=== PATIENT | male | born 1965 ===

== ENCOUNTER 2020-10-16 12:59 | Outpatient (REF) | payer MEDICARE, MEDICAID, SELFPAY ==
[2020-10-16 13:49] LABS: Creatinine Urine 147.22 mg/dL; Microalbum/Creatinine Ratio Ur 3.3 ug/mg cr
== END 2020-10-16 13:00 | disposition home or self-care (01) ==
LOC: HO.LNP 12:59
PROVIDERS: Visit Provider Family Medicine
DX: I10 Essential (primary) hypertension (principal)
CPT/HCPCS: 82043

== ENCOUNTER 2021-01-13 | Outpatient (REF) | payer MEDICARE, MEDICAID, SELFPAY ==
[2021-01-14 11:42] LABS: Creatinine Urine 102.56 mg/dL; Microalbumin Urine < 5.0 mg/L
== END 2021-01-13 00:01 | disposition home or self-care (01) ==
LOC: HO.LNP
PROVIDERS: Visit Provider Family Medicine
DX: I10 Essential (primary) hypertension (principal)
CPT/HCPCS: 82043

== ENCOUNTER 2021-08-21 08:12 | Outpatient (REF) | payer MEDICARE, MEDICAID, SELFPAY ==
[2021-08-21 12:01] LABS: Alanine Aminotransferase 20 U/L (0-40); Albumin Level 4.1 g/dL (3.5-5.0); Alkaline Phosphatase 76 U/L (39-117); Anion Gap 13 (12-20); Aspartate Amino Transferase 18 U/L (5-37); Bilirubin Total 1.2 mg/dL (0.0-1.0); Blood Urea Nitrogen 12 mg/dL (9-16); Calcium 9.2 mg/dL (8.4-10.2); Carbon Dioxide 26 mmol/L (22-29); Chloride 104 mmol/L (96-108); Cholesterol 189 mg/dL; Estimated Glomerular Filt Rate > 60; Glucose Fasting 98 mg/dL (60-99); HDL Cholesterol 41 mg/dL; LDL Cholesterol Calculated 130 mg/dl; Potassium 3.6 mmol/L (3.3-5.1); Sodium 139 mmol/L (135-145); Total Protein 6.6 g/dL (6.5-8.0); Triglycerides 91 mg/dL
[2021-08-21 12:12] LABS: Prostate Specific Antigen Scr 0.25 ng/mL (<0.05-4.0); TSH reflex Free T4 1.64 uIU/mL (0.32-4.0)
== END 2021-08-21 08:13 | disposition home or self-care (01) ==
LOC: HO.WFDLDS 08:12
PROVIDERS: Visit Provider Family Medicine
DX: Z00.00 Encounter for general adult medical examination without abnormal findings (principal); Z12.5 Encounter for screening for malignant neoplasm of prostate
CPT/HCPCS: 36415; 80053; 80061; 84153; 84443

== ENCOUNTER 2021-09-02 16:18 | Outpatient (REF) | payer MEDICARE, MEDICAID, SELFPAY ==
--- NOTE | ~2021-09-02 | US_ITS ---
EXAMINATION: US THYROID CLINICAL INFORMATION: Localized swelling, mass and lump, neck. COMPARISON: None. TECHNIQUE: Linear transducer grayscale and color Doppler examination with attention to the region of the thyroid. FINDINGS: SIZE: Measurements of the thyroid lobes and nodules are given in sagittal, anteroposterior and transverse dimensions respectively. Right Thyroid Lobe: 5.1 x 1.9 x 2.1 cm, volume 10.6 mL. Parenchyma: The gland echotexture is homogeneous. Thyroid vascularity is normal. Left Thyroid Lobe: 4.3 x 1.6 x 1.7 cm, volume 6.1 mL. Parenchyma: The gland echotexture is homogeneous. Thyroid vascularity is normal. Isthmus: 0.8 cm in maximum AP dimension. No focal thyroid nodule is seen. NODES: No lymphadenopathy is seen in the tissue surrounding the thyroid gland. US/US thyroid IMPRESSION: Prominent right lobe and isthmus. No nodule or adenopathy is seen..
== END 2021-09-02 16:19 | disposition home or self-care (01) ==
LOC: HO.US 16:18
PROVIDERS: PCP Family Medicine; Visit Provider Family Medicine
DX: R22.1 Localized swelling, mass and lump, neck (principal)
CPT/HCPCS: 76536

== ENCOUNTER 2021-10-02 13:44 | Outpatient (REF) | payer MEDICARE, MEDICAID, SELFPAY ==
--- NOTE | 2021-10-02 15:21 | MHC.AU.ANR ---
Adult Audiological Evaluation Date of Visit: 10/02/21 Reason for Appointment: Audiological evaluation due to concern for decreased hearing. Mr. King feels his hearing has gradually worsening. He notes that he has been asking for repetition more recently. He feels his right ear is worse than his left. 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, construction, trucks, warehouses Medical History: Medical History: Head Injury, High Blood Pressure, Tobacco Use Medical History (Other): Has had surgeries on his stomach, leg, arms, neck, and back Medication List: Lisinopril -HCTZ 20/25 mg, Gabapentin 300 mg Otoscopy: Right Ear: Partially occluded with cerumen Left Ear: Unremarkable Tympanometry: Tympanometry performed due to: To assess integrity of the middle ear system Right Ear: Reduced Middle Ear Compliance (Type As) Left Ear: Reduced Middle Ear Compliance (Type As) Hearing Evaluation: Transducer(s) Used: Insert Earphones, Bone Conduction Method: Conventional Audiometry Stimuli Used: Pure Tones Right Ear: Description of Hearing: Normal hearing from 250-2000 Hz, sloping to a mild sensorineural hearing loss from 7394-9701 Hz, rising to normal hearing at 6000 Hz, and sloping to a mild hearing loss at 8000 Hz. Left Ear: Description of Hearing: Normal hearing from 250-1500 Hz, sloping to a mild to moderate sensorineural hearing loss from 0920-5757 Hz, and rising to normal hearing at 8000 Hz. Speech Recognition Threshold (SRT): Method Used: Monitored Live Voice Stimuli Used: Spondee Words Right Ear: 15 dBHL Left Ear: 10 dBHL Word Discrimination: Method: Recorded Lists Word Lists Used: NU-6 Right Ear: 92% at 55 dBHL Left Ear: 84% at 55 dBHL Recommendations: Audiological re-evaluation in one year. Patient does not feel they are ready for amplification at this time. Hearing protection should be used when around loud noise. Mr. King is considered a borderline candidate for amplification. Discussed hearing aids briefly, but Mr. King is not interested in pursuing hearing aids at this time. Diagnosis: Primary Diagnosis: H90.3 Bilateral Sensorineural Hearing Loss Services Performed: Services Performed: Comprehensive Audiological Evaluation (CPT 38439) Tympanometry (CPT 29808) Signature: Provider: Diann Weston, CCC-A
== END 2021-10-02 13:45 | disposition home or self-care (01) ==
LOC: HO.SH 13:44
PROVIDERS: Visit Provider Family Medicine
DX: H91.90 Unspecified hearing loss, unspecified ear (principal)
CPT/HCPCS: 92557; 92567

== ENCOUNTER 2021-10-15 11:12 | Outpatient (REF) | payer MEDICARE, MEDICAID, SELFPAY ==
--- NOTE | ~2021-10-15 | US_ITS ---
EXAMINATION: US ABDOMEN LIMITED CLINICAL INFORMATION: Palpated mass. Evaluate for hernia. COMPARISON: None TECHNIQUE: Real-time imaging of the midline abdomen, periumbilical region and right and left lower quadrants in the regions of concern. FINDINGS: No hernia seen by ultrasound. No soft tissue mass or fluid collection is seen. US/US abdomen limited IMPRESSION: No hernia seen by ultrasound.
== END 2021-10-15 11:13 | disposition home or self-care (01) ==
LOC: HO.HMGCX 11:12
PROVIDERS: PCP Family Medicine; Visit Provider Family Medicine
DX: R19.00 Intra-abdominal and pelvic swelling, mass and lump, unspecified site (principal)
CPT/HCPCS: 76705

== ENCOUNTER 2021-12-09 13:14 | Outpatient (REF) | payer MEDICARE, MEDICAID, SELFPAY ==
[2021-12-09 14:29] LABS: Binax Internal Control QC Valid; Binax Now Covid-19 Ag Negative (Negative)
== END 2021-12-09 13:15 | disposition home or self-care (01) ==
LOC: HO.LAB 13:14
PROVIDERS: Visit Provider Internal Medicine
DX: Z20.822 Contact with and (suspected) exposure to COVID-19 (principal)
CPT/HCPCS: C9803

== ENCOUNTER 2022-01-06 15:00 | Outpatient (RCR) | payer MEDICARE, MEDICAID, SELFPAY ==
[2021-12-14 15:10] VITALS: BP 125/85
--- NOTE | 2021-12-14 16:45 | MHC.PT.EP ---
[facility] [place] Office [place] Office [place] Office [address] Peter Bean [address] [phone] F: [phone] F: [phone] F: [phone] F: [phone] Physical Therapy Plan of Care Date of Evaluation: Date of Surgery: Diagnosis: Pain in L foot. Assessment: Frequency and Duration: The patient will be seen 2 x / wk x 4 weeks. Short Term Goals: Improve baseline pain with standing and ambulating from 8/10 to at most 5/10. Initiate HEP. Skilled Nursing Goals: I with HEP. Pt will b able to walk 2 blocks with no difficulty d/t heel pain; initial moderate difficulty. Improve LEFI by at least 9 points. Pt no longer TTP of L heel; initial 3+ (considerable). Treatment Plan: Modalities to reduce pain, spasms and effusion. Manual therapy to restore motion and function. Therapeutic exercise to improve strength and flexibility. Neuromuscular re-education for posture and balance. Therapeutic activities to return to functional activities of daily living. Electronically signed by: Tl House PT. Please sign and return to therapist. Thank you for your referral.
--- NOTE | 2022-02-01 09:55 | MHC.PT.DC ---
[facility] [place] Office [place] Office [place] Office [address] Peter Bean [address] [phone] F: [phone] F: [phone] F: [phone] F: [phone] Physical Therapy Discharge Report Diagnosis: Pain in L foot. Date of Surgery: Date of Evaluation: 12/14/21 Date of Discharge: 02/01/22 Treatments to Date: 7 Cancellations to Date: No Shows to Date: 3 Discharge Status: Recommend MD Follow-up Visit Non-compliance Discharge Summary: Pt attended 7 sessions for L foot pain with good clinic participation and inconsistent home program compliance with minimal improvement in his pain; logged 3 no show appts and is DC'd per attendance policy. Electronically signed by: Tl House PT. Please sign and return to therapist. Thank you for your referral.
== END 2022-02-01 09:55 | disposition home or self-care (01) ==
LOC: HO.PTCHIC 15:00
PROVIDERS: Visit Provider Family Medicine
DX: M79.672 Pain in left foot (principal)
CPT/HCPCS: 97035; 97110; 97112; 97140; 97161; 97530

== ENCOUNTER 2022-01-11 07:08 | Outpatient (REF) | payer MEDICARE, MEDICAID, SELFPAY ==
--- NOTE | ~2022-01-11 | XR_ITS ---
EXAMINATION: XR FOOT, LEFT CLINICAL INFORMATION: Pain in left foot COMPARISON: None TECHNIQUE: AP, lateral, and oblique views of the left foot. FINDINGS: There is a loss of first MTP joint space with minimal periarticular spurring. Rest of the digits are unremarkable. No acute fracture or lytic process. No abnormality seen along the lateral midfoot of the hindfoot area of an arrow has been placed. The ankle mortise and subtalar joints are normal. There is a moderate-sized retrocalcaneal enthesophyte. The soft tissues are normal. XR/XR foot LT 2V IMPRESSION: Moderate size retrocalcaneal enthesophyte. No visible acute fracture or dislocation.
== END 2022-01-11 07:09 | disposition home or self-care (01) ==
LOC: HO.XRAY 07:08
PROVIDERS: PCP Family Medicine; Visit Provider Family Medicine
DX: M79.672 Pain in left foot (principal)
CPT/HCPCS: 73620

== ENCOUNTER 2022-02-22 10:17 | Outpatient (REF) | payer MEDICARE, MEDICAID, SELFPAY ==
[2022-02-22 12:04] LABS: Alanine Aminotransferase 19 U/L (0-40); Albumin Level 4.2 g/dL (3.5-5.0); Alkaline Phosphatase 76 U/L (39-117); Anion Gap 9 (12-20); Aspartate Amino Transferase 15 U/L (5-37); Bilirubin Total 0.7 mg/dL (0.0-1.0); Blood Urea Nitrogen 13 mg/dL (9-16); Calcium 9.7 mg/dL (8.4-10.2); Carbon Dioxide 32 mmol/L (22-29); Chloride 102 mmol/L (96-108); Cholesterol 220 mg/dL; Estimated Glomerular Filt Rate > 60; Glucose Fasting 92 mg/dL (60-99); HDL Cholesterol 37 mg/dL; LDL Cholesterol Calculated 160 mg/dl; Potassium 4.3 mmol/L (3.3-5.1); Sodium 139 mmol/L (135-145); Total Protein 6.8 g/dL (6.5-8.0); Triglycerides 116 mg/dL
[2022-02-22 12:23] LABS: Prostate Specific Antigen Scr 0.13 ng/mL (<0.05-4.0); TSH reflex Free T4 1.26 uIU/mL (0.32-4.0)
[2022-02-22 13:45] LABS: Appearance Urine CLEAR; Color Urine YELLOW; Glucose Urine UA NEG (NEG); Leukocyte Esterase Urine NEG (NEG); Nitrite Urine NEG (NEG); Urine Blood TRACE (NEG); Urine Ketones NEG (NEG); Urine Protein NEG (NEG-TRACE)
[2022-02-22 13:55] LABS: RBC Urine 0-2 /HPF (0); Squamous Epithelial Cell Urine TRACE /LPF
[2022-02-22 14:18] LABS: Creatinine Urine 63.25 mg/dL; Microalbumin Urine < 5.0 mg/L
== END 2022-02-22 10:18 | disposition home or self-care (01) ==
LOC: HO.WFDLDS 10:17
PROVIDERS: Visit Provider Family Medicine
DX: Z00.00 Encounter for general adult medical examination without abnormal findings (principal); Z12.5 Encounter for screening for malignant neoplasm of prostate; I10 Essential (primary) hypertension
CPT/HCPCS: 36415; 80053; 80061; 81001; 82043; 84153; 84443

== ENCOUNTER → 2022-05-19 14:22 | Outpatient (BNVA) | payer MEDICARE, MEDICAID, SELFPAY | PROVIDERS: PCP Family Medicine; Visit Provider Internal Medicine | DX: G47.33 Obstructive sleep apnea (adult) (pediatric) (principal); E66.01 Morbid (severe) obesity due to excess calories; Z99.89 Dependence on other enabling machines and devices; Z68.41 Body mass index [BMI] 40.0-44.9, adult | CPT/HCPCS: 99202 ==

== ENCOUNTER 2022-06-24 12:18 | Outpatient (REF) | payer OTHER, SELFPAY ==
[2022-06-24 13:44] LABS: MANUAL DIFF FLAG NO
[2022-06-24 13:51] LABS: Basophils Percent Auto 0.7 % (0-2); Eosinophils Absolute Auto 0.2 X10*3/uL (0.0-0.4); Eosinophils Percent Auto 3.6 % (0-4); Hematocrit 42.3 % (42.0-52.0); Imm Gran Abs Auto 0.02 X10*3/uL (0.00-0.03); Imm Gran Pct Auto 0.4 % (0.0-0.4); Lymphocytes Absolute Auto 1.9 X10*3/uL (1.2-4.9); Lymphocytes Percent Auto 42.2 % (20-40); Mean Corpuscular HGB Conc 33.1 g/dl (31.0-36.0); Mean Corpuscular Hemoglobin 30.6 pg (27.0-33.0); Mean Corpuscular Volume 92.6 fL (80.0-98.0); Mean Platelet Volume 11.8 fL (9.4-12.4); Monocytes Absolute Auto 0.5 X10*3/uL (0.1-1.2); Monocytes Percent Auto 11.5 % (2-11); Neutrophils Absolute Auto 1.9 x10*3/uL (2.0-8.3); Neutrophils Percent Auto 41.6 % (45-73); Platelet Count 160 X10*3/uL (160-400); Red Blood Count 4.57 X10*6/uL (4.60-5.80); Red Cell Distribution Width 12.5 % (11.0-16.0); White Blood Count 4.5 X10*3/uL (4.8-10.8)
[2022-06-24 14:09] LABS: Alanine Aminotransferase 26 U/L (0-40); Albumin Level 4.1 g/dL (3.5-5.0); Alkaline Phosphatase 76 U/L (39-117); Anion Gap 10 (12-20); Aspartate Amino Transferase 27 U/L (5-37); Bilirubin Total 1.1 mg/dL (0.0-1.0); Blood Urea Nitrogen 19 mg/dL (9-16); Calcium 9.3 mg/dL (8.4-10.2); Carbon Dioxide 30 mmol/L (22-29); Chloride 102 mmol/L (96-108); Estimated Glomerular Filt Rate > 60; Glucose Random 97 mg/dL (60-115); Potassium 3.7 mmol/L (3.3-5.1); Sodium 138 mmol/L (135-145); Total Protein 6.5 g/dL (6.5-8.0)
[2022-06-24 14:41] LABS: Troponin-I High Sensitivity 61.4 ng/L (<3.5-35.0)
== END 2022-06-24 12:19 | disposition home or self-care (01) ==
LOC: HO.WFDLDS 12:18
PROVIDERS: Visit Provider Family Medicine
DX: Z00.00 Encounter for general adult medical examination without abnormal findings (principal); R01.1 Cardiac murmur, unspecified; R07.9 Chest pain, unspecified; R42 Dizziness and giddiness
CPT/HCPCS: 36415; 80053; 84484; 85025

== ENCOUNTER → 2022-07-14 14:50 | Outpatient (BNVA) | payer MEDICARE, MEDICAID, SELFPAY | PROVIDERS: PCP Family Medicine; Visit Provider Internal Medicine | DX: G47.33 Obstructive sleep apnea (adult) (pediatric) (principal); E66.01 Morbid (severe) obesity due to excess calories; Z68.39 Body mass index [BMI] 39.0-39.9, adult; Z99.89 Dependence on other enabling machines and devices | CPT/HCPCS: 99212 ==

== ENCOUNTER → 2022-07-27 09:19 | Outpatient (REF) | payer MEDICARE, MEDICAID, SELFPAY | LOC: HO.SL 09:19 | PROVIDERS: PCP Family Medicine; Visit Provider Internal Medicine | DX: R94.31 Abnormal electrocardiogram [ECG] [EKG] (principal); I10 Essential (primary) hypertension; I35.8 Other nonrheumatic aortic valve disorders | CPT/HCPCS: 99202 ==

== ENCOUNTER → 2022-08-05 14:58 | Outpatient (REF) | payer MEDICARE, MEDICAID, SELFPAY ==
--- NOTE | 2022-08-05 15:01 | CA_ITS ---
Transthoracic Echocardiogram Patient (Last, First, Middle): Javier Sanders O Gender: Male Date of : 1965 Age: 56 Procedure Date: 08/05/2022 Procedure Type: Transthoracic Echocardiogram Location: OP Height: 165.1 cm Weight: 107.05 kg BSA: 2.12 m2 Heart Rate: bpm BP: 110 / 60 mmHg Assistant Director Of Nursing: TO Referring MD: Igor Mejia MD Public Health: Diego Gray MD Symptoms: I35.0 - Nonrheumatic aortic (valve) stenosis Study Quality: Technically Difficult/Contrast ECG Rhythm: Sinus Conclusions: - 1. Normal LV systolic function with mild LVH and impaired relaxation filling pattern 2. Moderately dilated left atrium 3. Mild aortic stenosis 4. Normal RV systolic pressure 5. Mildly dilated ascending aorta at 3.7 cm 6. No pericardial effusion Findings Procedure Information Contrast agent, definity, is being given per protocol without apparent complications. Left Ventricle Normal left ventricular size and systolic function. There is mildly increased left ventricular wall thickness. The visually estimated ejection fraction is between 65-70%. Spectral Doppler is indicative of an impaired relaxation filling pattern. E/E prime ratio is between 8 and 15 consistent with indeterminate filling pressures. Right Ventricle Normal right ventricular cavity size and systolic function. Atria The left atrium is moderately dilated. Interatrial shunt cannot be excluded. The right atrium is normal in size. Aortic Valve The aortic valve was not well visualized. There is mild calcification of the aortic valve. There is mild aortic valve stenosis. The peak aortic gradient is 21 mmHg.The mean gradient is 12 mmHg. There is no aortic valve regurgitation. Mitral Valve There is mild anterior and moderate posterior mitral leaflet thickening. There is severe mitral annular calcification. There is trace mitral valve regurgitation. There is no mitral valve stenosis. Pulmonic Valve The pulmonic valve was not well visualized. Tricuspid Valve Likely normal tricuspid valve structure and function. There is mild tricuspid valve regurgitation. The right ventricular systolic pressure is normal. The right ventricular systolic pressure is 26 mmHg. Normal right atrial pressure. There is no evidence of pulmonary hypertension. Great Vessels The pulmonary artery was not well visualized. There is mild dilatation of the ascending aorta. Moderate plaque is seen in the sino tubular ridge. Venous The inferior vena cava is normal in size and collapses greater than 50% with inspiration. Pericardium/Pleural There is no evidence of pericardial effusion. Prior Study Comparison No prior study available for comparison. Measurements 2D Linear Measurements IVSd: 1.24 0.6-0.9/0.6-1.0 cm LVIDd: 5.22 3.9-5.3/4.2-5.9 cm LVIDd Index: 2.46 2.4-3.2/2.2-3.1 cm/m2 LVIDs: 3.18 2.0-3.6 cm LVPWd: 1.22 0.7-1.1 cm LA Diam: 4.40 2.7-3.8/3.0-4.0 cm LAIDs Index: 2.08 1.5-2.3 cm/m2 LV Mass: 323.18 67-162/88-224 g LV Mass Index: 152.44 43-95/49-115 g/m2 LVOT Diam: 2.20 3.0+(-)1.3 cm 2D Systolic Function EF 4C: 70.60 >55% EF 2C: 60.40 >55% EF BiP: 65.80 >55% Mitral Valve MV VTI: 0.44 MV Pk Braxton: 1.22 MV Mn Braxton: 0.62 MV Pk Grad: 6.00 MV Mn Grad: 2.00 MV Pk E: 0.98 MV PK A: 1.08 MV Decel Time: 328.00 E/A: 0.90 E'Lateral: 4.79 E'Medial: 4.57 E/E' Med: 21.40 E/E' Lat: 20.40 PHT: 96.00 MVA PHT: 2.29 MVA Continuity: 2.12 Decel [place]: 2.98 Aortic Valve AoV Pk Braxton: 2.29 AoV Mn Braxton: 1.57 AoV VTI: 0.42 AoV Pk Grad: 21.00 Aov Mn Grad: 12.00 RUPESH Cont.VTI: 2.22 LVOT LVOT Pk Braxton: 1.33 LVOT Mn Braxton: 0.84 LVOT VTI: 0.24 LVOT Pk Grad: 7.00 LVOT Mn Grad: 3.00 LVOT Diam: 2.20 LVOT Area: 3.80 Diastolic Function MV Pk E: 0.98 MV Pk A: 1.08 E/A: 0.90 E'Medial: 4.57 E/E' Med: 21.40 E' Laterial: 4.79 E/E' Lat: 20.40 Right Ventricle TAPSE (mm): 25.90 TVS' Braxton: 13.20 Tricuspid Valve TR Pk Braxton: 2.40 TR Pk Grad: 23.00 RA Press: 3.00 RVSP: 26.00 Great Vessels Aorta Sinus of Valsalva: 3.47 2.0-3.[address] [place]: 2.39 1.7-3.4 cm Ao Asc: 3.70 2.1-3.4 cm Updated in Other Vendor System with Status of Final Diego Gray MD electronically signed on 08/05/2022 5:54:50 PM with status of Final
== END ==
LOC: HO.CARD 14:58
PROVIDERS: PCP Family Medicine; Visit Provider Internal Medicine
DX: I35.0 Nonrheumatic aortic (valve) stenosis (principal)
CPT/HCPCS: 93306; Q9957

== ENCOUNTER → 2022-09-08 08:09 | Outpatient (BNVA) | payer MEDICARE, MEDICAID, SELFPAY | PROVIDERS: PCP Family Medicine; Referring Provider Family Medicine; Visit Provider Physician Assistant | DX: Z01.818 Encounter for other preprocedural examination (principal); E66.01 Morbid (severe) obesity due to excess calories; Z86.010 Personal history of colon polyps; G47.33 Obstructive sleep apnea (adult) (pediatric); Z99.89 Dependence on other enabling machines and devices | CPT/HCPCS: 99202 ==

== ENCOUNTER → 2022-09-15 13:15 | Outpatient (REF) | payer MEDICARE, MEDICAID, SELFPAY | LOC: HO.SL 13:15 | PROVIDERS: Visit Provider Internal Medicine | DX: G47.33 Obstructive sleep apnea (adult) (pediatric) (principal); R07.9 Chest pain, unspecified; E66.01 Morbid (severe) obesity due to excess calories | CPT/HCPCS: 95806 ==

== ENCOUNTER → 2022-09-16 12:43 | Outpatient (BNVA) | payer MEDICARE, MEDICAID, SELFPAY | PROVIDERS: PCP Family Medicine; Referring Provider Family Medicine; Visit Provider Nurse Practitioner Family | DX: I35.0 Nonrheumatic aortic (valve) stenosis (principal); I51.7 Cardiomegaly; R94.31 Abnormal electrocardiogram [ECG] [EKG]; I10 Essential (primary) hypertension; E78.5 Hyperlipidemia, unspecified; E66.01 Morbid (severe) obesity due to excess calories; G47.33 Obstructive sleep apnea (adult) (pediatric); F17.290 Nicotine dependence, other tobacco product, uncomplicated; Z68.41 Body mass index [BMI] 40.0-44.9, adult; Z99.89 Dependence on other enabling machines and devices; Z98.890 Other specified postprocedural states | CPT/HCPCS: 99212 ==

== ENCOUNTER → 2022-09-27 09:06 | Outpatient (BNVA) | payer MEDICARE, MEDICAID, SELFPAY | PROVIDERS: PCP Family Medicine; Visit Provider Internal Medicine | DX: G47.33 Obstructive sleep apnea (adult) (pediatric) (principal); E66.01 Morbid (severe) obesity due to excess calories; Z68.41 Body mass index [BMI] 40.0-44.9, adult; Z99.89 Dependence on other enabling machines and devices | CPT/HCPCS: 99212 ==

== ENCOUNTER → 2022-11-23 13:33 | Outpatient (BNVA) | payer MEDICARE, MEDICAID, SELFPAY | PROVIDERS: PCP Family Medicine; Visit Provider Internal Medicine | DX: G47.33 Obstructive sleep apnea (adult) (pediatric) (principal); J30.9 Allergic rhinitis, unspecified; E66.9 Obesity, unspecified; Z68.38 Body mass index [BMI] 38.0-38.9, adult; Z99.89 Dependence on other enabling machines and devices | CPT/HCPCS: 99212 ==

== ENCOUNTER 2023-06-27 09:21 | Outpatient (AMB) | payer OTHER, MEDICAID, SELFPAY ==
--- NOTE | 2023-06-27 09:43 | A.OFFPC_ITS ---
Vital Signs 06/27/23 09:45 Height 5 ft 5 in Weight 233 lb BMI 38.8 BP 120/72 Blood Pressure Location Lt brachial Position Sitting Pulse 55 Pulse Source Pulse Oximeter Pulse Oximetry (%) 97 Intake Visit Reasons: f/u CP, HTN, dizziness Intake Note: pt is here for cp, htn, dizziness, also has a positive SARAH/PHQ9 screening Sales Record Clerk Required: No Accompanied by: Self / Same As Patient Allergies onion Allergy (Intermediate, Verified 06/27/23 09:44) sneezing Peanut Butter Allergy (Intermediate, Verified 06/27/23 09:44) Sneezing cats Allergy (Mild, Uncoded 05/20/23 10:48) free text dust Allergy (Mild, Uncoded 05/20/23 10:48) free text Medication List - Last Reconciled 06/27/23 by Sher Guzman MD gabapentin 300 mg PO DAILY lisinopril-hydrochlorothiazide 20-25 mg 1 tab PO DAILY omeprazole 40 mg PO DAILY 30 days Tobacco use date assessed: 02/10/23 Dental Screening Dental Screen Date: 06/27/23 Did you have a dental visit in the last 12 months?: Yes Did you have a dental problem in the last 6 months where you did not have access to dental care?: No Was dental information given to patient?: Patient has dentist HPI f/u CP, HTN, dizziness HPI Details 57 y/o male presents to f/u chest pain, hypertension and dizziness. Had seen Cardiology in April. They had wanted to get an echocardiogram and a stress test. He reports had done these and has an appt. with them in June. Blood pressure today is 120/72. He is on lisinopril-HCTZ 20-25mg daily. Pt reports anxiety/depression. He reports stress from his mother who has Alzheimer's. [facility] Medical History HTN (hypertension) Hyperlipidemia Obesity (BMI 30-39.9) Surgical History History of cardiac catheterization (~2014) History of carpal tunnel syndrome History of knee replacement procedure of right knee History of neck surgery History of spinal surgery History of surgery History of surgery History of tooth extraction Hx of colonoscopy Family History Father No problems noted. Mother Diabetes mellitus Stroke Other Mental health disorder Substance use disorder Social History Housing: Apartment Alcohol intake: never Patient Tobacco Use Status: Current everyday Tobacco user Tobacco use type: Cigar Cigarettes Per Day: 1 e-Cigarette/Vaping Use: Never Used Second Hand Smoke Exposure: Yes service: No Current occupational status: disabled Current occupational exposures/hazards: No Cognitive needs: No (cane) Hearing needs: No Vision needs: Yes (Glasses) Questionnaire PHQ-9 Over the last 2 weeks, how often have you been bothered by any of the following problems? 1. Little interest or pleasure in doing things: nearly every day 2. Feeling down, depressed, or hopeless: nearly every day 3. Trouble falling or staying asleep, or sleeping too much: nearly every day 4. Feeling tired or having little energy: nearly every day 5. Poor appetite or overeating: not at all 6. Feeling bad about yourself - or that you are a failure or have let yourself or your family down: several days 7. Trouble concentrating on things, such as reading the newspaper or watching television: several days 8. Moving or speaking so slowly that other people could have noticed. Or the opposite - being so fidgety or restless that you have been moving around a lot more than usual: several days 9. Thoughts that you would be better off or of hurting yourself in some way: several days Total score: 16 Depression Screening Interpretation: Positive 30248 - PHQ-9 Billing: Yes Source: Developed by Drs. Abdirahman Dallas, Minna Hernandez, Kennedy Phillips and colleagues, with an educational jayy from [employer]. Thrive Questionnaire Date Thrive assessed: 12/11/21 SARAH-7 AMB Questionnaire SARAH-7 Date SARAH - 7 assessed: 06/27/23 Feeling nervous, anxious, or on edge: 3 = Nearly every day Not being able to stop or control worryin = Nearly every day Worrying too much about different things: 3 = Nearly every day Trouble relaxin = More than half the days Being so restless that it is hard to sit still: 3 = Nearly every day Becoming easily annoyed or irritable: 3 = Nearly every day Feeling afraid as if something awful might happen: 0 = Not at all Total SARAH-7 score (0-4 normal; 5-9 mild; 10-14 moderate; 15-21 severe): 17 Source: Developed by Drs. Abdirahman Dallas, Minna Hernandez, Kennedy Phillips and colleagues, with an educational jayy from [employer]. SARAH-7 Assessment Billing SARAH-7 Assessment Tool: SARAH-7 Assessment 52517 Physical exam (Primary Care) Vital Signs: Last Vital Signs Pulse 55 06/27/23 09:45 BP 120/72 06/27/23 09:45 Pulse Ox 97 06/27/23 09:45 BMI result Body Mass Index 38.8 Tobacco/Smoking Status: Tobacco use Status Tobacco use date assessed 02/10/23 06/27/23 09:44 Patient Tobacco Use Status Current everyday Tobacco 06/27/23 09:44 Tobacco use type Cigar 06/27/23 09:44 e-Cigarette/Vaping Use Never Used 06/27/23 09:44 PHQ-9: PHQ-9 Score PHQ-9: Total score 16 06/27/23 10:09 Depression Screening Interpretation: Positive Thrive Assessment: Date of Thrive Assessment Date Thrive assessed 12/11/21 06/27/23 09:44 Assessment and Plan Assessment & Plan (1) Chest discomfort: Code(s): R07.89 - Other chest pain Plan: Patient is followed by cardiology and has an upcoming appointment. Recent echocardiogram stable Follow-up with Cardiology as recommended (2) Essential hypertension: Code(s): I10 - Essential (primary) hypertension Plan: Blood pressure is well controlled. Goal is less than 130/80 Continue current medication regimen (3) Anxiety with depression: Code(s): F41.8 - Other specified anxiety disorders Plan: Significant anxiety and depression. Patient has increased stressors such as a mom with Alzheimer's Has had a therapist but is frustrated with therapists currently Agrees to trial citalopram-we will follow-up in 1 month I asked the nurse navigator to see him today I wait for any other services we can offer Coding Level of Care Code Est Pt Level 4 (39910) Diagnoses Chest discomfort R07.89 Essential hypertension I10 Anxiety with depression F41.8 Additional Codes SARAH-7 Assessment Billing - SARAH-7 Assessment Tool: SARAH-7 Assessment 44536 ([id number])
[2023-06-27 09:45] VITALS: BP 120/72; PULSE 55; O2SAT 97; BMI 38.8
== END 2023-06-27 10:47 | disposition home or self-care (01) ==
PROVIDERS: PCP Family Medicine; Visit Provider Family Medicine
DX: R07.89 Other chest pain (principal); I10 Essential (primary) hypertension; F41.8 Other specified anxiety disorders
CPT/HCPCS: 96127; 99214

== ENCOUNTER 2023-07-14 14:03 | Outpatient (AMB) | payer OTHER, MEDICAID, SELFPAY ==
--- NOTE | 2023-07-14 14:12 | MHC.PC.OV ---
Vital Signs 07/14/23 14:13 Height 5 ft 5 in Weight 232 lb BMI 38.6 BP 122/72 Blood Pressure Location Lt brachial Position Standing Pulse 74 Pulse Source Pulse Oximeter Pulse Oximetry (%) 97 Oxygen Delivery Method Room Air Intake Visit Reasons: Testicular pain Intake Note: Patient is here with testicular pain, and has to go to the bathroom a lot. Allergies onion Allergy (Intermediate, Verified 07/14/23 14:17) sneezing Peanut Butter Allergy (Intermediate, Verified 07/14/23 14:17) Sneezing cats Allergy (Mild, Uncoded 07/14/23 14:17) free text dust Allergy (Mild, Uncoded 07/14/23 14:17) free text Tobacco use date assessed: 07/14/23 Dental Screening Dental Screen Date: 07/14/23 Did you have a dental visit in the last 12 months?: Yes Did you have a dental problem in the last 6 months where you did not have access to dental care?: No Was dental information given to patient?: Patient has dentist HPI Testicular pain HPI Details 57 y/o male presents today with complaints of testicular pain, R worse than L. He reports testicular pain has been ongoing for awhile but has gotten worse. He also reports urinary frequency with normal volumes. He reports clear urine. He denies any dysuria. He denies excessive thirst. Pt reports he is in a monogamous relationship with his . Urine dip today is normal. [facility] Medical History HTN (hypertension) Hyperlipidemia Obesity (BMI 30-39.9) Surgical History History of cardiac catheterization (~2014) History of carpal tunnel syndrome History of knee replacement procedure of right knee History of neck surgery History of spinal surgery History of surgery History of surgery History of tooth extraction Hx of colonoscopy Family History Father No problems noted. Mother Diabetes mellitus Stroke Other Mental health disorder Substance use disorder Social History Housing: Apartment Alcohol intake: never Patient Tobacco Use Status: Current everyday Tobacco user Tobacco use type: Cigar Cigarettes Per Day: 1 e-Cigarette/Vaping Use: Never Used Second Hand Smoke Exposure: Yes service: No Current occupational status: disabled Current occupational exposures/hazards: No Cognitive needs: No (cane) Hearing needs: No Vision needs: Yes (Glasses) Questionnaire Thrive Questionnaire Date Thrive assessed: 12/11/21 SARAH-7 AMB Questionnaire SARAH-7 Date SARAH - 7 assessed: 06/27/23 Source: Developed by Drs. Abdirahman Dallas, Minna Hernandez, Kennedy Phillips and colleagues, with an educational jayy from [employer]. Physical exam (Primary Care) Vital Signs: Last Vital Signs Pulse 74 07/14/23 14:13 BP 122/72 07/14/23 14:13 Pulse Ox 97 07/14/23 14:13 Oxygen Delivery Method Room Air 07/14/23 14:13 BMI result Body Mass Index 38.6 Tobacco/Smoking Status: Tobacco use Status Tobacco use date assessed 07/14/23 07/14/23 14:23 Patient Tobacco Use Status Current everyday Tobacco 07/14/23 14:23 Tobacco use type Cigar 07/14/23 14:23 e-Cigarette/Vaping Use Never Used 07/14/23 14:23 Thrive Assessment: Date of Thrive Assessment Date Thrive assessed 12/11/21 07/14/23 14:23 Assessment and Plan Assessment & Plan (1) Testicular pain: Code(s): N50.819 - Testicular pain, unspecified Plan: Longstanding testicular pain, right worse than left but has been worsening lately. He also notes some increased frequency but normal volumes and no burning He mentions that he has had some changes in sexual behavior with his but believes they are both still monogamous. Testicular exam today is within normal limits without hernias or lumps, bumps or nodules. No penile discharge Will check urine studies and also GC/chlamydia. Will send patient for ultrasound Meantime, recommended patient try to get undergarments which are cooler and still provide good support May need referral to urology (2) Urinary frequency: Code(s): R35.0 - Frequency of micturition Plan: As above Also, patient denies excess thirst and prior fasting blood sugars have been okay with the exception of 1 outlier Orders: Orders Urine Culture Today N50.819 - Testicular pain, unspecified CT NG by PCR Today N50.819 - Testicular pain, unspecified, Z11.3 - Encounter for screening for infections with a predominantly sexual mode of transmission UA and rflx microscopic Today N50.819 - Testicular pain, unspecified, Z00.00 - Encounter for general adult medical examination without abnormal findings US scrotum Today N50.819 - Testicular pain, unspecified Urine Dipstick Today N50.819 - Testicular pain, unspecified Medications: New citalopram 20 mg PO DAILY 30 days 30 tabs 2RF Refilled gabapentin 300 mg PO DAILY 90 caps 3RF 90 days Coding Level of Care Code Est Pt Level 3 (45462) Diagnoses Testicular pain N50.819 Urinary frequency R35.0
[2023-07-14 14:13] VITALS: BP 122/72; PULSE 74; O2SAT 97; BMI 38.6
== END 2023-07-14 14:57 | disposition home or self-care (01) ==
PROVIDERS: PCP Family Medicine; Visit Provider Family Medicine
DX: N50.819 Testicular pain, unspecified (principal); R35.0 Frequency of micturition
CPT/HCPCS: 99213

== ENCOUNTER 2023-07-14 14:33 | Outpatient (REF) | payer OTHER, MEDICAID, SELFPAY ==
[2023-07-15 11:19] LABS: Appearance Urine Clear; Color Urine Yellow; Glucose Urine UA Negative (Negative); Leukocyte Esterase Urine Negative (Negative); Nitrite Urine Negative (Negative); Specific Gravity - Urine 1.025 (1.005-1.025); Urine Blood Negative (Negative); Urine Ketones Trace mg/dL (Negative); Urine Protein Negative (Neg-Trace)
[2023-07-15 15:18] LABS: CT PCR NOT DETECTED (Not Detect.); NG PCR NOT DETECTED (Not Detect.)
== END 2023-07-14 14:34 | disposition home or self-care (01) ==
LOC: HO.LAB 14:33
PROVIDERS: Visit Provider Family Medicine
DX: Z00.00 Encounter for general adult medical examination without abnormal findings (principal); N50.819 Testicular pain, unspecified; Z20.2 Contact with and (suspected) exposure to infections with a predominantly sexual mode of transmission
CPT/HCPCS: 0353U; 81003; 87086

== ENCOUNTER 2023-07-25 12:42 | Outpatient (REF) | payer OTHER, MEDICAID, SELFPAY ==
--- NOTE | ~2023-07-25 | US_ITS ---
EXAMINATION: US SCROTUM CLINICAL INFORMATION: Testicular pain, unspecified. COMPARISON: None available. TECHNIQUE: A sonogram of the scrotum was performed assessing card-scale appearance and color Doppler flow. Spectral Doppler analysis of the arterial and venous flow were performed in the testes bilaterally. FINDINGS: RIGHT: Right testicle measures 4.4 x 2.1 x 3.3 cm, volume 16.0 mL. No focal testicular parenchymal lesions are visualized. Spectral Doppler analysis of the arterial and venous flow is normal in the right testis. An appendix testis is noted measuring 0.3 cm. Right epididymal head is normal in size. No right hydrocele or varicocele is seen. Right epididymal Doppler flow is normal. LEFT: Left testicle measures 4.3 x 2.0 x 3.0 cm, volume 13.8 mL. No focal testicular parenchymal lesions are visualized. Spectral Doppler analysis of the arterial and venous flow is normal in the left testis. Left epididymal head is normal in size. No left hydrocele or varicocele is seen. Left epididymal Doppler flow is normal. Nonspecific 1 to 2 mm calcification noted in the epididymal body. There is a 0.3 x 0.3 x 0.2 cm extratesticular hyperechoic observation with posterior shadowing, favoring to represent a macrocalcification/scrotolith. US/US scrotum IMPRESSION: Nonspecific microcalcifications in the left epididymal body, could be sequela of trauma or an infectious/inflammatory process. A 0.3 cm extratesticular hyperechoic focus in the left scrotal sac could represent a scrotal karlee. Out of precaution, a follow-up ultrasound in 6 months is recommended to ensure stability.
== END 2023-07-25 12:43 | disposition home or self-care (01) ==
LOC: HO.US 12:42
PROVIDERS: PCP Family Medicine; Visit Provider Family Medicine
DX: N50.819 Testicular pain, unspecified (principal)
CPT/HCPCS: 76870

== ENCOUNTER 2023-08-05 13:48 | Outpatient (AMB) | payer OTHER, MEDICAID, SELFPAY ==
[2023-08-05 13:54] VITALS: BP 110/68; PULSE 65; RESP 12; TEMP 36.6; O2SAT 99; BMI 38.4
--- NOTE | 2023-08-05 13:54 | A.OFFPC_ITS ---
Vital Signs 08/05/23 13:54 Height 5 ft 5 in Weight 230 lb 8 oz BMI 38.4 BP 110/68 Blood Pressure Location Rt brachial Position Sitting Respiration 12 Pulse 65 Pulse Source Pulse Oximeter Temp 98 F Temp Source Temporal Artery Scan Pulse Oximetry (%) 99 Oxygen Delivery Method Room Air Intake Visit Reasons: f/u testicular pain, Urine Labs & U/S Intake Note: Patient does not have any concerns at this time. 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 Accompanied by: Spouse Allergies onion Allergy (Intermediate, Verified 08/05/23 13:59) sneezing Peanut Butter Allergy (Intermediate, Verified 08/05/23 13:59) Sneezing cats Allergy (Mild, Uncoded 07/14/23 14:17) free text dust Allergy (Mild, Uncoded 07/14/23 14:17) free text Tobacco use date assessed: 07/14/23 Dental Screening Dental Screen Date: 08/05/23 Did you have a dental visit in the last 12 months?: Yes Did you have a dental problem in the last 6 months where you did not have access to dental care?: No Was dental information given to patient?: Patient has dentist HPI f/u testicular pain, Urine Labs & U/S HPI Details 57 y/o male presents to f/u testicular p ain. Ultrasound did show some swelling/inflammation, unclear cause. Also showed some extratesticular lump. Radiology recommended repeat ultrasound in 6 months. Urine labs were fine. He notes citalopram 20mg has been working well for his mood. [facility] Medical History Obesity (BMI 30-39.9) Hyperlipidemia HTN (hypertension) Surgical History Hx of colonoscopy History of cardiac catheterization (~2014) History of tooth extraction History of surgery History of spinal surgery History of surgery History of carpal tunnel syndrome History of neck surgery History of knee replacement procedure of right knee Family History (Updated 08/05/23 @ 14:02 by Carli Brandon MA) Father No problems noted. Mother Diabetes mellitus Stroke Sister Hemorrhage Multi-organ failure with heart failure Other Mental health disorder Substance use disorder Social History Housing: Apartment Alcohol intake: never Patient Tobacco Use Status: Current everyday Tobacco user Tobacco use type: Cigar Cigarettes Per Day: 1 e-Cigarette/Vaping Use: Never Used Second Hand Smoke Exposure: Yes service: No Current occupational status: disabled Current occupational exposures/hazards: No Cognitive needs: No (cane) Hearing needs: No Vision needs: Yes (Glasses) Questionnaire Thrive Questionnaire Date Thrive assessed: 12/11/21 SARAH-7 AMB Questionnaire SARAH-7 Date SARAH - 7 assessed: 06/27/23 Source: Developed by Drs. Abdirahman Dallas, Minna Hernandez, Kennedy Phillips and colleagues, with an educational jayy from [employer]. Review of Systems Const Denies chills, Denies fatigue, Denies fever(s), Denies headache(s) and Denies weakness ENT Denies dizziness and Denies headache(s) Card Denies chest pain, Denies lightheadedness, Denies dyspnea and Denies other (Palpitations) Resp Denies cough, Denies dyspnea, Denies wheezing and Denies other ( shortness of breath) Musc Denies numbness and Denies tingling Neuro Denies dizziness, Denies headache(s), Denies numbness, Denies tingling, Denies paresthesias and Denies weakness Psych Denies anxiety and Denies depression Endo Denies fatigue Aller/Immun Denies wheezing Physical exam (Primary Care) Vital Signs: Last Vital Signs Temp 98 F 08/05/23 13:54 Pulse 65 08/05/23 13:54 Resp 12 08/05/23 13:54 BP 110/68 08/05/23 13:54 Pulse Ox 99 08/05/23 13:54 Oxygen Delivery Method Room Air 08/05/23 13:54 BMI result Body Mass Index 38.4 Tobacco/Smoking Status: Tobacco use Status Tobacco use date assessed 07/14/23 08/05/23 14:02 Patient Tobacco Use Status Current everyday Tobacco 08/05/23 14:02 Tobacco use type Cigar 08/05/23 14:02 e-Cigarette/Vaping Use Never Used 08/05/23 14:02 Thrive Assessment: Date of Thrive Assessment Date Thrive assessed 12/11/21 08/05/23 14:02 Const General: no acute distress and well developed Nutritional Appearance: well nourished Orientation/consciousness: patient oriented x3 HENMT Head: Yes normocephalic and Yes atraumatic Eyes General: appearance normal, both eyes and all related structures Pupils: Equal, round and reactive pupils present EOM: EOMs intact bilaterally Resp Effort & Inspection: normal respiratory effort Auscultation: clear to auscultation bilaterally Cardio Rate: regular rate Rhythm: regular rhythm Heart sounds: S1 normal heart sound present, S2 normal heart sound present, no gallops, no murmurs and no rubs Neuro General: patient oriented x3 and gait normal Cranial nerves: Yes Equal, round and reactive pupils present Psych Affect: normal affect Assessment and Plan Assessment & Plan (1) Scrotal mass: Code(s): N50.89 - Other specified disorders of the male genital organs Plan: Small extra testicular mass and some epididymal inflammation. Chlamydia and gonorrhea were negative Still has ongoing discomfort. Patient is referred to Urology (2) Testicular pain: Code(s): N50.819 - Testicular pain, unspecified Plan: As above (3) Anxiety with depression: Code(s): F41.8 - Other specified anxiety disorders Plan: Improved with citalopram 20 mg daily. Continue current medication (4) Essential hypertension: Code(s): I10 - Essential (primary) hypertension Plan: Blood pressure is controlled. Goal is less than 140/90 Continue current medication regimen Orders: Referrals Urology Referral N50.819 - Testicular pain, unspecified, N50.89 - Other specified disorders of the male genital organs Coding Level of Care Code Est Pt Level 4 (31614) Diagnoses Scrotal mass N50.89 Testicular pain N50.819 Anxiety with depression F41.8 Essential hypertension I10
== END 2023-08-05 14:19 | disposition home or self-care (01) ==
PROVIDERS: PCP Family Medicine; Visit Provider Family Medicine
DX: N50.89 Other specified disorders of the male genital organs (principal); N50.819 Testicular pain, unspecified; F41.8 Other specified anxiety disorders; I10 Essential (primary) hypertension
CPT/HCPCS: 99214

== ENCOUNTER 2023-09-16 12:36 | Outpatient (AMB) | payer MEDICARE, MEDICAID, SELFPAY ==
--- NOTE | 2023-09-16 12:57 | A.OFFVIS_ITS ---
Intake Intake Visit Reasons: Testicular Pain Intake Note: New Patient presents for initial visit for testicular pain Urology Medications: none Blood Thinner: none Rn Embedded Required: No Accompanied by: Unknown Allergies onion Allergy (Intermediate, Verified 09/16/23 13:23) sneezing Peanut Butter Allergy (Intermediate, Verified 09/16/23 13:23) Sneezing cats Allergy (Mild, Uncoded 09/16/23 13:23) free text dust Allergy (Mild, Uncoded 09/16/23 13:23) free text Medication List - Last Reconciled 09/18/23 by NANDA Oliva- citalopram 20 mg PO DAILY 30 days doxycycline hyclate 100 mg PO BID 14 days gabapentin 300 mg PO DAILY 90 days lisinopril-hydrochlorothiazide 20-25 mg 1 tab PO DAILY omeprazole 40 mg PO DAILY tadalafil (Cialis) 5 mg PO DAILY 90 days HPI HPI Comments History of Present Illness Details Javier is a very pleasant 58-year-old male patient of Dr. Guzman. He has a past medical history of obesity, hyperlipidemia, and hypertension. He presents to the office today as a new patient for ongoing scrotal/bilateral testicular pain and erectile dysfunction. In discussion with the patient today he reports noting over the last few years 3-5 years he had been experiencing intermittent episodes of scrotal discomfort. He reports noting scrotal/testicular comfort increased in frequency to 1-2 times per month and now feels pain is almost daily. He denies any previous trauma to his penis/scrotum/testicles. He denies any aggravating or alleviating factors. He denies having tried any OTC medications like Tylenol and or Motrin for pain relief or applying he or ice. It appears scrotal ultrasound was ordered and performed by PCP. These results were reviewed with the patient today. Nonspecific microcalcifications in the left epididymal body, could be sequela of trauma or an infectious/inflammatory process. A 0.3 cm extratesticular hyperechoic focus in the left scrotal sac could represent a scrotal karlee. Out of precaution, a follow-up ultrasound in 6 months is recommended to ensure stability per radiology report. In assessment of the patient today bilateral epididymal head tenderness noted on exam right side greater than left. Otherwise no drainage, lesions, and or masses palpated. Patient also discusses noting issues with maintaining erections during sexual activity. He reports this to have been present for approximately 8 months. He does report sexual desire and is able to obtain an erection however feels maintaining erections to be difficult. He otherwise denies any bothersome urinary issues. He denies urinary urgency, urinary frequency, incontinence, nocturia, hematuria, dysuria, foul smelling urine, changes to urinary stream, flank pain, fever, and or chills. He is happy with her current voiding parameters. In office urinalysis results reviewed with the patient today. [facility] Medical History Obesity (BMI 30-39.9) Hyperlipidemia HTN (hypertension) Surgical History Hx of colonoscopy History of cardiac catheterization (~2014) History of tooth extraction History of surgery History of spinal surgery History of surgery History of carpal tunnel syndrome History of neck surgery History of knee replacement procedure of right knee Family History Father No problems noted. Mother Diabetes mellitus Stroke Sister Hemorrhage Multi-organ failure with heart failure Other Mental health disorder Substance use disorder Social History Housing: Apartment Alcohol intake: never Patient Tobacco Use Status: Current everyday Tobacco user Tobacco use type: Cigar Cigarettes Per Day: 1 e-Cigarette/Vaping Use: Never Used Second Hand Smoke Exposure: Yes service: No Current occupational status: disabled Current occupational exposures/hazards: No Cognitive needs: No (cane) Hearing needs: No Vision needs: Yes (Glasses) Review of Systems Const Reports as per HPI Eyes Reports no additional complaints ENT Reports no additional complaints Card Reports as per HPI Resp Reports no additional complaints GI Reports no additional complaints Reports as per HPI Musc Reports no additional complaints Neuro Reports no additional complaints Psych Reports no additional complaints Endo Reports no additional complaints Yon/Lymph Reports no additional complaints Aller/Immun Reports no additional complaints Physical Exam Const General: cooperative, healthy appearing, comfortable, no acute distress, well developed, alert and awake Orientation/consciousness: patient oriented x3 Limitations: no limitations HEENT Head: Yes normal to inspection, Yes normocephalic and Yes atraumatic Ears: hearing grossly normal bilaterally Eyes General: appearance normal, both eyes and all related structures Neck Neck: Yes normal visual inspection and Yes trachea midline Chest Chest palpation & inspection: normal inspection of the chest Resp Effort & Inspection: normal respiratory effort and able to speak in complete sentences Cardio Rate: regular rate GI Inspection: Yes normal to inspection General: Yes no CVA tenderness Penis: normal penis Meatus: meatus normal Scrotum: scrotum normal Testes: epididymal tenderness (right side greater than left) bilateral Back/Spine/Pelvis Back: no CVA tenderness Skin General skin exam: no rashes or lesions noted Neuro General: patient oriented x3 Extrem General: Yes normal to inspection Psych Appearance: grossly normal and well kempt Mental Status: mental status grossly normal Speech and movement: Normal speech and movement present and Clear speech present Affect: normal affect Attitude: cooperative Thought process: Normal thought process present Thought content: Normal thought content present Insight: Fair insight present (Psych) Judgement: Fair judgement present (Psych) Results AMB Urinalysis, Automated UA Leukoctes 0 Belen/uL Last Edit by [employer] on 09/16/23 13:20 UA Nitrite Last Edit by [employer] on 09/16/23 13:20 UA Urobilinogen 0.2 mg/dL Last Edit by [employer] on 09/16/23 13:20 UA Protein 0 mg/dL Last Edit by [employer] on 09/16/23 13:20 UA pH 6.0 Last Edit by [employer] on 09/16/23 13:20 UA Blood 0 Antonio/uL Last Edit by [employer] on 09/16/23 13:20 UA Specific [place] 1.025 Last Edit by [employer] on 09/16/23 13:20 UA Ketone Last Edit by [employer] on 09/16/23 13:20 UA Bilirubin 0 mg/dL Last Edit by [employer] on 09/16/23 13:20 UA Glucose 0 mg/dL Last Edit by [employer] on 09/16/23 13:20 Results Reviewed Results Reviewed: Laboratory Last Values Urine pH (Auto) 6.0 09/16/23 12:59 Specific [place] (Auto) 1.025 09/16/23 12:59 Urine Protein (Auto) 0 mg/dL 09/16/23 12:59 Glucose (UA)(Auto) 0 mg/dL 09/16/23 12:59 Urine Blood (Auto) 0 Antonio/uL 09/16/23 12:59 Urine Bilirubin (Auto) 0 mg/dL 09/16/23 12:59 Urine Urobilinogen (Auto) 0.2 mg/dL 09/16/23 12:59 Leukocyte Esterase (Auto) 0 Belen/uL 09/16/23 12:59 Date of Service: 07/25/23 EXAMINATION: US SCROTUM FINDINGS: RIGHT: Right testicle measures 4.4 x 2.1 x 3.3 cm, volume 16.0 mL. No focal testicular parenchymal lesions are visualized. Spectral Doppler analysis of the arterial and venous flow is normal in the right testis. An appendix testis is noted measuring 0.3 cm. Right epididymal head is normal in size. No right hydrocele or varicocele is seen. Right epididymal Doppler flow is normal. LEFT: Left testicle measures 4.3 x 2.0 x 3.0 cm, volume 13.8 mL. No focal testicular parenchymal lesions are visualized. Spectral Doppler analysis of the arterial and venous flow is normal in the left testis. Left epididymal head is normal in size. No left hydrocele or varicocele is seen. Left epididymal Doppler flow is normal. Nonspecific 1 to 2 mm calcification noted in the epididymal body. There is a 0.3 x 0.3 x 0.2 cm extratesticular hyperechoic observation with posterior shadowing, favoring to represent a macrocalcification/scrotolith. IMPRESSION: Nonspecific microcalcifications in the left epididymal body, could be sequela of trauma or an infectious/inflammatory process. A 0.3 cm extratesticular hyperechoic focus in the left scrotal sac could represent a scrotal karlee. Out of precaution, a follow-up ultrasound in 6 months is recommended to ensure stability. Assessment & Plan Assessment & Plan (1) Erectile dysfunction: Code(s): N52.9 - Male erectile dysfunction, unspecified (2) Epididymitis: Code(s): N45.1 - Epididymitis (3) Testicular pain: Code(s): N50.819 - Testicular pain, unspecified Plan Well in office urinalysis results reviewed with the patient today; as noted above. Recent scrotal ultrasound results reviewed with the patient today; as noted above. Reassurance provided. Start doxycycline as discussed and prescribed. Patient with bilateral epididymal head tenderness right side greater than left. Start 5 mg Cialis daily as discussed and prescribed. Discussed at length lifestyle modifications to assist with erectile dysfunction Patient denies any bothersome urinary issues. Patient reports be happy with current voiding parameters. Follow-up in 1 month; or sooner with any issues, concerns, and or questions. Orders: Orders AMB Urinalysis Automated 09/16/23 Z13.9 - Encounter for screening, unspecified Medications: New doxycycline hyclate 100 mg PO BID 28 tabs 0RF 14 days N39.0 - Urinary tract infection, site not specified, N45.1 - Epididymitis tadalafil (Cialis) BIN [id number] [facility] Group DR33 5 mg PO DAILY 90 tabs 0RF 90 days Patient Instructions: The patient had an opportunity to ask questions regarding the treatment plan. All questions were answered. Physical exam, labs, and imaging were discussed and reviewed in detail. As well as risks, benefits, and discussion of treatment choices. No major barriers to understanding were identified. The patient expressed understanding and agreement with the above treatment plan. The patient was made aware they should contact our office by phone for worsening of their current condition, the appearance of new symptoms, or with any questions or concerns. Compliance is encouraged with any medications and follow up testing that is ordered. It is a privilege to be allowed the opportunity to participate in? your urological care.? Again, if you have any questions or concerns If you have any questions or concerns please do not hesitate to contact me. The office is [phone]. This note is constructed using voice recognition software. While every effort has been made to ensure accuracy residential treatment staff errors may have been included. Yours sincerely, JEMIMA Oliva Coding Level of Care Code New Pt Level 4 (13729) Diagnoses Erectile dysfunction N52.9 Epididymitis N45.1 Testicular pain N50.819
== END 2023-09-16 13:46 | disposition home or self-care (01) ==
PROVIDERS: PCP Family Medicine; Visit Provider Nurse Practitioner Family
DX: N52.9 Male erectile dysfunction, unspecified (principal); N45.1 Epididymitis; N50.819 Testicular pain, unspecified
CPT/HCPCS: 99204

== ENCOUNTER → 2023-09-16 12:36 | Outpatient (BNVA) | payer MEDICARE, MEDICAID, SELFPAY | PROVIDERS: PCP Family Medicine; Visit Provider Nurse Practitioner Family | DX: N50.811 Right testicular pain (principal); N50.812 Left testicular pain; N52.9 Male erectile dysfunction, unspecified; N45.1 Epididymitis | CPT/HCPCS: 81003 ==

== ENCOUNTER 2023-10-04 13:26 | Outpatient (AMB) | payer MEDICARE, MEDICAID, SELFPAY ==
[2023-10-04 13:28] VITALS: BP 120/72; PULSE 73; BMI 37.9
--- NOTE | 2023-10-04 13:28 | A.OFFVIS_ITS ---
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 He has a medical history of obesity, hypertension, hyperlipidemia, and SLY. He reports that he is doing well since we have last seen him. He denies SOB,. chest discomfort, or swelling. [facility] Medical History Obesity (BMI 30-39.9) Hyperlipidemia HTN (hypertension) Surgical History Hx of colonoscopy History of cardiac catheterization (~2014) History of tooth extraction History of surgery History of spinal surgery History of surgery History of carpal tunnel syndrome History of neck surgery History of knee replacement procedure of right knee Family History Father No problems noted. Mother Diabetes mellitus Stroke Sister Hemorrhage Multi-organ failure with heart failure Other Mental health disorder Substance use disorder Social History Housing: Apartment Alcohol intake: never Patient Tobacco Use Status: Current everyday Tobacco user Tobacco use type: Cigar Cigarettes Per Day: 1 e-Cigarette/Vaping Use: Never Used Second Hand Smoke Exposure: Yes service: No Current occupational status: disabled Current occupational exposures/hazards: No Cognitive needs: No (cane) Hearing needs: No Vision needs: Yes (Glasses) Review of Systems Card Denies chest pain, Denies chest pain at rest, Denies chest pain with activity, Denies rapid heart rate, Denies pedal edema, Denies edema, Denies leg edema, Denies lightheadedness, Denies palpitations, Denies dyspnea, Denies dyspnea on exertion and Denies orthopnea Resp Denies cough, Denies dyspnea and Denies dyspnea on exertion GI Denies hematochezia and Denies change in stool character Musc Denies abnormal gait, Reports limited range of motion, Reports muscle cramps, Denies muscle weakness, Denies numbness, Denies radiating pain into limb, Denies stiffness and Denies tingling Neuro Denies abnormal gait, Denies numbness and Denies tingling Endo Denies palpitations Physical Exam Vital Signs: BMI result Body Mass Index 37.9 Const General: healthy appearing and no acute distress Orientation/consciousness: patient oriented x3 HEENT Head: Yes normal to inspection Eyes General: appearance normal, both eyes and all related structures Neck Neck: Yes normal visual inspection Chest Chest palpation & inspection: normal inspection of the chest Resp Effort & Inspection: normal respiratory effort Auscultation: clear to auscultation bilaterally Cardio Jugular venous distension: no JVD Palpation: normal PMI Rate: regular rate Rhythm: regular rhythm Heart sounds: S1 normal heart sound present, S2 normal heart sound present, no click, no gallops, Murmur heart sound present (Aortic Stenosis) and no rubs GI Inspection: Yes normal to inspection Palpation (GI): Soft to palpation Skin General skin exam: no rashes or lesions noted Neuro General: patient oriented x3 Extrem General: Yes normal to inspection Psych Appearance: grossly normal Office Procedures EKG Details: EKG today. Normal Sinus Rhythm. LVH. Rate 73 bpm. QTc 469ms. [id number], Complete Assessment & Plan Assessment & Plan (1) Aortic stenosis: Code(s): I35.0 - Nonrheumatic aortic (valve) stenosis (2) SLY on CPAP: Comment: Known history of obstructive sleep apnea since many years ago, Essential for him to use CPAP at night. At present CPAP machine is quite old does not have compliance monitoring capability, and his is device stops working at night. He needs a new CPAP device, for which the orders have been issued . he is still waiting to get his new device . in the meantime order is sent for new supplies for his old CPAP machine. Code(s): G47.33 - Obstructive sleep apnea (adult) (pediatric); Z99.89 - Dependence on other enabling machines and devices (3) Morbid obesity: Comment: This gentleman is morbidly obese, BMI is 40.6 He is not able to exercise because of his generalized arthritis. He has not apt to join any weight management program. I discussed with him about cutting down the portions, Consider seeing a dietitian. Try to do exercises as much as possible. Code(s): E66.01 - Morbid (severe) obesity due to excess calories (4) Essential hypertension: Code(s): I10 - Essential (primary) hypertension Plan Blood pressure within goal today. He has continued to lose weight and is feeling well. Conitnue CPAP use. Will repear echo before next appt to assess aortic stenosis. Continue lisinopril-hctz 20-25mg QD. Will return in one year to see Dr. Mejia or sooner if needed. Orders: Orders CA echo transthoracic complete Today I35.0 - Nonrheumatic aortic (valve) stenosis Coding Level of Care Code Est Pt Level 3 (84162) Diagnoses Aortic stenosis I35.0 SLY on CPAP G47.33; Z99.89 Morbid obesity E66.01 Essential hypertension I10 CPT Codes EKG - CPT: 22651-[id number], Complete ([id number])
== END 2023-10-04 13:57 | disposition home or self-care (01) ==
PROVIDERS: PCP Family Medicine; Visit Provider Nurse Practitioner
DX: I35.0 Nonrheumatic aortic (valve) stenosis (principal); G47.33 Obstructive sleep apnea (adult) (pediatric); Z99.89 Dependence on other enabling machines and devices; E66.01 Morbid (severe) obesity due to excess calories; I10 Essential (primary) hypertension
CPT/HCPCS: 93010; 99213

== ENCOUNTER → 2023-10-04 13:26 | Outpatient (BNVA) | payer MEDICARE, MEDICAID, SELFPAY | PROVIDERS: PCP Family Medicine; Visit Provider Nurse Practitioner | DX: I51.7 Cardiomegaly (principal); I35.0 Nonrheumatic aortic (valve) stenosis; E78.5 Hyperlipidemia, unspecified; E66.01 Morbid (severe) obesity due to excess calories; G47.33 Obstructive sleep apnea (adult) (pediatric); F17.210 Nicotine dependence, cigarettes, uncomplicated; Z68.37 Body mass index [BMI] 37.0-37.9, adult; Z98.890 Other specified postprocedural states | CPT/HCPCS: 93005; 99212 ==

== ENCOUNTER → 2023-11-02 12:45 | Outpatient (REF) | payer MEDICARE, MEDICAID, SELFPAY ==
--- NOTE | 2023-11-02 12:47 | CA_ITS ---
Transthoracic Echocardiogram Patient (Last, First, Middle): Javier Sanders O Gender: Male Date of : 1965 Age: 58 Procedure Date: 11/02/2023 Procedure Type: Transthoracic Echocardiogram Location: OP Height: 165.1 cm Weight: 110.22 kg BSA: 2.15 m2 Heart Rate: bpm BP: 130 / 88 mmHg Radio Broadcaster: TO Referring MD: Nereida Ontiveros NP Symptoms: I35.0 - Nonrheumatic aortic (valve) stenosis Study Quality: Fair/Contrast ECG Rhythm: Sinus Conclusions: - The left ventricular systolic function is normal. The calculated ejection fraction is 66% by biplane method. - There is moderate posterior mitral annular calcification. - Aortic valve sclerosis but no significant stenosis. Findings Procedure Information Contrast agent, definity, is being given per protocol without apparent complications. Left Ventricle Normal left ventricular cavity size. There is mildly increased left ventricular wall thickness. The left ventricular systolic function is normal. The calculated ejection fraction is 66% by biplane method. There is no evidence of regional wall motion abnormalities. Evidence suggests grade I (mild) diastolic dysfunction. There is moderate septal asymmetric hypertrophy. Right Ventricle Mildly increased right ventricular cavity size. There is normal right ventricular systolic function. Atria The left atrium is moderately dilated. The right atrium is normal in size. Aortic Valve There is a normal trileaflet aortic valve. There is mild calcification of the aortic valve. There is trace (trivial) aortic valve regurgitation. No significant aortic stenosis. Gradients across aortic valve could also be from high stroke volume. Mitral Valve There is moderate posterior mitral annular calcification. There is no mitral valve regurgitation. There is no mitral valve stenosis. Pulmonic Valve There is mild pulmonic valve regurgitation. Tricuspid Valve There is mild tricuspid valve regurgitation. There is no evidence of pulmonary hypertension. Great Vessels The asc aorta is normal in size. Small plaque is seen in the sino tubular ridge. Venous The inferior vena cava is normal in size and collapses greater than 50% with inspiration. Pericardium/Pleural There is no evidence of pericardial effusion. Prior Study Comparison No significant change compared to prior study dated: 08/05/2022. Measurements 2D Linear Measurements IVSd: 1.29 0.6-0.9/0.6-1.0 cm LVIDd: 5.61 3.9-5.3/4.2-5.9 cm LVIDd Index: 2.61 2.4-3.2/2.2-3.1 cm/m2 LVIDs: 3.54 2.0-3.6 cm LVPWd: 1.11 0.7-1.1 cm LA Diam: 4.70 2.7-3.8/3.0-4.0 cm LAIDs Index: 2.19 1.5-2.3 cm/m2 LV Mass: 350.86 67-162/88-224 g LV Mass Index: 163.19 43-95/49-115 g/m2 LVOT Diam: 2.20 3.0+(-)1.3 cm 2D Systolic Function EF 4C: 68.60 >55% EF 2C: 64.10 >55% EF BiP: 66.30 >55% Mitral Valve MV VTI: 0.48 MV Pk Braxton: 1.33 MV Mn Braxton: 0.68 MV Pk Grad: 7.00 MV Mn Grad: 2.00 MV Pk E: 1.06 MV PK A: 1.17 MV Decel Time: 404.00 E/A: 0.90 E'Lateral: 4.35 E'Medial: 3.26 E/E' Med: 32.50 E/E' Lat: 24.40 PHT: 118.00 MVA PHT: 1.86 MVA Continuity: 2.33 Decel Radford: 2.62 Aortic Valve AoV Pk Braxton: 2.24 AoV Mn Braxton: 1.44 AoV VTI: 0.47 AoV Pk Grad: 20.00 Aov Mn Grad: 10.00 RUPESH Cont.VTI: 2.37 LVOT LVOT Pk Braxton: 1.33 LVOT Mn Braxton: 0.89 LVOT VTI: 0.29 LVOT Pk Grad: 7.00 LVOT Mn Grad: 4.00 LVOT Diam: 2.20 LVOT Area: 3.80 Diastolic Function MV Pk E: 1.06 MV Pk A: 1.17 E/A: 0.90 E'Medial: 3.26 E/E' Med: 32.50 E' Laterial: 4.35 E/E' Lat: 24.40 Right Ventricle TAPSE (mm): 24.90 TVS' Braxton: 11.40 Tricuspid Valve TR Pk Braxton: 2.36 TR Pk Grad: 22.00 RA Press: 8.00 RVSP: 30.00 Great Vessels Aorta Sinus of Valsalva: 3.70 2.0-3.[address] [place]: 2.50 1.7-3.4 cm Ao Asc: 3.80 2.1-3.4 cm Updated in Other Vendor System with Status of Final Igor Mejia MD electronically signed on 11/04/2023 1:53:44 PM with status of Final
== END ==
LOC: HO.CARD 12:45
PROVIDERS: PCP Family Medicine; Visit Provider Nurse Practitioner Family
DX: I35.0 Nonrheumatic aortic (valve) stenosis (principal)
CPT/HCPCS: 93306; Q9957

== ENCOUNTER → 2023-11-02 12:47 | Outpatient (BNV) | payer MEDICARE, MEDICAID, SELFPAY | PROVIDERS: PCP Family Medicine; Visit Provider Internal Medicine | DX: I34.81 Nonrheumatic mitral (valve) annulus calcification (principal) | CPT/HCPCS: 93306 ==

== ENCOUNTER 2023-11-10 08:49 | Outpatient (AMB) | payer MEDICARE, MEDICAID, SELFPAY ==
--- NOTE | 2023-11-10 08:56 | MHC.PC.OV ---
Vital Signs 11/10/23 08:57 11/10/23 09:02 Height 5 ft 5 in 5 ft 5 in Weight 233 lb 6 oz BMI 38.8 BP 136/80 Blood Pressure Location Rt brachial Position Sitting Respiration 13 Pulse 86 Pulse Source Pulse Oximeter Temp 97.7 F Temp Source Temporal Artery Scan Pulse Oximetry (%) 98 Oxygen Delivery Method Room Air Intake Visit Reasons: CPE Intake Note: Patient had a recent ED visit at [facility] yesterday for his back. Patient would like a script for the lidocaine patches sent over. Drive In Theater Attendant Required: No Accompanied by: Self / Same As Patient Allergies onion Allergy (Intermediate, Verified 11/10/23 09:02) sneezing Peanut Butter Allergy (Intermediate, Verified 11/10/23 09:02) Sneezing cats Allergy (Mild, Uncoded 10/04/23 13:34) free text dust Allergy (Mild, Uncoded 10/04/23 13:34) free text Tobacco use date assessed: 07/14/23 Dental Screening Dental Screen Date: 11/10/23 Did you have a dental visit in the last 12 months?: Yes Did you have a dental problem in the last 6 months where you did not have access to dental care?: No Was dental information given to patient?: Patient has dentist HPI CPE HPI Details 58 y/o male presents for an extended exam with f/u labs and health maintenance. No recent labs to review. Recent ED visit for back pain. Pt has been walking for exercise. [facility] Medical History Obesity (BMI 30-39.9) Hyperlipidemia HTN (hypertension) Surgical History Hx of colonoscopy History of cardiac catheterization (~2014) History of tooth extraction History of surgery History of spinal surgery History of surgery History of carpal tunnel syndrome History of neck surgery History of knee replacement procedure of right knee Family History Father No problems noted. Mother Diabetes mellitus Stroke Sister Hemorrhage Multi-organ failure with heart failure Other Mental health disorder Substance use disorder Social History Housing: Apartment Alcohol intake: never Patient Tobacco Use Status: Current everyday Tobacco user Tobacco use type: Cigar Cigarettes Per Day: 1 Years Smoked: 20 e-Cigarette/Vaping Use: Never Used Second Hand Smoke Exposure: Yes service: No Current occupational status: disabled Current occupational exposures/hazards: No Cognitive needs: No (cane) Hearing needs: No Vision needs: Yes (Glasses) Questionnaire PHQ-9 Over the last 2 weeks, how often have you been bothered by any of the following problems? 1. Little interest or pleasure in doing things: more than half the days 2. Feeling down, depressed, or hopeless: more than half the days 3. Trouble falling or staying asleep, or sleeping too much: more than half the days 4. Feeling tired or having little energy: nearly every day 5. Poor appetite or overeating: more than half the days 6. Feeling bad about yourself - or that you are a failure or have let yourself or your family down: more than half the days 7. Trouble concentrating on things, such as reading the newspaper or watching television: not at all 8. Moving or speaking so slowly that other people could have noticed. Or the opposite - being so fidgety or restless that you have been moving around a lot more than usual: more than half the days 9. Thoughts that you would be better off or of hurting yourself in some way: more than half the days Total score: 17 Depression Screening Interpretation: Positive Depression Screening Done: Yes 53329 - PHQ-9 Billing: Yes Source: Developed by Drs. Abdirahman Dallas, Minna Hernandez, Kennedy Phillips and colleagues, with an educational jayy from [employer]. Thrive Questionnaire Date Thrive assessed: 11/10/23 I am a: Patient What is your living situation today?: I have a steady place to live Within the past 12 months, did the food you bought not last and you didn't have the money to get more?: Never true Within the past 12 months, did you worry whether your food would run out before you got money to buy more?: Never true Do you have trouble paying for medicines?: No Do you have trouble getting transportation to medical appointments?: No Do you have trouble paying your heating and electricity bill?: Yes Do you have trouble taking care of your child, family member or friend?: No Do you have trouble with day-to-day activities such as bathing, preparing meals, shopping, managing finances, etc.?: No Are you currently unemployed and looking for a job?: No Are you interested in more education?: No Please select the resources that you would like help with: None Currently or been in a relationship where the following occur: no concerns reported AUDIT C Alcohol Use Questionnaire (AUDIT-C) 1. How often do you have a drink containing alcohol?: Never 3. How often do you have six or more drinks on one occasion?: Never Total Score: 0 SARAH-7 AMB Questionnaire SARAH-7 Date SARAH - 7 assessed: 11/10/23 Feeling nervous, anxious, or on edge: 2 = More than half the days Not being able to stop or control worryin = More than half the days Worrying too much about different things: 3 = Nearly every day Trouble relaxin = More than half the days Being so restless that it is hard to sit still: 2 = More than half the days Becoming easily annoyed or irritable: 2 = More than half the days Feeling afraid as if something awful might happen: 2 = More than half the days Total SARAH-7 score (0-4 normal; 5-9 mild; 10-14 moderate; 15-21 severe): 15 Source: Developed by Drs. Abdirahman Dallas, Minna Hernandez, Kennedy Phillips and colleagues, with an educational jayy from [employer]. SARAH-7 Assessment Billing SARAH-7 Assessment Tool: SARAH-7 Assessment 05214 Review of Systems Const Denies chills, Denies fatigue, Denies fever(s), Denies headache(s) and Denies weakness Eyes Denies change in vision ENT Denies dizziness, Denies headache(s), Denies hearing loss, Denies nasal congestion, Denies sinus pain, Denies sinus pressure and Denies sore throat Card Denies chest pain, Denies lightheadedness, Denies dyspnea and Denies other (palpitations) Resp Denies cough, Denies dyspnea and Denies wheezing GI Denies abdominal pain, Denies melena, Denies hematochezia, Denies change in bowel habits, Denies dyspepsia and Denies nausea Denies hematuria and Denies dysuria Musc Denies abnormal gait, Denies myalgias, Denies arthralgias, Denies numbness and Denies tingling Skin/Breast Denies rash, Denies unusual bruising and Denies wounds Neuro Denies abnormal gait, Denies dizziness, Denies headache(s), Denies memory loss, Denies numbness, Denies Sensory deficit (Neuro), Denies tingling and Denies weakness Psych Reports anxiety, Reports depression and Denies memory loss Endo Denies cold intolerance, Denies fatigue, Denies heat intolerance, Denies polydipsia and Denies polyuria Yon/Lymph Denies easy bleeding and Denies easy bruising Aller/Immun Denies wheezing Physical exam (Primary Care) Vital Signs: Last Vital Signs Temp 97.7 F 11/10/23 08:57 Pulse 86 11/10/23 08:57 Resp 13 11/10/23 08:57 BP 136/80 11/10/23 08:57 Pulse Ox 98 11/10/23 08:57 Oxygen Delivery Method Room Air 11/10/23 08:57 BMI result Body Mass Index 38.8 Tobacco/Smoking Status: Tobacco use Status Tobacco use date assessed 07/14/23 11/10/23 09:02 Patient Tobacco Use Status Current everyday Tobacco 11/10/23 09:02 Tobacco use type Cigar 11/10/23 09:02 e-Cigarette/Vaping Use Never Used 11/10/23 09:02 PHQ-9: PHQ-9 Score PHQ-9: Total score 17 11/10/23 09:46 Depression Screening Interpretation: Positive Thrive Assessment: Date of Thrive Assessment Date Thrive assessed 11/10/23 11/10/23 09:10 Currently or been in a relationship where the following occur: no concerns reported Const General: no acute distress, well developed, alert and awake Nutritional Appearance: well nourished Orientation/consciousness: patient oriented x3 HENMT Head: Yes normocephalic and Yes atraumatic Ears: hearing grossly normal bilaterally and TM's normal bilaterally General nose exam: Normal external nose present and Normal nares present Mouth: Normal oral and palatal mucosa present and moist mucous membranes Teeth and gingiva: dentition normal Throat: Yes posterior oropharynx normal Eyes General: appearance normal, both eyes and all related structures Pupils: Equal, round and reactive pupils present and Pupil accommodation reflex normal EOM: EOMs intact bilaterally Neck Neck: Yes normal visual inspection, Yes no lymphadenopathy and Yes trachea midline Thyroid: Thyroid normal Carotids: no bruits Lymphatic: no lymphadenopathy noted Chest Chest palpation & inspection: normal inspection of the chest Resp Effort & Inspection: normal respiratory effort Auscultation: clear to auscultation bilaterally Cardio Rate: regular rate Rhythm: regular rhythm Heart sounds: S1 normal heart sound present, S2 normal heart sound present, no gallops, Murmur heart sound present and no rubs Bruits: no abdominal aortic bruits and no carotid bruits GI Palpation (GI): No Abdominal aortic bruit present, Soft to palpation, nontender, No hepatosplenomegaly present and No Rebound tenderness present Auscultation: normal bowel sounds General: Yes no CVA tenderness Back/Spine/Pelvis Back: no CVA tenderness Cervical Spine: cervical ROM normal and No Cervical spine tenderness Thoracic/Lumbar Spine: thoraco-lumbar ROM normal, No pain with thoraco-lumbar ROM, No thoracic spinal tenderness and No lumbar spinal tenderness Skin Lesions: no lesions Rashes: no rashes Trauma: no lacerations or abrasions Wounds: no wounds Nails: normal Neuro General: patient oriented x3 Cranial nerves: Yes Equal, round and reactive pupils present Cognition (Neuro): normal cognition Gait exam (Neuro): Normal gait present Motor exam (neuro): 5/5 motor strength present throughout Sensory Exam: No Sensory deficit (Neuro) Deep tendon reflexes (DTR's): Right patellar reflex intensity grade: 2+ and Left patellar reflex intensity grade: 2+ Extrem General: Yes normal to inspection and No edema Psych Appearance: grossly normal Affect: normal affect Attitude: cooperative Thought process: Normal thought process present Assessment and Plan Assessment & Plan (1) Back pain: Code(s): M54.9 - Dorsalgia, unspecified Plan: Worsened?from?flare-up?of?low?back?pain He?was?given?Decadron?and?muscle?relaxants?in?the?emergency?department He?can?use?these?as?well?as?lidocaine?patches,?ice/heat?and?NSAIDs Will?refer?him?to?physical?therapy?and?back?to?[facility] (2) Epididymitis: Code(s): N45.1 - Epididymitis Plan: He?is?on?doxycycline Follow-up?with?urology?as?recommended (3) Essential hypertension: Code(s): I10 - Essential (primary) hypertension Plan: Blood?pressure?is?controlled Continue?current?medication?regimen (4) Screening for colon cancer: Code(s): Z12.11 - Encounter for screening for malignant neoplasm of colon Plan: Patient?says?he?had?a?colonoscopy?last?month?and?was?told?to?follow-up?in?3?year Up-to-date Will?request?colonoscopy?report (5) Heart murmur: Code(s): R01.1 - Cardiac murmur, unspecified Plan: Echocardiogram?shows?some?aortic?sclerosis?but?minimal?or?no?stenosis. Follow-up?with?Cardiology?as?recommended (6) Screening for prostate cancer: Code(s): Z12.5 - Encounter for screening for malignant neoplasm of prostate Plan: Check?PSA (7) Low back pain: Code(s): M54.50 - Low back pain, unspecified Plan: As?above (8) Encounter for general adult medical examination without abnormal findings: Code(s): Z00.00 - Encounter for general adult medical examination without abnormal findings Plan: Check?labs Orders: Orders Comprehensive [place]. Panel Fast Today Z00.00 - Encounter for general adult medical examination without abnormal findings Lipid Panel Today Z00.00 - Encounter for general adult medical examination without abnormal findings TSH reflex Free T4 Today Z00.00 - Encounter for general adult medical examination without abnormal findings Microalbumin, Random (w Creat) Today I10 - Essential (primary) hypertension UA and rflx microscopic Today Z00.00 - Encounter for general adult medical examination without abnormal findings Prostate Specific Antigen Scr Today Z12.5 - Encounter for screening for malignant neoplasm of prostate PT Evaluation and Treatment Today M54.50 - Low back pain, unspecified Medications: New lidocaine 5% leave on most painful area for up to 12 hrs 1 patch topical DAILY 30 days 30 ea 2RF M54.16 - Radiculopathy, lumbar region, M79.2 - Neuralgia and neuritis, unspecified Coding Level of Care Code Est Pt Level 4 (16763) Diagnoses Back pain M54.9 Epididymitis N45.1 Essential hypertension I10 Screening for colon cancer Z12.11 Heart murmur R01.1 Screening for prostate cancer Z12.5 Low back pain M54.50 Encounter for general adult medical examination without abnormal findings Z00.00 Additional Codes SARAH-7 Assessment Billing - SARAH-7 Assessment Tool: SARAH-7 Assessment 57107 ([id number])
[2023-11-10 08:57] VITALS: BP 136/80; PULSE 86; RESP 13; TEMP 36.5; O2SAT 98; BMI 38.8
== END 2023-11-10 10:07 | disposition home or self-care (01) ==
PROVIDERS: PCP Family Medicine; Visit Provider Family Medicine
DX: M54.9 Dorsalgia, unspecified (principal); N45.1 Epididymitis; I10 Essential (primary) hypertension; Z12.11 Encounter for screening for malignant neoplasm of colon; R01.1 Cardiac murmur, unspecified; Z12.5 Encounter for screening for malignant neoplasm of prostate; M54.50 Low back pain, unspecified; Z00.00 Encounter for general adult medical examination without abnormal findings
CPT/HCPCS: 99214

== ENCOUNTER 2024-03-28 09:51 | Outpatient (AMB) | payer MEDICARE, MEDICAID, SELFPAY ==
[2024-03-28 10:12] VITALS: BP 126/78; PULSE 55; O2SAT 96; BMI 37.3
--- NOTE | 2024-03-28 10:12 | A.OFFPC_ITS ---
Vital Signs 03/28/24 10:12 Height 5 ft 5 in Weight 224 lb BMI 37.3 BP 126/78 Blood Pressure Location Rt brachial Pulse 55 Pulse Source Pulse Oximeter Pulse Oximetry (%) 96 Oxygen Delivery Method Room Air Intake Visit Reasons: f/u CPE labs Intake Note: Patient would like to be tested for diabetes today, he states he goes to the bathroom a lot. Allergies onion Allergy (Intermediate, Verified 03/28/24 10:14) sneezing Peanut Butter Allergy (Intermediate, Verified 03/28/24 10:14) Sneezing cats Allergy (Mild, Uncoded 03/28/24 10:14) free text dust Allergy (Mild, Uncoded 03/28/24 10:14) free text Tobacco use date assessed: 03/28/24 Dental Screening Dental Screen Date: 03/28/24 Did you have a dental visit in the last 12 months?: Yes Did you have a dental problem in the last 6 months where you did not have access to dental care?: No Was dental information given to patient?: Patient has dentist HPI f/u CPE labs HPI Details Pt presents today for an acute visit - he has complaints of urinary frequency. He notes he does have a FHx of diabetes and is concerned about his blood sugars. A1c today 03/28/24 is 5.5%. No recent labs to review. Pt reports urinary frequency with large volumes. He denies any dysuria. [facility] Medical History Obesity (BMI 30-39.9) Hyperlipidemia HTN (hypertension) Surgical History Hx of colonoscopy History of cardiac catheterization (~2014) History of tooth extraction History of surgery History of spinal surgery History of surgery History of carpal tunnel syndrome History of neck surgery History of knee replacement procedure of right knee Family History Father No problems noted. Mother Diabetes mellitus Stroke Sister Hemorrhage Multi-organ failure with heart failure Other Mental health disorder Substance use disorder Social History Housing: Apartment Alcohol intake: never Patient Tobacco Use Status: Current everyday Tobacco user Tobacco use type: Cigar Cigarettes Per Day: 1 Years Smoked: 20 e-Cigarette/Vaping Use: Never Used Second Hand Smoke Exposure: Yes service: No Current occupational status: disabled Current occupational exposures/hazards: No Cognitive needs: No (cane) Hearing needs: No Vision needs: Yes (Glasses) Questionnaire PHQ-9 Over the last 2 weeks, how often have you been bothered by any of the following problems? 1. Little interest or pleasure in doing things: nearly every day 2. Feeling down, depressed, or hopeless: nearly every day 3. Trouble falling or staying asleep, or sleeping too much: nearly every day 4. Feeling tired or having little energy: nearly every day 5. Poor appetite or overeating: not at all 6. Feeling bad about yourself - or that you are a failure or have let yourself or your family down: not at all 7. Trouble concentrating on things, such as reading the newspaper or watching television: several days 8. Moving or speaking so slowly that other people could have noticed. Or the opposite - being so fidgety or restless that you have been moving around a lot more than usual: several days 9. Thoughts that you would be better off or of hurting yourself in some way: several days Total score: 15 Depression Screening Interpretation: Positive Depression Screening Done: Yes Source: Developed by Drs. Abdirahman Dallas, Minna Hernandez, Kennedy Phillips and colleagues, with an educational jayy from [employer]. Thrive Questionnaire Date Thrive assessed: 03/28/24 I am a: Patient What is your living situation today?: I have a steady place to live Within the past 12 months, did the food you bought not last and you didn't have the money to get more?: Never true Within the past 12 months, did you worry whether your food would run out before you got money to buy more?: Never true Do you have trouble paying for medicines?: No Do you have trouble getting transportation to medical appointments?: No Do you have trouble paying your heating and electricity bill?: Yes Do you have trouble taking care of your child, family member or friend?: No Do you have trouble with day-to-day activities such as bathing, preparing meals, shopping, managing finances, etc.?: No Are you currently unemployed and looking for a job?: No Are you interested in more education?: No THRIVE Score: 1 AUDIT C Alcohol Use Questionnaire (AUDIT-C) 1. How often do you have a drink containing alcohol?: Never 3. How often do you have six or more drinks on one occasion?: Never Total Score: 0 SARAH-7 AMB Questionnaire SARAH-7 Date SARAH - 7 assessed: 03/28/24 Feeling nervous, anxious, or on edge: 1 = Several days Not being able to stop or control worryin = Nearly every day Worrying too much about different things: 1 = Several days Trouble relaxin = Nearly every day Being so restless that it is hard to sit still: 1 = Several days Becoming easily annoyed or irritable: 3 = Nearly every day Feeling afraid as if something awful might happen: 0 = Not at all Total SARAH-7 score (0-4 normal; 5-9 mild; 10-14 moderate; 15-21 severe): 12 Source: Developed by Drs. Abdirahman Dallas, Minna Hernandez, Kennedy Phillips and colleagues, with an educational jayy from [employer]. Review of Systems Const Denies chills, Denies fatigue, Denies fever(s), Denies headache(s) and Denies weakness ENT Denies dizziness and Denies headache(s) Card Denies chest pain, Denies lightheadedness, Denies dyspnea and Denies other (Palpitations) Resp Denies cough, Denies dyspnea, Denies wheezing and Denies other ( shortness of breath) Musc Denies numbness and Denies tingling Neuro Denies dizziness, Denies headache(s), Denies numbness, Denies tingling, Denies paresthesias and Denies weakness Psych Denies anxiety and Denies depression Endo Details: Urinary frequency Denies fatigue Aller/Immun Denies wheezing Physical exam (Primary Care) Vital Signs: Last Vital Signs Pulse 55 03/28/24 10:12 BP 126/78 03/28/24 10:12 Pulse Ox 96 03/28/24 10:12 Oxygen Delivery Method Room Air 03/28/24 10:12 BMI result Body Mass Index 37.3 Tobacco/Smoking Status: Tobacco use Status Tobacco use date assessed 03/28/24 03/28/24 10:16 Patient Tobacco Use Status Current everyday Tobacco 03/28/24 10:13 Tobacco use type Cigar 03/28/24 10:13 e-Cigarette/Vaping Use Never Used 03/28/24 10:13 PHQ-9: PHQ-9 Score PHQ-9: Total score 15 03/28/24 10:29 Depression Screening Interpretation: Positive Thrive Assessment: Date of Thrive Assessment Date Thrive assessed 03/28/24 03/28/24 10:23 Const General: no acute distress and well developed Nutritional Appearance: well nourished Orientation/consciousness: patient oriented x3 HENMT Head: Yes normocephalic and Yes atraumatic Eyes General: appearance normal, both eyes and all related structures Pupils: Equal, round and reactive pupils present EOM: EOMs intact bilaterally Resp Effort & Inspection: normal respiratory effort Auscultation: clear to auscultation bilaterally Cardio Rate: regular rate Rhythm: regular rhythm Heart sounds: S1 normal heart sound present, S2 normal heart sound present, no gallops, no murmurs and no rubs Neuro General: patient oriented x3 and gait normal Cranial nerves: Yes Equal, round and reactive pupils present Psych Affect: normal affect Results AMB Urinalysis, Automated UA Leukoctes 0 Belen/uL Last Edit by Tamy Ricks CMA on 03/28/24 10:41 UA Nitrite Negative Last Edit by Tamy Ricks CMA on 03/28/24 10:41 UA Urobilinogen 3.5 mg/dL Last Edit by Tamy Ricks CMA on 03/28/24 10:41 UA Protein 0 mg/dL Last Edit by Tamy Ricks CMA on 03/28/24 10:41 UA pH 8.0 Last Edit by Tamy Ricks CMA on 03/28/24 10:41 UA Blood 0 Antonio/uL Last Edit by Tamy Ricks CMA on 03/28/24 10:41 UA Specific [place] 1.020 Last Edit by Tamy Ricks CMA on 03/28/24 10:4 1 UA Ketone Negative Last Edit by Tamy Ricks CMA on 03/28/24 10:41 UA Bilirubin 0 mg/dL Last Edit by Tamy Ricks CMA on 03/28/24 10:41 UA Glucose 0 mg/dL Last Edit by Tamy Ricks CMA on 03/28/24 10:41 Assessment and Plan Assessment & Plan (1) Urinary frequency: Code(s): R35.0 - Frequency of micturition Plan: No?dysuria, no?hesitancy.??Normal?stream. A1c?is?5.5%?which?is?within?normal?range?though?at?top?normal?range. He?does?have?a?strong?family?history?of?diabetes. Encouraged?him?to?work?on?a?diet?low?in?sugars?and?starches Urine?dip?is?negative?for?any?evidence?of?infection. He?has?not?gotten?his?labs?drawn?yet?from?his?physical?which?include?a?urinalysi s?with?reflex?to ?micro?so?we?will?send?his?urine?off?for?further?testing?though?I?suspect?no?sig nificant?problems. Encouraged?good?hydration Coding Level of Care Code Est Pt Level 3 (36512) Diagnoses Urinary frequency R35.0
== END 2024-03-28 10:51 | disposition home or self-care (01) ==
PROVIDERS: PCP Family Medicine; Visit Provider Family Medicine
DX: R35.0 Frequency of micturition (principal)
CPT/HCPCS: 81003; 83036; 99213

== ENCOUNTER 2024-03-28 11:17 | Outpatient (REF) | payer MEDICARE, MEDICAID, SELFPAY ==
[2024-03-28 14:41] LABS: Appearance Urine Clear; Color Urine Yellow; Glucose Urine UA Negative (Negative); Leukocyte Esterase Urine Trace (Negative); Nitrite Urine Negative (Negative); PH 8.5 (5.0-9.0); UMIC TRIGGER UA YES; Urine Blood Negative (Negative); Urine Ketones Negative (Negative); Urine Protein Negative (Neg-Trace)
[2024-03-28 14:47] LABS: Creatinine Urine 115.46 mg/dL
[2024-03-28 15:03] LABS: Bacteria Urine None Seen (None Seen); Hyaline Casts Urine 0-2 /LPF (0-2); RBC Urine 0-2 /HPF (0-2); Squamous Epithelial Cell Urine 0-2 /HPF (0-2); WBC Urine 0-5 /HPF (0-5)
[2024-03-28 15:35] LABS: Alanine Aminotransferase 15 U/L (0-40); Albumin Level 4.1 g/dL (3.5-5.0); Alkaline Phosphatase 72 U/L (39-117); Anion Gap 12 (12-20); Aspartate Amino Transferase 19 U/L (5-37); Bilirubin Total 1.1 mg/dL (0.0-1.0); Blood Urea Nitrogen 13 mg/dL (9-16); Calcium 9.4 mg/dL (8.4-10.2); Carbon Dioxide 29 mmol/L (22-29); Chloride 102 mmol/L (96-108); Cholesterol 202 mg/dL (<200); Estimated Glomerular Filt Rate > 60; Glucose Fasting 92 mg/dL (60-99); HDL Cholesterol 41 mg/dL (>40); LDL Cholesterol Calculated 143 mg/dL (<100); Potassium 3.8 mmol/L (3.3-5.1); Sodium 139 mmol/L (135-145); Total Protein 6.9 g/dL (6.5-8.0); Triglycerides 93 mg/dL (<150)
[2024-03-28 15:42] LABS: TSH reflex Free T4 0.83 uIU/mL (0.32-4.0)
[2024-03-28 15:49] LABS: Prostate Specific Antigen Scr < 0.10 ng/mL (<0.05-4.0)
== END 2024-03-28 11:18 | disposition home or self-care (01) ==
LOC: HO.WFDLDS 11:17
PROVIDERS: Visit Provider Family Medicine
DX: Z00.00 Encounter for general adult medical examination without abnormal findings (principal); I10 Essential (primary) hypertension; Z12.5 Encounter for screening for malignant neoplasm of prostate
CPT/HCPCS: 36415; 80053; 80061; 81001; 82043; 82570; 84153; 84443

== ENCOUNTER 2024-04-13 13:28 | Outpatient (AMB) | payer MEDICARE, MEDICAID, SELFPAY ==
[2024-04-13 13:40] VITALS: BP 113/60; PULSE 70; RESP 14; TEMP 36.6; O2SAT 98; BMI 38.4
--- NOTE | 2024-04-13 13:40 | MHC.PC.OV ---
Vital Signs 04/13/24 13:40 Height 5 ft 5 in Weight 231 lb BMI 38.4 BP 113/60 Blood Pressure Location Rt brachial Position Sitting Respiration 14 Pulse 70 Pulse Source Pulse Oximeter Temp 97.9 F Temp Source Temporal Artery Scan Pulse Oximetry (%) 98 Oxygen Delivery Method Room Air Intake Visit Reasons: Was seen at [facility] for back pain Allergies onion Allergy (Intermediate, Verified 04/13/24 13:58) sneezing Peanut Butter Allergy (Intermediate, Verified 04/13/24 13:58) Sneezing cats Allergy (Mild, Uncoded 03/28/24 10:14) free text dust Allergy (Mild, Uncoded 03/28/24 10:14) free text Medication List - Last Reconciled 04/13/24 by Sher Guzman MD citalopram 20 mg PO DAILY 30 days gabapentin 300 mg PO DAILY 90 days lisinopril-hydrochlorothiazide 20-25 mg 1 tab PO DAILY Tobacco use date assessed: 03/28/24 Dental Screening Dental Screen Date: 03/28/24 HPI Was seen at [facility] for back pain HPI Details 58 y/o male presents today to f/u ED visit 04/05/24 for back pain. Had been doing some yard work the day before and had described a sharp pain mostly on the L side, shooting down his leg the next morning. He described pain as a 10. He notes pain improved to a 1. He states he is still getting some shooting pain. Labs were drawn 03/28/24. Reviewed labs with pt. A1c 5.5%. Triglycerides 93. TC 202. LDL 143. HDL 41. HPI Comments History of Present Illness Details Documentation assistance for Sher Guzman MD, was provided by Tremaine Hilario,? Research Compliance Specialist on 04/13/2024 2:37 PM FABIOLA. I, Dr. Guzman, have read, observed, and verified documentation. [facility] Medical History Obesity (BMI 30-39.9) Hyperlipidemia HTN (hypertension) Surgical History Hx of colonoscopy History of cardiac catheterization (~2014) History of tooth extraction History of surgery History of spinal surgery History of surgery History of carpal tunnel syndrome History of neck surgery History of knee replacement procedure of right knee Family History (Updated 04/13/24 @ 14:03 by MAUDE Landin) Father No problems noted. Mother Diabetes mellitus Stroke Sister Hemorrhage Multi-organ failure with heart failure Daughter Diabetes mellitus Other Mental health disorder Substance use disorder Social History Housing: Apartment Alcohol intake: never Patient Tobacco Use Status: Current someday Tobacco user Tobacco use type: Cigar Cigarettes Per Day: 1 Years Smoked: 20 e-Cigarette/Vaping Use: Never Used Second Hand Smoke Exposure: Yes service: No Current occupational status: disabled Current occupational exposures/hazards: No Cognitive needs: No (cane) Hearing needs: No Vision needs: Yes (Glasses) Questionnaire Thrive Questionnaire Date Thrive assessed: 03/28/24 SARAH-7 AMB Questionnaire SARAH-7 Date SARAH - 7 assessed: 03/28/24 Source: Developed by Drs. Abdirahman Dallas, Minna Hernandez, Kennedy Phillips and colleagues, with an educational jayy from [employer]. Review of Systems Const Denies chills, Denies fatigue, Denies fever(s), Denies headache(s) and Denies weakness ENT Denies dizziness and Denies headache(s) Card Denies dyspnea Resp Denies cough, Denies dyspnea, Denies wheezing and Denies other (shortness of breath) Musc Reports back pain, Denies numbness and Denies tingling Neuro Denies dizziness, Denies headache(s), Denies numbness, Denies tingling and Denies weakness Psych Denies anxiety and Denies depression Endo Denies fatigue Aller/Immun Denies wheezing Physical exam (Primary Care) Vital Signs: Last Vital Signs Temp 97.9 F 04/13/24 13:40 Pulse 70 04/13/24 13:40 Resp 14 04/13/24 13:40 BP 113/60 04/13/24 13:40 Pulse Ox 98 04/13/24 13:40 Oxygen Delivery Method Room Air 04/13/24 13:40 BMI result Body Mass Index 38.4 Tobacco/Smoking Status: Tobacco use Status Tobacco use date assessed 03/28/24 04/13/24 13:43 Patient Tobacco Use Status Current someday Tobacco 04/13/24 14:03 Tobacco use type Cigar 04/13/24 13:43 e-Cigarette/Vaping Use Never Used 04/13/24 13:43 Thrive Assessment: Date of Thrive Assessment Date Thrive assessed 03/28/24 04/13/24 13:43 Const General: well developed; No acute distress Nutritional Appearance: well nourished Orientation/consciousness: patient oriented x3 HENMT Head: Yes normocephalic and Yes atraumatic Eyes General: appearance normal, both eyes and all related structures Pupils: Equal, round and reactive pupils present EOM: EOMs intact bilaterally Resp Effort & Inspection: normal respiratory effort Neuro General: patient oriented x3 and gait normal Cranial nerves: Yes Equal, round and reactive pupils present Psych Affect: normal affect Assessment and Plan Assessment & Plan (1) Back pain: Code(s): M54.9 - Dorsalgia, unspecified Plan: Acutely?worsened?back?pain?though?this?is?improving. Still?getting?some?shooting?pains?with?movement Will?give?him?additional?cyclobenzaprine?and?will?give?him?meloxicam. Ice/heat Walking?is?okay?but?no?bending?or?lifting Has?an?appointment?with??[facility]?in?April (2) Elevated fasting blood sugar: Code(s): R73.01 - Impaired fasting glucose Plan: Has?had?some?elevated?fasting?blood?sugars?but?most?recent?fasting?blood?sugar?was?within?normal?range. However?A1c?is?at?5.5%;?top?normal?range Encouraged?weight?loss?and?diet?lower?in?sugars?and?starches (3) Hyperlipidemia: Code(s): E78.5 - Hyperlipidemia, unspecified Plan: LDL?cholesterol?143?is?too?high. Encouraged?a?diet?lower?in?saturated?fats?and?cholesterol.??Encouraged?weight?loss?and?walking?for?exercise Will?recheck?in?about?3?months.??If?cholesterol?levels?are?still?too?high,?will?discuss?statin?medication.??Patient?says?he?had?been?on?a?statin?in?the?past?and?is?uncertain?why?he?is?not?any?longer. Orders: Orders Comprehensive [place]. Panel Fast Today E78.5 - Hyperlipidemia, unspecified, Z00.00 - Encounter for general adult medical examination without abnormal findings Lipid Panel Today E78.5 - Hyperlipidemia, unspecified, Z00.00 - Encounter for general adult medical examination without abnormal findings Medications: New meloxicam 15 mg PO DAILY 30 days 30 tabs 2RF cyclobenzaprine 10 mg PO BID 10 days PRN 20 tabs 0RF muscle spasm Coding Level of Care Code Est Pt Level 4 (00736) Diagnoses Back pain M54.9 Elevated fasting blood sugar R73.01 Hyperlipidemia E78.5
== END 2024-04-13 14:42 | disposition home or self-care (01) ==
PROVIDERS: PCP Family Medicine; Visit Provider Family Medicine
DX: M54.9 Dorsalgia, unspecified (principal); R73.01 Impaired fasting glucose; E78.5 Hyperlipidemia, unspecified
CPT/HCPCS: 99214

== ENCOUNTER 2024-07-09 08:21 | Outpatient (AMB) | payer MEDICARE, MEDICAID, SELFPAY ==
--- NOTE | 2024-07-09 08:37 | A.OFFPC_ITS ---
Vital Signs 07/09/24 08:40 Height 5 ft 5 in Weight 239 lb 8 oz BMI 39.9 BP 126/76 Blood Pressure Location Lt brachial Position Sitting Respiration 16 Pulse 60 Pulse Source Pulse Oximeter Temp 98 F Temp Source Tympanic Pulse Oximetry (%) 97 Oxygen Delivery Method Room Air Intake Visit Reasons: f/u hyperlipidemia Intake Note: follow up for hyperlipidemia Allergies onion Allergy (Intermediate, Verified 07/09/24 08:39) sneezing Peanut Butter Allergy (Intermediate, Verified 07/09/24 08:39) Sneezing cats Allergy (Mild, Uncoded 03/28/24 10:14) free text dust Allergy (Mild, Uncoded 03/28/24 10:14) free text Tobacco use date assessed: 03/28/24 Dental Screening Dental Screen Date: 03/28/24 HPI f/u hyperlipidemia HPI Details 58 y/o male presents to f/u hyperlipidem ia. No recent labs to review. [facility] Medical History Obesity (BMI 30-39.9) Hyperlipidemia HTN (hypertension) Surgical History Hx of colonoscopy History of cardiac catheterization (~2014) History of tooth extraction History of surgery History of spinal surgery History of surgery History of carpal tunnel syndrome History of neck surgery History of knee replacement procedure of right knee Family History (Updated 04/13/24 @ 14:03 by MAUDE Landin) Father No problems noted. Mother Diabetes mellitus Stroke Sister Hemorrhage Multi-organ failure with heart failure Daughter Diabetes mellitus Other Mental health disorder Substance use disorder Social History Housing: Apartment Alcohol intake: never Patient Tobacco Use Status: Current someday Tobacco user Tobacco use type: Cigar Cigarettes Per Day: 1 Years Smoked: 20 e-Cigarette/Vaping Use: Never Used Second Hand Smoke Exposure: Yes service: No Current occupational status: disabled Current occupational exposures/hazards: No Cognitive needs: No (cane) Hearing needs: No Vision needs: Yes (Glasses) Questionnaire Thrive Questionnaire Date Thrive assessed: 03/28/24 SARAH-7 AMB Questionnaire SARAH-7 Date SARAH - 7 assessed: 03/28/24 Source: Developed by Drs. Abdirahman Dallas, Minna Hernandez, Kennedy Phillips and colleagues, with an educational jayy from [employer]. Review of Systems Const Denies chills, Denies fatigue, Denies fever(s), Denies headache(s) and Denies weakness ENT Denies dizziness and Denies headache(s) Card Denies dyspnea Resp Denies cough, Denies dyspnea, Denies wheezing and Denies other (shortness of breath) Musc Denies numbness and Denies tingling Neuro Denies dizziness, Denies headache(s), Denies numbness, Denies tingling and Denies weakness Psych Denies anxiety and Denies depression Endo Denies fatigue Aller/Immun Denies wheezing Physical exam (Primary Care) Vital Signs: Last Vital Signs Temp 98 F 07/09/24 08:40 Pulse 60 07/09/24 08:40 Resp 16 07/09/24 08:40 BP 126/76 07/09/24 08:40 Pulse Ox 97 07/09/24 08:40 Oxygen Delivery Method Room Air 07/09/24 08:40 BMI result Body Mass Index 39.9 Tobacco/Smoking Status: Tobacco use Status Tobacco use date assessed 03/28/24 07/09/24 08:42 Patient Tobacco Use Status Current someday Tobacco 07/09/24 08:42 Tobacco use type Cigar 07/09/24 08:42 e-Cigarette/Vaping Use Never Used 07/09/24 08:42 Thrive Assessment: Date of Thrive Assessment Date Thrive assessed 03/28/24 07/09/24 08:42 Const General: well developed; No acute distress Nutritional Appearance: well nourished Orientation/consciousness: patient oriented x3 [facility] Head: Yes normocephalic and Yes atraumatic Eyes General: appearance normal, both eyes and all related structures Pupils: Equal, round and reactive pupils present EOM: EOMs intact bilaterally Resp Effort & Inspection: normal respiratory effort Neuro General: patient oriented x3 and gait normal Cranial nerves: Yes Equal, round and reactive pupils present Psych Affect: normal affect Assessment and Plan Assessment & Plan (1) Hyperlipidemia: Code(s): E78.5 - Hyperlipidemia, unspecified Plan: Gotten?his?labs?drawn?since?prior?to?last?visit. LDL?cholesterol?was?143. He?has?decided?that?he?would?like?to?start?a?medication?however. Start?atorvastatin?20?mg?daily Reminded?him?to?get?h is?labs?drawn?a?few?days?prior?to?next?visit?and?we?will?review?lipids?at?that?t negro. Orders: Orders Lipid Panel Today E78.5 - Hyperlipidemia, unspecified, Z00.00 - Encounter for general adult medical examination without abnormal findings Comprehensive [place]. Panel Fast Today E78.5 - Hyperlipidemia, unspecified, Z00.00 - Encounter for general adult medical examination without abnormal findings Medications: New atorvastatin 20 mg PO BEDTIME 90 days 90 tabs 2RF Refilled citalopram 20 mg PO DAILY 30 days 30 tabs 2RF lisinopril-hydrochlorothiazide 20-25 mg 1 tab PO DAILY 90 tabs 1RF Coding Level of Care Code Est Pt Level 3 (64456) Diagnoses Hyperlipidemia E78.5
[2024-07-09 08:40] VITALS: BP 126/76; PULSE 60; RESP 16; TEMP 36.6; O2SAT 97; BMI 39.9
== END 2024-07-09 09:00 | disposition home or self-care (01) ==
PROVIDERS: PCP Family Medicine; Visit Provider Family Medicine
DX: E78.5 Hyperlipidemia, unspecified (principal)
CPT/HCPCS: 99213

== ENCOUNTER 2024-08-07 13:34 | Outpatient (AMB) | payer MEDICARE, MEDICAID, SELFPAY ==
[2024-08-07 13:41] VITALS: BP 112/78; PULSE 56; O2SAT 97; BMI 40.9
--- NOTE | 2024-08-07 13:41 | A.OFFVIS_ITS ---
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 Allergies onion Allergy (Intermediate, Verified 08/07/24 14:07) sneezing Peanut Butter Allergy (Intermediate, Verified 08/07/24 14:07) Sneezing cats Allergy (Mild, Uncoded 08/07/24 14:07) free text dust Allergy (Mild, Uncoded 08/07/24 14:07) free text Medication List - Last Reconciled 08/07/24 by Jaun Swenson MD atorvastatin 20 mg PO BEDTIME 90 days citalopram 20 mg PO DAILY 30 days cyclobenzaprine 10 mg PO BID PRN 10 days gabapentin 300 mg PO DAILY 90 days lisinopril-hydrochlorothiazide 20-25 mg 1 tab PO DAILY meloxicam 15 mg PO DAILY 30 days Do you need a note to return to daycare/school/sports/work: No HPI HPI Obstructive sleep apnea: Details: THIS 58 YEARS OLD GENTLEMAN WITH MORBID OBESITY, AND DIAGNOSIS OF OBSTRUCTIVE SLEEP APNEA SINCE MANY MANY YEARS AGO. COMES FOR FOLLOW-UP AFTER MORE THAN A YEAR. AFTER HIS LAST VISIT HERE IN 2021 HE RECEIVED THE NEW CPAP MACHINE AND HAS BEEN VERY HAPPY WITH THIS NEW DEVICE. HE IS USING CPAP WITH NASAL MASK AND FEELS COMFORTABLE. HE HAS NOT GOTTEN THE SUPPLIES FOR A WHILE AND THAT IS WHY HE SHOWED UP HERE TODAY. HE HAS NOT BEEN ABLE TO LOSE ANY WEIGHT, HE SAY IS HE CAN NOT DO EXERCISE OR WALK AROUND BECAUSE OF HIS CHRONIC BACK PAIN. HE TRIES TO CONTROL HIS DIET BUT NOT EFFECTIVELY. RECENTLY HAS ACTUALLY GAINED SOME WEIGHT. ON LICENSE OF [facility] Medical History Obesity (BMI 30-39.9) Hyperlipidemia HTN (hypertension) Surgical History Hx of colonoscopy History of cardiac catheterization (~2014) History of tooth extraction History of surgery History of spinal surgery History of surgery History of carpal tunnel syndrome History of neck surgery History of knee replacement procedure of right knee Family History Father No problems noted. Mother Diabetes mellitus Stroke Sister Hemorrhage Multi-organ failure with heart failure Daughter Diabetes mellitus Other Mental health disorder Substance use disorder Social History Housing: Apartment Alcohol intake: never Patient Tobacco Use Status: Former Tobacco user Tobacco use type: Cigar Cigarettes Per Day: 1 Years Smoked: 20 Non Cigarette Tobacco use Quit date or years: 04/2024 e-Cigarette/Vaping Use: Never Used Second Hand Smoke Exposure: Yes service: No Current occupational status: disabled Current occupational exposures/hazards: No Cognitive needs: No (cane) Hearing needs: No Vision needs: Yes (Glasses) Review of Systems Const All systems reviewed & are unremarkable except as noted in HPI and below Denies chills, Denies fatigue, Denies fever(s), Denies headache(s) and Denies weakness Eyes Reports no additional complaints ENT Denies dizziness, Denies headache(s) and Reports nasal congestion ( mild to mod erate nasal congestion especially at night.) Card Denies chest pain, Denies irregular heart rhythm and Reports dyspnea on exertion ( mild on walking up hill) Resp Denies cough, Reports dyspnea on exertion ( mild on walking up hill) and Denies wheezing GI Reports no additional complaints Reports no additional complaints Musc Reports back pain, Denies numbness and Denies tingling Skin/Breast Reports system reviewed and no additional complaints, except as documented Neuro Denies dizziness, Denies headache(s), Denies numbness, Denies tingling and Denies weakness Psych Denies anxiety and Denies depression Endo Denies fatigue Aller/Immun Denies wheezing Physical Exam Vital Signs: Last Vital Signs Pulse 56 08/07/24 13:41 BP 112/78 08/07/24 13:41 Pulse Ox 97 08/07/24 13:41 Oxygen Delivery Method Room Air 08/07/24 13:41 BMI result Body Mass Index 40.9 Results Reviewed Results Reviewed: COMPLIANCE REPORT IS REVIEWED AND HE HAS USED CPAP 30/30 NIGHTS, 100% AVERAGE USE PER NIGHT 7 HOURS 44 MINUTES. PRESSURE USED MOSTLY 12-13 CM. NO SIGNIFICANT AIR LEAK. RESIDUAL AHI 0.5 Assessment & Plan Assessment & Plan (1) Morbid obesity: Comment: This gentleman is morbidly obese, BMI is 40.9 He is not able to exercise because of his generalized arthritis, especially chronic back pain . He is not apt to join any weight management program. Code(s): E66.01 - Morbid (severe) obesity due to excess calories Category: Medical Plan: I discussed with him about cutting down the portions, Consider seeing a dietitian. Try to do exercises as much as possible. Diet explained to him and he needs to reduce intake of carbohydrates and increase intake of salads and veggies. (2) SLY on CPAP: Comment: Known history of obstructive sleep apnea since many years ago, Essential for him to use CPAP at night. He has had new CPAP device since his last visit and is very happy with that. USING CPAP WITH NASAL MASK, AUTO PAP MODE PRESSURE SETTING 6-20 CM. Code(s): G47.33 - Obstructive sleep apnea (adult) (pediatric); Z99.89 - Dependence on other enabling machines and devices Category: Medical Plan: ADVISED TO CONTINUE USING THE CPAP REGULARLY. ADVISED TO GET SUPPLIES ON TIME . (3) Allergic rhinitis: Comment: HAS CHRONIC ALLERGIC RHINITIS, HIS NOSE GETS CONGESTED WITH THE USE OF CPAP. Code(s): J30.9 - Allergic rhinitis, unspecified Category: Medical Plan: CONTINUE USING FLONASE 2 SPRAY IN EACH NOSTRIL DAILY, CLARITIN OR CETIRIZINE 10 MG ONCE A DAY P.R.N.. MAY ALSO USE ATROVENT NASAL SPRAY BEFORE PUTTING ON THE CPAP MASK. Coding Level of Care Code Est Pt Level 3 (20813) Diagnoses Morbid obesity E66.01 SLY on CPAP G47.33; Z99.89 Allergic rhinitis J30.9
== END 2024-08-07 15:15 | disposition home or self-care (01) ==
PROVIDERS: PCP Family Medicine; Visit Provider Internal Medicine
DX: E66.01 Morbid (severe) obesity due to excess calories (principal); G47.33 Obstructive sleep apnea (adult) (pediatric); Z99.89 Dependence on other enabling machines and devices; J30.9 Allergic rhinitis, unspecified
CPT/HCPCS: 99213

== ENCOUNTER → 2024-08-07 13:34 | Outpatient (BNVA) | payer MEDICARE, MEDICAID, SELFPAY | PROVIDERS: PCP Family Medicine; Visit Provider Internal Medicine | DX: G47.33 Obstructive sleep apnea (adult) (pediatric) (principal); J30.9 Allergic rhinitis, unspecified; E66.01 Morbid (severe) obesity due to excess calories; Z99.89 Dependence on other enabling machines and devices | CPT/HCPCS: 99212 ==

== ENCOUNTER 2024-08-28 08:47 | Outpatient (REF) | payer MEDICARE, MEDICAID, SELFPAY ==
[2024-08-28 11:11] LABS: Appearance Urine Clear; Color Urine Yellow; Glucose Urine UA Negative (Negative); Leukocyte Esterase Urine Negative (Negative); Nitrite Urine Negative (Negative); PH 5.5 (5.0-9.0); UMIC TRIGGER UA YES; Urine Blood Trace (Negative); Urine Ketones Negative (Negative); Urine Protein Negative (Neg-Trace)
[2024-08-28 11:42] LABS: Bacteria Urine None Seen (None Seen); Hyaline Casts Urine 0-2 /LPF (0-2); Squamous Epithelial Cell Urine 0-2 /HPF (0-2); WBC Urine 0-5 /HPF (0-5)
[2024-08-28 11:50] LABS: Creatinine Urine 89.75 mg/dL; Microalbumin Urine < 5.0 mg/L
[2024-08-31 04:43] LABS: TS Negative Control Passed; TS Panel A 2; TS Panel B 3; TS Positive Control Passed; TSpotTB Negative (Negative)
== END 2024-08-28 08:48 | disposition home or self-care (01) ==
LOC: HO.WFDLDS 08:47
PROVIDERS: Visit Provider Family Medicine
DX: I10 Essential (primary) hypertension (principal); Z11.1 Encounter for screening for respiratory tuberculosis
CPT/HCPCS: 36415; 81001; 82570; 86481

== ENCOUNTER 2024-08-29 08:43 | Outpatient (REF) | payer MEDICARE, MEDICAID, SELFPAY ==
[2024-08-29 11:34] LABS: Alanine Aminotransferase 22 U/L (0-40); Albumin Level 4.1 g/dL (3.5-5.0); Alkaline Phosphatase 82 U/L (39-117); Anion Gap 13 (12-20); Aspartate Amino Transferase 18 U/L (5-37); Bilirubin Total 1.2 mg/dL (0.0-1.0); Blood Urea Nitrogen 10 mg/dL (9-16); Calcium 9.5 mg/dL (8.4-10.2); Carbon Dioxide 29 mmol/L (22-29); Chloride 101 mmol/L (96-108); Cholesterol 124 mg/dL (<200); Estimated Glomerular Filt Rate > 60; Glucose Fasting 104 mg/dL (60-99); HDL Cholesterol 46 mg/dL (>40); LDL Cholesterol Calculated 58 mg/dL (<100); Potassium 3.9 mmol/L (3.3-5.1); Sodium 139 mmol/L (135-145); Total Protein 6.9 g/dL (6.5-8.0); Triglycerides 100 mg/dL (<150)
[2024-08-29 11:39] LABS: Prostate Specific Antigen Scr < 0.10 ng/mL (<0.05-4.0)
[2024-08-29 11:44] LABS: TSH reflex Free T4 0.95 uIU/mL (0.32-4.0)
== END 2024-08-29 08:44 | disposition home or self-care (01) ==
LOC: HO.WFDLDS 08:43
PROVIDERS: Visit Provider Family Medicine
DX: Z00.00 Encounter for general adult medical examination without abnormal findings (principal); Z12.5 Encounter for screening for malignant neoplasm of prostate
CPT/HCPCS: 36415; 80053; 80061; 84153; 84443

== ENCOUNTER 2024-10-15 08:17 | Outpatient (AMB) | payer MEDICARE, MEDICAID, SELFPAY ==
--- NOTE | 2024-10-15 08:35 | MHC.PC.OV ---
Vital Signs 10/15/24 08:36 Height 5 ft 5 in Weight 246 lb 8 oz BMI 41.0 BP 126/70 Blood Pressure Location Rt brachial Position Sitting Respiration 16 Pulse 54 Pulse Source Pulse Oximeter Temp 97.8 F Temp Source Oral Pulse Oximetry (%) 96 Oxygen Delivery Method Room Air Intake Visit Reasons: f/u HLD Intake Note: lab review Allergies onion Allergy (Intermediate, Verified 10/15/24 08:35) sneezing Peanut Butter Allergy (Intermediate, Verified 10/15/24 08:35) Sneezing cats Allergy (Mild, Uncoded 08/07/24 14:07) free text dust Allergy (Mild, Uncoded 08/07/24 14:07) free text Medication List - Last Reconciled 10/15/24 by Sher Guzman MD atorvastatin 20 mg PO BEDTIME 90 days citalopram 20 mg PO DAILY 30 days cyclobenzaprine 10 mg PO BID PRN 10 days gabapentin 300 mg PO DAILY 90 days lisinopril-hydrochlorothiazide 20-25 mg 1 tab PO DAILY meloxicam 15 mg PO DAILY 30 days Tobacco use date assessed: 03/28/24 Dental Screening Dental Screen Date: 03/28/24 HPI f/u HLD HPI Details 59 y/o male presents to f/u HLD. Labs drawn 08/29/24. Reviewed labs with pt. Elevated fasting glucose of 104. Triglycerides 100. TC 124. LDL improved from 143 to 58. HDL 46. Blood pressure today 126/70, 54p. He is on lisinopril-HCTZ 20-25mg daily. HPI Comments History of Present Illness Details Documentation assistance for Sher Guzman MD, was provided by Tremaine Hilario, Learning Support Services Director on 10/15/2024 at 9:18 AM FABIOLA. I, Dr. Guzman, have read, observed, and verified documentation. [facility] Medical History Obesity (BMI 30-39.9) Hyperlipidemia HTN (hypertension) Surgical History Hx of colonoscopy History of cardiac catheterization (~2014) History of tooth extraction History of surgery History of spinal surgery History of surgery History of carpal tunnel syndrome History of neck surgery History of knee replacement procedure of right knee Family History Father No problems noted. Mother Diabetes mellitus Stroke Sister Hemorrhage Multi-organ failure with heart failure Daughter Diabetes mellitus Other Mental health disorder Substance use disorder Social History Housing: Apartment Alcohol intake: never Patient Tobacco Use Status: Former Tobacco user Tobacco use type: Cigar Cigarettes Per Day: 1 Years Smoked: 20 e-Cigarette/Vaping Use: Never Used Second Hand Smoke Exposure: Yes service: No Current occupational status: disabled Current occupational exposures/hazards: No Cognitive needs: No (cane) Hearing needs: No Vision needs: Yes (Glasses) Questionnaire PHQ-9 Over the last 2 weeks, how often have you been bothered by any of the following problems? 1. Little interest or pleasure in doing things: several days 2. Feeling down, depressed, or hopeless: more than half the days 3. Trouble falling or staying asleep, or sleeping too much: several days 4. Feeling tired or having little energy: more than half the days 5. Poor appetite or overeating: more than half the days 6. Feeling bad about yourself - or that you are a failure or have let yourself or your family down: several days 7. Trouble concentrating on things, such as reading the newspaper or watching television: several days 8. Moving or speaking so slowly that other people could have noticed. Or the opposite - being so fidgety or restless that you have been moving around a lot more than usual: several days 9. Thoughts that you would be better off or of hurting yourself in some way: more than half the days Total score: 13 Source: Developed by Drs. Abdirahman Dallas, Minna Hernandez, Kennedy Phillips and colleagues, with an educational jayy from [employer]. Thrive Questionnaire Date Thrive assessed: 03/28/24 I am a: Patient What is your living situation today?: I have a steady place to live Within the past 12 months, did the food you bought not last and you didn't have the money to get more?: Sometimes True Within the past 12 months, did you worry whether your food would run out before you got money to buy more?: Sometimes True Do you have trouble paying for medicines?: No Do you have trouble getting transportation to medical appointments?: No Do you have trouble paying your heating and electricity bill?: No Do you have trouble taking care of your child, family member or friend?: No Do you have trouble with day-to-day activities such as bathing, preparing meals, shopping, managing finances, etc.?: Yes Are you currently unemployed and looking for a job?: I choose not to answer this question Are you interested in more education?: No Please select the resources that you would like help with: Housing/Fdc Currently or been in a relationship where the following occur: I choose not to answer THRIVE Score: 2 AUDIT C Alcohol Use Questionnaire (AUDIT-C) 1. How often do you have a drink containing alcohol?: Never Total Score: 0 SARAH-7 AMB Questionnaire SARAH-7 Date SARAH - 7 assessed: 03/28/24 Feeling nervous, anxious, or on edge: 2 = More than half the days Not being able to stop or control worryin = More than half the days Worrying too much about different things: 2 = More than half the days Trouble relaxin = More than half the days Being so restless that it is hard to sit still: 1 = Several days Becoming easily annoyed or irritable: 1 = Several days Feeling afraid as if something awful might happen: 2 = More than half the days Total SARAH-7 score (0-4 normal; 5-9 mild; 10-14 moderate; 15-21 severe): 12 Source: Developed by Drs. Abdirahman Dallas, Minna Hernandez, Kennedy Phillips and colleagues, with an educational jayy from [employer]. Review of Systems Const Denies chills, Denies fatigue, Denies fever(s), Denies headache(s) and Denies weakness ENT Denies dizziness and Denies headache(s) Card Denies dyspnea Resp Denies cough, Denies dyspnea, Denies wheezing and Denies other (shortness of breath) Musc Denies numbness and Denies tingling Neuro Denies dizziness, Denies headache(s), Denies numbness, Denies tingling and Denies weakness Psych Denies anxiety and Denies depression Endo Denies fatigue Aller/Immun Denies wheezing Physical exam (Primary Care) Vital Signs: Last Vital Signs Temp 97.8 F 10/15/24 08:36 Pulse 54 10/15/24 08:36 Resp 16 10/15/24 08:36 BP 126/70 10/15/24 08:36 Pulse Ox 96 10/15/24 08:36 Oxygen Delivery Method Room Air 10/15/24 08:36 BMI result Body Mass Index 41.0 Tobacco/Smoking Status: Tobacco use Status Tobacco use date assessed 03/28/24 10/15/24 08:40 Patient Tobacco Use Status Former Tobacco user 10/15/24 08:40 Tobacco use type Cigar 10/15/24 08:40 e-Cigarette/Vaping Use Never Used 10/15/24 08:40 PHQ-9: PHQ-9 Score PHQ-9: Total score 13 10/15/24 09:13 Thrive Assessment: Date of Thrive Assessment Date Thrive assessed 03/28/24 10/15/24 08:40 Currently or been in a relationship where the following occur: I choose not to answer Const General: well developed; No acute distress Nutritional Appearance: well nourished Orientation/consciousness: patient oriented x3 [facility] Head: Yes normocephalic and Yes atraumatic Eyes General: appearance normal, both eyes and all related structures Pupils: Equal, round and reactive pupils present EOM: EOMs intact bilaterally Resp Effort & Inspection: normal respiratory effort Neuro General: patient oriented x3 and gait normal Cranial nerves: Yes Equal, round and reactive pupils present Psych Affect: normal affect Coding Level of Care Code Est Pt Level 4 (97808) Diagnoses Essential hypertension I10 Hyperlipidemia E78.5 Elevated fasting blood sugar R73.01 Screening for prostate cancer Z12.5 Assessment & Plan Assessment & Plan (1) Essential hypertension: Code(s): I10 - Essential (primary) hypertension Category: Medical Plan: Blood?pressure?is?controlled.??Goal?is?less?than?140/90 Continue?current?medication (2) Hyperlipidemia: Code(s): E78.5 - Hyperlipidemia, unspecified Category: Medical Plan: Much?improved?on?atorvastatin?20?mg?daily.??LDL?goal?is?less?than?100 Will?decrease?atorvastatin?20?mg?daily?to?atorvastatin?10?mg?daily Will?recheck?lipids?prior?to?next?visit (3) Elevated fasting blood sugar: Code(s): R73.01 - Impaired fasting glucose Category: Medical Plan: Mildly?elevated?fasting?blood?sugar Encouraged?diet?low?in?sugars?and?starches Will?recheck?fasting?blood?sugar?and?A1c?with?next?blood?draw (4) Screening for prostate cancer: Code(s): Z12.5 - Encounter for screening for malignant neoplasm of prostate Category: Medical Plan: PSA?is?within?normal?limits Will?continue?annual?screening Orders: Orders Hemoglobin A1c Today R73.01 - Impaired fasting glucose Lipid Panel Today E78.5 - Hyperlipidemia, unspecified, Z00.00 - Encounter for general adult medical examination without abnormal findings Comprehensive [place]. Panel Fast Today R73.01 - Impaired fasting glucose, Z00.00 - Encounter for general adult medical examination without abnormal findings Medications: Changed From atorvastatin 20 mg PO BEDTIME 90 days 90 tabs 2RF To atorvastatin 10 mg PO BEDTIME 90 days 90 tabs 2RF
[2024-10-15 08:36] VITALS: BP 126/70; PULSE 54; RESP 16; TEMP 36.6; O2SAT 96; BMI 41.0
== END 2024-10-15 09:19 | disposition home or self-care (01) ==
PROVIDERS: PCP Family Medicine; Visit Provider Family Medicine
DX: I10 Essential (primary) hypertension (principal); E78.5 Hyperlipidemia, unspecified; R73.01 Impaired fasting glucose; Z12.5 Encounter for screening for malignant neoplasm of prostate

== ENCOUNTER → 2024-10-15 08:17 | Outpatient (BNVA) | payer MEDICARE, MEDICAID, SELFPAY | PROVIDERS: PCP Family Medicine; Visit Provider Family Medicine | DX: I10 Essential (primary) hypertension (principal); E78.5 Hyperlipidemia, unspecified; R73.01 Impaired fasting glucose | CPT/HCPCS: 99212 ==

== ENCOUNTER 2024-12-19 10:24 | Outpatient (AMB) | payer MEDICARE, MEDICAID, SELFPAY ==
--- NOTE | 2024-12-19 10:28 | A.OFFVIS_ITS ---
Vital Signs 12/19/24 10:29 Height 5 ft 5 in Weight 244 lb 11.41 oz BMI 40.7 BP 120/64 Blood Pressure Location Rt brachial Position Sitting Pulse 63 Intake Visit Reasons: 1 yr f/up Director Telemetry Required: No Accompanied by: Self / Same As Patient Allergies onion Allergy (Intermediate, Verified 10/15/24 08:35) sneezing Peanut Butter Allergy (Intermediate, Verified 10/15/24 08:35) Sneezing cats Allergy (Mild, Uncoded 08/07/24 14:07) free text dust Allergy (Mild, Uncoded 08/07/24 14:07) free text Medication List - Last Reconciled 12/19/24 by Igor Mejia MD acetaminophen (Tylenol Extra Strength) 1,000 mg PO Q6H PRN atorvastatin 10 mg PO BEDTIME 90 days citalopram 20 mg PO DAILY 30 days cyclobenzaprine 10 mg PO BID PRN 10 days gabapentin 300 mg PO DAILY 90 days ibuprofen 800 mg PO Q6H lisinopril-hydrochlorothiazide 20-25 mg 1 tab PO DAILY meloxicam 15 mg PO DAILY 30 days HPI Comments Details: Javier returns for follow-up. Last seen by me in 2021. Then it seems he has seen our nurse practitioners. Essentially, he has a chronically abnormal looking EKG thought to be from left ventricular hypertrophy. However, he also complains of chest pains at different times. This is not a new issue but going on for quite some time. This can happen with rest, exertion and essentially any time. He also gets short of breath with activity. He has undergone stress testing in the past which was unremarkable. In 2014, he underwent cardiac catheterization but no significant findings. On meds for hypertension. He continues to complain of chest pain. Otherwise, planning for back surgery in January of this year. [facility] Medical History (Updated 12/19/24 @ 11:56 by Igor Mejia MD) Obesity (BMI 30-39.9) Hyperlipidemia HTN (hypertension) Surgical History (Updated 12/19/24 @ 10:39 by Alicia Hoffman CMA) Failed spinal cord stimulator Hx of colonoscopy History of cardiac catheterization (~2014) History of tooth extraction History of surgery History of spinal surgery History of surgery History of carpal tunnel syndrome History of neck surgery History of knee replacement procedure of right knee Family History Father No problems noted. Mother Diabetes mellitus Stroke Sister Hemorrhage Multi-organ failure with heart failure Daughter Diabetes mellitus Other Mental health disorder Substance use disorder Social History Housing: Apartment Alcohol intake: never Patient Tobacco Use Status: Former Tobacco user Tobacco use type: Cigar Cigarettes Per Day: 1 Years Smoked: 20 e-Cigarette/Vaping Use: Never Used Second Hand Smoke Exposure: Yes service: No Current occupational status: disabled Current occupational exposures/hazards: No Cognitive needs: No (cane) Hearing needs: No Vision needs: Yes (Glasses) Review of Systems Const Denies chills, Denies fatigue, Denies fever(s), Denies weight gain and Denies weight loss ENT Denies dizziness Card Denies chest pain, Denies leg edema, Denies lightheadedness, Denies palpitations, Denies dyspnea on exertion, Denies orthopnea and Denies other Resp Denies cough and Denies dyspnea on exertion GI Denies hematochezia and Denies change in stool character Musc Denies abnormal gait, Denies muscle weakness, Denies numbness, Denies radiating pain into limb and Denies tingling Neuro Denies Abnormal speech present, Denies abnormal gait, Denies dizziness, Denies numbness and Denies tingling Endo Denies fatigue and Denies palpitations Physical Exam Vital Signs: Last Vital Signs Pulse 63 12/19/24 10:29 BP 120/64 12/19/24 10:29 BMI result Body Mass Index 40.7 Const General: comfortable and no acute distress Orientation/consciousness: patient oriented x3 HEENT Other: Unremarkable Head: Yes normal to inspection Neck Neck: Yes normal visual inspection Chest Chest palpation & inspection: normal inspection of the chest Resp Auscultation: clear to auscultation bilaterally Cardio Palpation: normal PMI Heart sounds: S1 normal heart sound present, S2 normal heart sound present, no gallops, Murmur heart sound present systolic II/ and at the right sternal border and no rubs GI Palpation (GI): Soft to palpation Back/Spine/Pelvis Other: unremarkable Skin General skin exam: no rashes or lesions noted Neuro General: patient oriented x3 Speech: No Abnormal speech present Extrem General: Yes normal to inspection Psych Mental Status: mental status grossly normal Office Procedures EKG Details: EKG with underlying sinus rhythm at 63/Min; supraventricular ectopy; left ventricular hypertrophy with repolarization changes. Less likely [place] [id number], Complete Assessment & Plan Assessment & Plan (1) Chest pain: Code(s): R07.9 - Chest pain, unspecified Category: Medical (2) Abnormal EKG: Code(s): R94.31 - Abnormal electrocardiogram [ECG] [EKG] Category: Medical (3) Essential hypertension: Code(s): I10 - Essential (primary) hypertension Category: Medical (4) Aortic valve sclerosis: Code(s): I35.8 - Other nonrheumatic aortic valve disorders Category: Medical (5) Preoperative cardiovascular examination: Code(s): Z01.810 - Encounter for preprocedural cardiovascular examination Category: Medical Plan Cardiac studies reviewed. Abnormal EKG, thought to be from rather left ventricular hypertrophy and less likely from ischemia. Pharmacological stress test from June 20[facility]normal perfusion. Seems he has had another at [facility] which was also unremarkable. Cardiac catheterization from 2014-near normal coronary arteries with only minimal disease in the LAD. Uncertain etiology for his continued chest pain/shortness of breath. We discussed about another diagnostic catheterization as it has been almost 10 years since last study. He is willing. Can schedule this in the near future especially as there is also back surgery coming up in January of this year. With regard to the aortic sclerosis history, we can repeat an echocardiogram to look for any progressive aortic stenosis. Follow-up after the above. Orders: Orders CA echo transthoracic complete Today I35.0 - Nonrheumatic aortic (valve) stenosis Basic Metabolic Panel Today R07.89 - Other chest pain Prothrombin Time INR Today I25.10 - Atherosclerotic heart disease of [place] coronary artery without angina pectoris, R07.89 - Other chest pain Complete Blood Count no Diff Today R07.89 - Other chest pain Cardiac Cath LT Diagnostic Today I25.10 - Atherosclerotic heart disease of [place] coronary artery without angina pectoris, R07.89 - Other chest pain Coding Level of Care Code Est Pt Level 4 (97055) Diagnoses Chest pain R07.9 Abnormal EKG R94.31 Essential hypertension I10 Aortic valve sclerosis I35.8 Preoperative cardiovascular examination Z01.810 CPT Codes EKG - CPT: [id number], Complete ([id number])
[2024-12-19 10:29] VITALS: BP 120/64; PULSE 63; BMI 40.7
== END 2024-12-19 11:08 | disposition home or self-care (01) ==
PROVIDERS: PCP Family Medicine; Visit Provider Internal Medicine
DX: R07.9 Chest pain, unspecified (principal); R94.31 Abnormal electrocardiogram [ECG] [EKG]; I10 Essential (primary) hypertension; I35.8 Other nonrheumatic aortic valve disorders; Z01.810 Encounter for preprocedural cardiovascular examination
CPT/HCPCS: 93010; 99214

== ENCOUNTER → 2024-12-19 10:24 | Outpatient (BNVA) | payer MEDICARE, MEDICAID, SELFPAY | PROVIDERS: PCP Family Medicine; Visit Provider Internal Medicine | DX: Z01.810 Encounter for preprocedural cardiovascular examination (principal); R07.9 Chest pain, unspecified; R94.31 Abnormal electrocardiogram [ECG] [EKG]; I10 Essential (primary) hypertension; I35.8 Other nonrheumatic aortic valve disorders; I35.0 Nonrheumatic aortic (valve) stenosis; I25.10 Atherosclerotic heart disease of native coronary artery without angina pectoris | CPT/HCPCS: 93005; 99212 ==

== ENCOUNTER → 2024-12-25 23:59 | Outpatient (BNV) | payer MEDICARE, SELFPAY | PROVIDERS: PCP Family Medicine; Visit Provider Internal Medicine Cardiovascular Disease | DX: I20.89 Other forms of angina pectoris (principal) | CPT/HCPCS: 93458; 99152 ==

== ENCOUNTER → 2025-01-03 12:45 | Outpatient (BNV) | payer MEDICARE, SELFPAY | PROVIDERS: PCP Family Medicine; Visit Provider Internal Medicine Cardiovascular Disease | DX: I35.2 Nonrheumatic aortic (valve) stenosis with insufficiency (principal); I35.8 Other nonrheumatic aortic valve disorders; I34.81 Nonrheumatic mitral (valve) annulus calcification | CPT/HCPCS: 93306 ==

== ENCOUNTER 2025-01-23 13:55 | Outpatient (AMB) | payer MEDICARE, MEDICAID, SELFPAY ==
[2025-01-23 14:09] VITALS: BP 118/52; PULSE 71; BMI 41.7
--- NOTE | 2025-01-23 14:09 | A.OFFVIS_ITS ---
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 He has a history of hypertension, hyperlipidemia, and obesity and was recently seen in the office for complaints of chest pain and shortness of breath. Patient underwent echocardiogram and cardiac catheterization for further evaluation. Today, the patient reports ongoing intermittent mid chest pain that occurs both at rest and with exertion. He notes the pain does not worsen with exertion and remains relatively short-lived. The patient denies any associated symptoms, including shortness of breath,palpitations, dizziness, fatigue, orthopnea, PND, leg edema, presyncope, or syncope. patient mentions that he has been having significant back issues in his scheduled for procedure next week to address it. He confirms being compliant with his medications. [facility] Medical History Obesity (BMI 30-39.9) Hyperlipidemia HTN (hypertension) Surgical History Failed spinal cord stimulator Hx of colonoscopy History of cardiac catheterization (~2014) History of tooth extraction History of surgery History of spinal surgery History of surgery History of carpal tunnel syndrome History of neck surgery History of knee replacement procedure of right knee Family History Father No problems noted. Mother Diabetes mellitus Stroke Sister Hemorrhage Multi-organ failure with heart failure Daughter Diabetes mellitus Other Mental health disorder Substance use disorder Social History Housing: Apartment Alcohol intake: never Patient Tobacco Use Status: Former Tobacco user Tobacco use type: Cigar Cigarettes Per Day: 1 Years Smoked: 20 e-Cigarette/Vaping Use: Never Used Second Hand Smoke Exposure: Yes service: No Current occupational status: disabled Current occupational exposures/hazards: No Cognitive needs: No (cane) Hearing needs: No Vision needs: Yes (Glasses) Review of Systems Const Denies chills, Denies fatigue, Denies fever(s), Denies weight gain and Denies weight loss ENT Denies dizziness Card Reports chest pain, Denies leg edema, Denies lightheadedness, Denies palpitations, Denies dyspnea on exertion, Denies orthopnea and Denies other Resp Denies cough and Denies dyspnea on exertion GI Denies hematochezia and Denies change in stool character Musc Denies abnormal gait, Denies muscle weakness, Denies numbness, Denies radiating pain into limb and Denies tingling Neuro Denies abnormal gait, Denies dizziness, Denies numbness and Denies tingling Endo Denies fatigue and Denies palpitations Physical Exam Vital Signs: Last Vital Signs Pulse 71 01/23/25 14:09 BP 118/52 L 01/23/25 14:09 BMI result Body Mass Index 41.7 Const General: cooperative, healthy appearing, comfortable and no acute distress Orientation/consciousness: patient oriented x3 HEENT Head: Yes normal to inspection Neck Neck: Yes normal visual inspection, Yes trachea midline and Yes supple Chest Chest palpation & inspection: normal inspection of the chest Resp Effort & Inspection: normal respiratory effort Auscultation: clear to auscultation bilaterally, no crackles, no rales, no rhonchi and no wheezes Cardio Jugular venous distension: no JVD Palpation: normal PMI Rate: regular rate Rhythm: regular rhythm Heart sounds: S1 normal heart sound present, S2 normal heart sound present, no click, no gallops, no murmurs and no rubs Peripheral pulses: Peripheral pulses 2+ throughout GI Inspection: Yes normal to inspection Palpation (GI): Soft to palpation Auscultation: normal bowel sounds Skin General skin exam: no rashes or lesions noted Neuro General: patient oriented x3 Extrem General: Yes normal to inspection, No no pedal edema and No calf tenderness Psych Appearance: grossly normal Mental Status: mental status grossly normal Speech and movement: Normal speech and movement present Assessment & Plan Assessment & Plan (1) Preoperative cardiovascular examination: Code(s): Z01.810 - Encounter for preprocedural cardiovascular examination Category: Medical Plan: Patient has an upcoming spinal surgery for which he is cleared from cardiac perspective with the consideration that he is at low to intermediate risk. (2) Chest pain: Code(s): R07.9 - Chest pain, unspecified Category: Medical Plan: 12/25/2024- patient underwent cardiac catheterization showing no significant coronary artery disease. Right wrist catheterization site is well healed. 01/03/2025- echo study showed normal LVEF 65-70% with moderate LVH with pseudo normal filling pattern, moderately dilated left atrium, mild aortic stenosis, severe mitral annular calcification, upper limits of normal ascending aortic size. Patient's report of ongoing symptoms of chest pain atypical in nature less likely cardiac. Advised heart healthy diet, regular exercise, losing weight, and medication compliance. (3) Essential hypertension: Code(s): I10 - Essential (primary) hypertension Category: Medical Plan: Blood pressure today is well-controlled. continue current medication. Ideally, blood pressure goal of less than 130/80. (4) Hyperlipidemia: Code(s): E78.5 - Hyperlipidemia, unspecified Category: Medical Plan: Most recent LDL is 58, at goal. Continue statin therapy. Ideally goal of LDL less than 70. Patient will follow-up in the office on a yearly basis , sooner if needed. In the interim, patient will call us with any questions or change in symptoms. Advised patient to seek ER care in case of exertional chest pain not resolved with rest. This note was generated using voice recognition software. While every effort has been made to ensure accuracy and proper equalizing saw operator, there may be occasional errors that could affect the content or meaning of the described symptoms. Coding Level of Care Code Est Pt Level 4 (71829) Diagnoses Preoperative cardiovascular examination Z01.810 Chest pain R07.9 Essential hypertension I10 Hyperlipidemia E78.5 Time Spent (min) 30 Comment Time spent in reviewing the chart, test results, assessment, counseling and documentation.
--- OUTSIDE RECORDS SUMMARY | 2025-01-23 17:09 | XMS_ITS | Patient Health Record ---
Author Organization [facility] Address [address] [place] [address] Care Team Providers Care Commercial Diver Name Role Phone Megan TATE, Sher Primary Care Provider Frank Carballo Unavailable [phone] Allergies No Known Allergies Reason For Referral No Information Medications Medication SIG (Take, Route, Frequency, Duration) Notes Start Date End Date Status Lisinopril 20 MG 1 tablet Orally Once a day for 30 day(s) Active Gabapentin 300 MG 1 capsule Orally Onc e a day for 30 day(s) Active amLODIPine Besylate 5 MG 1 tablet Orally Once a day for 30 day(s) Active Gabapentin Not-Takin g Night Splint AFO - L1930 as directed Active Lisinopril Not-Takin g Social History Tobacco Use: Social History Observation Description Date Details (start date - stop date) Never Smoker NA - NA Tobacco Use/Smoking Question Answer Notes Are you a: nonsmoker Additional Findings: Tobacco Non-User Current no n-smoker Alcohol Screen Question Answer Notes Did you have a drink containing alcohol in the p ast year? No Points 0 Interpretation Negative Tobacco use other than smoking: Question Answer Notes Are you an other tobacco user? Yes C igar Plan Of Treatment Pending Test Test Name Order Date X ray : Foot, left 3V 04/06/2022 [id number] TENDON SHEATH/LIGAMENT 0 05/04/2022 Insurance Providers Payer Name Payer Address Payer Phone Subscriber Number Group Number Insured Name Patient Relationship to Insured Coverage Start Date Coverage End Date Medicare National Govt Sv[employer] [address] [place] [address] [id number] Javier King Self - patient is the insured AARP Medicare Complete [address] [address] [place], [place] [id number] [phone] [id number] Javier King Self - patient is the insured Medical (General) History Medical History History ICD Code Hypertension Hyperlipidemia Anxiety Arthritis Back,Hip,and Knee pain Broken bones Depression Surgical History Surgery Date(Month/Year) carpal tunnel release right knee replacement neck surgery spine surgery Tooth extraction
== END 2025-01-23 14:24 | disposition home or self-care (01) ==
PROVIDERS: PCP Family Medicine
DX: Z01.810 Encounter for preprocedural cardiovascular examination (principal); R07.9 Chest pain, unspecified; I10 Essential (primary) hypertension; E78.5 Hyperlipidemia, unspecified
CPT/HCPCS: 99214

== ENCOUNTER → 2025-01-23 13:55 | Outpatient (BNVA) | payer MEDICARE, MEDICAID, SELFPAY | PROVIDERS: PCP Family Medicine | DX: Z01.810 Encounter for preprocedural cardiovascular examination (principal); R07.9 Chest pain, unspecified; I10 Essential (primary) hypertension; E78.5 Hyperlipidemia, unspecified | CPT/HCPCS: 99212 ==

== ENCOUNTER 2025-02-07 08:46 | Outpatient (REF) | payer MEDICARE, MEDICAID, SELFPAY ==
--- OUTSIDE RECORDS SUMMARY | 2025-02-07 09:30 | XMS_ITS | Patient Health Record ---
Author Organization [facility] Address [address] [place] [address] Care Team Providers Care Men'S Swim Coach Name Role Phone Megan TATE, Sher Primary Care Provider Frank Carballo Unavailable [phone] Allergies No Known Allergies Reason For Referral [...] X ray : Foot, left 3V 04/06/2022 [id number] TENDON SHEATH/LIGAMENT 0 05/04/2022 Insurance Providers Payer Name Payer Address Payer Phone Subscriber Number Group Number Insured Name Patient Relationship to Insured Coverage Start Date Coverage End Date Medicare National Govt Svcs Inc [address] [facility] [place] [address] [id number] Javier King Self - patient is the insured AARP Medicare Complete [address] [address] [place], [place] [id number] Javier King Self - patient is the insured Medical (General) History Medical History History ICD Code Hypertension Hyperlipidemia Anxiety Arthritis Back,Hip,and Knee pain Broken bones Depression Surgical History Surgery Date(Month/Year) carpal tunnel release right knee replacement neck surgery spine surgery Tooth extraction
[2025-02-07 11:20] LABS: Appearance Urine Clear; Color Urine Yellow; Glucose Urine UA Negative (Negative); Leukocyte Esterase Urine Trace (Negative); Nitrite Urine Negative (Negative); Specific Gravity - Urine 1.025 (1.005-1.025); UMIC TRIGGER UA YES; Urine Blood Trace (Negative); Urine Ketones Negative (Negative); Urine Protein Negative (Neg-Trace)
[2025-02-07 11:27] LABS: Bacteria Urine None Seen (None Seen); Hyaline Casts Urine 0-2 /LPF (0-2); Squamous Epithelial Cell Urine 0-2 /HPF (0-2); WBC Urine 0-5 /HPF (0-5)
[2025-02-07 11:48] LABS: Estimated Average Glucose 126 mg/dL
[2025-02-07 12:11] LABS: Alanine Aminotransferase 91 U/L (0-40); Albumin Level 3.9 g/dL (3.5-5.0); Alkaline Phosphatase 91 U/L (39-117); Anion Gap 11 (12-20); Aspartate Amino Transferase 43 U/L (5-37); Bilirubin Total 0.6 mg/dL (0.0-1.0); Blood Urea Nitrogen 19 mg/dL (9-16); Calcium 9.3 mg/dL (8.4-10.2); Carbon Dioxide 30 mmol/L (22-29); Chloride 104 mmol/L (96-108); Cholesterol 173 mg/dL (<200); Estimated Glomerular Filt Rate > 60; Glucose Fasting 113 mg/dL (60-99); HDL Cholesterol 37 mg/dL (>40); LDL Cholesterol Calculated 118 mg/dL (<100); Potassium 3.8 mmol/L (3.3-5.1); Sodium 141 mmol/L (135-145); Total Protein 7.2 g/dL (6.5-8.0); Triglycerides 94 mg/dL (<150)
== END 2025-02-07 08:47 | disposition home or self-care (01) ==
LOC: HO.WFDLDS 08:46
PROVIDERS: Visit Provider Family Medicine
DX: Z00.00 Encounter for general adult medical examination without abnormal findings (principal); E78.5 Hyperlipidemia, unspecified; R73.01 Impaired fasting glucose
CPT/HCPCS: 36415; 80053; 80061; 81001; 83036

== ENCOUNTER 2025-02-11 08:02 | Outpatient (AMB) | payer MEDICARE, SELFPAY ==
--- OUTSIDE RECORDS SUMMARY | 2025-02-11 08:05 | XMS_ITS | Patient Health Record ---
Author Organization [facility] Address [address] [place] [address] Care Team Providers Care Hunter Guide Name Role Phone Megan TATE, Sher Primary Care Provider Frank Carballo Unavailable [phone] Allergies No Known Allergies Reason For Referral [...] X ray : Foot, left 3V 04/06/2022 [id number] TENDON SHEATH/LIGAMENT 0 05/04/2022 Insurance Providers Payer Name Payer Address Payer Phone Subscriber Number Group Number Insured Name Patient Relationship to Insured Coverage Start Date Coverage End Date Medicare National Govt Svcs Inc [address] [place] [address] [phone] [id number] Javier King Self - patient is the insured AARP Medicare Complete [address] [address] [place], [place] [id number] Javier King Self - patient is the insured Medical (General) History Medical History History ICD Code Hypertension Hyperlipidemia Anxiety Arthritis Back,Hip,and Knee pain Broken bones Depression Surgical History Surgery Date(Month/Year) carpal tunnel release right knee replacement neck surgery spine surgery Tooth extraction
--- NOTE | 2025-02-11 08:31 | MHC.PC.OV ---
Vital Signs 02/11/25 08:39 Height 5 ft 5 in Weight 246 lb BMI 40.9 BP 110/70 Blood Pressure Location Lt brachial Position Sitting Respiration 14 Pulse 65 Pulse Source Pulse Oximeter Temp 98.0 F Temp Source Oral Pulse Oximetry (%) 96 Oxygen Delivery Method Room Air Intake Visit Reasons: f/u HLD Intake Note: patient is scheduled for lab review and would also like a script for a walker Terry Cloth Cutter Hand Required: No Allergies onion Allergy (Intermediate, Verified 02/11/25 08:38) sneezing Peanut Butter Allergy (Intermediate, Verified 02/11/25 08:38) Sneezing cats Allergy (Mild, Uncoded 08/07/24 14:07) free text dust Allergy (Mild, Uncoded 08/07/24 14:07) free text Medication List - Last Reconciled 02/11/25 by Sher Guzman MD acetaminophen (Tylenol Extra Strength) 1,000 mg PO Q6H PRN atorvastatin 10 mg PO BEDTIME 90 days citalopram 20 mg PO DAILY 30 days cyclobenzaprine 10 mg PO BID PRN 10 days gabapentin 300 mg PO DAILY 90 days ibuprofen 800 mg PO Q6H lisinopril-hydrochlorothiazide 20-25 mg 1 tab PO DAILY meloxicam 15 mg PO DAILY 30 days Tobacco use date assessed: 03/28/24 Dental Screening Dental Screen Date: 03/28/24 HPI f/u HLD HPI Details Patient?presents?to?follow-up hyperlipidemia?and?elevated?fasting?blood?sugars. Patient?has?gained?about?10-15?lb?since?last?year. LDL?cholesterol?has?risen?since?easing?up?on?his?atorvastatin. A1c?has?climbed?to?6.0%. Also,?patient?has?liver?enzymes?are?mildly?elevated. Patient?has?been?seen?by?Cardiology?and?is?found?have?aortic?calcification?and?mild?aortic?stenosis.??Also?mild?atrial?enlargement. He?will?be?followed?by Cardiology?annually Blood?pressure?is?well?controlled?110/70 He?is?on?citalopram?and?is?followed?by?therapy?at?[facility] PHQ-9?is?on?today. [facility] Medical History Obesity (BMI 30-39.9) Hyperlipidemia HTN (hypertension) Surgical History Failed spinal cord stimulator Hx of colonoscopy History of cardiac catheterization (~2014) History of tooth extraction History of surgery History of spinal surgery History of surgery History of carpal tunnel syndrome History of neck surgery History of knee replacement procedure of right knee Family History Father No problems noted. Mother Diabetes mellitus Stroke Sister Hemorrhage Multi-organ failure with heart failure Daughter Diabetes mellitus Other Mental health disorder Substance use disorder Social History Housing: Apartment Alcohol intake: never Patient Tobacco Use Status: Former Tobacco user Tobacco use type: Cigar Cigarettes Per Day: 1 Years Smoked: 20 e-Cigarette/Vaping Use: Never Used Second Hand Smoke Exposure: Yes service: No Current occupational status: disabled Current occupational exposures/hazards: No Cognitive needs: No (cane) Hearing needs: No Vision needs: Yes (Glasses) Questionnaire PHQ-9 Over the last 2 weeks, how often have you been bothered by any of the following problems? 1. Little interest or pleasure in doing things: several days 2. Feeling down, depressed, or hopeless: several days 3. Trouble falling or staying asleep, or sleeping too much: several days 4. Feeling tired or having little energy: more than half the days 5. Poor appetite or overeating: several days 6. Feeling bad about yourself - or that you are a failure or have let yourself or your family down: several days 7. Trouble concentrating on things, such as reading the newspaper or watching television: several days 8. Moving or speaking so slowly that other people could have noticed. Or the opposite - being so fidgety or restless that you have been moving around a lot more than usual: more than half the days 9. Thoughts that you would be better off or of hurting yourself in some way: more than half the days Total score: 12 Depression Screening Interpretation: Positive Depression Screening Follow-up: Change in Medication (Increased citalopram?from?20?mg?to?40?mg?daily) Depression Screening Done: Yes 66911 - PHQ-9 Billing: Yes Source: Developed by Drs. Abdirahman Dallas, Kennedy Fowler and colleagues, with an educational jayy from [employer]. Thrive Questionnaire Date Thrive assessed: 10/15/24 I am a: Patient What is your living situation today?: I have a steady place to live Within the past 12 months, did the food you bought not last and you didn't have the money to get more?: Sometimes True Within the past 12 months, did you worry whether your food would run out before you got money to buy more?: Never true Do you have trouble paying for medicines?: No Do you have trouble getting transportation to medical appointments?: Yes Do you have trouble paying your heating and electricity bill?: Yes Do you have trouble taking care of your child, family member or friend?: Yes Do you have trouble with day-to-day activities such as bathing, preparing meals, shopping, managing finances, etc.?: Yes Are you currently unemployed and looking for a job?: No Are you interested in more education?: No Please select the resources that you would like help with: Care for elder or disabled and Daily support Currently or been in a relationship where the following occur: I choose not to answer THRIVE Score: 3 AUDIT C Alcohol Use Questionnaire (AUDIT-C) 1. How often do you have a drink containing alcohol?: Never Total Score: 0 SARAH-7 AMB Questionnaire SARAH-7 Date SARAH - 7 assessed: 03/28/24 Feeling nervous, anxious, or on edge: 1 = Several days Not being able to stop or control worryin = Several days Worrying too much about different things: 1 = Several days Trouble relaxin = Several days Being so restless that it is hard to sit still: 1 = Several days Becoming easily annoyed or irritable: 1 = Several days Feeling afraid as if something awful might happen: 0 = Not at all Total SARAH-7 score (0-4 normal; 5-9 mild; 10-14 moderate; 15-21 severe): 6 Source: Developed by Drs. Abdirahman Dallas, Kennedy Fowler and colleagues, with an educational jayy from [employer]. Review of Systems Const Denies chills, Denies fatigue, Denies fever(s), Denies headache(s) and Denies weakness ENT Denies dizziness and Denies headache(s) Card Denies chest pain, Denies lightheadedness, Denies dyspnea and Denies other (Palpitations) Resp Denies cough, Denies dyspnea, Denies wheezing and Denies other ( shortness of breath) Musc Denies numbness and Denies tingling Neuro Denies dizziness, Denies headache(s), Denies numbness, Denies tingling, Denies paresthesias and Denies weakness Psych Denies anxiety and Denies depression Endo Denies fatigue Aller/Immun Denies wheezing Physical exam (Primary Care) Vital Signs: Last Vital Signs Temp 98.0 F 02/11/25 08:39 Pulse 65 02/11/25 08:39 Resp 14 02/11/25 08:39 BP 110/70 02/11/25 08:39 Pulse Ox 96 02/11/25 08:39 Oxygen Delivery Method Room Air 02/11/25 08:39 BMI result Body Mass Index 40.9 Tobacco/Smoking Status: Tobacco use Status Tobacco use date assessed 03/28/24 02/11/25 08:32 Patient Tobacco Use Status Former Tobacco user 02/11/25 08:32 Tobacco use type Cigar 02/11/25 08:32 e-Cigarette/Vaping Use Never Used 02/11/25 08:32 PHQ-9: PHQ-9 Score PHQ-9: Total score 12 02/11/25 08:32 Depression Screening Interpretation: Positive Depression Screening Follow-up: Change in Medication (Increased citalopram?from?20?mg?to?40?mg?daily) Thrive Assessment: Date of Thrive Assessment Date Thrive assessed 10/15/24 02/11/25 08:32 Currently or been in a relationship where the following occur: I choose not to answer Const General: no acute distress and well developed Nutritional Appearance: well nourished Orientation/consciousness: patient oriented x3 HENMT Head: Yes normocephalic and Yes atraumatic Eyes General: appearance normal, both eyes and all related structures Pupils: Equal, round and reactive pupils present EOM: EOMs intact bilaterally Resp Effort & Inspection: normal respiratory effort Auscultation: clear to auscultation bilaterally Cardio Rate: regular rate Rhythm: regular rhythm Heart sounds: S1 normal heart sound present, S2 normal heart sound present, no gallops, no murmurs and no rubs Neuro General: patient oriented x3 and gait normal Cranial nerves: Yes Equal, round and reactive pupils present Psych Affect: normal affect Coding Level of Care Code Est Pt Level 4 (47224) Diagnoses Aortic stenosis I35.0 Essential hypertension I10 Hyperlipidemia E78.5 Pre-diabetes R73.03 Elevated liver enzymes R74.8 Anxiety with depression F41.8 Screening for colon cancer Z12.11 Additional Codes PHQ-9 - 30141 - PHQ-9 Billing: Yes ([id number]) Assessment & Plan Assessment & Plan (1) Aortic stenosis: Code(s): I35.0 - Nonrheumatic aortic (valve) stenosis Category: Medical Plan: Recent?echocardiogram?shows?aortic?calcifications?and?aortic?stenosis,?mild Also?has?mild?atrial?enlargement?and?LVH. Blood?pressure?is?at?goal?less?than?130/80 Follow-up?with?Cardiology?as?recommended (2) Essential hypertension: Code(s): I10 - Essential (primary) hypertension Category: Medical Plan: Tolerating?blood?pressure?medications?as?prescribed.??Would?pressure?is?less?than?130/80. Continue?current?medication (3) Hyperlipidemia: Code(s): E78.5 - Hyperlipidemia, unspecified Category: Medical Plan: LDL?has?risen?and?patient?has?gained?weight?over?the?past?year?as?well?we?had?decreased?atorvastatin Will?increase?atorvastatin?back?to?20?mg?daily (4) Pre-diabetes: Code(s): R73.03 - Prediabetes Category: Medical Plan: A1c?now?and?pre?diabetes?range Encouraged?a?diet?low?in?sugars?and?starches Encouraged?weight?loss (5) Elevated liver enzymes: Code(s): R74.8 - Abnormal levels of other serum enzymes Category: Medical Plan: As?above,?patient?gained?weight?over?the?last?year Encouraged?weight?loss Will?recheck?prior?to?next?visit (6) Anxiety with depression: Code(s): F41.8 - Other specified anxiety disorders Category: Medical Plan: Mildly?worsening?anxiety?depression Increased?citalopram from?20?mg?to?40?mg. We?will?discuss?bring?this?back?to?20?mg?daily?at?his?next?visit. Follow-up?with?therapist?as?recommended (7) Screening for colon cancer: Code(s): Z12.11 - Encounter for screening for malignant neoplasm of colon Category: Medical Plan: History?of?colon?polyps. Referred?to?Gastroenterology Orders: Orders Comprehensive Greig. Panel Fast Today E78.5 - Hyperlipidemia, unspecified, Z00.00 - Encounter for general adult medical examination without abnormal findings Lipid Panel Today E78.5 - Hyperlipidemia, unspecified, Z00.00 - Encounter for general adult medical examination without abnormal findings Referrals Gastroenterology Referral Z12.11 - Encounter for screening for malignant neoplasm of colon, Z86.010 - Personal history of colon polyps Medications: Changed From citalopram 20 mg PO DAILY 30 days 30 tabs 2RF To citalopram 40 mg (2 x 20 mg) PO DAILY 30 days 60 tabs 2RF From atorvastatin 10 mg PO BEDTIME 90 days 90 tabs 2RF To atorvastatin 20 mg PO BEDTIME 90 days 90 tabs 2RF
[2025-02-11 08:39] VITALS: BP 110/70; PULSE 65; RESP 14; TEMP 36.7; O2SAT 96; BMI 40.9
== END 2025-02-11 09:04 | disposition home or self-care (01) ==
LOC: HO.HMCFM 08:03
PROVIDERS: PCP Family Medicine; Visit Provider Family Medicine
DX: I35.0 Nonrheumatic aortic (valve) stenosis (principal); I10 Essential (primary) hypertension; E78.5 Hyperlipidemia, unspecified; R73.03 Prediabetes; R74.8 Abnormal levels of other serum enzymes; F41.8 Other specified anxiety disorders; Z12.11 Encounter for screening for malignant neoplasm of colon

== ENCOUNTER → 2025-02-11 08:02 | Outpatient (BNVA) | payer MEDICARE, SELFPAY | PROVIDERS: PCP Family Medicine; Visit Provider Family Medicine | DX: I35.0 Nonrheumatic aortic (valve) stenosis (principal); I10 Essential (primary) hypertension; E78.5 Hyperlipidemia, unspecified; R73.03 Prediabetes; R74.8 Abnormal levels of other serum enzymes; F41.8 Other specified anxiety disorders | CPT/HCPCS: 96127; 99212 ==

== ENCOUNTER 2025-04-05 08:12 | Outpatient (REF) | payer MEDICARE, SELFPAY ==
--- OUTSIDE RECORDS SUMMARY | 2025-04-05 08:17 | XMS_ITS | Patient Health Record ---
Author Organization [facility] Address [address] [place] [address] Care Team Providers Care Tuft Machine Operator Name Role Phone Megan TATE, Sher Primary Care Provider Frank Carballo Unavailable [phone] Allergies No Known Allergies Reason For Referral [...] X ray : Foot, left 3V 04/06/2022 [id number] TENDON SHEATH/LIGAMENT 0 05/04/2022 Insurance Providers Payer Name Payer Address Payer Phone Subscriber Number Group Number Insured Name Patient Relationship to Insured Coverage Start Date Coverage End Date Medicare National Govt Sv[employer] Inc [address] [place] [address] [id number] Javier King Self - patient is the insured AARP Medicare Complete [address] [address] [place], [place] [id number] [phone] [id number] Javier King Self - patient is the insured Medical (General) History Medical History History ICD Code Hypertension Hyperlipidemia Anxiety Arthritis Back,Hip,and Knee pain Broken bones Depression Surgical History Surgery Date(Month/Year) carpal tunnel release right knee replacement neck surgery spine surgery Tooth extraction
[2025-04-05 11:11] LABS: Appearance Urine Clear; Color Urine Yellow; Glucose Urine UA Negative (Negative); Leukocyte Esterase Urine Moderate (2+) (Negative); Nitrite Urine Negative (Negative); UMIC TRIGGER UA YES; Urine Blood Negative (Negative); Urine Ketones Negative (Negative); Urine Protein Trace mg/dL (Neg-Trace)
[2025-04-05 11:16] LABS: Hemoglobin 14.8 g/dl (14.0-18.0); Mean Corpuscular HGB Conc 32.9 g/dl (31.0-36.0); Mean Corpuscular Volume 94.1 fL (80.0-98.0); Mean Platelet Volume 12.6 fL (9.4-12.4); Platelet Count 138 X10*3/uL (160-400); Red Blood Count 4.78 X10*6/uL (4.60-5.80); Red Cell Distribution Width 12.7 % (11.0-16.0); White Blood Count 4.8 X10*3/uL (4.8-10.8)
[2025-04-05 11:25] LABS: INTERNATIONAL NORM RATIO 0.9 (0.9-1.1); Prothrombin Time 10.9 SEC (10.9-12.4)
[2025-04-05 11:26] LABS: Alanine Aminotransferase 60 U/L (0-40); Albumin Level 3.9 g/dL (3.5-5.0); Alkaline Phosphatase 82 U/L (39-117); Anion Gap 7 (12-20); Aspartate Amino Transferase 36 U/L (5-37); Bilirubin Total 1.1 mg/dL (0.0-1.0); Blood Urea Nitrogen 15 mg/dL (9-16); Carbon Dioxide 32 mmol/L (22-29); Chloride 101 mmol/L (96-108); Cholesterol 129 mg/dL (<200); Estimated Glomerular Filt Rate > 60; Glucose Fasting 97 mg/dL (60-99); Glucose Random 97 mg/dL (60-115); HDL Cholesterol 39 mg/dL (>40); LDL Cholesterol Calculated 77 mg/dL (<100); Potassium 3.8 mmol/L (3.3-5.1); Sodium 136 mmol/L (135-145); Total Protein 6.3 g/dL (6.5-8.0); Triglycerides 66 mg/dL (<150)
[2025-04-05 11:34] LABS: Bacteria Urine None Seen (None Seen); Hyaline Casts Urine 0-2 /LPF (0-2); RBC Urine 0-2 /HPF (0-2); Squamous Epithelial Cell Urine 0-2 /HPF (0-2); WBC Urine 0-5 /HPF (0-5)
== END 2025-04-05 08:13 | disposition home or self-care (01) ==
LOC: HO.WFDLDS 08:12
PROVIDERS: Referring Provider Internal Medicine; Visit Provider Family Medicine
DX: Z00.00 Encounter for general adult medical examination without abnormal findings (principal); R07.89 Other chest pain; I25.10 Atherosclerotic heart disease of native coronary artery without angina pectoris; E78.5 Hyperlipidemia, unspecified
CPT/HCPCS: 36415; 80048; 80053; 80061; 81001; 85027; 85610

== ENCOUNTER 2025-04-09 15:23 | Outpatient (AMB) | payer MEDICARE, SELFPAY ==
--- NOTE | 2025-04-09 15:39 | A.OFFPC_ITS ---
Vital Signs 04/09/25 15:50 Height 5 ft 5 in Weight 241 lb BMI 40.1 BP 124/78 Blood Pressure Location Lt brachial Position Sitting Respiration 14 Pulse 81 Pulse Source Pulse Oximeter Temp 98.6 F Temp Source Temporal Artery Scan Pulse Oximetry (%) 95 Oxygen Delivery Method Room Air Intake Visit Reasons: CPE with f/u labs and health maint. Intake Note: Javier presents in the office today for his annual physical and lab results. Allergies onion Allergy (Intermediate, Verified 02/11/25 08:38) sneezing Peanut Butter Allergy (Intermediate, Verified 02/11/25 08:38) Sneezing cats Allergy (Mild, Uncoded 08/07/24 14:07) free text dust Allergy (Mild, Uncoded 08/07/24 14:07) free text Tobacco use date assessed: 04/09/25 Dental Screening Dental Screen Date: 04/09/25 Did you have a dental visit in the last 12 months?: Yes Did you have a dental problem in the last 6 months where you did not have access to dental care?: No Was dental information given to patient?: Patient has dentist HPI CPE with f/u labs and health maint. HPI Details 59 y/o male presents for a CPE with f/u labs and health maintenance. Labs drawn 04/05/25. Reviewed labs with pt. Liver enzymes improving. AST 36. ALT improved from 91 to 60. Triglycerides 66. TC 129. LDL 77. HDL low at 39. He is on artovastatin 20mg. HPI Comments History of Present Illness Details Documentation assistance for Sher Guzman MD, was provided by Tremaine Hilario, Hardware Press Operator on 04/09/2025 at 4:41 PM EST. I, Dr. Guzman, have read, observed, and verified documentation. [facility] Medical History Obesity (BMI 30-39.9) Hyperlipidemia HTN (hypertension) Surgical History Failed spinal cord stimulator Hx of colonoscopy History of cardiac catheterization (~2014) History of tooth extraction History of surgery History of spinal surgery History of surgery History of carpal tunnel syndrome History of neck surgery History of knee replacement procedure of right knee Family History Father No problems noted. Mother Diabetes mellitus Stroke Sister Hemorrhage Multi-organ failure with heart failure Daughter Diabetes mellitus Other Mental health disorder Substance use disorder Social History (Updated 04/09/25 @ 15:40 by Devi Zaman MA) Housing: Apartment Alcohol intake: never Patient Tobacco Use Status: Former Tobacco user Tobacco use type: Cigar Cigarettes Per Day: 1 Years Smoked: 20 e-Cigarette/Vaping Use: Never Used Second Hand Smoke Exposure: Yes service: No Current occupational status: disabled Current occupational exposures/hazards: No Cognitive needs: No (cane) Hearing needs: No Vision needs: Yes (Glasses) Questionnaire Thrive Questionnaire Date Thrive assessed: 02/04/25 I am a: Patient What is your living situation today?: I have a steady place to live Within the past 12 months, did the food you bought not last and you didn't have the money to get more?: Sometimes True Within the past 12 months, did you worry whether your food would run out before you got money to buy more?: Never true Do you have trouble paying for medicines?: No Do you have trouble getting transportation to medical appointments?: Yes Do you have trouble paying your heating and electricity bill?: Yes Do you have trouble taking care of your child, family member or friend?: Yes Do you have trouble with day-to-day activities such as bathing, preparing meals, shopping, managing finances, etc.?: Yes Are you currently unemployed and looking for a job?: No Are you interested in more education?: No Currently or been in a relationship where the following occur: I choose not to answer THRIVE Score: 3 SARAH-7 AMB Questionnaire SARAH-7 Date SARAH - 7 assessed: 04/09/25 Source: Developed by Drs. Abdirahman Dallas, Minna Hernandez, Kennedy Phillips and colleagues, with an educational jayy from [employer]. Review of Systems Const Denies chills, Denies fatigue, Denies fever(s), Denies headache(s) and Denies weakness Eyes Denies change in vision ENT Denies dizziness, Denies headache(s), Denies hearing loss, Denies nasal congestion, Denies sinus pain, Denies sinus pressure and Denies sore throat Card Denies chest pain, Denies lightheadedness, Denies dyspnea and Denies other (palpitations) Resp Denies cough, Denies dyspnea and Denies wheezing GI Denies abdominal pain, Denies melena, Denies hematochezia, Denies change in bowel habits, Denies dyspepsia and Denies nausea Denies hematuria and Denies dysuria Musc Denies abnormal gait, Denies myalgias, Denies arthralgias, Denies numbness and Denies tingling Skin/Breast Denies rash, Denies unusual bruising and Denies wounds Neuro Denies abnormal gait, Denies dizziness, Denies headache(s), Denies memory loss, Denies numbness, Denies Sensory deficit (Neuro), Denies tingling and Denies weakness Psych Denies anxiety, Denies depression and Denies memory loss Endo Denies cold intolerance, Denies fatigue, Denies heat intolerance, Denies polydipsia and Denies polyuria Yon/Lymph Denies easy bleeding and Denies easy bruising Aller/Immun Denies wheezing Physical exam (Primary Care) Vital Signs: Last Vital Signs Temp 98.6 F 04/09/25 15:50 Pulse 81 04/09/25 15:50 Resp 14 04/09/25 15:50 BP 124/78 04/09/25 15:50 Pulse Ox 95 04/09/25 15:50 Oxygen Delivery Method Room Air 04/09/25 15:50 BMI result Body Mass Index 40.1 Tobacco/Smoking Status: Tobacco use Status Tobacco use date assessed 04/09/25 04/09/25 15:40 Patient Tobacco Use Status Former Tobacco user 04/09/25 15:40 Tobacco use type Cigar 04/09/25 15:40 e-Cigarette/Vaping Use Never Used 04/09/25 15:40 Thrive Assessment: Date of Thrive Assessment Date Thrive assessed 02/04/25 04/09/25 15:40 Currently or been in a relationship where the following occur: I choose not to answer Const General: no acute distress, well developed, alert and awake Nutritional Appearance: well nourished Orientation/consciousness: patient oriented x3 HENMT Head: Yes normocephalic and Yes atraumatic Ears: hearing grossly normal bilaterally and TM's normal bilaterally General nose exam: Normal external nose present and Normal nares present Mouth: Normal oral and palatal mucosa present and moist mucous membranes Teeth and gingiva: dentition normal Throat: Yes posterior oropharynx normal Eyes General: appearance normal, both eyes and all related structures Pupils: Equal, round and reactive pupils present and Pupil accommodation reflex normal EOM: EOMs intact bilaterally Neck Neck: Yes normal visual inspection, Yes no lymphadenopathy and Yes trachea midline Thyroid: Thyroid normal Carotids: no bruits Lymphatic: no lymphadenopathy noted Chest Chest palpation & inspection: normal inspection of the chest Resp Effort & Inspection: normal respiratory effort Auscultation: clear to auscultation bilaterally Cardio Rate: regular rate Rhythm: regular rhythm Heart sounds: S1 normal heart sound present, S2 normal heart sound present, no gallops, no murmurs and no rubs Bruits: no abdominal aortic bruits and no carotid bruits GI Palpation (GI): No Abdominal aortic bruit present, Soft to palpation, nontender, No hepatosplenomegaly present and No Rebound tenderness present Auscultation: normal bowel sounds General: Yes no CVA tenderness Back/Spine/Pelvis Back: no CVA tenderness Cervical Spine: cervical ROM normal and No Cervical spine tenderness Thoracic/Lumbar Spine: thoraco-lumbar ROM normal, No pain with thoraco-lumbar ROM, No thoracic spinal tenderness and No lumbar spinal tenderness Skin Lesions: no lesions Rashes: no rashes Trauma: no lacerations or abrasions Wounds: no wounds Nails: normal Neuro General: patient oriented x3 Cranial nerves: Yes Equal, round and reactive pupils present Cognition (Neuro): normal cognition Gait exam (Neuro): Normal gait present Motor exam (neuro): 5/5 motor strength present throughout Sensory Exam: No Sensory deficit (Neuro) Deep tendon reflexes (DTR's): Right patellar reflex intensity grade: 2+ and Left patellar reflex intensity grade: 2+ Extrem General: Yes normal to inspection and No edema Psych Appearance: grossly normal Affect: normal affect Attitude: cooperative Thought process: Normal thought process present Coding Level of Care Code Est Pt Level 3 (89682) Est Pt Prev Care 40-64y(17259) Diagnoses Adult general medical exam Z00.00 Elevated liver enzymes R74.8 Essential hypertension I10 Back pain M54.9 Hyperlipidemia E78.5 Screening for prostate cancer Z12.5 Screening for colon cancer Z12.11 Assessment & Plan Assessment & Plan (1) Adult general medical exam: Code(s): Z00.00 - Encounter for general adult medical examination without abnormal findings Category: Medical Plan: 59-year-old?male?presents?for?complete?physical?exam Encouraged?healthy?diet?with?active?lifestyle?and?plenty?of?exercise (2) Elevated liver enzymes: Code(s): R74.8 - Abnormal levels of other serum enzymes Category: Medical Plan: Improving Continue?weight?loss?in?good?hydration Will?continue?to?follow (3) Essential hypertension: Code(s): I10 - Essential (primary) hypertension Category: Medical Plan: Blood?pressure?is?well?controlled.??Goal?is?less?than?140/90 Continue?current?medication (4) Back pain: Code(s): M54.9 - Dorsalgia, unspecified Category: Medical Plan: S/p?surgery?with?Dr. Ga Continue?physical?therapy Follow-up?with?your?specialist?as?recommended (5) Hyperlipidemia: Code(s): E78.5 - Hyperlipidemia, unspecified Category: Medical Plan: Lipids?improved?after?increasing?atorvastatin Continue?current?medication (6) Screening for prostate cancer: Code(s): Z12.5 - Encounter for screening for malignant neoplasm of prostate Category: Medical Plan: Due?to?follow-up?on?PSA?level?in?August?order?PSA (7) Screening for colon cancer: Code(s): Z12.11 - Encounter for screening for malignant neoplasm of colon Category: Medical Plan: Patient?says?he?had?been?getting?colonoscop ies?at?[facility]?and?was?supposed?to?follow-up?a?few?years?ago. He?would?like?a?referral?to?[facility] Referred Orders: Orders Comprehensive [place]. Panel Fast Today R74.8 - Abnormal levels of other serum enzymes, Z00.00 - Encounter for general adult medical examination without abnormal findings Prostate Specific Antigen Scr Today Z12.5 - Encounter for screening for malignant neoplasm of prostate Referrals Gastroenterology Referral Z12.11 - Encounter for screening for malignant neoplasm of colon Medications: New calcium polycarbophil (FiberCon) 625 mg PO DAILY 30 days 30 tabs 2RF
[2025-04-09 15:50] VITALS: BP 124/78; PULSE 81; RESP 14; TEMP 37; O2SAT 95; BMI 40.1
--- OUTSIDE RECORDS SUMMARY | 2025-04-09 16:15 | XMS_ITS | Patient Health Record ---
Author Organization [facility] Address [address] [place] [address] Care Team Providers Care Commercial Insulator Name Role Phone Megan TATE, Sher Primary Care Provider Frank Carballo Unavailable [phone] Allergies No Known Allergies Reason For Referral [...] X ray : Foot, left 3V 04/06/2022 [id number] TENDON SHEATH/LIGAMENT 0 05/04/2022 Insurance Providers Payer Name Payer Address Payer Phone Subscriber Number Group Number Insured Name Patient Relationship to Insured Coverage Start Date Coverage End Date Medicare National [employer] [address] [place] [address] [phone] [id number] Javier King Self - patient is the insured AARP Medicare Complete [address] [address] [place], [place] [id number] [phone] [id number] Javier King Self - patient is the insured Medical (General) History Medical History History ICD Code Hypertension Hyperlipidemia Anxiety Arthritis Back,Hip,and Knee pain Broken bones Depression Surgical History Surgery Date(Month/Year) carpal tunnel release right knee replacement neck surgery spine surgery Tooth extraction
== END 2025-04-09 16:51 | disposition home or self-care (01) ==
LOC: HO.HMCFM 15:24
PROVIDERS: PCP Family Medicine; Visit Provider Family Medicine
DX: Z00.00 Encounter for general adult medical examination without abnormal findings (principal); R74.8 Abnormal levels of other serum enzymes; I10 Essential (primary) hypertension; M54.9 Dorsalgia, unspecified; E78.5 Hyperlipidemia, unspecified; Z12.5 Encounter for screening for malignant neoplasm of prostate; Z12.11 Encounter for screening for malignant neoplasm of colon

== ENCOUNTER → 2025-04-09 15:23 | Outpatient (BNVA) | payer MEDICARE, SELFPAY | PROVIDERS: PCP Family Medicine; Visit Provider Family Medicine | DX: Z00.00 Encounter for general adult medical examination without abnormal findings (principal); R74.8 Abnormal levels of other serum enzymes; I10 Essential (primary) hypertension; M54.9 Dorsalgia, unspecified; E78.5 Hyperlipidemia, unspecified | CPT/HCPCS: 99212; 99396 ==

== ENCOUNTER → 2025-04-16 08:07 | Outpatient (RCR) | payer MEDICARE, MEDICAID, SELFPAY | END | disposition home or self-care (01) | LOC: HO.PTCHIC 08-29 13:58 | PROVIDERS: PCP Family Medicine; Visit Provider Family Medicine | DX: M54.5 Low back pain (principal) | CPT/HCPCS: 97110 ==

== ENCOUNTER 2025-04-17 14:48 | Outpatient (AMB) | payer MEDICARE, SELFPAY ==
--- OUTSIDE RECORDS SUMMARY | 2025-04-17 14:58 | XMS_ITS | Patient Health Record ---
Author Organization [facility] Address [address] [place] [address] Care Team Providers Care Clinical Sciences Professor Name Role Phone Megan TATE, Sher Primary Care Provider Frank Carballo Unavailable [phone] Allergies No Known Allergies Reason For Referral [...] X ray : Foot, left 3V 04/06/2022 [id number] TENDON SHEATH/LIGAMENT 0 05/04/2022 Insurance Providers Payer Name Payer Address Payer Phone Subscriber Number Group Number Insured Name Patient Relationship to Insured Coverage Start Date Coverage End Date Medicare National [employer] [address] [place] [address] [id number] Javier King Self - patient is the insured AARP Medicare Complete [address] [address] [place], [place] [id number] [phone] [id number] Javier King Self - patient is the insured Medical (General) History Medical History History ICD Code Hypertension Hyperlipidemia Anxiety Arthritis Back,Hip,and Knee pain Broken bones Depression Surgical History Surgery Date(Month/Year) carpal tunnel release right knee replacement neck surgery spine surgery Tooth extraction
--- OUTSIDE RECORDS SUMMARY | 2025-04-17 14:58 | XMS_ITS | Encounter Summary ---
Author Organization [employer] Address [address] [place] [address] Care Team Providers Care Rand Butting Machine Operator Name Role Phone Sher Guzman MD Primary Care Provider Reason for Visit * Reason Comments Back Pain Lower back pain x1 d ay, hx back surgery Encounter Details Date Type Department Care Team (Late st Contact Info) Description 04/14/2025 4:41 PM EDT - 04/14/2025 7:[address] [facility] [address] [place] [address] Acute right-sided low back pain with right-sided sciatica (Primary Dx) Discharge Disposition: Home or Self Care Social History Tobacco Use Types Packs/Day Years Used Date Smoking Tobacco: Former Smokeless Tobacco: Never Alcohol Use Standard Drinks/Week Comments No 0 (1 standard drink = 0.6 oz pur e alcohol) Sex and Gender Information Value Date Recorded Sex Assigned at Male 11/26/2024 10:55 AM EST Legal Sex Male 3:33 PM EST Gender Identity Male 11/26/2024 10:55 AM EST Sexual Orientation Straight 11/26/2024 10 :55 AM EST documented as of this encounter Last Filed Vital Signs Vital Sign Reading Time Taken Comments Blood Pressure 122/71 04/14/2025 3:58 PM EDT Pulse 54 04/14/2025 3:58 PM EDT Temperature 37 ??C (98.6 ??F) 04/14/2025 3:58 PM EDT Respiratory Rate 18 04/14/2025 3:58 PM EDT Oxygen Saturation 96% 04/14/2025 3:58 PM EDT Inhaled Oxygen Concentration - - Weight 109 kg (240 lb) 04/14/2025 3:58 PM EDT Height 160 cm (5' 3 ) 04/14/2025 3:58 PM EDT Body Mass Index 42.51 04/14/2025 3:58 PM EDT documented in this encounter Discharge Instructions * Discharge Instructions* DINA Espinal - 04/14/2025 7:07 PM EDT You were seen in the ER today for low back pain over the last 3 weeks. Based on your physical exam and your symptoms, I believe this is likely related to the muscles and potentially the nerves in your low back. You may start your steroid course tomorrow morning. Please be aware this can elevate your blood sugar. Please follow the packaging as the dosage may change each day.] [I will also send a muscle relaxer to your pharmacy. Please be aware this can make you very drowsy. Please do not take before you have to operate heavy machinery, going to work, please do not take with other relaxing/sedative medications or with alcohol. You may take tylenol for your pain, 1000mg every 8 hours. Please return to the ER immediately if you experience loss of bowel or bladder function, numbness or tingling of your lower extremities, or weakness in your lower extremities. I recommend drinking plenty of water to stay hydrated. You may also try gentle stretches, massage therapy, ice or heat. Please follow-up with your PCP regarding this issue as it may require physical therapy. documented in this encounter Medications at Time of Discharge lidocaine 4 % patch Apply 1 patch topically 1 (one) time each day. 30 each 04/14/2025 5 methocarbamoL (ROBAXIN) 750 mg tablet Take 1 tablet (750 mg total) by mouth 4 (four) times a day for 10 days. 20 each 04/14/2025 5 methylPREDNISolo ne (MEDROL DOSPAK) 4 mg tablet Take 1 tablet by mouth as directed on the package. 21 tablet 04/14/2025 5 oxyCODONE (ROXICODONE) 5 mg immediate release tabletIndication s:Chronic right-sided low back pain without sciatica Take 2 tablets (10 mg total) by mouth every 6 (six) hours if needed for severe pain for up to 20 doses. Max Daily Amount: 40 mg 15 tablet 11/26/2024 documented as of this encounter Ordered Prescriptions Prescription Sig Dispense Quantity Refills Last Filled Start Date End Date methocarbamoL (ROBAXIN) 750 mg tablet Take 1 tablet (750 mg total) by mouth 4 (four) times a day for 10 days. 20 each 04/14/2025 5 lidocaine 4 % patch Apply 1 patch topically 1 (one) time each day. 30 each 04/14/2025 5 methylPREDNISolone (MEDROL DOSPAK) 4 mg tablet Take 1 tablet by mouth as directed on the package. 21 tablet 04/14/2025 5 documented in this encounter Discharge Disposition Disposition Code Departure Means Destination Comment s Home or Self Care documented in this encounter Progress Notes * Debbie Romero RN - 04/14/2025 3:50 PM EDT Patient reports lower mid back pain that started this morning. Has had back surgeries in the past. Fell on mothers day but didn't have any pain after. OTC not working for pain. Ambulating in ED with steady gait independently. documented in this encounter Plan of Treatment Not on file documented as of this encounter Procedures Procedure Name Priority Date/Time Associated Diagnosis Comments XR LUMBAR SPINE 2-3 VIEWS STAT 04/14/2025 7:25 PM EDT documented in this encounter Results * XR Lumbar Spine 2-3 Views (04/14/2025 7:25 PM EDT) Anatomical Region Laterality Modality Spine, L-spine Radiographic Minerva ging 04/15/2025 8:57 AM EDT Impressions 04/15/2025 9:05 AM EDT Degenerative changes without fracture or subluxation. -------- FINAL REPORT -------- Dictated By: Tim Harden Dictated Date: 04/15/2025 08:57 ET Assigned Physician: Tim Harden Reviewed and Electronically Signed By: Tim Harden Signed Date: 04/15/2025 09:05 ET Workstation ID: [id number] Transcribed By: Self Edit Transcribed Date: 04/15/2025 09:02 ET Narrative 04/15/2025 9:05 AM EDT INDICATION: Lower back pain after recent fall FINDINGS: 3 views of the lumbar spine were obtained. No prior studies available for comparison. Vertebral bodies: No compression fracture. No lytic or sclerotic lesions. Endplate osteophytosis. Disc spaces: Disc spaces are well-maintained. Alignment: Normal Postoperative changes in the right upper quadrant with anastomotic sutures as well as surgical clips. Short segment of small caliber tubing noted within the midline of the lower back soft tissues. Procedure Note Tim Harden MD - 04/15/2025 INDICATION: Lower back pain after recent fall FINDINGS: 3 views of the lumbar spine were obtained. No prior studiesavailable for comparison. Vertebral bodies: No compression fracture. No lytic or sclerotic lesions.Endplate osteophytosis. Disc spaces: Disc spaces are well-maintained. Alignment: Normal Postoperative changes in the right upper quadrant with anastomotic suturesas well as surgical clips. Short segment of small caliber tubing noted within the midline of thelower back soft tissues. IMPRESSION: Degenerative changes without fracture or subluxation. -------- FINAL REPORT -------- Dictated By: Tim Harden Dictated Date: 04/15/2025 08:57 ET Assigned Physician: Tim Harden Reviewed and Electronically Signed By: Tim Harden Signed Date: 04/15/2025 09:05 ET Workstation ID: [id number] Transcribed By: Self Edit Transcribed Date: 04/15/2025 09:02 ET Anju ARROYO IMG XR PROCEDURES Final Re sult documented in this encounter Visit Diagnoses Diagnosis Acute right-sided low back pain with right-sided sciatica- Primary documented in this encounter Administered Medications Inactive Administered Medications - up to 3 most recent administrations Medication Order MAR Action Action Date Dose Rate Site oxyCODONE (ROXICODONE) immediate release tablet 5 mg 5 mg, oral, Once, On 04/14/25 at 1909, For 1 dose Given 04/14/2025 7:12 PM EDT 5 mg documented in this encounter Active and Recently Administered Medications Times are shown in EDT. Scheduled Medication Order 04/12/2025 04/13/2025 04/14/2025 oxyCODONE (ROXICODONE) immediate release tablet 5 mg (COMPLETED) 5 mg, oral, Once, On 04/14/25 at 1909, For 1 dose 1911 (Given - Provid er: Glory Kim RN) documented in this encounter Orders Medications Ordered That Trace ht Not Have Been Administered Count Last Ordered Date First Ordered Date oxyCODONE (ROXICODONE) immed iate release tablet 5 mg 1 04/14/2025 documented in this encounter Care Teams Rand Butting Machine Operator Relationship Specialty Start Date End Date Sher Guzman MD [address] [place] [address] Dr Fantasma [place] PCP - General 03/03/20 documented as of this encounter
--- OUTSIDE RECORDS SUMMARY | 2025-04-17 14:58 | XMS_ITS | Clinical Summary ---
Author Organization [facility] Address [address] [place] [address] Phone Care Team Providers Care Level Vial Inside Grinder Name Role Phone Sher Guzman MD Primary Care Provider Allergies No known active allergies Medications oxyCODONE (ROXICODONE) 5 mg immediate release tabletIndicatio ns:Chronic right-sided low back pain without sciatica Take 2 tablets (10 mg total) by mouth every 6 (six) hours if needed for severe pain for up to 20 doses. Max Daily Amount: 40 mg 15 tablet 4 Active methylPREDNISol one (MEDROL DOSPAK) 4 mg tablet Take 1 tablet by mouth as directed on the package. 21 tablet 5 04/20/20 25 Active lidocaine 4 % patch Apply 1 patch topically 1 (one) time each day. 30 each 5 05/14/20 25 Active methocarbamoL (ROBAXIN) 750 mg tablet Take 1 tablet (750 mg total) by mouth 4 (four) times a day for 10 days. 20 each 5 04/24/20 25 Active Active Problems No known active problems Encounters Date Type Department Care Team Description 04/14/2025 4:41 PM EDT - 04/14/2025 7:40 PM EDT Emergency [facility] Emergency [address] [place] [address] Acute right-sided low back pain with right-sided sciatica (Primary Dx) Discharge Disposition: Home or Self Care from Last 3 Months Surgical History Surgery Date Site/Laterality Comments APPENDECTOMY PROCEDURE: [place] APPENDECTOMY CARPAL TUNNEL RELEASE PROCEDURE: HISTORICAL CARPAL TUNNEL REL CERVICAL LAMINECTOMY PROCEDURE: HISTORICAL CERV LAMINECTOMY Medical History Medical History Date Comments SLY (obstructive sleep apnea) 10/29/2017 DX :SLY (obstructive sleep apnea) Hypertension 10/29/2017 DX:Hypertension Depression 10/29/2017 DX:Depression Hyperlipidemia 10/29/2017 DX:Hyperlipidemi a CAD (coronary artery disease) 10/29/2017 DX :CAD (coronary artery disease); COMMENT: [place] 2001 Social History Tobacco Use Types Packs/Day Years [...] Orientation Straight 11/26/2024 10 :55 AM EST Obstetrics History Last Filed Vital Signs Vital Sign Reading [...] Mass Index 42.51 04/14/2025 3:58 PM EDT Plan of Treatment Health Maintenance Due Date Last Done Comments DTaP,Tdap,and Td Vaccines (1 - Tdap) 1985 Hepatitis B Vaccines (1 of 3 - 19+ 3-dose series) 1985 Pneumococcal Vaccine: 50+ Ye ars (1 of 1 - PCV) 2016 Zoster Vaccines (1 of 2) 2016 Cholesterol Screening (Lipid Panel) 11/06/2022 Colorectal Cancer Screening: Colonoscopy 11/06/2022 Depression Screening 11/06/2022 HIV Screening 11/06/2022 Hepatitis C Screening 11/06/2022 Medicare Annual Wellness Visit 11/06/2022 Social Influencers of Health Screening 11/06/2022 Hypertension/CHF/CAD Annual BMP Blood Test 11/11/2022 COVID-19 Vaccine (2023-2 5 season) 2024 Influenza Vaccine (Season Ended) 2025 HIB Vaccines Aged Out No longer eligi ble based on patient's age to complete this topic HPV Vaccines Aged Out No longer eligi ble based on patient's age to complete this topic Hepatitis A Vaccines Aged Out No long er eligible based on patient's age to complete this topic IPV Vaccines Aged Out No longer eligi ble based on patient's age to complete this topic MMR Vaccines Aged Out No longer eligi ble based on patient's age to complete this topic Meningococcal ACWY Vaccine Aged Out N o longer eligible based on patient's age to complete this topic Meningococcal B Vaccine Aged Out No l onger eligible based on patient's age to complete this topic Pneumococcal Vaccine: Pediat rics (0 to 5 Years) and At-Risk Patients (6 to 64 Years) Aged Out No longer eligible b ased on patient's age to complete this topic RSV Immunization Patients Un javier 20 months Aged Out No longer eligible b ased on patient's age to complete this topic Varicella Vaccines Aged Out No longer eligible based on patient's age to complete this topic Procedures Procedure Name Priority Date/Time Associated Diagnosis Comments XR LUMBAR SPINE 2-3 VIEWS STAT 04/14/2025 7:25 PM EDT from Last 3 Months Results * XR Lumbar Spine 2-3 Views [...] Signed Date: 04/15/2025 09:05 ET Workstation ID: [id number] Transcribed By: Self Edit Transcribed Date: 04/15/2025 [...] Signed Date: 04/15/2025 09:05 ET Workstation ID: [id number] Transcribed By: Self Edit Transcribed Date: 04/15/2025 09:02 ET us Anju ARROYO IMG XR PROCEDURES Final Re sult from Last 3 Months Insurance [place] - [place] [employer] MEDICARE Care Teams Level Vial Inside Grinder Relationship Specialty Start Date End Date Sher Guzman MD [address] [place] [address] Dr Fantasma [place] PCP - General 03/03/20
--- NOTE | 2025-04-17 14:59 | A.OFFVIS_ITS ---
Vital Signs 04/17/25 15:06 Height 5 ft 5 in Weight 241 lb BMI 40.1 BP 119/63 Blood Pressure Location Lt brachial Position Sitting Pulse 52 Pulse Oximetry (%) 96 Oxygen Delivery Method Room Air Intake Visit Reasons: pre colonoscopy/Ni roberts 09/08/2022 Intake Note: Patient complex follow up for pre colonoscopy screening/Ni roberts 09/08/2022. Patient cc: abdominal pain with bloating on and off, burning sensation in his chest, diarrhea come and go. Placement Coordinator Required: No Accompanied by: Self / Same As Patient Allergies onion Allergy (Intermediate, Verified 04/17/25 14:57) sneezing Peanut Butter Allergy (Intermediate, Verified 04/17/25 14:57) Sneezing cats Allergy (Mild, Uncoded 08/07/24 14:07) free text dust Allergy (Mild, Uncoded 08/07/24 14:07) free text Medication List - Last Reconciled 04/17/25 by Margaret Malone CNP atorvastatin 20 mg PO BEDTIME 90 days bisacodyl 5 mg PO ONCE 1 day calcium polycarbophil (FiberCon) 625 mg PO DAILY 30 days citalopram 40 mg (2 x 20 mg) PO DAILY 30 days cyclobenzaprine 10 mg PO BID PRN 10 days gabapentin 300 mg PO DAILY 90 days lisinopril-hydrochlorothiazide 20-25 mg 1 tab PO DAILY meloxicam 15 mg PO DAILY 30 days polyethylene glycol 3350 (Miralax) 238 grams PO ONCE walker (Ultra-Light Rollator misc) Daily, As directed. 999 days HPI HPI pre colonoscopy/Ni roberts 09/08/2022: Details: Patient is a 59-year-old male with PMH of anxiety with depression, hyperlipidemia, hypertension, obesity and SLY. Last visit with DINA Joaquin 09/08/2022 for pre colonoscopy screening, procedure not complete. Javier has a history of colonoscopies, with the first one performed approximately 10 years ago due to diarrhea and abdominal pain, during which a polyp was found and removed. A follow-up colonoscopy two years later showed no abnormalities. A planned colonoscopy in August 2022 was not complete due to scheduling issues. He reports ongoing abdominal pain and diarrhea for several months. He reports his stool consistency varies from solid to loose. Symptoms include urgency to find a bathroom immediately when pain strikes, previously resulting in one accident a year and a half ago. He experiences discomfort primarily in the mid abdominal region, which has been ongoing for years, and has lost weight from 264 to 241 lbs over the past year without intentional changes in diet or activity. Occasional nausea noted, especially after consuming boiled chicken or pretzels. Reduced portion sizes noted but no loss of appetite. He experienced one episode of heartburn and regurgitation recently, which was atypical for him. Patient denies: fever/chills, n/v, appetite changes, dysphasia or melena/hematochezia. Social History: - Alcohol/Tobacco/Drug Use: Quit smoking a year ago, occasional past use. -tolerated anesthesia in the past without difficulty. [facility] Medical History (Updated 04/18/25 @ 09:45 by Margaret Malone CNP) Weight loss Transaminitis Abdominal pain Obesity (BMI 30-39.9) Hyperlipidemia HTN (hypertension) Surgical History (Updated 04/17/25 @ 15:03 by Mary Vega) Back pain with history of spinal surgery Failed spinal cord stimulator Hx of colonoscopy History of cardiac catheterization (~2014) History of tooth extraction History of surgery History of spinal surgery History of surgery History of carpal tunnel syndrome History of neck surgery History of knee replacement procedure of right knee Family History Father No problems noted. Mother Diabetes mellitus Stroke Sister Hemorrhage Multi-organ failure with heart failure Daughter Diabetes mellitus Other Mental health disorder Substance use disorder Social History Housing: Apartment Alcohol intake: never Patient Tobacco Use Status: Former Tobacco user Tobacco use type: Cigar Cigarettes Per Day: 1 Years Smoked: 20 e-Cigarette/Vaping Use: Never Used Second Hand Smoke Exposure: Yes service: No Current occupational status: disabled Current occupational exposures/hazards: No Cognitive needs: No (cane) Hearing needs: No Vision needs: Yes (Glasses) Review of Systems Const Reports as per HPI ENT Reports as per HPI Card Reports as per HPI Resp Reports as per HPI GI Reports as per HPI Reports as per HPI Physical Exam Vital Signs: Last Vital Signs Pulse 52 04/17/25 15:06 BP 119/63 04/17/25 15:06 Pulse Ox 96 04/17/25 15:06 Oxygen Delivery Method Room Air 04/17/25 15:06 BMI result Body Mass Index 40.1 Const General: healthy appearing, no acute distress and well developed Nutritional Appearance: obese Orientation/consciousness: patient oriented x3 HEENT Head: Yes normal to inspection, Yes normocephalic and Yes atraumatic Face and sinus: Yes normal facial exam Eyes General: appearance normal, both eyes and all related structures Neck Neck: Yes normal visual inspection Resp Effort & Inspection: normal respiratory effort, able to speak in complete sentences, no tracheal deviation and symmetric chest movement Auscultation: clear to auscultation bilaterally Cardio Jugular venous distension: no JVD Rate: regular rate Rhythm: regular rhythm Heart sounds: S1 normal heart sound present, S2 normal heart sound present, no gallops and no murmurs GI Inspection: Yes normal to inspection, No distended, Yes obesity and Yes scar (midline scar ) Palpation (GI): Soft to palpation, not firm, Tenderness to palpation present (GI) (Pain reproducible over old midline appendectomy scar) and No hepatosplenomegaly present Auscultation: Hypoactive bowel sounds present Neuro General: patient oriented x3 Gait exam (Neuro): Normal gait present Psych Appearance: grossly normal Mental Status: mental status grossly normal Speech and movement: Normal speech and movement present Affect: normal affect Attitude: cooperative Thought process: Normal thought process present Thought content: Normal thought content present Insight: Good insight present (Psych) Judgement: Good judgement present (Psych) Results Reviewed Results Reviewed: Laboratory Tests 02/07/25 04/05/25 08:47 08:14 PT 10.9 INR 0.9 Sodium 136 Potassium 3.8 Chloride 101 Carbon Dioxide 32 H Anion Gap 7 L BUN 15 Creatinine 0.84 Estimated GFR > 60 Random Glucose 97 Fasting Glucose 97 Hemoglobin A1c % 6.0 Calcium 9.0 Total Bilirubin 1.1 H AST 36 ALT 60 H Alkaline Phosphatase 82 Total Protein 6.3 L Albumin 3.9 Triglycerides 66 Cholesterol 129 LDL Cholesterol, Calc 77 HDL Cholesterol 39 L Assessment & Plan Assessment & Plan (1) Abdominal pain: Code(s): R10.9 - Unspecified abdominal pain Category: Medical Qualifiers: Abdominal location: periumbilical Qualified Code(s): R10.33 - Periumbilical pain Plan: ? scar tissue pain given exam findings. Further evaluation for gastrointestional causes will include consideration of: -H. pylori -inflammatory process Advised against ibuprofen or other NSAIDs use given daily meloxicam. (2) Transaminitis: Code(s): R74.01 - Elevation of levels of liver transaminase levels Category: Medical Plan: ALT elevated on last collection but improved from January 2025 collection. We will repeat fasting with additional screening labs. May need to consider imaging if elevation remains. (3) Change in stool: Code(s): R19.5 - Other fecal abnormalities Plan: We were able to obtain colonoscopy report from 12/21/2022 completed at [facility] with recommendation for repeat in five years after normal finding + no specimen collection. We will proceed with colonoscopy as discussed given stool changes and subjective reports of unintentional weight loss. Diagnostic Tests: Prescriptions for laxative tablets and Miralax sent to pharmacy; instructions for Gatorade purchase and clear liquid diet given. Medications: - understands to hold meloxicam 7 days prior to procedure. - Use Tylenol if needed for pain. Patient educated on procedure preparation, including avoiding certain foods and ensuring clear liquid intake. Advised on necessity for ride post-procedure due to sedation. (4) Weight loss: Code(s): R63.4 - Abnormal weight loss Category: Medical Plan: Reported as unintentional. We do note a approx 3.6% loss since December 2024. Will add CXR to current workup given patient's concern and former nicotine dependence. A1C also added given pre-diabetes findings on last collection. Plan Follow up in 4 weeks or sooner as needed. Time: I spent a total of 60 minutes on the date of encounter which includes: Preparing to see the patient (reviewed previous documentation, test results and medical history) Performing a medically appropriate exam and/or evaluation Ordering medications, tests, and procedures Documenting clinical information in the health record Orders: Orders HIV Ab/Ag Today R74.01 - Elevation of levels of liver transaminase levels H Pylori Breath Test Today Calprotectin, Fecal Today R19.5 - Other fecal abnormalities C Reactive Protein Today R19.5 - Other fecal abnormalities Transglutaminase IgA Today R19.5 - Other fecal abnormalities Lipase Today R74.01 - Elevation of levels of liver transaminase levels XR chest 2V Today Z87.891 - Personal history of nicotine dependence Fecal Fat Qualitative Today R19.5 - Other fecal abnormalities Ova and Parasite Today R19.5 - Other fecal abnormalities CDiff Gene PCR Today R19.5 - Other fecal abnormalities IRON PROFILE Today R74.01 - Elevation of levels of liver transaminase levels Ferritin Today R74.01 - Elevation of levels of liver transaminase levels Hepatitis A,B,C Profile Today R74.01 - Elevation of levels of liver transaminase levels Prothrombin Time INR Today R74.01 - Elevation of levels of liver transaminase levels TSH reflex Free T4 Today R19.5 - Other fecal abnormalities Hemoglobin A1c Today R73.09 - Other abnormal glucose Medications: New polyethylene glycol 3350 (Miralax) per colonoscopy prep instructions 238 grams PO ONCE 238 grams 0RF bisacodyl Take four tablets once for 1 day per colonoscopy instructions 5 mg PO ONCE 1 day 4 tabs 0RF Coding Level of Care Code New Pt New Pt Level 5 (87946) Patient Type New Diagnoses Periumbilical abdominal pain R10.33 Abdominal location: periumbilical Transaminitis R74.01 Change in stool R19.5 Weight loss R63.4
[2025-04-17 15:06] VITALS: BP 119/63; PULSE 52; O2SAT 96; BMI 40.1
== END 2025-04-17 15:40 | disposition home or self-care (01) ==
LOC: HO.HGI 14:49
PROVIDERS: PCP Family Medicine; Visit Provider Nurse Practitioner Family
DX: R10.33 Periumbilical pain (principal); R74.01 Elevation of levels of liver transaminase levels; R19.5 Other fecal abnormalities; R63.4 Abnormal weight loss
CPT/HCPCS: 99205

== ENCOUNTER → 2025-04-17 14:48 | Outpatient (BNVA) | payer MEDICARE, SELFPAY | PROVIDERS: PCP Family Medicine; Visit Provider Nurse Practitioner Family | DX: R10.33 Periumbilical pain (principal); R74.01 Elevation of levels of liver transaminase levels; R19.5 Other fecal abnormalities; R63.4 Abnormal weight loss | CPT/HCPCS: 99202 ==

== ENCOUNTER 2025-04-18 07:59 | Outpatient (REF) | payer MEDICARE, SELFPAY ==
--- NOTE | ~2025-04-18 | XR_ITS ---
EXAMINATION: XR CHEST CLINICAL INFORMATION: Z87.891 - Personal history of nicotine dependence COMPARISON: None available. TECHNIQUE: 2 views of the chest were obtained. FINDINGS: No consolidation, pleural effusion or pneumothorax. No hyperinflation. Cardiomediastinal silhouette size is large. Multilevel thoracic and upper lumbar spondylosis. Metallic plate in the lower cervical spine no fully included in the [id number]. Patient's large body habitus. XR/XR chest 2V IMPRESSION: No acute airspace disease. Cardiomegaly. Electronically signed by: Celso Davis MD 04/18/2025 08:38 AM EDT
--- OUTSIDE RECORDS SUMMARY | 2025-04-18 08:01 | XMS_ITS | Encounter Summary ---
Author Organization [facility] Address [address] [place] [address] Care Team Providers Care Mud Grinder Name Role Phone Sher Guzman MD Primary Care Provider [phone] Reason for Visit * Reason Comments Back Pain Lower back pain x1 d ay, hx back surgery Encounter Details Date Type Department Care Team (Late st Contact Info) Description 04/14/2025 4:41 PM EDT - 04/14/2025 7:40 PM EDT Emergency [facility] Emergency [address] [place] [address] Acute right-sided low back pain [...] Signed Date: 04/15/2025 09:05 ET Workstation ID: [id number] Transcribed By: Self Edit Transcribed Date: 04/15/2025 [...] Signed Date: 04/15/2025 09:05 ET Workstation ID: [id number] Transcribed By: Self Edit Transcribed Date: 04/15/2025 [...] 04/14/2025 documented in this encounter Care Teams Mud Grinder Relationship Specialty Start Date End Date Sher Guzman MD [address] [place] [address] Dr Fantasma [place] PCP - General 03/03/20 documented as of this encounter
--- OUTSIDE RECORDS SUMMARY | 2025-04-18 08:01 | XMS_ITS | Patient Health Record ---
Author Organization [facility] Address [address] [place] [address] Care Team Providers Care Oracle Database Administrator Name Role Phone Megan TATE, Sher Primary Care Provider Frank Carballo Unavailable [phone] Allergies No Known Allergies Reason For Referral [...] X ray : Foot, left 3V 04/06/2022 [id number] TENDON SHEATH/LIGAMENT 0 05/04/2022 Insurance Providers Payer Name Payer Address Payer Phone Subscriber Number Group Number Insured Name Patient Relationship to Insured Coverage Start Date Coverage End Date Medicare National [employer] [address] [place] [address] [phone] [id number] Javier King Self - patient is the insured AARP Medicare Complete [address] [address] [place], [place] [id number] [phone] [id number] Javier King Self - patient is the insured Medical (General) History Medical History History ICD Code Hypertension Hyperlipidemia Anxiety Arthritis Back,Hip,and Knee pain Broken bones Depression Surgical History Surgery Date(Month/Year) carpal tunnel release right knee replacement neck surgery spine surgery Tooth extraction
--- OUTSIDE RECORDS SUMMARY | 2025-04-18 08:01 | XMS_ITS | Clinical Summary ---
Author Organization [facility] Address [address] [place] [address] Phone Care Team Providers Care Sales Operations Analyst Name Role Phone Sher Guzman MD Primary Care Provider [phone] Allergies No known active allergies Medications oxyCODONE [...] EDT - 04/14/2025 7:40 PM EDT Emergency [facility] Emergency [address] [place] [address] Acute right-sided low back pain with right-sided sciatica (Primary Dx) Discharge Disposition: Home or Self Care from Last 3 Months Surgical History Surgery Date Site/Laterality Comments APPENDECTOMY PROCEDURE: [place] APPENDECTOMY CARPAL TUNNEL RELEASE PROCEDURE: HISTORICAL CARPAL TUNNEL REL CERVICAL LAMINECTOMY PROCEDURE: HISTORICAL CERV LAMINECTOMY Medical History Medical History Date Comments SLY (obstructive sleep apnea) 10/29/2017 DX :SLY (obstructive sleep apnea) Hypertension 10/29/2017 DX:Hypertension Depression 10/29/2017 DX:Depression Hyperlipidemia 10/29/2017 DX:Hyperlipidemi a CAD (coronary artery disease) 10/29/2017 DX :CAD (coronary artery disease); COMMENT: [place] 2001 Social History Tobacco Use Types Packs/Day [...] Signed Date: 04/15/2025 09:05 ET Workstation ID: [id number] Transcribed By: Self Edit Transcribed Date: 04/15/2025 [...] Signed Date: 04/15/2025 09:05 ET Workstation ID: [id number] Transcribed By: Self Edit Transcribed Date: 04/15/2025 09:02 ET us Anju ARROYO IMG XR PROCEDURES Final Re sult from Last 3 Months Insurance [place] - [place] [employer] MEDICARE Care Teams Sales Operations Analyst Relationship Specialty Start Date End Date Sher Guzman MD [address] [place] [address] Dr Fantasma [place] PCP - General 03/03/20
[2025-04-18 09:19] LABS: Appearance Urine Clear; Color Urine Yellow; Glucose Urine UA Negative (Negative); Leukocyte Esterase Urine Small (1+) (Negative); Nitrite Urine Negative (Negative); PH 6.5 (5.0-9.0); Specific Gravity - Urine 1.025 (1.005-1.025); UMIC TRIGGER UA YES; Urine Blood Negative (Negative); Urine Ketones Negative (Negative); Urine Protein Negative (Neg-Trace)
[2025-04-18 09:25] LABS: Bacteria Urine None Seen (None Seen); Hyaline Casts Urine 0-2 /LPF (0-2); RBC Urine 0-2 /HPF (0-2); Squamous Epithelial Cell Urine 0-2 /HPF (0-2)
[2025-04-18 09:30] LABS: Prothrombin Time 11.1 SEC (10.9-12.4)
[2025-04-18 11:37] LABS: Ferritin 61 ng/mL (20-250)
[2025-04-18 11:53] LABS: Alanine Aminotransferase 42 U/L (0-40); Albumin Level 4.2 g/dL (3.5-5.0); Alkaline Phosphatase 74 U/L (39-117); Anion Gap 13 (12-20); Aspartate Amino Transferase 27 U/L (5-37); Blood Urea Nitrogen 22 mg/dL (9-16); C Reactive Protein < 0.04 mg/dL (< or = 0.50); Calcium 9.4 mg/dL (8.4-10.2); Carbon Dioxide 33 mmol/L (22-29); Chloride 104 mmol/L (96-108); Cholesterol 132 mg/dL (<200); Estimated Glomerular Filt Rate > 60; Glucose Fasting 95 mg/dL (60-99); HDL Cholesterol 43 mg/dL (>40); Iron 115 mcg/dL (45-160); LDL Cholesterol Calculated 74 mg/dL (<100); Lipase 14 U/L (8-78); Percent Iron Saturation 41 % (15-50); Potassium 4.5 mmol/L (3.3-5.1); Sodium 145 mmol/L (135-145); TSH reflex Free T4 1.32 uIU/mL (0.32-4.0); Total Iron Binding Capacity 278 mcg/dL (228-428); Total Protein 6.4 g/dL (6.5-8.0); Triglycerides 76 mg/dL (<150); Unsaturated Iron Binding 163 ug/dL
[2025-04-18 12:05] LABS: HBS Num1 0.69 mIU/mL (0-7.99); HBc Num1 0.05 S/CO (0.00-0.79); HBsAGNum1 0.39 S/CO (0.00-0.99); HIV AB/AG Nonreactive (Nonreactive); HIV Num 1 0.06 S/CO (0.00-0.99); Hepatitis A Antibody IgM 0.23 Index (0-0.79); Hepatitis B Core Antibody Nonreactive (Nonreactive); Hepatitis B Surface Antigen Negative (Negative); ~HepC Num1 0.08 S/CO (0.00-0.79); ~Hepatitis A Antibody IgM Nonreactive (Nonreactive); ~Hepatitis B Surface Antibody NONREACTIVE (Nonreactive); ~Hepatitis C Antibody Nonreactive (Nonreactive)
[2025-04-19 21:19] LABS: Transglutaminase IgA <1.0 U/mL
== END 2025-04-18 08:00 | disposition home or self-care (01) ==
LOC: HO.XRAY 07:59
PROVIDERS: PCP Family Medicine; Visit Provider Nurse Practitioner Family
DX: Z00.00 Encounter for general adult medical examination without abnormal findings (principal); R74.8 Abnormal levels of other serum enzymes; E78.5 Hyperlipidemia, unspecified; R19.5 Other fecal abnormalities; R74.01 Elevation of levels of liver transaminase levels; R73.01 Impaired fasting glucose; Z12.5 Encounter for screening for malignant neoplasm of prostate; Z87.891 Personal history of nicotine dependence
CPT/HCPCS: 36415; 71046; 80053; 80061; 81001; 82728; 83540; 83690; 84153; 84443; 85610; 86140; 86364; 86704; 86706; 86709; 86803; 87340; 87389

== ENCOUNTER → 2025-04-18 08:03 | Outpatient (BNV) | payer MEDICARE, SELFPAY | PROVIDERS: PCP Family Medicine; Visit Provider Radiology Diagnostic Radiology | DX: I51.7 Cardiomegaly (principal) | CPT/HCPCS: 71046 ==

== ENCOUNTER 2025-04-24 09:43 | Outpatient (REF) | payer MEDICARE, SELFPAY ==
--- OUTSIDE RECORDS SUMMARY | 2025-04-24 10:25 | XMS_ITS | Clinical Summary ---
Author Organization [facility] Address [address] [place] [address] Phone Care Team Providers Care Wired Music Operator Name Role Phone Sher Guzman MD Primary Care Provider [phone] Allergies No known active allergies Medications oxyCODONE (ROXICODONE) 5 mg immediate release tabletIndicatio ns:Chronic right-sided low back pain without sciatica Take 2 tablets (10 mg total) by mouth every 6 (six) hours if needed for severe pain for up to 20 doses. Max Daily Amount: 40 mg 15 tablet 4 Active lidocaine 4 % patch Apply 1 patch topically 1 (one) time each day. 30 each 5 05/14/20 25 Active methocarbamoL (ROBAXIN) 750 mg tablet Take 1 tablet (750 mg total) by mouth 4 (four) times a day for 10 days. 20 each 5 Active methylPREDNISol one (MEDROL DOSPAK) 4 mg tablet Take 1 tablet by mouth as directed on the package. 21 tablet 5 04/20/20 25 Active Problems No known active problems Encounters Date Type Department Care Team Description 04/14/2025 4:41 PM EDT - 04/14/2025 7:40 PM EDT Emergency [facility] Emergency [address] [place] [address] Acute right-sided low back pain with right-sided sciatica (Primary Dx) Discharge Disposition: Home or Self Care from Last 3 Months Surgical History Surgery Date Site/Laterality Comments APPENDECTOMY PROCEDURE: [place] APPENDECTOMY CARPAL TUNNEL RELEASE PROCEDURE: HISTORICAL CARPAL TUNNEL REL CERVICAL LAMINECTOMY PROCEDURE: HISTORICAL CERV LAMINECTOMY Medical History Medical History Date Comments SLY (obstructive sleep apnea) 10/29/2017 DX :SLY (obstructive sleep apnea) Hypertension 10/29/2017 DX:Hypertension Depression 10/29/2017 DX:Depression Hyperlipidemia 10/29/2017 DX:Hyperlipidemi a CAD (coronary artery disease) 10/29/2017 DX :CAD (coronary artery disease); COMMENT: [place] 2001 Social History Tobacco Use Types Packs/Day [...] Signed Date: 04/15/2025 09:05 ET Workstation ID: [id number] Transcribed By: Self Edit Transcribed Date: 04/15/2025 [...] Signed Date: 04/15/2025 09:05 ET Workstation ID: [id number] Transcribed By: Self Edit Transcribed Date: 04/15/2025 09:02 ET Anju ARROYO IMG XR PROCEDURES Final Re sult from Last 3 Months Insurance [place] - [place] [employer] MEDICARE Care Teams Wired Music Operator Relationship Specialty Start Date End Date Sher Guzman MD [address] [place] [address] Dr Fantasma [place] PCP - General 03/03/20
[2025-04-24 11:32] LABS: CDiff Gene PCR NEGATIVE (Negative)
[2025-04-29 01:54] LABS: Fecal Fat Qualitative Normal (Normal)
[2025-04-30 19:38] LABS: Calprotectin, Fecal 20 mcg/g
== END 2025-04-24 09:44 | disposition home or self-care (01) ==
LOC: HO.LNP 09:43
PROVIDERS: Visit Provider Nurse Practitioner Family
DX: R19.5 Other fecal abnormalities (principal)
CPT/HCPCS: 82705; 83993; 87177; 87493

== ENCOUNTER 2025-04-25 08:39 | Outpatient (REF) | payer MEDICARE, SELFPAY ==
--- OUTSIDE RECORDS SUMMARY | 2025-04-25 08:54 | XMS_ITS | Clinical Summary ---
Author Organization [facility] Address [address] [place] [address] Phone Care Team Providers Care Sustainability Director Name Role Phone Sher Guzman MD Primary [...] EDT - 04/14/2025 7:40 PM EDT Emergency [facility] Emergency [address] [place] [address] Acute right-sided low back pain with right-sided sciatica (Primary Dx) Discharge Disposition: Home or Self Care from Last 3 Months Surgical History Surgery Date Site/Laterality Comments APPENDECTOMY PROCEDURE: [place] APPENDECTOMY CARPAL TUNNEL RELEASE PROCEDURE: HISTORICAL CARPAL TUNNEL REL CERVICAL LAMINECTOMY PROCEDURE: HISTORICAL CERV LAMINECTOMY Medical History Medical History Date Comments SLY (obstructive sleep apnea) 10/29/2017 DX :SLY (obstructive sleep apnea) Hypertension 10/29/2017 DX:Hypertension Depression 10/29/2017 DX:Depression Hyperlipidemia 10/29/2017 DX:Hyperlipidemi a CAD (coronary artery disease) 10/29/2017 DX :CAD (coronary artery disease); COMMENT: [place] 2001 Social History Tobacco Use Types Packs/Day [...] Signed Date: 04/15/2025 09:05 ET Workstation ID: [id number] Transcribed By: Self Edit Transcribed Date: 04/15/2025 [...] Signed Date: 04/15/2025 09:05 ET Workstation ID: [id number] Transcribed By: Self Edit Transcribed Date: 04/15/2025 09:02 ET Anju ARROYO IMG XR PROCEDURES Final Re sult from Last 3 Months Insurance [place] - [place] [employer] MEDICARE Care Teams Sustainability Director Relationship Specialty Start Date End Date Sher Guzman MD [address] [place] [address] Dr Fantasma [place] PCP - General 03/03/20
== END 2025-04-25 08:40 | disposition home or self-care (01) ==
LOC: HO.LNP 08:39
PROVIDERS: Visit Provider Nurse Practitioner Family
DX: R19.5 Other fecal abnormalities (principal); R07.89 Other chest pain
CPT/HCPCS: 87177; 87209

== ENCOUNTER 2025-04-26 14:13 | Outpatient (AMB) | payer MEDICARE, SELFPAY ==
--- NOTE | 2025-04-26 14:24 | A.OFFVIS_ITS ---
Vital Signs 04/26/25 14:28 Height 5 ft 5 in Weight 241 lb BMI 40.1 BP 106/44 L Blood Pressure Location Lt brachial Position Sitting Pulse 70 Pulse Oximetry (%) 95 Oxygen Delivery Method Room Air Intake Visit Reasons: pre colonoscopy Intake Note: Patient follow up for abdominal pain and lab results. Patient cc: abdominal discomfort and loose stool. Denies any other GI issues for today visit. Patient Safety Sitter Required: No Accompanied by: Self / Same As Patient Allergies onion Allergy (Intermediate, Verified 04/26/25 14:23) sneezing Peanut Butter Allergy (Intermediate, Verified 04/26/25 14:23) Sneezing cats Allergy (Mild, Uncoded 08/07/24 14:07) free text dust Allergy (Mild, Uncoded 08/07/24 14:07) free text HPI HPI pre colonoscopy: Details: Patient is a 59-year-old male with PMH of anxiety with depression, hyperlipid emia, hypertension, obesity and SLY. He is here for follow up. No new GI symptoms since last visit. He is taking daily fiber tablets and reports some improvement in stool consistency. States his stools were more formed today. Labs and chest X-ray were primarily reassuring, though an enlarged heart and LFTs remain mildly elevated but trending down. No blood in stool. [facility] Medical History (Updated 04/26/25 @ 17:13 by Margaret Malone CNP) Encounter for immunization Weight loss Transaminitis Abdominal pain Obesity (BMI 30-39.9) Hyperlipidemia HTN (hypertension) Surgical History Back pain with history of spinal surgery Failed spinal cord stimulator Hx of colonoscopy History of cardiac catheterization (~2014) History of tooth extraction History of surgery History of spinal surgery History of surgery History of carpal tunnel syndrome History of neck surgery History of knee replacement procedure of right knee Family History Father No problems noted. Mother Diabetes mellitus Stroke Sister Hemorrhage Multi-organ failure with heart failure Daughter Diabetes mellitus Other Mental health disorder Substance use disorder Social History Housing: Apartment Alcohol intake: never Patient Tobacco Use Status: Former Tobacco user Tobacco use type: Cigar Cigarettes Per Day: 1 Years Smoked: 20 e-Cigarette/Vaping Use: Never Used Second Hand Smoke Exposure: Yes service: No Current occupational status: disabled Current occupational exposures/hazards: No Cognitive needs: No (cane) Hearing needs: No Vision needs: Yes (Glasses) Review of Systems Const Reports as per HPI ENT Reports as per HPI Card Reports as per HPI Resp Reports as per HPI GI Reports as per HPI Reports as per HPI Physical Exam Vital Signs: Last Vital Signs Pulse 70 04/26/25 14:28 BP 106/44 L 04/26/25 14:28 Pulse Ox 95 04/26/25 14:28 Oxygen Delivery Method Room Air 04/26/25 14:28 BMI result Body Mass Index 40.1 Const General: healthy appearing, no acute distress and well developed Nutritional Appearance: obese Orientation/consciousness: patient oriented x3 HEENT Head: Yes normal to inspection, Yes normocephalic and Yes atraumatic Face and sinus: Yes normal facial exam Eyes General: appearance normal, both eyes and all related structures Neck Neck: Yes normal visual inspection Resp Effort & Inspection: normal respiratory effort, able to speak in complete sentences, no tracheal deviation and symmetric chest movement Auscultation: clear to auscultation bilaterally Cardio Jugular venous distension: no JVD Rate: regular rate Rhythm: regular rhythm Heart sounds: Murmur heart sound present GI Inspection: Yes normal to inspection, No distended and Yes obesity Palpation (GI): Soft to palpation, not firm, nontender and No hepatosplenomegaly present Auscultation: normal bowel sounds Neuro General: patient oriented x3 Gait exam (Neuro): Normal gait present Psych Appearance: grossly normal Mental Status: mental status grossly normal Speech and movement: Normal speech and movement present Affect: normal affect Attitude: cooperative Thought process: Normal thought process present Thought content: Normal thought content present Insight: Good insight present (Psych) Judgement: Good judgement present (Psych) Immunizations Engerix-B (PF) 20 mcg/mL intramuscular suspension Performing Provider: Margaret Malone CNP [place] [facility] [place] [facility] Administered by: Jacqueline España RN on 04/26/25 15:17 Dose Route Admin Location Dispensed Lot Number Expiration Date [facility] Plate [employer] 1 mL IM Left Deltoid 1 mL [id number] 06/25/27 03933-610-67 [employer] VIS Given Date VIS Provided VIS Publication Date 04/26/25 Single Vaccine 23 Eligibility Eligibility Date Funding Source [place] [facility] [place]25 Private Assessment & Plan Assessment & Plan (1) Abdominal pain: Code(s): R10.9 - Unspecified abdominal pain Category: Medical Qualifiers: Abdominal location: periumbilical Qualified Code(s): R10.33 - Periumbilical pain Plan: failed to obatin H. pylori testing today. Team to reach out for scheduling Will also obtain U/S as below colonoscopy pending as discussed during last visit. Medications: - Continue daily fiber tabs Reinforced lifestyle modifications to promote stool bulking: -higher fiber diet, examples provided -adequate hydration with water -150 minutes of moderate intensity exercise per week (2) Transaminitis: Code(s): R74.01 - Elevation of levels of liver transaminase levels Category: Medical Plan: ALT remains slighltly elevated but trending down. AST normal range. Additional Tests: - Abdominal US to assess for fatty liver. -agreeable to A1C today since unable to add on at last collection - Repeat LFTs as indicated. (3) Encounter for immunization: Code(s): Z23 - Encounter for immunization Category: Medical Plan: Need Hep B immunity, agreeable to vaccine today. Plan H. plyori testing with nursing. Follow up with provider after colonoscopy Time: I spent a total of 20 minutes on the date of encounter which includes: Preparing to see the patient (reviewed previous documentation, test results and medical history) Performing a medically appropriate exam and/or evaluation Ordering medications, tests, and procedures Documenting clinical information in the health record Orders: Orders Hepatitis B Adult Immunization Today Z23 - Encounter for immunization Coding Level of Care Code Established Pt Est Pt Level 3 (91537) Patient Type Established Diagnoses Periumbilical abdominal pain R10.33 Abdominal location: periumbilical Transaminitis R74.01 Encounter for immunization Z23
[2025-04-26 14:28] VITALS: BP 106/44; PULSE 70; O2SAT 95; BMI 40.1
== END 2025-04-26 15:41 | disposition home or self-care (01) ==
LOC: HO.HGI 14:14
PROVIDERS: PCP Family Medicine; Visit Provider Nurse Practitioner Family
DX: R10.33 Periumbilical pain (principal); R74.01 Elevation of levels of liver transaminase levels; Z23 Encounter for immunization
CPT/HCPCS: 99213

== ENCOUNTER 2025-04-26 14:13 | Outpatient (REF) | payer MEDICARE, SELFPAY ==
[2025-04-26 15:51] LABS: Appearance Urine Clear; Color Urine Yellow; Glucose Urine UA 100 mg/dL (Negative); Leukocyte Esterase Urine Negative (Negative); Nitrite Urine Negative (Negative); Urine Blood Negative (Negative); Urine Ketones Trace mg/dL (Negative); Urine Protein Negative (Neg-Trace)
[2025-04-26 15:58] LABS: Estimated Average Glucose 117 mg/dL; Hemoglobin A1C 150.0053 umol/L; Hemoglobin A1c % 5.7 % (<6.0)
[2025-04-26 16:34] LABS: TSH reflex Free T4 0.82 uIU/mL (0.32-4.0)
[2025-04-26 17:05] LABS: Alanine Aminotransferase 35 U/L (0-40); Albumin Level 4.1 g/dL (3.5-5.0); Alkaline Phosphatase 75 U/L (39-117); Anion Gap 12 (12-20); Aspartate Amino Transferase 30 U/L (5-37); Blood Urea Nitrogen 14 mg/dL (9-16); Calcium 9.5 mg/dL (8.4-10.2); Carbon Dioxide 29 mmol/L (22-29); Chloride 107 mmol/L (96-108); Cholesterol 133 mg/dL (<200); Estimated Glomerular Filt Rate > 60; Glucose Fasting 110 mg/dL (60-99); HDL Cholesterol 37 mg/dL (>40); LDL Cholesterol Calculated 63 mg/dL (<100); Potassium 3.7 mmol/L (3.3-5.1); Sodium 144 mmol/L (135-145); Total Protein 6.6 g/dL (6.5-8.0); Triglycerides 165 mg/dL (<150)
[2025-04-26 17:15] LABS: Alanine Aminotransferase 33 U/L (0-40); Albumin Level 4.2 g/dL (3.5-5.0); Alkaline Phosphatase 75 U/L (39-117); Anion Gap 13 (12-20); Aspartate Amino Transferase 29 U/L (5-37); Blood Urea Nitrogen 14 mg/dL (9-16); Calcium 9.4 mg/dL (8.4-10.2); Carbon Dioxide 29 mmol/L (22-29); Chloride 106 mmol/L (96-108); Estimated Glomerular Filt Rate > 60; Glucose Fasting 101 mg/dL (60-99); Potassium 3.8 mmol/L (3.3-5.1); Sodium 144 mmol/L (135-145); Total Protein 6.5 g/dL (6.5-8.0)
== END 2025-04-26 14:14 | disposition home or self-care (01) ==
LOC: HO.LAB 14:13
PROVIDERS: PCP Family Medicine; Visit Provider Nurse Practitioner Family
DX: Z00.00 Encounter for general adult medical examination without abnormal findings (principal); E78.5 Hyperlipidemia, unspecified; R73.01 Impaired fasting glucose; R19.5 Other fecal abnormalities; R10.33 Periumbilical pain; R74.01 Elevation of levels of liver transaminase levels; Z23 Encounter for immunization; Z12.11 Encounter for screening for malignant neoplasm of colon
CPT/HCPCS: 36415; 80053; 80061; 81003; 83036; 84443; 90471; 90746; 99212

== ENCOUNTER 2025-05-27 12:53 | Outpatient (AMB) | payer MEDICARE, SELFPAY ==
--- NOTE | 2025-05-27 13:08 | AM.OFFVISNUR ---
Intake Visit Reasons: Hep B #2 Allergies onion Allergy (Intermediate, Verified 04/26/25 14:23) sneezing Peanut Butter Allergy (Intermediate, Verified 04/26/25 14:23) Sneezing cats Allergy (Mild, Uncoded 08/07/24 14:07) free text dust Allergy (Mild, Uncoded 08/07/24 14:07) free text Immunizations Engerix-B (PF) 20 mcg/mL intramuscular suspension Performing Provider: Margaret Malone CNP Performing Location: [facility] [place] [facility] Administered by: Jacqueline España RN on 05/27/25 13:08 Dose Route Admin Location Dispensed Lot Number Expiration Date [facility] Photographer Model 1 mL IM Left Deltoid 1 mL [id number] 06/25/27 71430-932-64 [employer] Total Dispensed Waste 1 mL 0 % VIS Given Date VIS Provided VIS Publication Date 05/27/25 Single Vaccine 23 Eligibility Eligibility Date Funding Source Not [facility] Eligible 05/27/25 Private Assessment & Plan Assessment & Plan Orders: Orders Hepatitis B Adult Immunization Today Z23 - Encounter for immunization Coding Level of Care Code Established Pt Est Pt Level 1 (36965) Patient Type Established Medical Decision Making Straight Forward
--- OUTSIDE RECORDS SUMMARY | 2025-05-27 13:15 | XMS_ITS | Clinical Summary ---
Author Organization [facility] Address [address] [place] [address] Phone Care Team Providers Care Exhibit Specialist Name Role Phone Sher Guzman MD Primary Care Provider Allergies No known active allergies Medications oxyCODONE (ROXICODONE) 5 mg immediate release tabletIndicatio ns:Chronic right-sided low back pain without sciatica Take 2 tablets (10 mg total) by mouth every 6 (six) hours if needed for severe pain for up to 20 doses. Max Daily Amount: 40 mg 15 tablet 4 Active methocarbamoL (ROBAXIN) 750 mg tablet Take 1 tablet (750 mg total) by mouth 4 (four) times a day for 10 days. 20 each 5 Active lidocaine 4 % patch Apply 1 patch topically 1 (one) time each day. 30 each 5 05/14/20 25 Active Problems No known active problems Encounters Date Type Department Care Team Description 04/14/2025 4:41 PM EDT - 04/14/2025 7:40 PM EDT Emergency [facility] Emergency [address] [place] [address] Acute right-sided low back pain with right-sided sciatica (Primary Dx) Discharge Disposition: Home or Self Care from Last 3 Months Surgical History Surgery Date Site/Laterality Comments APPENDECTOMY PROCEDURE: NM APPENDECTOMY CARPAL TUNNEL RELEASE PROCEDURE: HISTORICAL CARPAL TUNNEL REL CERVICAL LAMINECTOMY PROCEDURE: HISTORICAL CERV LAMINECTOMY Medical History Medical History Date Comments SLY (obstructive sleep apnea) 10/29/2017 DX :SLY (obstructive sleep apnea) Hypertension 10/29/2017 DX:Hypertension Depression 10/29/2017 DX:Depression Hyperlipidemia 10/29/2017 DX:Hyperlipidemi a CAD (coronary artery disease) 10/29/2017 DX :CAD (coronary artery disease); COMMENT: [place] 2001 Social History Tobacco Use Types Packs/Day [...] 54 04/14/2025 3:58 PM EDT Temperature 37 C (98.6 F) 04/14/2025 3:58 PM EDT Respiratory Rate 18 [...] Signed Date: 04/15/2025 09:05 ET Workstation ID: [id number] Transcribed By: Self Edit Transcribed Date: 04/15/2025 [...] Signed Date: 04/15/2025 09:05 ET Workstation ID: [id number] Transcribed By: Self Edit Transcribed Date: 04/15/2025 09:02 ET Anju ARROYO IMG XR PROCEDURES Final Re sult from Last 3 Months Insurance MEDICAID - [place] [employer] MEDICARE Care Teams Exhibit Specialist Relationship Specialty Start Date End Date Sher Guzman MD [address] [place] [address] Dr Fantasma [place] PCP - General 03/03/20
--- OUTSIDE RECORDS SUMMARY | 2025-05-27 13:15 | XMS_ITS | Patient Health Record ---
Author Organization [facility] Address [address] [facility] [place] [address] Care Team Providers Care Yard Operator Name Role Phone Megan TATE, Sher Primary Care Provider Frank Carballo Unavailable [phone] Allergies No Known Allergies Reason For Referral No Information Medications Medication SIG (Take, Route, Frequency, Duration) Notes Start Date End Date Status Lisinopril 20 MG 1 tablet Orally Once a day; Duration: 30 day(s) Active Gabapentin 300 MG 1 capsule Orally Onc e a day; Duration: 30 day(s) Active amLODIPine Besylate 5 MG 1 tablet Orally Once a day; Duration: 30 day(s) Active Gabapentin Not-Takin g Night [...] X ray : Foot, left 3V 04/06/2022 [id number] TENDON SHEATH/LIGAMENT 0 05/04/2022 Insurance Providers Payer Name Payer Address Payer Phone Subscriber Number Group Number Insured Name Patient Relationship to Insured Coverage Start Date Coverage End Date Medicare National [employer] [address] [place] [address] [id number] Javier King Self - patient is the insured AARP Medicare Complete [address] [address] [place] [address] [id number] Javier King Self - patient is the insured Medical (General) History Medical History History ICD Code Hypertension Hyperlipidemia Anxiety Arthritis Back,Hip,and Knee pain Broken bones Depression Surgical History Surgery Date(Month/Year) carpal tunnel release right knee replacement neck surgery spine surgery Tooth extraction
== END 2025-05-27 13:09 | disposition home or self-care (01) ==
PROVIDERS: PCP Family Medicine; Visit Provider Nurse Practitioner Family
DX: Z23 Encounter for immunization (principal)

== ENCOUNTER → 2025-05-27 12:53 | Outpatient (BNVA) | payer MEDICARE, SELFPAY | PROVIDERS: PCP Family Medicine; Visit Provider Nurse Practitioner Family | DX: Z23 Encounter for immunization (principal) | CPT/HCPCS: 90471; 90746; 99211 ==

== ENCOUNTER 2025-06-18 09:15 | Outpatient (REF) | payer MEDICARE, SELFPAY ==
--- NOTE | ~2025-06-18 | US_ITS ---
CLINICAL HISTORY: R74.01 - Elevation of levels of liver transaminase levels US abdomen limited Comparison: None provided Findings: Pancreas is predominantly obscured due to overlying bowel gas. The aorta and inferior vena cava are normal caliber. Liver is 16.4 cm in length. Evaluation is limited due to overlying bowel gas. Particularly, the pancreas and Left hepatic lobe are obscured due to overlying bowel gas. Repeat exam or CT could be obtained for further evaluation given patient's reported elevated liver enzymes. Visualized aspects of the right hepatic lobe are unremarkable. There is no intrahepatic bile duct dilatation. Common bile duct is 0.5 cm in diameter. Sonographic Ricardo's sign is negative. Gallbladder wall thickness is normal measuring 0.2 cm. The main portal vein is antegrade. Right kidney is 10.4 cm in length. No ascites. IMPRESSION: 1. Evaluation is limited due to overlying bowel gas. Particularly, the pancreas and Left hepatic lobe are obscured due to overlying bowel gas. Repeat exam or CT could be obtained for further evaluation given patient's reported elevated liver enzymes. 2. Visualized aspects of the right hepatic lobe are unremarkable. This document has been electronically signed by: Inocencio Bryan DO on 06/19/2025 10:00:07
--- OUTSIDE RECORDS SUMMARY | 2025-06-18 09:49 | XMS_ITS | Patient Health Record ---
Author Organization [facility] Address [address] [place] [address] Care Team Providers Care Union Steward Name Role Phone Megan TATE, Sher Primary Care Provider Farnk Carballo Unavailable [phone] Allergies No Known Allergies Reason For Referral [...] X ray : Foot, left 3V 04/06/2022 [id number] TENDON SHEATH/LIGAMENT 0 05/04/2022 Insurance Providers Payer Name Payer Address Payer Phone Subscriber Number Group Number Insured Name Patient Relationship to Insured Coverage Start Date Coverage End Date Medicare National [employer] [address] [facility] [address] [id number] Javier King Self - patient is the insured AARP Medicare Complete [address] [address] [place] [address] [id number] Javier King Self - patient is the insured Medical (General) History Medical History History ICD Code Hypertension Hyperlipidemia Anxiety Arthritis Back,Hip,and Knee pain Broken bones Depression Surgical History Surgery Date(Month/Year) carpal tunnel release right knee replacement neck surgery spine surgery Tooth extraction
--- OUTSIDE RECORDS SUMMARY | 2025-06-18 09:49 | XMS_ITS | Clinical Summary ---
Author Organization [facility] Address [address] [place] [address] Phone Care Team Providers Care Marine Driller Name Role Phone Sher Guzman MD Primary Care Provider Allergies No known active allergies Medications oxyCODONE (ROXICODONE) 5 mg immediate release tabletIndicatio ns:Chronic right-sided low back pain without sciatica Take 2 tablets (10 mg total) by mouth every 6 (six) hours if needed for severe pain for up to 20 doses. Max Daily Amount: 40 mg 15 tablet 11/26/2024 Active methocarbamoL (ROBAXIN) 750 mg tablet Take 1 tablet (750 mg total) by mouth 4 (four) times a day for 10 days. 20 each 04/14/2025 Active Active Problems No known active problems Encounters Date Type Department Care Team Description 04/14/2025 4:41 PM EDT - 04/14/2025 7:40 PM EDT Emergency [facility] Emergency [address] [place] [address] Acute right-sided low back pain with right-sided sciatica (Primary Dx) Discharge Disposition: Home or Self Care from Last 3 Months Surgical History Surgery Date Site/Laterality Comments APPENDECTOMY PROCEDURE: [place] APPENDECTOMY CARPAL TUNNEL RELEASE PROCEDURE: HISTORICAL CARPAL TUNNEL REL CERVICAL LAMINECTOMY PROCEDURE: HISTORICAL CERV LAMINECTOMY Medical History Medical History Date Comments SLY (obstructive sleep apnea) 10/29/2017 DX :SLY (obstructive sleep apnea) Hypertension 10/29/2017 DX:Hypertension Depression 10/29/2017 DX:Depression Hyperlipidemia 10/29/2017 DX:Hyperlipidemi a CAD (coronary artery disease) 10/29/2017 DX :CAD (coronary artery disease); COMMENT: [place] 2001 Social History Tobacco Use Types Packs/Day [...] Panel) 11/06/2022 Colorectal Cancer Screening: Colonoscopy 11/06/2022 HIV Screening 11/06/2022 Hepatitis C Screening 11/06/2022 Medicare Annual Wellness Visit 11/06/2022 Social Influencers of Health Screening 11/06/2022 Hypertension/CHF/CAD Annual BMP Blood Test 11/11/2022 COVID-19 Vaccine ( - 2023-2 5 season) 2024 Depression Screening 11/28/2024 Influenza Vaccine (#1) 2025 HIB Vaccines Aged Out No longer [...] Signed Date: 04/15/2025 09:05 ET Workstation ID: [id number] Transcribed By: Self Edit Transcribed Date: 04/15/2025 [...] Signed Date: 04/15/2025 09:05 ET Workstation ID: [id number] Transcribed By: Self Edit Transcribed Date: 04/15/2025 09:02 ET Anju ARROYO IMG XR PROCEDURES Final Re sult from Last 3 Months Insurance [place] - [place] [employer] MEDICARE Care Teams Marine Driller Relationship Specialty Start Date End Date Sher Guzman MD [address] [place] [address] Dr Fantasma [place] PCP - General 03/03/20
--- OUTSIDE RECORDS SUMMARY | 2025-06-18 09:49 | XMS_ITS | Data Portability ---
Author Organization [place] [facility], Allergy Address [address] [place] [id number] Assessment Encounter Date Assessment Date Assessment LastModified by Organization Details LastModified Time 06/17/2025 06/17/2025 F/U appt with Ortez 07/04 [email or web address] Not available 06/17/2025 09:20:14 Plan of Treatment Reminders Order Date Submit Date Provider Last Modified By Organization Details Last Modified Time Details Appointments Establish ed 30 2024 09:00A M BING FERGUSON MD Not available Not available Not available Lab None recorded. Referral None recorded. Procedures None recorded. Surgeries None recorded. Imaging None recorded. Medication Orders None recorded. Patient TargetsNo targets recorded. Patient InstructionsNo instructions recorded. Reason for Referral None Reported. Results Created Date Observation Date Name Description Value Unit Range Abnormal Flag Note LastModifiedBy Organization Detail LastModifiedTime 06/17/20 25 audio gram No observ ation record ed. BARCODE Not Available 2024 11:12:16 Result Notes None recorded. Problems Name Problem SNOMED Code Status Onset Date Resolution Date Notes Provider Name and Address Organization Details Recorded Time Allergic rhinitis 20119529 Active 2022 Other allergic rhinitis; Note: Date Diagnosed : 12/06/2022 2:55 PM (J30.89) Not Available [facility] 4 03:04:24 Chronic rhinitis 36725302 Active 2022 Chronic rhinitis; Note: Date Diagnosed : 12/06/2022 2:55 PM (J31.0) Not Available [facility] 4 03:04:24 Nasal congestio n 20514286 Active 2022 Nasal congestio n; Note: Date Diagnosed : 12/06/2022 2:55 PM (R09.81) Not Available [facility] 4 03:04:23 Impacted cerumen of bilateral ears [id number] 79461 Active 2022 Impacted cerumen, bilateral ; Note: Date Diagnosed : 12/10/2022 9:17 AM (H61.23) Not Available [facility] 4 03:04:24 Sensorine ural hearing loss of bilateral ears 029931079 Active 2022 Sensorine ural hearing loss, bilateral ; Note: Date Diagnosed : 02/16/2023 4:34 PM (H90.3) Not Available [facility] 4 03:04:24 Hypertrop hy of nasal turbinate s 21316481 Active 2022 Hypertrop hy of nasal turbinate s; Note: Date Diagnosed : 04/20/2023 12:30 PM (J34.3) Not Available [facility] 4 03:04:23 Chest pain 57862492 Active 2022 Other chest pain; Note: Date Diagnosed : 05/17/2023 11:09 AM (R07.89) Not Available [facility] 4 03:04:23 Deviated nasal septum 073766588 Active 2022 Deviated nasal septum; Note: Date Diagnosed : 05/20/2023 3:38 PM (J34.2) Not Available [facility] 4 03:04:24 Follow-up visit Active 2022 Medical surveilla nce following completed treatment ; Note: Date Diagnosed : 08/12/2023 10:02 AM (Z09) Not Available [facility] 4 03:04:25 Obstructi ve sleep apnea syndrome 51719471 Active 2022 Obstructi ve sleep apnea (adult) (pediatri c); Note: Date Diagnosed : 3 1:54 PM (G47.33) Not Available [facility] 4 03:04:25 Sensorine ural hearing loss of bilateral ears 515400781 Active 2024 MARY CHO, AUD [address] [facility] [address], [place], [address] , [facility] - [facility] 5 09:18:58 Problem Notes None recorded. Medical Equipment None Reported. Medications Name Sig Start Date Stop Date Status Note LastModified by Organization Details LastModified Time cyclobenz aprine 10 mg tablet TAKE ONE TABLET (10 MG) BY MOUTH TWICE DAILY NEEDED FOR MUSCLE SPASM FOR 10 DAYS active Not Available Not Available No t Available atorvasta tin 20 mg tablet TAKE ONE TABLET BY MOUTH DAILY AT 9PM AT BEDTIME active Not Available Not Available No t Available ibuprofen 800 mg tablet TAKE 1 TABLET BY MOUTH EVERY 8 HOURS FOR PAIN active Not Available Not Available No t Available meloxicam 15 mg tablet TAKE ONE TABLET BY MOUTH DAILY AT 9AM active Not Available Not Available No t Available omeprazol e 40 mg capsule,d elayed release 02/02 completed Medicati on ID: [id number] B rand Name: omeprajuanito queen Send Method: E-Prescr ibed Sub s Allowed: subs OK Speci al Instruct ion: TAKE 1 CAPSULE BY MOUTH DAILY Me dication GenericN alberto: omeprazo le Not Available Not Available Not Available amoxicill in 500 mg tablet TAKE 1 TABLET BY MOUTH EVERY 8 HOURS 06/17 completed Not Available Not Available Not Available citalopra m 20 mg tablet TAKE TWO TABLETS (40 MG (2X20MG) BY MOUTH DAILY AT 9AM FOR 30 DAYS active Not Available Not Available No t Available methocarb january 750 mg tablet TAKE 1 TABLET BY MOUTH 4 TIMES A DAY FOR 10 DAYS. active Not Available Not Available No t Available neomycin- polymyxin -dexameth 3.5 mg/mL-10, 000 unit/mL-0 .1% eye drops INSTILL 1 DROP INTO EACH EYE 4 TIMES DAILY FOR 14 DAYS AND THEN STOP 06/17 completed Not Available Not Available Not Available gabapenti n 300 mg capsule TAKE ONE CAPSULE (300 MG) BY MOUTH DAILY AT 9AM FOR 90 DAYS active Not Available Not Available No t Available lisinopri l 20 mg-hydroc hlorothia zide 25 mg tablet TAKE 1 TABLET BY MOUTH ONCE DAILY active Not Available Not Available No t Available azelastin e 137 mcg (0.1 %) nasal spray [place] 2 spray twice a day 2022 active Medicati on ID: [id number] D uration Value: 30 Brand Name: armon ne Send Method: E-Prescr ibed Sub s Allowed: subs OK Medic ationGen ericName : ramon ne Not Available Not Available Not Available polyethyl fiordaliza glycol 3350 17 gram/dose oral powder 02/02 completed Medicati on ID: [id number] B rand Name: polyethy nanette glycol 3350 Sen d Method: E-Prescr ibed Sub s Allowed: subs OK Speci al Instruct ion: DISSOLVE 238 GRAMS INTO LIQUID AND DRINK BY MOUTH ONCE THE DAY BEFORE PROCEDUR E Medica tionGene ricName: polyethy nanette glycol 3350 Not Available Not Available Not Available methylpre dnisolone 4 mg tablets in a dose pack TAKE 6 TABLETS ON DAY 1 DIRECTED ON PACKAGE AND DECREASE BY 1 TAB EACH DAY FOR A TOTAL OF 6 DAYS active Not Available Not Available No t Available ipratropi um bromide 42 mcg (0.06 %) nasal spray 02/02 completed Medicati on ID: [id number] B rand Name: ipratrop ium bromide Send Method: E-Prescr ibed Sub s Allowed: subs OK Speci al Instruct ion: USE 2 SPRAYS IN EACH NOSTRIL 3 TO 4 TIMES A DAY NEEDED FOR ALLERGY SYMPTOMS Medicat ionGener icName: ipratrop ium bromide Not Available Not Available Not Available fluticaso ne propionat e 50 mcg/actua tion nasal spray,lilia pension USE 2 SPRAYS IN EACH NOSTRIL ONCE DAILY active Not Available Not Available No t Available oxycodone 5 mg tablet TAKE 1 TABLET BY MOUTH EVERY 4 TO 6 HOURS NEEDED FOR SEVERE PAIN active Not Available Not Available No t Available Fiber-Lax 625 mg tablet TAKE ONE TABLET BY MOUTH DAILY AT 9AM active Not Available Not Available No t Available sodium fluoride 1.1 %-potassi um nitrate 5 % dental paste USE TO BRUSH TEETH DIRECTED active Not Available Not Available No t Available Allergy Relief (cetirizi ne) 10 mg tablet TAKE 1 TABLET BY MOUTH ONCE DAILY FOR 90 DAYS active Not Available Not Available No t Available Vitals None Recorded Social History None recorded. Functional Status None recorded. Mental Status None recorded. Family History Nothing Reported. Medical History No medical history recorded. Past Encounters Encounter ID Performer Location Encounter Start Date Encounter Closed Date Diagnosis/Indication Diagnosis SNOMED-CT Code Diagnosis ICD10 Code Diagnosis Note [id number] MARGARET DANIELSON [facility] [address] [place] [address] 06/17/2025 09:18:36 06/17/2025 09:21:16 Sensorineural hearing loss of bilateral ears [id number] H90.3 Audiologic al evaluation results: 06/17/2025 Right ear: Normal through 2 kHz sloping to a moderate sensorineu ral hearing loss with excellent word recognitio n. Left ear: Normal through 2 kHz sloping to a moderate sensorineu ral hearing loss with excellent word recognitio n. Tympanomet ry: Right Ear:Type A Left Ear:Type As Health Concerns Section Related Observation LastModified by Organization Detai ls LastModified Time None Recorded Concern Status LastModified by Organization Details LastModified Time None Recorded Advance Directives Directive None Recorded Payers Insurance Date Sequence Insurance Name Policy Number Policy Mckinley Covered Member ID Mckinley Member ID Guarantor Name 06/17/2025 2 [place] [facility] Javier Carranza [id number] Javier Carranza Sr 06/17/[address] [facility] (MEDICARE REPLACEMENT/ ADVANTAGE - PPO) [id number] Javier Carranza Sr [id number] Javeir Carranza Sr Notes Date Note Type Note Provider Name and Address Organization Details Recorded Time 06/17/2025 text/html Patient complains about plugged feeling MARGARET QUIÑONES [address] [address], [place], [address], [place] [facility] 06/17/2025 09:21:15
== END 2025-06-18 09:16 | disposition home or self-care (01) ==
LOC: HO.US 09:15
PROVIDERS: PCP Family Medicine; Visit Provider Nurse Practitioner Family
DX: R10.33 Periumbilical pain (principal); R74.01 Elevation of levels of liver transaminase levels
CPT/HCPCS: 76705

== ENCOUNTER → 2025-06-18 09:20 | Outpatient (BNV) | payer MEDICARE, SELFPAY | PROVIDERS: PCP Family Medicine; Visit Provider Family Medicine | DX: R74.01 Elevation of levels of liver transaminase levels (principal) | CPT/HCPCS: 76705 ==

== ENCOUNTER 2025-07-03 13:01 | Outpatient (AMB) | payer MEDICARE, MEDICAID, SELFPAY ==
--- NOTE | 2025-07-03 13:05 | A.OFFVIS_ITS ---
Vital Signs 07/03/25 13:06 Height 5 ft 5 in Weight 233 lb 11.04 oz BMI 38.9 BP 110/70 Blood Pressure Location Lt brachial Position Sitting Pulse 67 Pulse Source Monitor Intake Visit Reasons: [facility] d/c chest pain Allergies onion Allergy (Intermediate, Verified 04/26/25 14:23) sneezing Peanut Butter Allergy (Intermediate, Verified 04/26/25 14:23) Sneezing cats Allergy (Mild, Uncoded 08/07/24 14:07) free text dust Allergy (Mild, Uncoded 08/07/24 14:07) free text Medication List - Last Reconciled 07/03/25 by Igor Mejia MD aspirin (Adult Aspirin Regimen) 81 mg PO DAILY atorvastatin 20 mg PO BEDTIME 90 days calcium polycarbophil (FiberCon) 625 mg PO DAILY 30 days citalopram 20 mg PO DAILY gabapentin 300 mg PO DAILY 90 days lisinopril-hydrochlorothiazide 20-25 mg 1 tab PO DAILY meloxicam 15 mg PO DAILY 30 days walker (Ultra-Light Rollator misc) Daily, As directed. 999 days HPI Comments Details: Javier returns for follow-up. Essentially, he has a chronically abnormal looking EKG thought to be from left ventricular hypertrophy. He has undergone previous stress test as well as cardiac catheterization. In 2014, he underwent cardiac catheterization that showed no significant findings. This was repeated in November 2024 that was also unremarkable. However, he had yet another hospitalization to [facility] for chest pains. At that time, it seems that he was thought to have a mitral valve issue which led to a transesophageal echocardiogram. Diagnosed was eventually chordal calcification but I am not clear if that explains his chest pains anywhere. He did have slight troponin leak. Then he was eventually discharged home. Otherwise, he has essentially feeling at baseline. Still gets some random chest pains but no specific patterns. Nothing exertional. On meds for hypertension. PENDING SALE TO [facility] Medical History (Updated 07/03/25 @ 13:41 by Igor Mejia MD) Encounter for immunization Weight loss Transaminitis Abdominal pain Obesity (BMI 30-39.9) Hyperlipidemia HTN (hypertension) Surgical History Back pain with history of spinal surgery Failed spinal cord stimulator Hx of colonoscopy History of cardiac catheterization (~2014) History of tooth extraction History of surgery History of spinal surgery History of surgery History of carpal tunnel syndrome History of neck surgery History of knee replacement procedure of right knee Family History Father No problems noted. Mother Diabetes mellitus Stroke Sister Hemorrhage Multi-organ failure with heart failure Daughter Diabetes mellitus Other Mental health disorder Substance use disorder Social History Housing: Apartment Alcohol intake: never Patient Tobacco Use Status: Former Tobacco user Tobacco use type: Cigar Cigarettes Per Day: 1 Years Smoked: 20 e-Cigarette/Vaping Use: Never Used Second Hand Smoke Exposure: Yes service: No Current occupational status: disabled Current occupational exposures/hazards: No Cognitive needs: No (cane) Hearing needs: No Vision needs: Yes (Glasses) Review of Systems Const Denies weakness ENT Denies dizziness Card Reports chest pain, Reports chest pain at rest, Denies chest pain with activity, Denies syncope, Denies rapid heart rate, Denies pedal edema, Denies edema, Denies leg edema, Denies lightheadedness, Denies palpitations, Denies dyspnea, Denies dyspnea on exertion and Denies orthopnea Resp Denies cough, Denies dyspnea and Denies dyspnea on exertion GI Denies hematochezia and Denies change in stool character Musc Denies abnormal gait, Denies muscle cramps, Denies muscle weakness, Denies numbness, Denies radiating pain into limb and Denies tingling Neuro Denies abnormal gait, Denies dizziness, Denies syncope, Denies numbness, Denies tingling and Denies weakness Endo Denies palpitations Physical Exam Vital Signs: Last Vital Signs Pulse 67 07/03/25 13:06 BP 110/70 07/03/25 13:06 BMI result Body Mass Index 38.9 Const General: comfortable and no acute distress Orientation/consciousness: patient oriented x3 HEENT Other: Unremarkable Head: Yes normal to inspection Neck Neck: Yes normal visual inspection Chest Chest palpation & inspection: normal inspection of the chest Resp Auscultation: clear to auscultation bilaterally Cardio Palpation: normal PMI Heart sounds: S1 normal heart sound present, S2 normal heart sound present, no gallops, no murmurs and no rubs GI Palpation (GI): Soft to palpation Back/Spine/Pelvis Other: unremarkable Skin General skin exam: no rashes or lesions noted Neuro General: patient oriented x3 Extrem General: Yes normal to inspection Psych Mental Status: mental status grossly normal Office Procedures EKG Details: EKG with underlying sinus rhythm at 67/Min; supraventricular ectopy; leftward axis; incomplete right bundle-branch block; left ventricular hypertrophy with repolarization changes; [place] [id number], Complete Assessment & Plan Assessment & Plan (1) Chest pain: Code(s): R07.9 - Chest pain, unspecified Category: Medical (2) Abnormal EKG: Code(s): R94.31 - Abnormal electrocardiogram [ECG] [EKG] Category: Medical (3) Essential hypertension: Code(s): I10 - Essential (primary) hypertension Category: Medical (4) Aortic valve sclerosis: Code(s): I35.8 - Other nonrheumatic aortic valve disorders Category: Medical (5) Mitral annular calcification: Code(s): I34.81 - Nonrheumatic mitral (valve) annulus calcification Category: Medical Plan Cardiac studies reviewed. Abnormal EKG, thought to be from rather left ventricular hypertrophy and less likely from ischemia. Pharmacological stress test from June 2022 in [facility]-normal perfusion. Seems he has had another at [facility] which was also unremarkable. Cardiac catheterization from 2014-near normal coronary arteries with only minimal disease in the LAD. Repeat cardiac catheterization from November 2024-normal coronaries. Transthoracic wwzviyfqkgrjnu-Vxwik-Gbvt 2025-LVEF 55-60%. Left ventricular hypertrophy with moderate diastolic dysfunction. Mild aortic stenosis. Possible mitral valve vegetation. KLJ-Laxky-Uvit 2025-thickened and calcified mitral leaflets with chordal calcification. Highly mobile calcified linear structure, 1.1 cm in length attached to anterior leaflet representing cord than vegetation. Moderate annular calcification. Trace regurgitation. Overall, uncertain etiology for his chest pains. Not clear if he has any microvascular disease as he did have some troponin leak during the recent [facility] hospitalization. He is on low-dose aspirin and that can be continued. Blood pressure is stable on the current regimen including lisinopril/HCTZ. Continue statins. Could potentially consider empiric nitrates if he has other etiologies like vasospasm, microvascular disease extra. Also consider cardiac MRI in the future, to look for other etiologies for left ventricular hypertrophy like hypertrophic cardiomyopathy. We will follow-up later this year with another echocardiogram. Orders: Orders CA echo transthoracic complete 10/28/25 I34.81 - Nonrheumatic mitral (valve) annulus calcification Coding Level of Care Code Est Pt Level 4 (58776) Complex EM visit Add On G2211 Diagnoses Chest pain R07.9 Abnormal EKG R94.31 Essential hypertension I10 Aortic valve sclerosis I35.8 Mitral annular calcification I34.81 CPT Codes EKG - CPT: 87146-Wqrjfwfvsirljzlds, Complete ([id number])
[2025-07-03 13:06] VITALS: BP 110/70; PULSE 67; BMI 38.9
--- OUTSIDE RECORDS SUMMARY | 2025-07-03 13:36 | XMS_ITS | Patient Health Record ---
Author Organization [facility] Address [address] [place] [address] Care Team Providers Care Tool Grinder Operator External Name Role Phone Megan TATE, Sher Primary Care Provider Frank Carballo Unavailable [phone] Allergies No Known Allergies Reason For Referral [...] X ray : Foot, left 3V 04/06/2022 [id number] TENDON SHEATH/LIGAMENT 0 05/04/2022 Insurance Providers Payer Name Payer Address Payer Phone Subscriber Number Group Number Insured Name Patient Relationship to Insured Coverage Start Date Coverage End Date Medicare National [employer] [address] [place] [address] [id number] Javier King Self - patient is the insured AARP Medicare Complete [address] [address] [place] [address] [phone] [id number] Javier King Self - patient is the insured Medical (General) History Medical History History ICD Code Hypertension Hyperlipidemia Anxiety Arthritis Back,Hip,and Knee pain Broken bones Depression Surgical History Surgery Date(Month/Year) carpal tunnel release right knee replacement neck surgery spine surgery Tooth extraction
--- OUTSIDE RECORDS SUMMARY | 2025-07-03 13:36 | XMS_ITS | Clinical Summary ---
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 06/23/2025 8:13 PM EDT 06/23/2025 8:37 PM EDT Ivan Ward MD LAB BLOOD ORDERABLES Erica l Result Performing Organization Address [facility]/ZIP Co de Phone Number [facility] [address] [place] [address], [place] [phone] * (ABNORMAL) Comprehensive metabolic panel (06/23/2025 8:13 PM EDT) Sodium 139 133 - 145 mmol/L LAB CHEMISTRY METHOD 06/23/2025 9:11 PM EDT [facility] Potassium 3.8 3.5 - 5.5 mmol/L LAB CHEMISTRY METHOD 06/23/2025 9:11 PM EDT [facility] Chloride 104 96 - 110 mmol/L LAB CHEMISTRY METHOD 06/23/2025 9:11 PM EDT [facility] CO2 29 21 - 32 mmol/L LAB CHEMISTRY METHOD 06/23/2025 9:11 PM [facility] Anion Gap 6 3 - 11 LAB CHEMISTRY METHOD 06/23/2025 9:11 PM [facility] Glucose 109(H) 70 - 100 mg/dL LAB CHEMISTRY METHOD 06/23/2025 9:11 PM [facility] BUN 16 5 - 25 mg/dL LAB CHEMISTRY METHOD 06/23/2025 9:11 PM [facility] Creatinine 1.29 0.70 - 1.30 mg/dL LAB CHEMISTRY METHOD 06/23/2025 9:11 PM [facility] eGFR 64 >=60 mL/min/1. 73m2 LAB CHEMISTRY METHOD 06/23/2025 9:11 PM [facility] Comment:Calculation based on the Chronic Kidney Disease Epidemiology Collaboration (CKD-EPI) equation refit without adjustment for race. BUN/Creatinine Ratio 12.4 LAB CHEMISTRY METHOD 06/23/2025 9:11 PM [facility] Calcium 9.4 8.5 - 10.5 mg/dL LAB CHEMISTRY METHOD 06/23/2025 9:11 PM [facility] AST (SGOT) 21 10 - 42 unit/L LAB CHEMISTRY METHOD 06/23/2025 9:11 PM [facility] ALT (SGPT) 37 10 - 60 unit/L LAB CHEMISTRY METHOD 06/23/2025 9:11 PM [facility] Alkaline Phosphatase 87 42 - 121 unit/L LAB CHEMISTRY METHOD 06/23/2025 9:11 PM [facility] Total Protein 6.5 6.0 - 8.0 g/dL LAB CHEMISTRY METHOD 06/23/2025 9:11 PM [facility] Albumin 3.7 3.2 - 5.0 g/dL LAB CHEMISTRY METHOD 06/23/2025 9:11 PM EDT [facility] Total Bilirubin 0.5 0.0 - 1.4 mg/dL LAB CHEMISTRY METHOD 06/23/2025 9:11 PM EDT [facility] Blood Venous blood specimen / Unknown Venipuncture / Unknown 06/23/2025 8:13 PM EDT 06/23/2025 8:37 PM EDT us Ivan Ward MD LAB BLOOD ORDERABLES Erica l Result [facility] [address] [place] [address], [place] [phone] * [place] CRITICAL CARE 30-74 MINUTES (06/23/2025 7:45 PM EDT) Narrative Ivan Ward MD - 06/23/2025 7:45 PM EDT Ivan Ward MD 06/24/2025 1:29 AM Critical Care Performed by: Ivan Ward MD Authorized by: Ivan Ward MD Critical care provider statement: Critical care time (minutes): 60 Total face to face critical care time (minutes): 60 Critical care time was exclusive of: Separately billable procedures and treating other patients Critical care was necessary to treat or prevent imminent or life-threatening deterioration of the following conditions: Acute mi Critical care was time spent personally by me on the following activities: Re-evaluation of patient's condition, review of old charts, examination of patient, evaluation of patient's response to treatment, interpretation of cardiac output measurements, obtaining history from patient or surrogate, ordering and review of laboratory studies, ordering and review of radiographic studies, pulse oximetry and ordering and performing treatments and interventions Face to face critical care was time spent personally by me on the following activities: Examination of patient, discussions with consultants, evaluation of patient's response to treatment, obtaining history from patient or surrogate, interpretation of cardiac output measurements, ordering and performing treatments and interventions, ordering and review of laboratory studies, ordering and review of radiographic studies, pulse oximetry, re-evaluation of patient's condition and review of old charts us Ivan Ward MD IN CLINIC/BEDSIDE ORDERAB LES Final Result * XR Lumbar Spine 2-3 Views (04/14/2025 [...] Signed Date: 04/15/2025 09:05 ET Workstation ID: [id number] Transcribed By: Self Edit Transcribed Date: 04/15/2025 [...] Signed Date: 04/15/2025 09:05 ET Workstation ID: [id number] Transcribed By: Self Edit Transcribed Date: 04/15/2025 09:02 ET us Anju ARROYO IMG XR PROCEDURES Final Re sult from Last 3 Months Insurance MEDICAID - [place] Member Subscriber Plan / Payer (Ef fective 2024-Present) Name:JAVIER CUELLO Relation to Subscriber:Self Name:Javier Cuello Payer ID:[id number] Group ID:Not on file Type:Not on file Address: [facility] [employer] [place] ATTN:CLAIMS [address] [place] [address] [employer] MEDICARE Advance Directives Documents on File Type Date Recorded Patient Disposal Operator Expl anation Advance Directives and Living Will 06/24/2025 4:09 PM Karen King PROXY * Full Code - Default (Latest Code Status on File) Date Activated Date Inactivated Comments 06/24/2025 12:10 AM 06/26/2025 5:07 PM This is ord er is used when code status has not been discussed with the patient, or code status is otherwise unknown/unconfirmed To update the patient's code status, place a code status order. Do not modify or discontinue any currently active code status orders. Healthcare Agents on File Name Relationship Healthcare Agent Relationshi p Communication Karen King Daughter Health Care Agent Nuvia King Daughter First Alternate Health Car e Agent Care Teams Gerentological Physiotherapist Relationship Specialty Start Date End Date Sher Guzman MD [address] [place] [address] Dr Fantasma [place] PCP - General 03/03/20
== END 2025-07-03 13:36 | disposition home or self-care (01) ==
PROVIDERS: PCP Family Medicine; Visit Provider Internal Medicine
DX: R07.9 Chest pain, unspecified (principal); R94.31 Abnormal electrocardiogram [ECG] [EKG]; I10 Essential (primary) hypertension; I35.8 Other nonrheumatic aortic valve disorders; I34.81 Nonrheumatic mitral (valve) annulus calcification
CPT/HCPCS: 93010; 99214; G2211

== ENCOUNTER → 2025-07-03 13:01 | Outpatient (BNVA) | payer MEDICARE, SELFPAY | PROVIDERS: PCP Family Medicine; Visit Provider Internal Medicine | DX: I10 Essential (primary) hypertension (principal); I35.8 Other nonrheumatic aortic valve disorders; I34.81 Nonrheumatic mitral (valve) annulus calcification; R07.9 Chest pain, unspecified; R94.31 Abnormal electrocardiogram [ECG] [EKG]; I49.1 Atrial premature depolarization; I45.19 Other right bundle-branch block; I51.7 Cardiomegaly | CPT/HCPCS: 93005; 99212 ==

== ENCOUNTER 2025-07-04 13:55 | Outpatient (AMB) | payer MEDICARE, MEDICAID, SELFPAY ==
--- OUTSIDE RECORDS SUMMARY | 2025-07-04 14:05 | XMS_ITS | Clinical Summary ---
Author Organization [facility] Address [address] [place] [address] Phone Care Team Providers Care Photogeologist Name Role Phone Sher Guzman MD Primary Care Provider +- [phone] Allergies No known active allergies Medications atorvastatin [...] (non-ST elevated myoc ardial infarction) (CMS/HCC V24, CMS/[facility] V28) 06/24/2025 Encounters Date Type Department Care Team Description 06/26/2025 10:06 AM EDT Anesthesia Event [facility] [address] [place] [address] Nilesh Anguiano DO 06/26/2025 9:37 AM EDT - 06/26/2025 11:59 PM EDT Hospital Encounter [facility] [address] [place] [address] Chucho Montague MD Discharge Disposition: Home or Self Care 06/23/2025 7:57 PM EDT - 06/26/2025 3:01 PM EDT Hospital Encounter [facility] Intermediate Care Unit [address] [place] [address] Ivan Ward MD Sondhi, Vikram, MD Surendran, Anupama, MD NSTEMI (non-ST elevated myocardial infarction) (CMS/HCC V24, CMS/HCC V28) (Primary Dx); Chest pain, unspecified type; Vegetation of heart valve; Endocarditis Discharge Disposition: Home or Self Care 04/14/2025 4:41 PM EDT - 04/14/2025 7:[address] [facility] Emergency [address] [place] [address] Acute right-sided low back pain with right-sided sciatica (Primary Dx) Discharge Disposition: Home or Self Care from Last 3 Months Surgical History Surgery Date Site/Laterality Comments APPENDECTOMY PROCEDURE: TX APPENDECTOMY CARPAL TUNNEL RELEASE PROCEDURE: HISTORICAL CARPAL TUNNEL REL CERVICAL LAMINECTOMY PROCEDURE: HISTORICAL CERV LAMINECTOMY Medical History Medical History Date Comments SLY (obstructive sleep apnea) 10/29/2017 DX :SLY (obstructive sleep apnea) Hypertension 10/29/2017 DX:Hypertension Depression 10/29/2017 DX:Depression Hyperlipidemia 10/29/2017 DX:Hyperlipidemi a CAD (coronary artery disease) 10/29/2017 DX :CAD (coronary artery disease); COMMENT: OK 2001 Social History Tobacco Use Types Packs/Day [...] ECG 12-LEAD STAT 06/23/2025 7:50 PM EDT [place] CRITICAL CARE 30-74 MINUTES Routine 06/23/2025 7:45 [...] rhythm. The probe was inserted by the sales account director. There was no probe insertion difficulty. by anesthesia. The patient had no complications. Estimated blood loss: no blood loss. No specimens were collected. Chucho Montague MD CV ECHO PROCEDURES Final Result * Blood Culture, Peripheral Draw #1 (06/24/2025 3:35 PM EDT) Only the most recent of2 resultswithin the time period is included. [facility] Culture, Blood No growth at 5 days LAB MICROBIOLOGY METHOD 06/29/2025 4:01 PM EDT [facility] Blood Venous blood specimen / Unknown Venipuncture / Unknown 06/24/2025 3:35 PM EDT 06/24/2025 3:47 PM EDT Shavon Forde MD LAB MICROBIOLOGY - GENERAL ORDERABLES Final Result [facility] [address] [place] [address], [place] [phone] * (ABNORMAL) TRANSTHORACIC ECHOCARDIOGRAM (TTE) COMPLETE W/ CONTRAST (06/24/2025 2:23 PM EDT) Pathologist [facility] Left Atrium Minor Buchanan 6.8 cm CV PACS Left Atrium Major Buchanan 6.6 cm CV PACS LA Area Sys [...] Volume 107 mL CV PACS MV Deceleration Story 2.7 m/s2 CV PACS E Wave Deceleration [...] LAB COAGULATION METHOD 06/24/2025 10:09 AM EDT [facility] Blood Venous blood specimen / Unknown Venipuncture / Unknown 06/24/2025 9:56 AM EDT 06/24/2025 9:57 AM EDT Narrative [facility] - 06/24/2025 10:09 AM EDT Therapeutic range listed is for Unfractionated Heparin. LMW Heparin therapeutic range: 0.50-1.20 IU/mL Ivan Ward MD LAB BLOOD ORDERABLES Erica l Result [facility] [address] [place] [address], * ECG 12 lead - Routine (06/24/2025 7:33 AM EDT) Only the most recent of3 resultswithin the time period is included. Ventricular Rate ECG 52 BPM GEMUSE Atrial Rate 52 BPM GEMUSE P-R Interval 156 ms GEMUSE QRS Duration 100 ms GEMUSE Q-T Interval 506 ms GEMUSE QTc 470 ms GEMUSE P Wave Buchanan 69 degrees GEMUSE R Buchanan -34 degrees GEMUSE T Buchanan 137 degrees GEMUSE ECG Interpretation Sinus bradycardia Left axis deviation Pulmonary disease pattern Left ventricular hypertrophy with repolarization abnormality Abnormal ECG When compared with ECG of 23-JUN-2025 22:45, (unconfirmed) No significant change was found Confirmed by TSERING DUENAS ([id number]) on 06/24/2025 9:12:41 PM GEMUSE 06/24/2025 7:33 AM EDT 06/24/2025 9:12 PM EDT us Claude Spann MD ECG ORDERABLES Final Result Performing Organization Address [facility] Co de Phone Number GEMUSE * (ABNORMAL) Troponin I high sensitivity (3 hours after initial draw) (06/24/2025 4:00 AM EDT) Only the most recent of3 resultswithin the time period is included. Pathologist [facility] High Sensitivity Troponin I 112(H) <=79 ng/L LAB CHEMISTRY METHOD 06/24/2025 5:01 AM EDT [facility] Blood Venous blood specimen / Unknown Venipuncture / Unknown 06/24/2025 4:00 AM EDT 06/24/2025 4:30 AM EDT Narrative [facility] - 06/24/2025 5:01 AM EDT High levels of biotin in samples may falsely decrease hsTroponin values. Use caution when interpreting hsTroponin results in patients taking biotin who exhibit renal impairment (eGFR <60) or in patients taking more than 20 mg/day of biotin. us Claude Spann MD LAB BLOOD ORDERABLES Final Resu lt Performing Organization Address [facility]/ZIP Co de Phone Number [facility] [address] [place] [address], [place] [phone] * (ABNORMAL) Lipid panel with reflex to direct LDL (06/24/2025 4:00 AM EDT) Pathologist [facility] Cholesterol 187 0 - 200 mg/dL LAB CHEMISTRY METHOD 06/24/2025 5:00 AM EDT [facility] Triglycerides 90 0 - 150 mg/dL LAB CHEMISTRY METHOD 06/24/2025 5:00 AM EDT [facility] HDL 45 >=40 mg/dL LAB CHEMISTRY METHOD 06/24/2025 5:00 AM EDT [facility] LDL Calculated 124(H) 0 - 100 mg/dL LAB CHEMISTRY METHOD 06/24/2025 5:00 AM EDT [facility] VLDL Cholesterol Keven 18 mg/dL LAB CHEMISTRY METHOD 06/24/2025 5:00 AM EDT [facility] Non HDL Chol. (LDL+VLDL) 142 <145 mg/dL LAB CHEMISTRY METHOD 06/24/2025 5:00 AM EDT [facility] Chol/HDL Ratio 4.2 0.0 - 4.4 LAB CHEMISTRY METHOD 06/24/2025 5:00 AM EDT [facility] Blood Venous blood specimen / Unknown Venipuncture / Unknown 06/24/2025 4:00 AM EDT 06/24/2025 4:30 AM EDT us Claude Spann MD LAB BLOOD ORDERABLES Final Resu lt [facility] [address] [place] [address], * (ABNORMAL) B-type natriuretic peptide (06/24/2025 3:59 AM EDT) BNP 177(H) <=100 pcg/mL LAB CHEMISTRY METHOD 06/24/2025 5:08 AM EDT [facility] Blood Venous blood specimen / Unknown Venipuncture / Unknown 06/24/2025 3:59 AM EDT 06/24/2025 4:30 AM EDT us Claude Spann MD LAB BLOOD ORDERABLES Final Resu lt Performing Organization Address City/[facility]/ZIP Co de Phone Number [facility] [address] [place] [address], [place] [phone] * APTT (06/23/2025 10:36 PM EDT) aPTT 29.9 24.1 - 39.3 sec LAB COAGULATION METHOD 06/23/2025 11:01 PM EDT [facility] Blood Venous blood specimen / Unknown Venipuncture / Unknown 06/23/2025 10:36 PM EDT 06/23/2025 10:42 PM EDT Ivan Ward MD LAB BLOOD ORDERABLES Erica l Result Performing Organization Address [facility]/ZIP Co de Phone Number [facility] [address] [place] [address], [place] [phone] * Protime-INR (06/23/2025 10:36 PM EDT) Protime 10.8 10.6 - 13.9 sec LAB COAGULATION METHOD 06/23/2025 11:01 PM EDT [facility] INR 0.9 LAB COAGULATION METHOD 06/23/2025 11:01 PM EDT [facility] Blood Venous blood specimen / Unknown Venipuncture / Unknown 06/23/2025 10:36 PM EDT 06/23/2025 10:42 PM EDT Ivan Ward MD LAB BLOOD ORDERABLES Erica l Result Performing Organization Address City/[facility]/ZIP Co de Phone Number [facility] [address] [place] [address], [place] [phone] * XR Chest 2 Views (06/23/2025 9:24 PM EDT) Anatomical Region Laterality Modality Body Radiographic Minerva ging 06/24/2025 8:16 AM EDT Impressions 06/24/2025 8:18 AM EDT No acute pulmonary disease. Cardiomegaly, as also also demonstrated on 04/25/2015. Code 26665 -------- FINAL REPORT -------- Dictated By: Paulino Helms Dictated Date: 06/24/2025 08:16 ET Assigned Physician: Paulino Helms Reviewed and Electronically Signed By: Paulino Helms Signed Date: 06/24/2025 08:18 ET Workstation ID: [id number] Transcribed By: Self Edit Transcribed Date: 06/24/2025 [...] Cardiomegaly, as also also demonstrated on04/25/2015. Code 86159 -------- FINAL REPORT -------- Dictated By: Paulino Helms Dictated Date: 06/24/2025 08:16 ET Assigned Physician: Paulino Helms Reviewed and Electronically Signed By: Paulino Helms Signed Date: 06/24/2025 08:18 ET Workstation ID: [id number] Transcribed By: Self Edit Transcribed Date: 06/24/2025 08:16 ET us Ivan Ward MD IMG XR PROCEDURES Final R esult * (ABNORMAL) CBC auto differential (06/23/2025 8:13 PM EDT) WBC 5.3 4.8 - 10.8 K/mcL LAB HEMETOLOGY METHOD 06/23/2025 8:46 PM EDT [facility] RBC 4.80 4.50 - 5.50 M/mcL LAB HEMETOLOGY METHOD 06/23/2025 8:46 PM EDT [facility] Hemoglobin 14.6 13.5 - 17.5 g/dL LAB HEMETOLOGY METHOD 06/23/2025 8:46 PM EDT [facility] Hematocrit 45.1 42.0 - 54.0 % LAB HEMETOLOGY METHOD 06/23/2025 8:46 PM EDT [facility] MCV 93.8 79.0 - 98.0 FL LAB HEMETOLOGY METHOD 06/23/2025 8:46 PM EDT [facility] MCH 30.4 27.0 - 32.0 pcg LAB HEMETOLOGY METHOD 06/23/2025 8:46 PM EDT [facility] MCHC 32.4 32.0 - 37.0 g/dL LAB HEMETOLOGY METHOD 06/23/2025 8:46 PM EDT [facility] RDW 12.5 11.0 - 15.0 % LAB HEMETOLOGY METHOD 06/23/2025 8:46 PM EDT [facility] Platelets 176 130 - 400 K/mcL LAB HEMETOLOGY METHOD 06/23/2025 8:46 PM EDT [facility] MPV 12.1(H) 7.0 - 11.0 FL LAB HEMETOLOGY METHOD 06/23/2025 8:46 PM EDT [facility] NRBC 0.0 <1.0 % LAB HEMETOLOGY METHOD 06/23/2025 8:46 PM EDT [facility] NRBC Absolute 0.00 <0.10 K/mcL LAB HEMETOLOGY METHOD 06/23/2025 8:46 PM EDT [facility] Neutrophils Relative 52.7 % LAB HEMETOLOGY METHOD 06/23/2025 8:46 PM EDT [facility] Lymphocytes Relative 29.5 % LAB HEMETOLOGY METHOD 06/23/2025 8:46 PM EDT [facility] Monocytes Relative 13.2 % LAB HEMETOLOGY METHOD 06/23/2025 8:46 PM EDT [facility] Eosinophils Relative 3.6 % LAB HEMETOLOGY METHOD 06/23/2025 8:46 PM EDT [facility] Basophils Relative 0.8 % LAB HEMETOLOGY METHOD 06/23/2025 8:46 PM EDT [facility] Immature Granulocytes Relative 0.2 % LAB HEMETOLOGY METHOD 06/23/2025 8:46 PM EDT [facility] Neutrophils Absolute 2.81 1.50 - 7.00 K/mcL LAB HEMETOLOGY METHOD 06/23/2025 8:46 PM EDT [facility] Lymphocytes Absolute 1.57 1.00 - 5.00 K/mcL LAB HEMETOLOGY METHOD 06/23/2025 8:46 PM EDT [facility] Monocytes Absolute 0.70 0.20 - 1.00 K/mcL LAB HEMETOLOGY METHOD 06/23/2025 8:46 PM EDT [facility] Eosinophils Absolute 0.19 0.00 - 0.50 K/mcL LAB HEMETOLOGY METHOD 06/23/2025 8:46 PM EDT [facility] Basophils Absolute 0.04 0.00 - 0.20 K/mcL LAB HEMETOLOGY METHOD 06/23/2025 8:46 PM EDT [facility] Immature Granulocytes Absolute 0.01 0.00 - 0.03 K/mcL LAB HEMETOLOGY METHOD 06/23/2025 8:46 PM EDT [facility] Blood Venous blood specimen / Unknown Venipuncture / Unknown 06/23/2025 8:13 PM EDT 06/23/2025 8:37 PM EDT Ivan Ward MD LAB BLOOD ORDERABLES Erica l Result Performing Organization Address City/[facility]/ZIP Co de Phone Number [facility] [address] [place] [address], [place] [phone] * Magnesium (06/23/2025 8:13 PM EDT) Magnesium 2.1 1.9 - 2.6 mg/dL LAB CHEMISTRY METHOD 06/23/2025 9:09 PM EDT [facility] Blood Venous blood specimen / Unknown Venipuncture / Unknown 06/23/2025 8:13 PM EDT 06/23/2025 8:37 PM EDT Ivan Ward MD LAB BLOOD ORDERABLES Erica l Result Performing Organization Address [facility]/ZIP Co de Phone Number [facility] [address] [place] [address], [place] [phone] * (ABNORMAL) Comprehensive metabolic panel (06/23/2025 8:13 PM EDT) Sodium 139 133 - 145 mmol/L LAB CHEMISTRY METHOD 06/23/2025 9:11 PM EDT [facility] Potassium 3.8 3.5 - 5.5 mmol/L LAB CHEMISTRY METHOD 06/23/2025 9:11 PM EDT [facility] Chloride 104 96 - 110 mmol/L LAB CHEMISTRY METHOD 06/23/2025 9:11 PM EDT [facility] CO2 29 21 - 32 mmol/L LAB CHEMISTRY METHOD 06/23/2025 9:11 PM [facility] Anion Gap 6 3 - 11 LAB CHEMISTRY METHOD 06/23/2025 9:11 PM [facility] Glucose 109(H) 70 - 100 mg/dL LAB CHEMISTRY METHOD 06/23/2025 9:11 PM [facility] BUN 16 5 - 25 mg/dL LAB CHEMISTRY METHOD 06/23/2025 9:11 PM [facility] Creatinine 1.29 0.70 - 1.30 mg/dL LAB CHEMISTRY METHOD 06/23/2025 9:11 PM [facility] eGFR 64 >=60 mL/min/1. 73m2 LAB CHEMISTRY METHOD 06/23/2025 9:11 PM [facility] Comment:Calculation based on the Chronic Kidney Disease Epidemiology Collaboration (CKD-EPI) equation refit without adjustment for race. BUN/Creatinine Ratio 12.4 LAB CHEMISTRY METHOD 06/23/2025 9:11 PM [facility] Calcium 9.4 8.5 - 10.5 mg/dL LAB CHEMISTRY METHOD 06/23/2025 9:11 PM [facility] AST (SGOT) 21 10 - 42 unit/L LAB CHEMISTRY METHOD 06/23/2025 9:11 PM [facility] ALT (SGPT) 37 10 - 60 unit/L LAB CHEMISTRY METHOD 06/23/2025 9:11 PM [facility] Alkaline Phosphatase 87 42 - 121 unit/L LAB CHEMISTRY METHOD 06/23/2025 9:11 PM [facility] Total Protein 6.5 6.0 - 8.0 g/dL LAB CHEMISTRY METHOD 06/23/2025 9:11 PM [facility] Albumin 3.7 3.2 - 5.0 g/dL LAB CHEMISTRY METHOD 06/23/2025 9:11 PM EDT [facility] Total Bilirubin 0.5 0.0 - 1.4 mg/dL LAB CHEMISTRY METHOD 06/23/2025 9:11 PM EDT [facility] Blood Venous blood specimen / Unknown Venipuncture / Unknown 06/23/2025 8:13 PM EDT 06/23/2025 8:37 PM EDT us Ivan Ward MD LAB BLOOD ORDERABLES Erica l Result [facility] [address] [place] [address], [place] [phone] * [place] CRITICAL CARE 30-74 MINUTES (06/23/2025 7:45 PM [...] Signed Date: 04/15/2025 09:05 ET Workstation ID: [id number] Transcribed By: Self Edit Transcribed Date: 04/15/2025 [...] Signed Date: 04/15/2025 09:05 ET Workstation ID: [id number] Transcribed By: Self Edit Transcribed Date: 04/15/2025 09:02 ET us Anju ARROYO IMG XR PROCEDURES Final Re sult from Last 3 Months Insurance MEDICAID - [place] Member Subscriber Plan / Payer (Ef fective 2024-Present) Name:JAVIER CUELLO Relation to Subscriber:Self Name:Javier Cuello Payer ID:[id number] Group ID:Not on file Type:Not on file Address: [facility] [employer] ATTN:CLAIMS [address] [place] [address] [employer] MEDICARE Advance Directives Documents on File Type Date Recorded Patient Senior Rd Engineer Expl anation Advance Directives and Living Will [...] Alternate Health Car e Agent Care Teams Photogeologist Relationship Specialty Start Date End Date Sher Guzman MD [address] [place] [address] Dr Fantasma [place] PCP - General 03/03/20
--- NOTE | 2025-07-04 14:10 | MHC.PC.OV ---
Vital Signs 07/04/25 14:15 Height 5 ft 5 in Weight 238 lb 6 oz BMI 39.7 BP 116/62 Blood Pressure Location Lt brachial Position Sitting Pulse 64 Pulse Source Pulse Oximeter Temp 98.4 F Temp Source Temporal Artery Scan Pulse Oximetry (%) 95 Oxygen Delivery Method Room Air Intake Visit Reasons: TCM Intake Note: Patient presents in the office today for a TCM. Allergies onion Allergy (Intermediate, Verified 07/04/25 14:13) sneezing Peanut Butter Allergy (Intermediate, Verified 07/04/25 14:13) Sneezing cats Allergy (Mild, Uncoded 07/04/25 14:13) free text dust Allergy (Mild, Uncoded 07/04/25 14:13) free text Tobacco use date assessed: 07/04/25 Dental Screening Dental Screen Date: 07/04/25 Did you have a dental visit in the last 12 months?: Yes Did you have a dental problem in the last 6 months where you did not have access to dental care?: No Was dental information given to patient?: Patient has dentist HPI TCM HPI Details 59 y/o male presents to f/u hospital discharge visit. TCM for Admission 06/23/25 to 06/26/25. Pt with h/o atypical chest pain and negative cardiac catheterization in November of this year went to ED with complaints consistent with atypical Chest pain. Mild troponin elevation and Cardiology was consulted but did not feel this was ACS. JORGE Showed LVH & Ruptured Cord, initially thought to be a vegetation but blood cultures negative and no evidence of infection. Ruptured cord appears to be a new finding. Patient was hemodynamically stable and chest pain had resolved. Recommended to follow-up with Cardiology and primary care. He remains on lisinopril-hydrochlorothiazide. Blood pressure is well controlled; 116/62 HPI Comments History of Present Illness Details Documentation assistance for Sher Guzman MD, was provided by Tremaine Hilario, Bank Manager on 07/04/2025 at 3:02 PM EST. I, Dr. Guzman, have read, observed, and verified documentation. [facility] Medical History (Updated 07/04/25 @ 15:13 by Sher Guzamn MD) Encounter for immunization Weight loss Transaminitis Abdominal pain Obesity (BMI 30-39.9) Hyperlipidemia HTN (hypertension) Surgical History Back pain with history of spinal surgery Failed spinal cord stimulator Hx of colonoscopy History of cardiac catheterization (~2014) History of tooth extraction History of surgery History of spinal surgery History of surgery History of carpal tunnel syndrome History of neck surgery History of knee replacement procedure of right knee Family History Father No problems noted. Mother Diabetes mellitus Stroke Sister Hemorrhage Multi-organ failure with heart failure Daughter Diabetes mellitus Other Mental health disorder Substance use disorder Social History (Updated 07/04/25 @ 14:15 by Devi Zaman MA) Housing: Apartment Alcohol intake: never Patient Tobacco Use Status: Former Tobacco user Tobacco use type: Cigar Cigarettes Per Day: 1 Years Smoked: 20 e-Cigarette/Vaping Use: Never Used Second Hand Smoke Exposure: Yes service: No Current occupational status: disabled Current occupational exposures/hazards: No Cognitive needs: No (cane) Hearing needs: No Vision needs: Yes (Glasses) Questionnaire Thrive Questionnaire Date Thrive assessed: 02/04/25 I am a: Patient What is your living situation today?: I have a steady place to live Within the past 12 months, did the food you bought not last and you didn't have the money to get more?: Sometimes True Within the past 12 months, did you worry whether your food would run out before you got money to buy more?: Never true Do you have trouble paying for medicines?: No Do you have trouble getting transportation to medical appointments?: Yes Do you have trouble paying your heating and electricity bill?: Yes Do you have trouble taking care of your child, family member or friend?: Yes Do you have trouble with day-to-day activities such as bathing, preparing meals, shopping, managing finances, etc.?: Yes Are you currently unemployed and looking for a job?: No Are you interested in more education?: No Currently or been in a relationship where the following occur: I choose not to answer THRIVE Score: 3 SARAH-7 AMB Questionnaire SARAH-7 Date SARAH - 7 assessed: 04/09/25 Source: Developed by Drs. Abdirahman Dallas, Minna Hernandez, Kennedy Phillips and colleagues, with an educational jayy from [employer]. Review of Systems Const Denies chills, Denies fatigue, Denies fever(s), Denies headache(s) and Denies weakness ENT Denies dizziness and Denies headache(s) Card Denies dyspnea Resp Denies cough, Denies dyspnea, Denies wheezing and Denies other (shortness of breath) Musc Denies numbness and Denies tingling Neuro Denies dizziness, Denies headache(s), Denies numbness, Denies tingling and Denies weakness Psych Denies anxiety and Denies depression Endo Denies fatigue Aller/Immun Denies wheezing Physical exam (Primary Care) Vital Signs: Last Vital Signs Temp 98.4 F 07/04/25 14:15 Pulse 64 07/04/25 14:15 BP 116/62 07/04/25 14:15 Pulse Ox 95 07/04/25 14:15 Oxygen Delivery Method Room Air 07/04/25 14:15 BMI result Body Mass Index 39.7 Tobacco/Smoking Status: Tobacco use Status Tobacco use date assessed 07/04/25 07/04/25 14:19 Patient Tobacco Use Status Former Tobacco user 07/04/25 14:15 Tobacco use type Cigar 07/04/25 14:15 e-Cigarette/Vaping Use Never Used 07/04/25 14:15 Thrive Assessment: Date of Thrive Assessment Date Thrive assessed 02/04/25 07/04/25 14:12 Currently or been in a relationship where the following occur: I choose not to answer Const General: well developed; No acute distress Nutritional Appearance: well nourished Orientation/consciousness: patient oriented x3 HENMT Head: Yes normocephalic and Yes atraumatic Eyes General: appearance normal, both eyes and all related structures Pupils: Equal, round and reactive pupils present EOM: EOMs intact bilaterally Resp Effort & Inspection: normal respiratory effort Auscultation: clear to auscultation bilaterally Cardio Rate: regular rate Rhythm: regular rhythm Heart sounds: S1 normal heart sound present, S2 normal heart sound present, no gallops, no murmurs and no rubs Neuro General: patient oriented x3 and gait normal Cranial nerves: Yes Equal, round and reactive pupils present Psych Affect: normal affect Results AMB Hemoglobin A1c AMB Hemoglobin A1c 5.4 % Last Edit by Devi Zaman MA on 07/04/25 14:27 Results Reviewed Results Reviewed: Laboratory Last Values Hgb A1c (Clinic) 5.4 % (4.0-6.0) 07/04/25 14:21 Coding Level of Care Code Est Pt Level 5 (89993) Diagnoses Pre-diabetes R73.03 Chest pain R07.9 Essential hypertension I10 LVH (left ventricular hypertrophy) I51.7 Elevated liver enzymes R74.8 Screening for prostate cancer Z12.5 Sleep apnea G47.30 Difficulty sleeping G47.9 Assessment & Plan Assessment & Plan (1) Pre-diabetes: Code(s): R73.03 - Prediabetes Category: Medical (2) Chest pain: Code(s): R07.9 - Chest pain, unspecified Category: Medical (3) Essential hypertension: Code(s): I10 - Essential (primary) hypertension Category: Medical (4) LVH (left ventricular hypertrophy): Code(s): I51.7 - Cardiomegaly Category: Medical (5) Elevated liver enzymes: Code(s): R74.8 - Abnormal levels of other serum enzymes Category: Medical Plan: Liver enzymes back in normal range with most recent lab work Continue good hydration and weight loss (6) Screening for prostate cancer: Code(s): Z12.5 - Encounter for screening for malignant neoplasm of prostate Category: Medical Plan: PSA in March was within normal limits Will continue annual screening (7) Sleep apnea: Code(s): G47.30 - Sleep apnea, unspecified Category: Medical Plan: Patient has had difficulty staying asleep lately Advised him to contact his sleep medicine provider His CPAP may need calibration (8) Screening for prostate cancer: Code(s): Z12.5 - Encounter for screening for malignant neoplasm of prostate Category: Medical (9) Difficulty sleeping: Code(s): G47.9 - Sleep disorder, unspecified Category: Medical Plan TCM for Admission 06/23/25 to 06/26/25. Pt with h/o atypical chest pain and negative cardiac catheterization in November of this year went to ED with complaints consistent with atypical Chest pain. Mild troponin elevation and Cardiology was consulted but did not feel this was ACS. JORGE Showed LVH & Ruptured Cord, initially thought to be a vegetation but blood cultures negative and no evidence of infection. Ruptured cord appears to be a new finding. Patient was hemodynamically stable and chest pain had resolved. Recommended to follow-up with Cardiology and primary care. Blood pressure appears well controlled today. He appears stable. Patient was seen by Cardiology yesterday. Per Cardiology note: Highly mobile calcified linear structure, 1.1 cm in length attached to anterior leaflet [likely] representing cord [rather] than vegetation. *Brackets, mine TJCarrie* His next follow-up with Cardiology is october. He remains on lisinopril-hydrochlorothiazide. Blood pressure is well controlled; 116/62 A1c 5.4% today. Continue working on diet low in sugars and starches Patient has had difficulty sleeping. As above advised that he follow-up with sleep medicine Will try some trazodone Orders: Orders AMB Hemoglobin A1c Today R73.03 - Prediabetes
[2025-07-04 14:15] VITALS: BP 116/62; PULSE 64; TEMP 36.9; O2SAT 95; BMI 39.7
== END 2025-07-04 15:07 | disposition home or self-care (01) ==
LOC: HO.HMCFM 13:56
PROVIDERS: PCP Family Medicine; Visit Provider Family Medicine
DX: R73.03 Prediabetes (principal); R07.9 Chest pain, unspecified; I10 Essential (primary) hypertension; I51.7 Cardiomegaly; R74.8 Abnormal levels of other serum enzymes; Z12.5 Encounter for screening for malignant neoplasm of prostate; G47.30 Sleep apnea, unspecified; G47.9 Sleep disorder, unspecified

== ENCOUNTER → 2025-07-04 13:55 | Outpatient (BNVA) | payer MEDICARE, MEDICAID, SELFPAY | PROVIDERS: PCP Family Medicine; Visit Provider Family Medicine | DX: R73.03 Prediabetes (principal); R07.9 Chest pain, unspecified; I10 Essential (primary) hypertension; R74.8 Abnormal levels of other serum enzymes; G47.30 Sleep apnea, unspecified; G47.9 Sleep disorder, unspecified; Z87.891 Personal history of nicotine dependence | CPT/HCPCS: 83036; 99212 ==

== ENCOUNTER 2025-08-12 11:30 | Outpatient (AMB) | payer MEDICARE, MEDICAID, SELFPAY ==
--- NOTE | 2025-08-12 11:38 | A.OFFVIS_ITS ---
Vital Signs 08/12/25 11:41 Height 5 ft 5 in Weight 240 lb 4.862 oz BMI 40.0 BP 120/70 Blood Pressure Location Lt brachial Position Sitting Pulse 64 Pulse Source Pulse Oximeter Pulse Oximetry (%) 96 Oxygen Delivery Method Room Air Intake Visit Reasons: Obstructive sleep apnea Intake Note: pt is here for follow up and states he is doing well, needs new supplies and he will make appt to have machine checked by [employer] for possible air leak with water chamber. Allergies onion Allergy (Intermediate, Verified 08/12/25 12:00) sneezing Peanut Butter Allergy (Intermediate, Verified 08/12/25 12:00) Sneezing cats Allergy (Mild, Uncoded 08/12/25 12:00) free text dust Allergy (Mild, Uncoded 08/12/25 12:00) free text Medication List - Last Reconciled 08/12/25 by Jaun Swenson MD aspirin (Adult Aspirin Regimen) 81 mg PO DAILY atorvastatin 20 mg PO BEDTIME 90 days calcium polycarbophil (FiberCon) 625 mg PO DAILY 30 days citalopram 20 mg PO DAILY fluticasone propionate 50 mcg/actuation 2 sprays intranasal DAILY gabapentin 300 mg PO DAILY 90 days lisinopril-hydrochlorothiazide 20-25 mg 1 tab PO DAILY meloxicam 15 mg PO DAILY 30 days walker (Ultra-Light Rollator misc) Daily, As directed. 999 days Do you need a note to return to daycare/school/sports/work: No HPI HPI Obstructive sleep apnea: Details: 59 years old gentleman grossly obese with history of sleep apnea comes after 6 months for follow-up. He has been using the CPAP regularly but during the past month he was having some issue with the CPAP device. He say is that there was some leak issue from the water chamber area. So he missed using it for. 10 days out of the whole month. Now he has to push the gym water chamber really good and has started using the machine every night. His sleep is not very solid and does mainly because of back pain. He is not able. To lose weight [facility] Medical History Encounter for immunization Weight loss Transaminitis Abdominal pain Obesity (BMI 30-39.9) Hyperlipidemia HTN (hypertension) Surgical History Back pain with history of spinal surgery Failed spinal cord stimulator Hx of colonoscopy History of cardiac catheterization (~2014) History of tooth extraction History of surgery History of spinal surgery History of surgery History of carpal tunnel syndrome History of neck surgery History of knee replacement procedure of right knee Family History Father No problems noted. Mother Diabetes mellitus Stroke Sister Hemorrhage Multi-organ failure with heart failure Daughter Diabetes mellitus Other Mental health disorder Substance use disorder Social History Housing: Apartment Alcohol intake: never Patient Tobacco Use Status: Former Tobacco user Tobacco use type: Cigar Cigarettes Per Day: 1 Years Smoked: 20 e-Cigarette/Vaping Use: Never Used Second Hand Smoke Exposure: Yes service: No Current occupational status: disabled Current occupational exposures/hazards: No Cognitive needs: No (cane) Hearing needs: No Vision needs: Yes (Glasses) Review of Systems Const All systems reviewed & are unremarkable except as noted in HPI and below Denies chills, Denies fatigue, Denies fever(s), Denies headache(s) and Denies weakness Eyes Reports no additional complaints ENT Denies dizziness, Denies headache(s) and Reports nasal congestion ( mild to moderate nasal congestion especially at night.) Card Denies chest pain, Denies irregular heart rhythm and Reports dyspnea on exertion ( mild on walking up hill) Resp Denies cough, Reports dyspnea on exertion ( mild on walking up hill) and Denies wheezing GI Reports no additional complaints Reports no additional complaints Musc Reports back pain, Denies numbness and Denies tingling Skin/Breast Reports system reviewed and no additional complaints, except as documented Neuro Denies dizziness, Denies headache(s), Denies numbness, Denies tingling and Denies weakness Psych Denies anxiety and Denies depression Endo Denies fatigue Aller/Immun Denies wheezing Physical Exam Vital Signs: Last Vital Signs Pulse 64 08/12/25 11:41 BP 120/70 08/12/25 11:41 Pulse Ox 96 08/12/25 11:41 Oxygen Delivery Method Room Air 08/12/25 11:41 BMI result Body Mass Index 40.0 still grossly obese but weight is down by 12 lb. Const Other: He is grossly obese, with a round face. General: comfortable, no acute distress, alert and awake Orientation/consciousness: patient oriented x3 HEENT Head: Yes normal to inspection General nose exam: No nasal polyps present and No nasal discharge present Face and sinus: Yes sinuses nontender Mouth: oropharynx normal Throat: No posterior oropharynx normal (Oropharynx is crowded, Mallampati class 3) Eyes General: appearance normal, both eyes and all related structures Neck Neck: Yes normal visual inspection, Yes no lymphadenopathy, Yes trachea midline and Yes no JVD Thyroid: Thyroid normal Chest Chest palpation & inspection: normal inspection of the chest, normal palpation of entire chest wall and no tenderness Resp Effort & Inspection: normal respiratory effort Auscultation: clear to auscultation bilaterally, no crackles and no wheezes Cardio Palpation: normal PMI Rate: regular rate Rhythm: regular rhythm Heart sounds: no gallops and no murmurs GI Palpation (GI): Soft to palpation, nontender, No hepatosplenomegaly present and no masses Auscultation: normal bowel sounds Back/Spine/Pelvis Thoracic/Lumbar Spine: thoracic and lumbar spine normal to inspection, Thoracic/lumbar spine scar(s) (From previous surgery) and thoraco-lumbar ROM limited Skin General skin exam: no rashes or lesions noted Neuro General: patient oriented x3 and no focal motor deficits Cranial nerves: Yes CN's II-XII intact bilaterally Extrem General: Yes normal to inspection, Yes no clubbing, cyanosis or edema and Yes no calf tenderness Psych Appearance: grossly normal and well kempt Speech and movement: Normal speech and movement present Results Reviewed Results Reviewed: Compliance report shows that he has been using every night but missed using for 10 nights from July 23 to July. This was due to problem with the CPAP device. When he uses the CPAP the average use it per night is 6 hours 16 minutes, It isn't show much air leak. And residual AHI is 0.6 Assessment & Plan Assessment & Plan (1) Morbid obesity: Comment: This gentleman is morbidly obese, BMI is 40.0 He is not able to exercise because of his generalized arthritis, especially chronic back pain . He is not apt to join any weight management program. Code(s): E66.01 - Morbid (severe) obesity due to excess calories Category: Medical Plan: Instructed to try to lose weight by cutting down the calories intake, he say is it is difficult. (2) SLY on CPAP: Comment: Known history of obstructive sleep apnea since many years ago, Essential for him to use CPAP at night. He has had new CPAP device since most of the times he is quite compliant. Currently missed using for 10 nights due to some air leak issue. Code(s): G47.33 - Obstructive sleep apnea (adult) (pediatric); Z99.89 - Dependence on other enabling machines and devices Category: Medical Plan: Advised to make appointment with DME technical service, and get the CPAP device checked Encouraged to use it every night. Coding Level of Care Code Est Pt Level 3 (74007) Diagnoses Morbid obesity E66.01 SLY on CPAP G47.33; Z99.89
[2025-08-12 11:41] VITALS: BP 120/70; PULSE 64; O2SAT 96; BMI 40.0
--- OUTSIDE RECORDS SUMMARY | 2025-08-12 15:47 | XMS_ITS | Clinical Summary ---
Author Organization [facility] Address [address] [place] [address] Phone Care Team Providers Care Corn Miller Name Role Phone Sher Guzman MD Primary Care Provider [phone]- [phone] Allergies No known active allergies Medications atorvastatin (LIPITOR) 20 mg tabletIndications:pr evention of cerebrovascular accident Take 1 tablet (20 mg total) by mouth at bedtime. Active citalopram (CeleXA) 20 mg tabletIndications:ma neal depressive disorder Take 1 tablet (20 mg total) by mouth 1 (one) time each day. Active polycarbophil (FIBERCON) 625 mg tabletIndications:co nstipation Take 1 tablet (625 mg total) by mouth 1 (one) time each day. Active gabapentin (NEURONTIN) 300 mg capsuleIndications:n europathic pain Take 1 capsule (300 mg total) by mouth at bedtime. Active meloxicam (MOBIC) 15 mg tabletIndications:os teoarthritis Take 1 tablet (15 mg total) by mouth 1 (one) time each day. Active lisinopril-hydroCHLO ROthiazide (PRINZIDE,ZESTORETIC ) 20-25 mg per tablet Take 1 tablet by mouth 1 (one) time each day. Active Active Problems Problem Noted Date Diagnosed Date Other chest pain 06/26/2025 NSTEMI (non-ST elevated myoc ardial infarction) ([facility] V24, [facility] V28) 06/24/2025 Encounters Date Type Department Care Team Description 06/26/2025 10:06 AM EDT Anesthesia Event [facility] Publications Inspector [address] [place] [address] Silvio NileshDO 06/26/2025 9:37 AM EDT - 06/26/2025 11:59 PM EDT Hospital Encounter [facility] [address] [place] [id number] Chucho Montague MD Discharge Disposition: Home or Self Care 06/23/2025 7:57 PM EDT - 06/26/2025 3:01 PM EDT Hospital Encounter [facility]mediate Care Unit [address] [place] [id number] Ivan Ward MD Sondhi, Vikram, MD Surendran, Anupama, MD NSTEMI (non-ST elevated myocardial infarction) ([facility] V24, [facility] V28) (Primary Dx); Chest pain, unspecified type; Vegetation of heart valve; Endocarditis Discharge Disposition: Home or Self Care from Last 3 Months Surgical History Surgery Date Site/Laterality Comments APPENDECTOMY PROCEDURE: [place] APPENDECTOMY CARPAL TUNNEL RELEASE PROCEDURE: HISTORICAL CARPAL [...] 11/06/2022 Social Influencers of Health Screening 11/06/2022 Depression Screening 11/28/2024 COVID-19 Vaccine (1 - 2023-2 5 season) 2025 Influenza Vaccine (#1) 2025 Hepatitis B Vaccines [...] ECG 12-LEAD STAT 06/23/2025 7:50 PM EDT [facility] 30-74 MINUTES Routine 06/23/2025 7:45 PM EDT from Last 3 Months Results [...] rhythm. The probe was inserted by the ware cleaner. There was no probe insertion difficulty. by anesthesia. The patient had no complications. Estimated blood loss: no blood loss. No specimens were collected. Chucho Montague MD CV ECHO PROCEDURES Final Result * Blood Culture, Peripheral Draw #1 (06/24/2025 3:35 PM EDT) Only the most recent of2 resultswithin the time period is included. Culture, Blood No growth at 5 days LAB MICROBIOLOGY METHOD 06/29/2025 4:01 PM EDT [facility] Blood Venous blood specimen / Unknown Venipuncture / Unknown 06/24/2025 3:35 PM EDT 06/24/2025 3:47 PM EDT us Shavon Forde MD LAB MICROBIOLOGY - GENERAL ORDERABLES Final Result [facility] ([facility] [address] [place] [address], [place] [phone] * (ABNORMAL) TRANSTHORACIC ECHOCARDIOGRAM (TTE) COMPLETE W/ CONTRAST (06/24/2025 2:23 PM EDT) Left Atrium Minor Crozet 6.8 cm CV PACS Left Atrium Major Crozet 6.6 cm CV PACS LA Area Sys [...] Volume 107 mL CV PACS MV Deceleration Hamlin 2.7 m/s2 CV PACS E Wave Deceleration [...] poor endocardial visualization and patient body habitus. us Shavon Forde MD CV ECHO PROCEDURES Final Re sult * Anti-Xa - Every 6 Hours (06/24/2025 9:56 AM EDT) Only the most recent of3 resultswithin the time period is included. Heparin Anti-Xa 0.36 0.30 - 0.70 I Unit/mL LAB COAGULATION METHOD 06/24/2025 10:09 AM EDT [facility] ([facility]) [facility] Blood Venous blood specimen / Unknown Venipuncture / Unknown 06/24/2025 9:56 AM EDT 06/24/2025 9:57 AM EDT Narrative [facility] - 06/24/2025 10:09 AM EDT Therapeutic range listed is for Unfractionated Heparin. LMW Heparin therapeutic range: 0.50-1.20 IU/mL Ivan Ward MD LAB BLOOD ORDERABLES Erica l Result [facility] [address] [place] [address], [place] [phone] * ECG 12 lead - Routine (06/24/2025 7:33 AM EDT) Only the most recent of3 resultswithin the time period is included. Ventricular Rate ECG 52 BPM GEMUSE Atrial Rate 52 BPM GEMUSE P-R Interval 156 ms GEMUSE QRS Duration 100 ms GEMUSE Q-T Interval 506 ms GEMUSE QTc 470 ms GEMUSE P Wave Crozet 69 degrees GEMUSE R Crozet -34 degrees GEMUSE T Crozet 137 degrees GEMUSE ECG Interpretation Sinus bradycardia Left axis deviation Pulmonary disease pattern Left ventricular hypertrophy with repolarization abnormality Abnormal ECG When compared with ECG of 23-JUN-2025 22:45, (unconfirmed) No significant change was found Confirmed by TSERING DUENAS ([id number]) on 06/24/2025 9:12:41 PM GEMUSE 06/24/2025 7:33 AM EDT 06/24/2025 9:12 PM EDT us Claude Spann MD ECG ORDERABLES Final Result Performing Organization Address City/[facility]/ZIP Co de Phone Number GEMUSE * (ABNORMAL) Troponin I high sensitivity (3 hours after initial draw) (06/24/2025 4:00 AM EDT) Only the most recent of3 resultswithin the time period is included. High Sensitivity Troponin I 112(H) <=79 ng/L LAB CHEMISTRY METHOD 06/24/2025 5:01 AM EDT [facility] Blood Venous blood specimen / Unknown Venipuncture / Unknown 06/24/2025 4:00 AM EDT 06/24/2025 4:30 AM EDT Narrative [facility] - 06/24/2025 5:01 AM EDT High levels of biotin in samples may falsely decrease hsTroponin values. Use caution when interpreting hsTroponin results in patients taking biotin who exhibit renal impairment (eGFR <60) or in patients taking more than 20 mg/day of biotin. us Claude Spann MD LAB BLOOD ORDERABLES Final Resu lt [facility] [address] [place] [address], [place] [phone] * (ABNORMAL) Lipid panel with reflex to direct LDL (06/24/2025 4:00 AM EDT) Cholesterol 187 0 - 200 mg/dL LAB CHEMISTRY METHOD 06/24/2025 5:00 AM [facility] Triglycerides 90 0 - 150 mg/dL LAB CHEMISTRY METHOD 06/24/2025 5:00 AM [facility] HDL 45 >=40 mg/dL LAB CHEMISTRY METHOD 06/24/2025 5:00 AM [facility] LDL Calculated 124(H) 0 - 100 mg/dL LAB CHEMISTRY METHOD 06/24/2025 5:00 AM [facility] VLDL Cholesterol Keven 18 mg/dL LAB CHEMISTRY METHOD 06/24/2025 5:00 AM [facility] Non HDL Chol. (LDL+VLDL) 142 <145 mg/dL LAB CHEMISTRY METHOD 06/24/2025 5:00 AM [facility] Chol/HDL Ratio 4.2 0.0 - 4.4 LAB CHEMISTRY METHOD 06/24/2025 5:00 AM [facility] Blood Venous blood specimen / Unknown Venipuncture / Unknown 06/24/2025 4:00 AM EDT 06/24/2025 4:30 AM EDT us Claude Spann MD LAB BLOOD ORDERABLES Final Resu lt Performing Organization Address [facility]/ZIP Co de Phone Number [facility] [address] [place] [address], [place] [phone] * (ABNORMAL) B-type natriuretic peptide (06/24/2025 3:59 AM EDT) BNP 177(H) <=100 pcg/mL LAB CHEMISTRY METHOD 06/24/2025 5:08 AM EDT [facility] Blood Venous blood specimen / Unknown Venipuncture / Unknown 06/24/2025 3:59 AM EDT 06/24/2025 4:30 AM EDT Claude Spann MD LAB BLOOD ORDERABLES Final Resu lt Performing Organization Address [facility] Co de Phone Number [facility] [address] [place] [address], * APTT (06/23/2025 10:36 PM EDT) Pathologist [facility] aPTT 29.9 24.1 - 39.3 sec LAB COAGULATION METHOD 06/23/2025 11:01 PM EDT [facility] Blood Venous blood specimen / Unknown Venipuncture / Unknown 06/23/2025 10:36 PM EDT 06/23/2025 10:42 PM EDT us Ivan Ward MD LAB BLOOD ORDERABLES Erica l Result Performing Organization Address [facility]/ZIP Co de Phone Number [facility] [address] [place] [address], [place] [phone] * Protime-INR (06/23/2025 10:36 PM EDT) Protime 10.8 10.6 - 13.9 sec LAB COAGULATION METHOD 06/23/2025 11:01 PM EDT [facility] INR 0.9 LAB COAGULATION METHOD 06/23/2025 11:01 PM EDT [facility] Blood Venous blood specimen / Unknown Venipuncture / Unknown 06/23/2025 10:36 PM EDT 06/23/2025 10:42 PM EDT us Ivan Ward MD LAB BLOOD ORDERABLES Erica l Result [facility] [address] [place] [address], [place] [phone] * XR Chest 2 Views (06/23/2025 9:24 PM EDT) Anatomical Region Laterality Modality Body Radiographic Minerva ging 06/24/2025 8:16 AM EDT Impressions 06/24/2025 8:18 AM EDT No acute pulmonary disease. Cardiomegaly, as also also demonstrated on 04/25/2015. Code 90516 -------- FINAL REPORT -------- Dictated By: Paulino Helms Dictated Date: 06/24/2025 08:16 ET Assigned Physician: Paulino Helms Reviewed and Electronically Signed By: Paulino Helms Signed Date: 06/24/2025 08:18 ET Workstation ID: [id number] Transcribed By: Self Edit Transcribed Date: 06/24/2025 [...] Cardiomegaly, as also also demonstrated on04/25/2015. Code 97211 -------- FINAL REPORT -------- Dictated By: Paulino Helms Dictated Date: 06/24/2025 08:16 ET Assigned Physician: Paulino Helms Reviewed and Electronically Signed By: Paulino Helms Signed Date: 06/24/2025 08:18 ET Workstation ID: [id number] Transcribed By: Self Edit Transcribed Date: 06/24/2025 08:16 ET us Ivan Ward MD IMG XR PROCEDURES Final R esult * (ABNORMAL) CBC auto differential (06/23/2025 8:13 PM EDT) WBC 5.3 4.8 - 10.8 K/mcL LAB HEMETOLOGY METHOD 06/23/2025 8:46 PM EDT [facility] RBC 4.80 4.50 - 5.50 M/mcL LAB HEMETOLOGY METHOD 06/23/2025 8:46 PM EDT [facility] Hemoglobin 14.6 13.5 - 17.5 g/dL LAB HEMETOLOGY METHOD 06/23/2025 8:46 PM EDT [facility] Hematocrit 45.1 42.0 - 54.0 % LAB HEMETOLOGY METHOD 06/23/2025 8:46 PM EDT [facility] MCV 93.8 79.0 - 98.0 FL LAB HEMETOLOGY METHOD 06/23/2025 8:46 PM EDT [facility] MCH 30.4 27.0 - 32.0 pcg LAB [facility]EMETOLOGY [facility] MCHC 32.4 32.0 - 37.0 g/dL LAB HEMETOLOGY METHOD 06/23/2025 8:46 PM EDT [facility] RDW 12.5 11.0 - 15.0 % LAB HEMETOLOGY [facility]23[facility] Platelets 176 130 - 400 K/mcL LAB HEMETOLOGY METHOD 06/23/2025 8:46 PM [facility] MPV 12.1(H) 7.0 - 11.0 FL LAB HEMETOLOGY METHOD 06/23/2025 8:46 PM EDT [facility] NRBC 0.0 <1.0 % LAB HEMETOLOGY METHOD [facility]23[facility]2025 [facility] NRBC Absolute 0.00 <0.10 K/mcL LAB HEMETOLOGY METHOD 06/23/2025 8:46 PM [facility] Neutrophils Relative 52.7 % LAB HEMETOLOGY METHOD [facility]/23[facility]2025 [facility] Lymphocytes Relative 29.5 % LAB HEMETOLOGY METHOD [facility]/23[facility]25 [facility] Monocytes Relative 13.2 % LAB HEMETOLOGY METHOD [facility]/23[facility]25 [facility] Eosinophils Relative 3.6 % LAB HEMETOLOGY METHOD 06/23/2025 8:46 PM [facility] Basophils Relative 0.8 % LAB HEMETOLOGY METHOD 06/23/2025 8:46 PM EDT [facility] Immature Granulocytes Relative 0.2 % LAB HEMETOLOGY METHOD 06/23/2025 8:46 PM EDT [facility] Neutrophils Absolute 2.81 1.50 - 7.00 K/[facility] LAB HEMETOLOGY METHOD 06/23/2025 8:46 PM EDT [facility] Lymphocytes Absolute 1.57 1.00 - 5.00 K/mcL LAB HEMETOLOGY METHOD 06/23/2025 8:46 PM EDT [facility] Monocytes Absolute 0.70 0.20 - 1.00 K/[facility] LAB HEMETOLOGY METHOD 06/23/2025 8:46 PM EDT [facility] Eosinophils Absolute 0.19 0.00 - 0.50 K/[facility] HEMETOLOGY METHOD 06/23/2025 8:46 PM EDT [facility] Basophils Absolute 0.04 0.00 - 0.20 K/mcL LAB HEMETOLOGY METHOD 06/23/2025 8:46 PM EDT [facility] Immature Granulocytes Absolute 0.01 0.00 - 0.03 K/mcL LAB HEMETOLOGY METHOD 06/23/2025 8:46 PM EDT [facility] Blood Venous blood specimen / Unknown Venipuncture / Unknown 06/23/2025 8:13 PM EDT 06/23/2025 8:37 PM EDT us Ivan Ward MD LAB BLOOD ORDERABLES Erica l Result [facility] [address] [place] [address], * Magnesium (06/23/2025 8:13 PM EDT) Magnesium 2.1 1.9 - 2.6 mg/dL LAB CHEMISTRY METHOD 06/23/2025 9:09 PM EDT [facility] Blood Venous blood specimen / Unknown Venipuncture / Unknown 06/23/2025 8:13 PM EDT 06/23/2025 8:37 PM EDT Ivan Ward MD LAB BLOOD ORDERABLES Erica helms Result [facility] [address] [place] [address], * (ABNORMAL) Comprehensive metabolic panel (06/23/2025 8:13 PM EDT) Sodium 139 133 - 145 mmol/L LAB CHEMISTRY METHOD 06/23/2025 9:11 PM [facility] Potassium 3.8 3.5 - 5.5 mmol/L LAB CHEMISTRY METHOD 06/23/2025 9:11 PM [facility] Chloride 104 96 - 110 mmol/L LAB CHEMISTRY METHOD 06/23/2025 9:11 PM [facility] CO2 29 21 - 32 mmol/L LAB CHEMISTRY METHOD 06/23/2025 9:11 PM [facility] Anion Gap 6 3 - 11 LAB CHEMISTRY METHOD 06/23/2025 9:11 PM [facility] Glucose 109(H) 70 - 100 mg/dL LAB CHEMISTRY METHOD 06/23/2025 9:11 PM [facility] BUN 16 5 - 25 mg/dL LAB CHEMISTRY METHOD 06/23/2025 9:11 PM [facility] Creatinine 1.29 0.70 - 1.30 mg/dL LAB CHEMISTRY METHOD 06/23/2025 9:11 PM [facility] eGFR 64 >=60 mL/min/1. 73m2 LAB CHEMISTRY METHOD 06/23/2025 9:11 PM [facility] Comment:Calculation based on the Chronic Kidney Disease Epidemiology Collaboration (CKD-EPI) equation refit without adjustment for race. BUN/Creatinine Ratio 12.4 LAB CHEMISTRY METHOD 06/23/2025 9:11 PM EDT [facility] Calcium 9.4 8.5 - 10.5 mg/dL LAB CHEMISTRY METHOD 06/23/2025 9:11 PM EDT [facility] AST (SGOT) 21 10 - 42 unit/L LAB CHEMISTRY METHOD 06/23/2025 9:11 PM [facility] ALT (SGPT) 37 10 - 60 unit/L LAB CHEMISTRY METHOD 06/23/2025 9:11 PM EDT [facility] Alkaline Phosphatase 87 42 - 121 unit/L LAB CHEMISTRY METHOD 06/23/2025 9:11 PM EDT [facility] Total Protein 6.5 6.0 - 8.0 g/dL LAB CHEMISTRY METHOD 06/23/2025 9:11 PM [facility] Albumin 3.7 3.2 - 5.0 g/dL LAB CHEMISTRY METHOD 06/23/2025 9:11 PM EDT [facility] Total Bilirubin 0.5 0.0 - 1.4 mg/dL LAB CHEMISTRY METHOD 06/23/2025 9:11 PM [facility] Blood Venous blood specimen / Unknown Venipuncture / Unknown 06/23/2025 8:13 PM EDT 06/23/2025 8:37 PM EDT us Ivan Ward MD LAB BLOOD ORDERABLES Erica l Result [facility] [address] [place] [address], * [facility] 30-74 MINUTES (06/23/2025 7:45 PM [...] MD IN CLINIC/BEDSIDE ORDERAB LES Final Result from Last 3 Months Insurance MEDICAID - [place] [employer] MEDICARE Advance Directives Documents on File Type Date Recorded Patient Drill Press Set Up Operator Radial Expl anation Advance Directives and Living Will 06/24/2025 4:09 PM Karen KingCassseb King PROXY * Full Code - Default [...] Alternate Health Car e Agent Care Teams Corn Miller Relationship Specialty Start Date End Date Sher Guzman MD [address] [place] [address] Dr Fantasma [place] PCP - General 03/03/20
--- OUTSIDE RECORDS SUMMARY | 2025-08-12 15:47 | XMS_ITS | Patient Health Record ---
Author Organization [facility] Address [address] [place] [address] Care Team Providers Care Track Mechanic Name Role Phone Megan TATE, Sher Primary Care Provider Frank Carballo Unavailable [phone] Allergies No Known Allergies Reason For Referral [...] X ray : Foot, left 3V 04/06/2022 [id number] TENDON SHEATH/LIGAMENT 0 05/04/2022 Insurance Providers Payer Name Payer Address Payer Phone Subscriber Number Group Number Insured Name Patient Relationship to Insured Coverage Start Date Coverage End Date Medicare National [employer]t [employer] [address] [facility] [address] [phone] [id number] Javier King Self - patient is the insured AARP Medicare Complete [address] [address] [place] [address] [id number] Javier Knig Self - patient is the insured Medical (General) History Medical History History ICD Code Hypertension Hyperlipidemia Anxiety Arthritis Back,Hip,and Knee pain Broken bones Depression Surgical History Surgery Date(Month/Year) carpal tunnel release right knee replacement neck surgery spine surgery Tooth extraction
== END 2025-08-12 12:00 | disposition home or self-care (01) ==
LOC: HO.HPS 11:30
PROVIDERS: PCP Family Medicine; Visit Provider Internal Medicine
DX: E66.01 Morbid (severe) obesity due to excess calories (principal); G47.33 Obstructive sleep apnea (adult) (pediatric); Z99.89 Dependence on other enabling machines and devices
CPT/HCPCS: 99213

== ENCOUNTER → 2025-08-12 11:30 | Outpatient (BNVA) | payer MEDICARE, MEDICAID, SELFPAY | PROVIDERS: PCP Family Medicine; Visit Provider Internal Medicine | DX: E66.01 Morbid (severe) obesity due to excess calories (principal); G47.33 Obstructive sleep apnea (adult) (pediatric); Z99.89 Dependence on other enabling machines and devices | CPT/HCPCS: 99212 ==

== ENCOUNTER 2025-08-29 13:12 | Outpatient (AMB) | payer MEDICARE, MEDICAID, SELFPAY ==
--- NOTE | 2025-08-29 13:17 | A.OFFVIS_ITS ---
Vital Signs 08/29/25 13:20 Height 5 ft 5 in Weight 233 lb 11.04 oz BMI 38.9 BP 133/66 Blood Pressure Location Lt brachial Position Sitting Pulse 50 Intake Visit Reasons: US results f/u Intake Note: Javier presents in the office as a follow up for his test rsults. CC: States that he was supposed to be scheduled colo and here for results to all his lab and ultraosund results. Retail Supervisor Required: No Allergies onion Allergy (Intermediate, Verified 08/29/25 13:21) sneezing Peanut Butter Allergy (Intermediate, Verified 08/29/25 13:21) Sneezing cats Allergy (Mild, Uncoded 08/29/25 13:21) free text dust Allergy (Mild, Uncoded 08/29/25 13:21) free text HPI HPI US results f/u: Details: Patient is a 59-year-old male with PMH of anxiety with depression, hyperlipidemia, hypertension, obesity and SLY. F/u on previous elevated LFTs hx, review of recent abd US, assess for ongoing hepatic/GI sx, and updates regarding colonoscopy scheduling. Since last visit, pt denies abd pain, N/V, GI bleeding, or new GI sx. Fatigue persists but no associated GI complaints. No hospitalizations, urgent care visits, or reported sx flare. Labs normalized compared to prior elevated LFTs. Wt stable in 230s?240s range (down from previous 260), but unclear if decrease is due to true loss vs scale variability; pt not monitoring at home and reports no intentional lifestyle changes. No issues with prior recs; pt compliant with f/u and tx plan. [facility] Medical History (Updated 08/29/25 @ 13:57 by Margaret Malone CNP) Fatigue Encounter for immunization Weight loss Transaminitis Abdominal pain Obesity (BMI 30-39.9) Hyperlipidemia HTN (hypertension) Surgical History Back pain with history of spinal surgery Failed spinal cord stimulator Hx of colonoscopy History of cardiac catheterization (~2014) History of tooth extraction History of surgery History of spinal surgery History of surgery History of carpal tunnel syndrome History of neck surgery History of knee replacement procedure of right knee Family History Father No problems noted. Mother Diabetes mellitus Stroke Sister Hemorrhage Multi-organ failure with heart failure Daughter Diabetes mellitus Other Mental health disorder Substance use disorder Social History Housing: Apartment Alcohol intake: never Patient Tobacco Use Status: Former Tobacco user Tobacco use type: Cigar Cigarettes Per Day: 1 Years Smoked: 20 e-Cigarette/Vaping Use: Never Used Second Hand Smoke Exposure: Yes service: No Current occupational status: disabled Current occupational exposures/hazards: No Cognitive needs: No (cane) Hearing needs: No Vision needs: Yes (Glasses) Review of Systems Const Reports as per HPI ENT Reports as per HPI Card Reports as per HPI Resp Reports as per HPI GI Reports as per HPI Reports as per HPI Physical Exam Vital Signs: Last Vital Signs Pulse 50 08/29/25 13:20 BP 133/66 08/29/25 13:20 BMI result Body Mass Index 38.9 Const General: healthy appearing, no acute distress and well developed Nutritional Appearance: average body habitus Orientation/consciousness: patient oriented x3 HEENT Head: Yes normal to inspection, Yes normocephalic and Yes atraumatic Face and sinus: Yes normal facial exam Eyes General: appearance normal, both eyes and all related structures Neck Neck: Yes normal visual inspection Resp Effort & Inspection: normal respiratory effort, able to speak in complete sentences, no tracheal deviation and symmetric chest movement Cardio Jugular venous distension: no JVD Neuro General: patient oriented x3 Gait exam (Neuro): Normal gait present Psych Appearance: grossly normal Mental Status: mental status grossly normal Speech and movement: Normal speech and movement present Affect: normal affect Attitude: cooperative Thought process: Normal thought process present Thought content: Normal thought content present Insight: Good insight present (Psych) Judgement: Good judgement present (Psych) Assessment & Plan Assessment & Plan (1) Elevated liver enzymes: Code(s): R74.8 - Abnormal levels of other serum enzymes Category: Medical Plan: Stable/improved?LFTs normalized; pt asx; no findings concerning for acute hepatic dz. 06/19/25 US limited, but right lobe WNL; labs improved. No sx progression. Additional Testing: - Repeat abd US in 6 mos to reevaluate unavailable segments if indicated by new/worsening sx or labs. - Repeat LFTs at time of f/u; labs to be drawn fasting. Medications: None for hepatic issue. Lifestyle Recommendations: Continue to monitor wt at home; obtain home scale and keep log Referrals / Coordination of Care: None. Follow-Up Plan: Clinic f/u in ~6 mos w/ repeat abd US and fasting labs unless new sx arise. (2) Screening for colon cancer: Code(s): Z12.11 - Encounter for screening for malignant neoplasm of colon Category: Medical Plan: Colonoscopy not yet completed; order placed Mar-2025. Scheduling delay due to system backlog now partly resolved; patient prioritized for call/scheduling. Additional Testing: None in addition to planned colonoscopy. Medications: - Miralax split preparation (generic if obtained OTC) - Bisacodyl 5 mg tabs x4 total (generic if obtained OTC) - Instructions to purchase 64 oz regular (not sugar-free, no red/blue/purple) Gatorade Lifestyle Recommendations: Review and reinforce prep instructions; clear liquid diet day prior to procedure; NPO 4 hrs pre-procedure. Referrals / Coordination of Care: Surgery schedulers notified; pt instructed to call for scheduling if not promptly contacted. Colonoscopy to be performed per previously submitted order. Follow-Up Plan: Return to clinic for post-procedure review and ongoing f/u as needed. (3) Fatigue: Code(s): R53.83 - Other fatigue Category: Medical Qualifiers: Fatigue type: unspecified Qualified Code(s): R53.83 - Other fatigue Plan: Mild persistent fatigue, stable; wt trending down but unclear etiology. Wt variability may reflect scale differences; no sx of malnutrition or alarming wt loss. Additional Testing: None at this time; assess trend with home wt monitoring. Medications: None. Lifestyle Recommendations: Obtain home scale; daily/weekly wt log. Referrals / Coordination of Care: None. Follow-Up Plan: Review wt log and fatigue status at next f/u; escalate workup if concerning sx develop Plan Follow-up after colonoscopy or sooner as needed Time: I spent a total of 20 minutes on the date of encounter which includes: Preparing to see the patient (reviewed previous documentation, test results and medical history) Performing a medically appropriate exam and/or evaluation Ordering medications, tests, and procedures Documenting clinical information in the health record Orders: Orders Comprehensive [place]. Panel Fast 3 Months R74.8 - Abnormal levels of other serum enzymes US abdomen limited 3 Months R74.8 - Abnormal levels of other serum enzymes Medications: New bisacodyl Take per colonoscopy instructions 5 mg PO ONCE 4 tabs 0RF polyethylene glycol 3350 (Miralax) per colonoscopy prep instructions 238 grams PO ONCE 238 grams 0RF Coding Level of Care Code Established Pt Est Pt Level 3 (30886) Patient Type Established Diagnoses Elevated liver enzymes R74.8 Screening for colon cancer Z12.11 Fatigue, unspecified type R53.83 Fatigue type: unspecified
[2025-08-29 13:20] VITALS: BP 133/66; PULSE 50; BMI 38.9
--- OUTSIDE RECORDS SUMMARY | 2025-08-29 14:42 | XMS_ITS | Clinical Summary ---
Author Organization [facility] Address [address] [place] [address] Phone Care Team Providers Care Front Services Agent Name Role Phone Sher Guzman MD Primary Care Provider +- [phone] Allergies No known active allergies Medications atorvastatin [...] 06/26/2025 NSTEMI (non-ST elevated myoc ardial infarction) ([facility] V24, [facility] V28) 06/24/2025 Encounters Date Type Department Care Team Description 06/26/2025 10:06 AM EDT Anesthesia Event [facility] [address] [place] [address] Silvio NileshDO 06/26/2025 9:37 AM EDT - 06/26/2025 11:59 PM EDT Hospital Encounter [facility] [address] [place] [phone] Chucho Montague MD Discharge Disposition: Home or Self Care 06/23/2025 7:57 PM EDT - 06/26/2025 3:01 PM EDT Hospital Encounter [facility] Intermediate Care Unit [address] [place] [phone] Ivan Ward MD Sondhi, Vikram, MD Surendran, Anupama, MD NSTEMI (non-ST elevated myocardial infarction) ([facility] V24, [facility] V28) (Primary Dx); Chest pain, unspecified type; Vegetation of heart valve; Endocarditis Discharge Disposition: Home or Self Care from Last 3 Months Surgical History Surgery Date Site/Laterality Comments APPENDECTOMY PROCEDURE: CT APPENDECTOMY CARPAL TUNNEL RELEASE PROCEDURE: HISTORICAL CARPAL TUNNEL REL CERVICAL LAMINECTOMY PROCEDURE: HISTORICAL CERV LAMINECTOMY Medical History Medical History Date Comments SLY (obstructive sleep apnea) 10/29/2017 DX :SLY (obstructive sleep apnea) Hypertension 10/29/2017 DX:Hypertension Depression 10/29/2017 DX:Depression Hyperlipidemia 10/29/2017 DX:Hyperlipidemi a CAD (coronary artery disease) 10/29/2017 DX :CAD (coronary artery disease); COMMENT: [place] 2001 Social History Tobacco Use Types Packs/Day Years Used Date Smoking Tobacco: Former Smokeless Tobacco: Never Alcohol Use Standard Drinks/Week Comments No 0 (1 standard drink = 0.6 oz pur e alcohol) Interpersonal Safety Answer Date Record ed Physical Abuse Unrecognized value 06/24/2025 Verbal Abuse Unrecognized value 06/24/2025 Sex and Gender Information Value Date [...] Health Maintenance Due Date Last Done Comments Colorectal Cancer Screening: Colonoscopy 1966 DTaP,Tdap,and Td Vaccines (1 - Tdap) 1985 Pneumococcal Vaccine: 50+ Years (1 of 1 - PCV) 2016 Zoster Vaccines (1 of 2) 2016 HIV Screening 11/06/2022 Hepatitis C Screening 11/06/2022 Medicare Annual Wellness Visit 11/06/2022 Social Influencers of Health Screening 11/06/2022 Depression Screening 11/28/2024 COVID-19 Vaccine (1 - 2023-2 5 season) 2025 Influenza Vaccine (#1) 2025 Hepatitis B Vaccines (3 of 3 - 19+ 3-dose series) 10/27/2025 05/27/2025, 04/26/2025 Hypertension/CHF/CAD Annual BMP Blood Test 06/23/2026 06/23/2025 Cholesterol Screening (Lipid Panel) 06/24/2030 06/24/2025 RSV Immunization Adult Patients (1 - 1-dose 75+ series) 2041 HIB Vaccines Aged Out No longer eligi [...] ECG 12-LEAD STAT 06/23/2025 7:[address] CRITICAL CARE 30-74 MINUTES Routine 06/23/2025 7:45 [...] rhythm. The probe was inserted by the locomotive firer. There was no probe insertion difficulty. by anesthesia. The patient had no complications. Estimated blood loss: no blood loss. No specimens were collected. us Chucho Montague MD CV ECHO PROCEDURES Final Result * Blood Culture, Peripheral Draw #1 (06/24/2025 3:35 PM EDT) Only the most recent of2 resultswithin the time period is included. Culture, Blood No growth at 5 days LAB MICROBIOLOGY METHOD 06/29/2025 4:01 PM EDT [facility] Blood Venous blood specimen / Unknown Venipuncture / Unknown 06/24/2025 3:35 PM EDT 06/24/2025 3:47 PM EDT us Shavon Forde MD LAB MICROBIOLOGY - GENERAL ORDERABLES Final Result [facility] [address] [place] [address], [place] [phone] * (ABNORMAL) TRANSTHORACIC ECHOCARDIOGRAM (TTE) COMPLETE W/ CONTRAST (06/24/2025 2:23 PM EDT) Left Atrium Minor [place] 6.8 cm CV PACS Left Atrium Major [place] 6.6 cm CV PACS LA Area Sys [...] Volume 107 mL CV PACS MV Deceleration Mcdonough 2.7 m/s2 CV PACS E Wave Deceleration [...] LAB COAGULATION METHOD 06/24/2025 10:09 AM EDT [facility] Blood Venous blood specimen / Unknown Venipuncture / Unknown 06/24/2025 9:56 AM EDT 06/24/2025 9:57 AM EDT Narrative [facility] - 06/24/2025 10:09 AM EDT Therapeutic range listed is for Unfractionated Heparin. LMW Heparin therapeutic range: 0.50-1.20 IU/mL Ivan Ward MD LAB BLOOD ORDERABLES Erica l Result [facility] [address] [place] [address], [place] [phone] * ECG 12 lead - Routine (06/24/2025 7:33 AM EDT) Only the most recent of3 resultswithin the time period is included. Ventricular Rate ECG 52 BPM GEMUSE Atrial Rate 52 BPM GEMUSE P-R Interval 156 ms GEMUSE QRS Duration 100 ms GEMUSE Q-T Interval 506 ms GEMUSE QTc 470 ms GEMUSE P Wave [place] 69 degrees GEMUSE R [place] -34 degrees GEMUSE T [place] 137 degrees GEMUSE ECG Interpretation Sinus bradycardia Left axis deviation Pulmonary disease pattern Left ventricular hypertrophy with repolarization abnormality Abnormal ECG When compared with ECG of 23-JUN-2025 22:45, (unconfirmed) No significant change was found Confirmed by TSERING DUENAS ([id number]) on 06/24/2025 9:12:41 PM GEMUSE 06/24/2025 7:33 AM EDT 06/24/2025 9:12 PM EDT Claude Spann MD ECG ORDERABLES Final Result GEMUSE * (ABNORMAL) Troponin I high sensitivity (3 hours after initial draw) (06/24/2025 4:00 AM EDT) Only the most recent of3 resultswithin the time period is included. High Sensitivity Troponin I 112(H) <=79 ng/L LAB CHEMISTRY METHOD 06/24/2025 5:01 AM T [facility] Blood Venous blood specimen / Unknown Venipuncture / Unknown 06/24/2025 4:00 AM EDT 06/24/2025 4:30 AM EDT Narrative [facility] - 06/24/2025 5:01 AM EDT High levels of biotin in samples may falsely decrease hsTroponin values. Use caution when interpreting hsTroponin results in patients taking biotin who exhibit renal impairment (eGFR <60) or in patients taking more than 20 mg/day of biotin. us Claude Spann MD LAB BLOOD ORDERABLES Final Resu lt [facility] [address] [place] [address], [place] [phone] * (ABNORMAL) Lipid panel with reflex to direct LDL (06/24/2025 4:00 AM EDT) Cholesterol 187 0 - 200 mg/dL LAB CHEMISTRY METHOD [facility]/24[facility]2025 5[facility] Triglycerides 90 0 - 150 mg/dL LAB CHEMISTRY METHOD 06/24/2025 5:00 AM EDT [facility] HDL 45 >=40 mg/dL LAB CHEMISTRY METHOD 06/24/2025 5:00 AM EDT [facility] LDL Calculated 124(H) 0 - 100 mg/dL LAB CHEMISTRY METHOD 06/24/2025 5:00 AM [facility] VLDL Cholesterol Keven 18 mg/dL LAB CHEMISTRY METHOD 06/24/2025 5:00 AM T [facility] Non HDL Chol. (LDL+VLDL) 142 <145 mg/dL LAB CHEMISTRY METHOD 06/24/2025 5:00 AM EDT [facility] Chol/HDL Ratio 4.2 0.0 - 4.4 LAB CHEMISTRY METHOD 06/24/2025 5:00 AM EDT [facility] Blood Venous blood specimen / Unknown Venipuncture / Unknown 06/24/2025 4:00 AM EDT 06/24/2025 4:30 AM EDT Claude Spann MD LAB BLOOD ORDERABLES Final Resu lt Performing Organization Address [facility] de Phone Number [facility] [address] [place] [address], [place] [phone] * (ABNORMAL) B-type natriuretic peptide (06/24/2025 3:59 AM EDT) BNP 177(H) <=100 pcg/mL LAB CHEMISTRY METHOD 06/24/2025 5:08 AM EDT [facility] Blood Venous blood specimen / Unknown Venipuncture / Unknown 06/24/2025 3:59 AM EDT 06/24/2025 4:30 AM EDT us Claude Spann MD LAB BLOOD ORDERABLES Final Resu lt Performing Organization Address [facility] de Phone Number [facility] [address] [place] [address], [place] [phone] * APTT (06/23/2025 10:36 PM EDT) aPTT 29.9 24.1 - 39.3 sec LAB COAGULATION METHOD 06/23/2025 11:01 PM EDT [facility] Blood Venous blood specimen / Unknown Venipuncture / Unknown 06/23/2025 10:36 PM EDT 06/23/2025 10:42 PM EDT us Ivan Ward MD LAB BLOOD ORDERABLES Erica l Result Performing Organization Address [facility] de Phone Number [facility] [address] [place] [address], [place] [phone] * Protime-INR (06/23/2025 10:36 PM EDT) Protime 10.8 10.6 - 13.9 sec LAB COAGULATION METHOD 06/23/2025 11:01 PM EDT [facility] INR 0.9 LAB COAGULATION METHOD 06/23/2025 11:01 PM EDT [facility] Blood Venous blood specimen / Unknown Venipuncture / Unknown 06/23/2025 10:36 PM EDT 06/23/2025 10:42 PM EDT Ivan Ward MD LAB BLOOD ORDERABLES Erica l Result [facility] [address] [place] [address], [place] [phone] * XR Chest 2 Views (06/23/2025 9:24 PM EDT) Anatomical Region Laterality Modality Body Radiographic Minerva ging 06/24/2025 8:16 AM EDT Impressions 06/24/2025 8:18 AM EDT No acute pulmonary disease. Cardiomegaly, as also also demonstrated on 04/25/2015. Code 91445 -------- FINAL REPORT -------- Dictated By: Paulino Helms Dictated Date: 06/24/2025 08:16 ET Assigned Physician: Paulino Helms Reviewed and Electronically Signed By: Paulino Helms Signed Date: 06/24/2025 08:18 ET Workstation ID: [id number] Transcribed By: Self Edit Transcribed Date: 06/24/2025 [...] Cardiomegaly, as also also demonstrated on04/25/2015. Code 10801 -------- FINAL REPORT -------- Dictated By: Paulino Helms Dictated Date: 06/24/2025 08:16 ET Assigned Physician: Paulino Helms Reviewed and Electronically Signed By: Paulino Helms Signed Date: 06/24/2025 08:18 ET Workstation ID: [id number] Transcribed By: Self Edit Transcribed Date: 06/24/2025 08:16 ET Ivan Ward MD IMG XR PROCEDURES Final R esult * (ABNORMAL) CBC auto differential (06/23/2025 8:13 PM EDT) WBC 5.3 4.8 - 10.8 K/mcL LAB HEMETOLOGY METHOD 06/23/2025 8:46 PM EDT [facility] RBC 4.80 4.50 - 5.50 M/mcL LAB HEMETOLOGY METHOD 06/23/2025 8:46 PM EDT [facility] Hemoglobin 14.6 13.5 - 17.5 g/dL LAB HEMETOLOGY METHOD 06/23/2025 8:46 PM EDT [facility] Hematocrit 45.1 42.0 - 54.0 % LAB HEMETOLOGY METHOD 06/23/2025 8:46 PM EDT [facility] MCV 93.8 79.0 - 98.0 FL LAB HEMETOLOGY METHOD 06/23/2025 8:[facility] MCH 30.4 27.0 - 32.0 pcg LAB HEMETOLOGY METHOD 06/23/2025 8:46 [facility] MCHC 32.4 32.0 - 37.0 g/dL LAB HEMETOLOGY METHOD 06/23/2025 8:46 PM EDT [facility] RDW 12.5 11.0 - 15.0 % LAB HEMETOLOGY METHOD 06/23/2025 8:46 PM [facility] Platelets 176 130 - 400 K/mcL LAB HEMETOLOGY METHOD 06/23/2025 8:46 PM [facility] MPV 12.1(H) 7.0 - 11.0 FL LAB HEMETOLOGY METHOD 06/23/2025 8:46 PM [facility] NRBC 0.0 <1.0 % LAB HEMETOLOGY METHOD 06/23/2025 8:46 PM [facility] NRBC Absolute 0.00 <0.10 K/mcL LAB HEMETOLOGY METHOD 06/23/2025 8:46 PM [facility] Neutrophils Relative 52.7 % LAB HEMETOLOGY METHOD 06/23/2025 8:46 PM [facility] Lymphocytes Relative 29.5 % LAB HEMETOLOGY METHOD 06/23/2025 8:46 [facility] Monocytes Relative 13.2 % LAB HEMETOLOGY METHOD 06/23/2025 8:46 PM [facility] Eosinophils Relative 3.6 % LAB HEMETOLOGY METHOD 06/23/2025 8:46 PM [facility] Basophils Relative 0.8 % LAB HEMETOLOGY METHOD 06/23/2025 8:46 PM EDT [facility] Immature Granulocytes Relative 0.2 % LAB HEMETOLOGY METHOD 06/23/2025 8:46 PM EDT [facility] Neutrophils Absolute 2.81 1.50 - 7.00 K/mcL LAB HEMETOLOGY METHOD 06/23/2025 8:46 PM EDT [facility] Lymphocytes Absolute 1.57 1.00 - 5.00 K/mcL LAB HEMETOLOGY METHOD 06/23/2025 8:46 PM EDT [facility] Monocytes Absolute 0.70 0.20 - 1.00 K/mcL LAB HEMETOLOGY METHOD 06/23/2025 8:46 PM EDT [facility] Eosinophils Absolute 0.19 0.00 - 0.50 K/mcL LAB HEMETOLOGY METHOD 06/23/2025 8:46 PM EDT [facility] Basophils Absolute 0.04 0.00 - 0.20 K/mcL LAB HEMETOLOGY METHOD 06/23/2025 8:46 PM EDT [facility] Immature Granulocytes Absolute 0.01 0.00 - 0.03 K/mcL LAB HEMETOLOGY METHOD 06/23/2025 8:46 PM EDT [facility] Blood Venous blood specimen / Unknown Venipuncture / Unknown 06/23/2025 8:13 PM EDT 06/23/2025 8:37 PM EDT us Ivan Ward MD LAB BLOOD ORDERABLES Erica l Result [facility] [address] [place] [address], * Magnesium (06/23/2025 8:13 PM EDT) Magnesium 2.1 1.9 - 2.6 mg/dL LAB CHEMISTRY METHOD 06/23/2025 9:09 PM [facility] Blood Venous blood specimen / Unknown Venipuncture / Unknown 06/23/2025 8:13 PM EDT 06/23/2025 8:37 PM EDT us Ivan Ward MD LAB BLOOD ORDERABLES Erica l Result [facility] [address] [place] [address], * (ABNORMAL) Comprehensive metabolic panel (06/23/2025 8:13 PM EDT) Sodium 139 133 - 145 mmol/L LAB CHEMISTRY METHOD 06/23/2025 9:11 PM [facility] Potassium 3.8 3.5 - 5.5 mmol/L LAB CHEMISTRY METHOD 06/23/2025 9:11 PM [facility] Chloride 104 96 - 110 mmol/L LAB CHEMISTRY METHOD 06/23/2025 9:11 PM [facility] CO2 29 21 - 32 mmol/L LAB CHEMISTRY METHOD 06/23/2025 9:11 PM [facility] Anion Gap 6 3 - 11 LAB CHEMISTRY METHOD 06/23/2025 9:11 PM [facility] Glucose 109(H) 70 - 100 mg/dL LAB CHEMISTRY METHOD 06/23/2025 9:11 PM [facility] BUN 16 5 - 25 mg/dL LAB CHEMISTRY METHOD 06/23/2025 9:11 PM [facility] Creatinine 1.29 0.70 - 1.30 mg/dL LAB CHEMISTRY METHOD 06/23/2025 9:11 PM [facility] eGFR 64 >=60 mL/min/1. 73m2 LAB CHEMISTRY METHOD 06/23/2025 9:11 PM [facility] Comment:Calculation based on the Chronic Kidney Disease Epidemiology Collaboration (CKD-EPI) equation refit without adjustment for race. BUN/Creatinine Ratio 12.4 LAB CHEMISTRY METHOD 06/23/2025 9:11 PM EDT [facility] Calcium 9.4 8.5 - 10.5 mg/dL LAB CHEMISTRY METHOD 06/23/2025 9:11 PM EDT [facility] AST (SGOT) 21 10 - 42 unit/L LAB CHEMISTRY METHOD 06/23/2025 9:11 PM EDT [facility] ALT (SGPT) 37 10 - 60 unit/L LAB CHEMISTRY METHOD 06/23/2025 9:11 PM T [facility] Alkaline Phosphatase 87 42 - 121 unit/L LAB CHEMISTRY METHOD 06/23/2025 9:[facility] Total Protein 6.5 6.0 - 8.0 g/dL LAB CHEMISTRY METHOD 06/23/2025 9:11 [facility] Albumin 3.7 3.2 - 5.0 g/dL LAB CHEMISTRY METHOD 06/23/2025 9:11 PM [facility] Total Bilirubin 0.5 0.0 - 1.4 mg/dL LAB CHEMISTRY METHOD 06/23/2025 9:11 PM T [facility] Blood Venous blood specimen / Unknown Venipuncture / Unknown 06/23/2025 8:13 PM EDT 06/23/2025 8:37 PM EDT us Ivan Ward MD LAB BLOOD ORDERABLES Erica l Result [facility] [address] [place] [address], * CT CRITICAL CARE 30-74 MINUTES (06/23/2025 7:45 PM [...] patient's condition and review of old charts Ivan Ward MD IN CLINIC/BEDSIDE ORDERAB LES Final Result from Last 3 Months Insurance MEDICAID - [place] [employer] MEDICARE Advance Directives Documents on File Type Date Recorded Patient Small Engine Technician Expl anation Advance Directives and Living Will [...] Name Relationship Healthcare Agent Relationshi p Communication Yarelionelia King Daughter Health Care Agent Nuviaseb King Daughter [facility] Health Car e Agent Care Teams Front Services Agent Relationship Specialty Start Date End Date Sher Guzman MD [address] [place] [address] Dr Fantasma [place] PCP - General 03/03/20
--- OUTSIDE RECORDS SUMMARY | 2025-08-29 14:42 | XMS_ITS | Patient Health Record ---
Author Organization [facility] Address [address] [place] [address] Care Team Providers Care Water Hydrant Installer Name Role Phone Megan TATE, Sher Primary Care Provider Frank Carballo Unavailable [phone] Allergies No Known Allergies Reason For Referral [...] X ray : Foot, left 3V 04/06/2022 [id number] TENDON SHEATH/LIGAMENT 0 05/04/2022 Insurance Providers Payer Name Payer Address Payer Phone Subscriber Number Group Number Insured Name Patient Relationship to Insured Coverage Start Date Coverage End Date Medicare National [employer] [address] [facility] [place] [address] [id number] Javier King Self - patient is the insured AARP Medicare Complete [address] [address] [place] [address] [id number] Javier King Self - patient is the insured Medical (General) History Medical History History ICD Code Hypertension Hyperlipidemia Anxiety Arthritis Back,Hip,and Knee pain Broken bones Depression Surgical History Surgery Date(Month/Year) carpal tunnel release right knee replacement neck surgery spine surgery Tooth extraction
== END 2025-08-29 13:46 | disposition home or self-care (01) ==
LOC: HO.HGI 13:13
PROVIDERS: PCP Family Medicine; Visit Provider Nurse Practitioner Family
DX: Z01.818 Encounter for other preprocedural examination (principal); R74.01 Elevation of levels of liver transaminase levels; Z12.11 Encounter for screening for malignant neoplasm of colon; R53.83 Other fatigue
CPT/HCPCS: 99024

== ENCOUNTER → 2025-08-29 13:12 | Outpatient (BNVA) | payer MEDICARE, MEDICAID, SELFPAY | PROVIDERS: PCP Family Medicine; Visit Provider Nurse Practitioner Family | DX: Z12.11 Encounter for screening for malignant neoplasm of colon (principal); R53.83 Other fatigue; R74.8 Abnormal levels of other serum enzymes | CPT/HCPCS: 99212 ==

== ENCOUNTER 2025-10-23 08:01 | Day surgery (SDC) | payer MEDICARE, MEDICAID, SELFPAY ==
--- OUTSIDE RECORDS SUMMARY | 2025-09-23 13:20 | XMS_ITS | Data Portability ---
Author Organization [facility], Allergy Address [address] [address] Assessment Encounter Date Assessment Date Assessment LastModified by Organization Details LastModified Time 06/17/2025 06/17/2025 F/U appt with Ortez 07/04 [email or web address] Not available 06/17/2025 09:20:14 07/11/2025 07/11/2025 - Right ear wax impaction. - Sleep apnea. The wax impaction in the right ear was successfully removed during the visit, and the patient reported improvement in symptoms. I recommend follow-up with the sleep doctor in [place] for ongoing management of sleep apnea. The patient is advised to continue using the CPAP machine for six to seven hours per night and monitor for any changes in restfulness or symptoms. No further interventions are required at this time for the ear, as the patient's hearing has returned to baseline. Procedure Documentation: - Removal of right ear wax impaction. [email or web address] Not available 07/11/2025 10:02:12 Plan of Treatment Reminders Order Date Submit Date Provider Last Modified By Organization Details Last Modified Time Details Appointments Establish ed 15 2024 01:45P M DINA HUGHES Not available Not available Not available Lab None recorded. Referral None recorded. Procedures None recorded. Surgeries None recorded. Imaging None recorded. Medication Orders None recorded. Patient TargetsNo targets recorded. Patient Instructions Encounter Date Encounter Id Patient Instructions Last Modified By Organization Details Last Modified Time 07/11/2025 [id number] Follow up with the sleep doctor in [place] for sleep apnea management. Continue using the CPAP machine for six to seven hours per night. Monitor for any changes in restfulness or symptoms. [email or web address] Not available 07/11/2025 10:02:10 Please note: Parts of this encounter note have been generated by AI based on audio conversation. Patient consent was required prior to utilizing this technology. Content review was required prior to finalizing the note. [email or web address] Not available 07/11/2025 10:02:10 Reason for Referral None Reported. Results Created Date Observation Date Name Description Value Unit Range Abnormal Flag Note LastModifiedBy Organization Detail LastModifiedTime 06/17/20 25 audio gram No observ ation record ed. BARCODE Not Available 2024 11:12:16 Result Notes None recorded. Problems Name Problem SNOMED Code Status Onset Date Resolution Date Notes Provider Name and Address Organization Details Recorded Time Allergic rhinitis 99352470 Active 2022 Other allergic rhinitis; Note: Date Diagnosed : 12/06/2022 2:55 PM (J30.89) Not Available [facility] 4 03:04:24 Chronic rhinitis 14717858 Active 2022 Chronic rhinitis; Note: Date Diagnosed : 12/06/2022 2:55 PM (J31.0) Not Available [facility] 4 03:04:24 Nasal congestio n 05913534 Active 2022 Nasal congestio n; Note: Date Diagnosed : 12/06/2022 2:55 PM (R09.81) Not Available [facility] 4 03:04:23 Impacted cerumen of bilateral ears 71948038617 67134 Active 2022 Impacted cerumen, bilateral ; Note: Date Diagnosed : 12/10/2022 9:17 AM (H61.23) Not Available [facility] 4 03:04:24 Sensorine ural hearing loss of bilateral ears 470915248 Active 2022 Sensorine ural hearing loss, bilateral ; Note: Date Diagnosed : 02/16/2023 4:34 PM (H90.3) Not Available [facility] 4 03:04:24 Hypertrop hy of nasal turbinate s 57087398 Active 2022 Hypertrop hy of nasal turbinate s; Note: Date Diagnosed : 04/20/2023 12:30 PM (J34.3) Not Available [facility] 4 03:04:23 Chest pain 26726210 Active 2022 Other chest pain; Note: Date Diagnosed : 05/17/2023 11:09 AM (R07.89) Not Available [facility] 4 03:04:23 Deviated nasal septum 796705889 Active 2022 Deviated nasal septum; Note: Date Diagnosed : 05/20/2023 3:38 PM (J34.2) Not Available [facility] 4 03:04:24 Follow-up visit Active 2022 Medical surveilla nce following completed treatment ; Note: Date Diagnosed : 08/12/2023 10:02 AM (Z09) Not Available [facility] 4 03:04:25 Obstructi ve sleep apnea syndrome 52068008 Active 2022 Obstructi ve sleep apnea (adult) (pediatri c); Note: Date Diagnosed : 3 1:54 PM (G47.33) Not Available [facility] 4 03:04:25 Sensorine ural hearing loss of bilateral ears 783185929 Active 2024 MARGARET DANIELSON [address] [place] [address], Danny [place], [address] , [facility] 5 09:18:58 Impacted cerumen in right ear 79975140180 93492 Active 2024 BING MCFARLAND MD [address] [place] [address],[place] [address], Danny [place], [address] , [facility] 5 10:02:03 Problem Notes None recorded. Medical Equipment None Reported. Medications Name Sig Start Date Stop Date Status Note LastModified by Organization Details LastModified Time cyclobenz aprine 10 mg tablet TAKE 1 TABLET BY MOUTH TWICE DAILY NEEDED FOR MUSCLE SPASM FOR 10 DAYS active Not Available Not Available No t Available atorvasta tin 20 mg tablet TAKE 1 TABLET BY MOUTH AT BEDTIME active Not Available Not Available [...] elayed release 02/02 completed Medicati on ID: [id number] B rand Name: omeprazo le Send Method: E-Prescr ibed Sub s Allowed: subs OK Speci al Instruct ion: TAKE 1 CAPSULE BY MOUTH DAILY Me dication GenericN alberto: omeprazo le Not Available Not Available Not Available amoxicill in 500 mg tablet TAKE 1 TABLET BY MOUTH EVERY 8 HOURS 06/17 completed Not Available Not Available Not Available citalopra m 20 mg tablet TAKE TWO TABLETS BY MOUTH DAILY AT 9AM active Not [...] n 300 mg capsule TAKE ONE CAPSULE BY MOUTH DAILY AT 9AM active Not Available Not Available No t Available lisinopri l 20 mg-hydroc hlorothia zide 25 mg tablet TAKE ONE TABLET BY MOUTH DAILY AT 9AM active Not Available Not Available No t Available azelastin e 137 mcg (0.1 %) nasal spray [place] 2 spray twice a day 2022 active Medicati on ID: [id number] D uration Value: 30 Brand Name: lolaaidan jose Send Method: E-Prescr ibed Sub s Allowed: subs OK Medic ationGen ericName : azelasti ne Not Available Not Available Not Available polyethyl fiordaliza glycol 3350 17 gram/dose oral powder 02/02 completed Medicati on ID: [id number] B rand Name: polyethy nanette glycol 3350 [...] nasal spray 02/02 completed Medicati on ID: [id number] B rand Name: ipratrop ium bromide Send [...] Fiber-Lax 625 mg tablet TAKE ONE TABLET (625 MG) BY MOUTH DAILY AT 9AM FOR 30 [...] Available Not Available No t Available Vitals Date Recorded Body height Body mass index (BMI) Body weight Provider Name and Address Organization Details Last Updated DateTime 07/11/2025 165.1 cm 39.6 kg/m2 569532.98 g Tahira Silva MA - [facility] 07/11/2025 09:56:33 Social History None recorded. Functional Status None recorded. Mental Status None recorded. Family History Nothing Reported. Medical History No medical history recorded. Past Encounters Encounter ID Performer Location Encounter Start Date Encounter Closed Date Diagnosis/Indication Diagnosis SNOMED-CT Code Diagnosis ICD10 Code Diagnosis IMO Codes Diagnosis Note [id number] MARGARET DANIELSON [facility] [address] [address] 06/17/2025 09:18:36 06/18/2025 13:05:57 Sensorineural hearing loss of bilateral ears 334499027 H90.3 [id number] Audiologic al evaluation results: 06/17/2025 Right ear: Normal through 2 kHz sloping to a moderate sensorineu ral hearing loss with excellent word recognitio n. Left ear: Normal through 2 kHz sloping to a moderate sensorineu ral hearing loss with excellent word recognitio n. Tympanomet ry: Right Ear:Type A [place] [id number] BING MCFARLAND MD [facility] [address] [place] [address] 07/11/2025 08:47:37 07/11/2025 10:05:10 Impacted cerumen in right ear 1534411689 551537 H61.21 [id number] Sensorineu ral hearing loss of bilateral ears 685011852 H90.3 56128640 Deviated nasal septum 12 5360079 J34.2 Obstructiv e sleep apnea syndrome 55109189 G47.33 Health Concerns Section Related Observation LastModified by Organization Detai ls LastModified Time None Recorded Concern Status LastModified by Organization Details LastModified Time None Recorded Advance Directives Directive None Recorded Payers Insurance Date Sequence Insurance Name Policy Number Policy Mckinley Covered Member ID Mckinley Member ID Guarantor Name 09/10/2025 2 [place] [facility] Javier Carranza [id number] Javier Carranza 09/10/2025 1 [facility] (MEDICARE REPLACEMENT/ ADVANTAGE - PPO) [id number] Javier Eliu Fernando Carranza Sr [id number] Javier Carranza Sr Notes Date Note Type Note Provider Name and Address Organization Details Recorded Time 06/17/2025 text/html Patient complains about plugged feeling DWIGHT CHO, MARGARET [address], [address], [facility] - [facility] 06/17/2025 09:21:15 07/11/2025 text/html Javier Carranza Sr is a 59-year-old male who presents for right ear symptoms. He reports experiencing a clogged sensation in the right ear a few weeks ago, which prompted him to seek evaluation. He denies a history of fluid in the ears or blockage but has experienced hearing troubles. He underwent a hearing test previously, which demonstrated stable hearing as of 2022. The patient uses a CPAP machine for sleep apnea and underwent a paloplasty in the past, which was unsuccessful. He reports using the CPAP machine for six to seven hours per night, with variable improvement in restfulness. BING SPAIN MD [address] [place] [address], [place], [address], [facility] - [facility] 07/11/2025 10:04:48
--- OUTSIDE RECORDS SUMMARY | 2025-09-23 13:20 | XMS_ITS | Clinical Summary ---
Author Organization [facility] Address [address] [place] [address] Phone Care Team Providers Care Strap Folding Machine Operator Name Role Phone Sher Guzman MD Primary Care Provider +- [phone] Allergies No known active allergies Medications atorvastatin [...] NSTEMI (non-ST elevated myoc ardial infarction) ([facility] V24, [facility] V28) 06/24/2025 Encounters Date Type Department Care Team Description 06/26/2025 10:06 AM EDT Anesthesia Event [facility] Cardiac Timekeeper Supervisor [address] [place] [address] Silvio NileshDO 06/26/2025 9:37 AM EDT - 06/26/2025 11:59 PM EDT Hospital Encounter [facility] Cardiac Timekeeper Supervisor [address] [place] [phone] Chucho Montague MD Discharge Disposition: Home or Self Care 06/23/2025 7:57 PM EDT - 06/26/2025 3:01 PM EDT Hospital Encounter [facility] Intermediate Care Unit [address] [place] [phone] Ivan Ward MD Sondhi, Vikram, MD Surendran, Anupama, MD NSTEMI (non-ST elevated myocardial infarction) ([facility] V24, [facility] V28) (Primary Dx); Chest pain, unspecified type; Vegetation of heart valve; Endocarditis Discharge Disposition: Home or Self Care from Last 3 Months Surgical History Surgery Date Site/Laterality Comments APPENDECTOMY PROCEDURE: ND APPENDECTOMY CARPAL TUNNEL RELEASE PROCEDURE: HISTORICAL CARPAL [...] ECG 12-LEAD STAT 06/23/2025 7:50 PM EDT ND CRITICAL CARE 30-74 MINUTES Routine 06/23/2025 7:45 [...] rhythm. The probe was inserted by the aircraft technician. There was no probe insertion difficulty. by [...] LAB MICROBIOLOGY METHOD 06/29/2025 4:[address] [facility] Blood Venous blood specimen / Unknown Venipuncture / Unknown 06/24/2025 3:35 PM EDT 06/24/2025 3:47 PM EDT us Shavon Forde MD LAB MICROBIOLOGY - GENERAL ORDERABLES Final Result [facility] [address] [place] [address], [place] [phone] * (ABNORMAL) TRANSTHORACIC ECHOCARDIOGRAM (TTE) COMPLETE W/ CONTRAST (06/24/2025 2:23 PM EDT) Left Atrium Minor [place] 6.8 cm CV PACS Left Atrium Major [place] 6.6 cm CV PACS LA Area Sys [...] Volume 107 mL CV PACS MV Deceleration [place] 2.7 m/s2 CV PACS E Wave Deceleration [...] LAB COAGULATION METHOD 06/24/2025 10:[address] [facility] Blood Venous blood specimen / Unknown Venipuncture / Unknown 06/24/2025 9:56 AM EDT 06/24/2025 9:[address] [facility] - 06/24/2025 10:09 AM EDT Therapeutic range listed is for Unfractionated Heparin. LMW Heparin therapeutic range: 0.50-1.20 IU/mL Ivan Ward MD LAB BLOOD ORDERABLES Erica l Result [facility] [address] [place] [address], [place] [phone] * ECG 12 lead - Routine (06/24/2025 7:33 AM EDT) Only the most recent of3 resultswithin the time period is included. Ventricular Rate ECG 52 BPM GEMUSE Atrial Rate 52 BPM GEMUSE P-R Interval 156 ms GEMUSE QRS Duration 100 ms GEMUSE Q-T Interval 506 ms GEMUSE QTc 470 ms GEMUSE P Wave Ogden 69 degrees GEMUSE R [place] -34 degrees GEMUSE T [place] 137 degrees GEMUSE ECG Interpretation Sinus bradycardia [...] LAB CHEMISTRY METHOD 06/24/2025 5:[address] [facility] Blood Venous blood specimen / Unknown Venipuncture / Unknown 06/24/2025 4:00 AM EDT 06/24/2025 4:[address] [facility] - 06/24/2025 5:01 AM EDT High levels of biotin in samples may falsely decrease hsTroponin values. Use caution when interpreting hsTroponin results in patients taking biotin who exhibit renal impairment (eGFR <60) or in patients taking more than 20 mg/day of biotin. us Claude Spann MD LAB BLOOD ORDERABLES Final Resu lt [facility] [address] [place] [address], [place] [phone] * (ABNORMAL) Lipid panel with reflex to direct LDL (06/24/2025 4:00 AM EDT) Cholesterol 187 0 - 200 mg/dL LAB [facility] Triglycerides 90 0 - 150 mg/dL LAB CHEMISTRY METHOD 06/24/2025 5:[address] [facility] HDL 45 >=40 mg/dL LAB CHEMISTRY METHOD 06/24/2025 5:[address] [facility] LDL Calculated 124(H) 0 - 100 mg/dL LAB CHEMISTRY METHOD 06/24/2025 5:00 AM [facility] VLDL Cholesterol Keven 18 mg/dL LAB CHEMISTRY METHOD 06/24/2025 5:[address] [facility] Non HDL Chol. (LDL+VLDL) 142 <145 mg/dL LAB CHEMISTRY METHOD 06/24/2025 5:[address] [facility] Chol/HDL Ratio 4.2 0.0 - 4.4 LAB CHEMISTRY METHOD 06/24/2025 5:[address] [facility] Blood Venous blood specimen / Unknown Venipuncture / Unknown 06/24/2025 4:00 AM EDT 06/24/2025 4:30 AM EDT Claude Spann MD LAB BLOOD ORDERABLES Final Resu lt Performing Organization Address [facility] de Phone Number [facility] [address] [place] [address], [place] [phone] * (ABNORMAL) B-type natriuretic peptide (06/24/2025 3:59 AM EDT) BNP 177(H) <=100 pcg/mL LAB CHEMISTRY METHOD 06/24/2025 5:[address] [facility] Blood Venous blood specimen / Unknown Venipuncture / Unknown 06/24/2025 3:59 AM EDT 06/24/2025 4:30 AM EDT us Claude Spann MD LAB BLOOD ORDERABLES Final Resu lt Performing Organization Address [facility] de Phone Number [facility] [address] [place] [address], [place] [phone] * APTT (06/23/2025 10:36 PM EDT) aPTT 29.9 24.1 - 39.3 sec LAB COAGULATION METHOD 06/23/2025 11:[address] [facility] Blood Venous blood specimen / Unknown Venipuncture / Unknown 06/23/2025 10:36 PM EDT 06/23/2025 10:42 PM EDT us Ivan Ward MD LAB BLOOD ORDERABLES Erica l Result Performing Organization Address [facility] Co de Phone Number [facility] [address] [place] [address], [place] [phone] * Protime-INR (06/23/2025 10:36 PM EDT) Protime 10.8 10.6 - 13.9 sec LAB COAGULATION METHOD 06/23/2025 11:[address] [facility] INR 0.9 LAB COAGULATION METHOD 06/23/2025 11:[address] [facility] Blood Venous blood specimen / Unknown Venipuncture / Unknown 06/23/2025 10:36 PM EDT 06/23/2025 10:42 PM EDT Ivan Ward MD LAB BLOOD ORDERABLES Erica l Result [facility] [address] [place] [address], [place] [phone] * XR Chest 2 Views (06/23/2025 9:24 PM EDT) Anatomical Region Laterality Modality Body Radiographic Minerva ging 06/24/2025 8:16 AM EDT Impressions 06/24/2025 8:18 AM EDT No acute pulmonary disease. Cardiomegaly, as also also demonstrated on 04/25/2015. Code 76552 -------- FINAL REPORT -------- Dictated By: Paulino Helms Dictated Date: 06/24/2025 08:16 ET Assigned Physician: Paulino Helms Reviewed and Electronically Signed By: Paulino Helms Signed Date: 06/24/2025 08:18 ET Workstation ID: [id number] Transcribed By: Self Edit Transcribed Date: 06/24/2025 [...] Cardiomegaly, as also also demonstrated on04/25/2015. Code 23362 -------- FINAL REPORT -------- Dictated By: Paulino Helms Dictated Date: 06/24/2025 08:16 ET Assigned Physician: Paulino Helms Reviewed and Electronically Signed By: Paulino Helms Signed Date: 06/24/2025 08:18 ET Workstation ID: [id number] Transcribed By: Self Edit Transcribed Date: 06/24/2025 08:16 ET Ivan Ward MD IMG XR PROCEDURES Final R esult * (ABNORMAL) CBC auto differential (06/23/2025 8:13 PM EDT) WBC 5.3 4.8 - 10.8 K/mcL LAB HEMETOLOGY METHOD 06/23/2025 8:[address] [facility] RBC 4.80 4.50 - 5.50 M/mcL LAB HEMETOLOGY METHOD 06/23/2025 8:[address] [facility] Hemoglobin 14.6 13.5 - 17.5 g/dL LAB HEMETOLOGY METHOD 06/23/2025 8:[address] [facility] Hematocrit 45.1 42.0 - 54.0 % LAB HEMETOLOGY METHOD 06/23/2025 8:[address] [facility] MCV 93.8 79.0 - 98.0 FL LAB HEMETOLOGY METHOD 06/23[facility]2025 8[facility] MCH 30.4 27.0 - 32.0 pcg LAB HEMETOLOGY METHOD 06/23/2025 8:[facility] MCHC 32.4 32.0 - 37.0 g/dL LAB HEMETOLOGY METHOD 06/23/2025 8:[address] [facility] RDW 12.5 11.0 - 15.0 % LAB HEMETOLOGY METHOD 06/23/2025 8:46 PM [facility] Platelets 176 130 - 400 K/mcL LAB HEMETOLOGY METHOD 06/23/2025 8:46 PM [facility] MPV 12.1(H) 7.0 - 11.0 FL LAB HEMETOLOGY METHOD 06/23/2025 8:46 PM [facility] NRBC 0.0 <1.0 % LAB HEMETOLOGY METHOD 06/23/2025 8:46 PM [facility] NRBC Absolute 0.00 <0.10 K/mcL LAB HEMETOLOGY METHOD 06/23/2025 8:46 PM [facility] Neutrophils Relative 52.7 % LAB HEMETOLOGY METHOD 06/23/2025 8:46 PM [facility] Lymphocytes Relative 29.5 % LAB HEMETOLOGY METHOD 06/23[facility]2025 8[facility] Monocytes Relative 13.2 % LAB HEMETOLOGY METHOD 06/23/2025 8:46 PM [facility] Eosinophils Relative 3.6 % LAB HEMETOLOGY METHOD 06/23/2025 8:46 PM [facility] Basophils Relative 0.8 % LAB HEMETOLOGY METHOD 06/23/2025 8:[address] [facility] Immature Granulocytes Relative 0.2 % LAB HEMETOLOGY METHOD 06/23/2025 8:[address] [facility] Neutrophils Absolute 2.81 1.50 - 7.00 K/mcL LAB HEMETOLOGY METHOD 06/23/2025 8:[address] [facility] Lymphocytes Absolute 1.57 1.00 - 5.00 K/mcL LAB HEMETOLOGY METHOD 06/23/2025 8:[address] [facility] Monocytes Absolute 0.70 0.20 - 1.00 K/mcL LAB HEMETOLOGY METHOD 06/23/2025 8:[address] [facility] Eosinophils Absolute 0.19 0.00 - 0.50 K/mcL LAB HEMETOLOGY METHOD 06/23/2025 8:[address] [facility] Basophils Absolute 0.04 0.00 - 0.20 K/mcL LAB HEMETOLOGY METHOD 06/23/2025 8:[address] [facility] Immature Granulocytes Absolute 0.01 0.00 - 0.03 K/mcL LAB HEMETOLOGY METHOD 06/23/2025 8:[address] [facility] Blood Venous blood specimen / Unknown Venipuncture / Unknown 06/23/2025 8:13 PM EDT 06/23/2025 8:37 PM EDT us Ivan Ward MD LAB BLOOD ORDERABLES Erica l Result [facility] [address] [place] [address], * Magnesium (06/23/2025 8:13 PM EDT) Magnesium 2.1 1.9 - 2.6 mg/dL LAB CHEMISTRY METHOD 06/23/2025 9:09 PM [facility] Blood Venous blood specimen / Unknown Venipuncture / Unknown 06/23/2025 8:13 PM EDT 06/23/2025 8:37 PM EDT us Ivan Ward MD LAB BLOOD ORDERABLES Erica l Result [facility] [address] [place] [address], * (ABNORMAL) Comprehensive metabolic panel (06/23/2025 8:13 PM EDT) Sodium 139 133 - 145 mmol/L LAB CHEMISTRY METHOD 06/23/2025 9:11 PM [facility] Potassium 3.8 3.5 - 5.5 mmol/L LAB CHEMISTRY METHOD 06/23/2025 9:11 PM [facility] Chloride 104 96 - 110 mmol/L LAB CHEMISTRY METHOD 06/23/2025 9:11 PM [facility] CO2 29 21 - 32 mmol/L LAB CHEMISTRY METHOD 06/23/2025 9:11 PM [facility] Anion Gap 6 3 - 11 LAB CHEMISTRY METHOD 06/23/2025 9:11 PM [facility] Glucose 109(H) 70 - 100 mg/dL LAB CHEMISTRY METHOD 06/23/2025 9:11 PM [facility] BUN 16 5 - 25 mg/dL LAB CHEMISTRY METHOD 06/23/2025 9:11 PM [facility] Creatinine 1.29 0.70 - 1.30 mg/dL LAB CHEMISTRY METHOD 06/23/2025 9:11 PM [facility] eGFR 64 >=60 mL/min/1. 73m2 LAB CHEMISTRY METHOD 06/23/2025 9:11 PM [facility] Comment:Calculation based on the Chronic Kidney Disease Epidemiology Collaboration (CKD-EPI) equation refit without adjustment for race. BUN/Creatinine Ratio 12.4 LAB CHEMISTRY METHOD 06/23/2025 9:[address] [facility] Calcium 9.4 8.5 - 10.5 mg/dL LAB CHEMISTRY METHOD 06/23/2025 9:[address] [facility] AST (SGOT) 21 10 - 42 unit/L LAB CHEMISTRY METHOD 06/23/2025 9:[address] [facility] ALT (SGPT) 37 10 - 60 unit/L LAB CHEMISTRY METHOD 06/23/2025 9:[address] [facility] Alkaline Phosphatase 87 42 - 121 unit/L LAB CHE[facility]STRY [facility] Total Protein 6.5 6.0 - 8.0 g/dL LAB CHEMISTRY METHOD [facility]/23[facility]2025 [facility] Albumin 3.7 3.2 - 5.0 g/dL LAB CHEMISTRY METHOD 06/23/2025 9:11 PM [facility] Total Bilirubin 0.5 0.0 - 1.4 mg/dL LAB CHEMISTRY METHOD 06/23/2025 9:[address] [facility] Blood Venous blood specimen / Unknown Venipuncture / Unknown 06/23/2025 8:13 PM EDT 06/23/2025 8:37 PM EDT us Ivan Ward MD LAB BLOOD ORDERABLES Erica l Result [facility] [address] [place] [address], * ND CRITICAL CARE 30-74 MINUTES (06/23/2025 7:45 PM [...] Documents on File Type Date Recorded Patient Room Worker Expl anation Advance Directives and Living Will [...] Health Care Agent Nuviaseb King Daughter [facility] Health Car e Agent Care Teams Strap Folding Machine Operator Relationship Specialty Start Date End Date Sher Guzman MD [address] [place] [address] Dr Fantasma [place] PCP - General 03/03/20
--- OUTSIDE RECORDS SUMMARY | 2025-09-23 13:20 | XMS_ITS | Patient Health Record ---
Author Organization [facility] [employer] Address [address] [place] [address] Care Team Providers Care Machine Set Up Operator Paper Goods Name Role Phone Megan TATE, Sher Primary Care Provider Frank Epps Unavailable [phone] Allergies No Known Allergies Reason For Referral [...] X ray : Foot, left 3V 04/06/2022 [id number] TENDON SHEATH/LIGAMENT 0 05/04/2022 Insurance Providers Payer Name Payer Address Payer Phone Subscriber Number Group Number Insured Name Patient Relationship to Insured Coverage Start Date Coverage End Date Medicare National Govt S[employer] [address] [place] [address] [id number] Javier King Self - patient is the insured AARP Medicare Complete [address] [address] [place], [place] [id number] KingKimberlyis Self - patient is the insured Medical (General) History Medical History History ICD Code Hypertension Hyperlipidemia Anxiety Arthritis Back,Hip,and Knee pain Broken bones Depression Surgical History Surgery Date(Month/Year) carpal tunnel release right knee replacement neck surgery spine surgery Tooth extraction
[2025-10-21 14:51] VITALS: BMI 38.9
--- NOTE | 2025-10-22 09:25 | P.CONAN_ITS ---
Documented by User: Elma Floyd NP 10/22/25 09:44 HPI - Anesthesia Eval Consult details Narrative: 60 yr old male for colonoscopy BMI ~40 SLY: inconsistent CPAP use Chronically abnormal looking EKG, thought to be from left ventricular hypertrophy; saw [employer] cards 06/2025 for HFU following [facility] hospitalization for chest pain 05/2025. -2014, he underwent cardiac catheterization that showed no significant findings. -Stress test repeated in November 2024 that was also unremarkable. -Thought to have a mitral valve issue which led to a transesophageal echocardiogram at [facility] 05/2025, dx was eventually chordal calcification -Consider cardiac MRI in the future, to look for other etiologies for left ventricular hypertrophy like hypertrophic cardiomyopathy. -Transthoracic gsomhmqqiszoac-Xwxqa-Yuho 2025-LVEF 55-60%. Left ventricular hypertrophy with moderate diastolic dysfunction. Mild aortic stenosis. Possible mitral valve vegetation. -IND-Mtrhz-Jcrv 2025-thickened and calcified mitral leaflets with chordal calcification. Highly mobile calcified linear structure, 1.1 cm in length attached to anterior leaflet representing cord than vegetation. Moderate annular calcification. Trace regurgitation -Repeat echo ordered by [employer] cards for 10/2025 [facility] Active Problems Active Problems: All Active Problems (Updated 08/30/25 @ 15:41 by Jenny Steen, [facility]) Clogged ear (Acute) Fatigue (Acute) Difficulty sleeping (Acute) Mitral annular calcification (Acute) Encounter for immunization (Acute) Weight loss (Acute) Transaminitis (Acute) Abdominal pain (Acute) Unsteady gait (Acute) Elevated liver enzymes (Acute) Pre-diabetes (Acute) Preoperative cardiovascular examination (Acute) Screening for tuberculosis (Acute) Epididymitis (Acute) Erectile dysfunction (Acute) Scrotal mass (Acute) Urinary frequency (Acute) Testicular pain (Acute) Anxiety with depression (Acute) Bradycardia (Acute) Chest discomfort (Acute) Left upper quadrant abdominal pain (Acute) Obesity (BMI 30-39.9) (Acute) Allergic rhinitis (Acute) LVH (left ventricular hypertrophy) (Acute) Aortic stenosis (Acute) History of colon polyps (Acute) Back pain (Acute) Diarrhea (Acute) Leg paresthesia (Acute) Adult general medical exam (Acute) Aortic valve sclerosis (Acute) Abnormal EKG (Acute) SLY on CPAP (Acute) Morbid obesity (Acute) Chest pain (Acute) Sleep apnea (Acute) Heart murmur (Acute) Dizziness (Acute) Low HDL (under 40) (Acute) Left foot pain (Acute) Essential hypertension (Acute) Hyperlipidemia (Acute) Elevated fasting blood sugar (Acute) Cervical radiculopathy (Acute) Paresthesias with subjective weakness (Acute) Obesity, Class III, BMI 40-49.9 (morbid obesity) (Acute) Left hand weakness (Acute) Encounter for general adult medical examination without abnormal findings (Acute) Screening for colon cancer (Acute) Screening for prostate cancer (Acute) Decreased hearing (Acute) Mass of thyroid region (Acute) Abdominal mass (Acute) Upper respiratory tract infection (Acute) Pain of left heel (Acute) Past Medical History Medical History Fatigue Encounter for immunization Weight loss Transaminitis Abdominal pain Obesity (BMI 30-39.9) Hyperlipidemia HTN (hypertension) Family History Family History Father No problems noted. Mother Diabetes mellitus Stroke Sister Hemorrhage Multi-organ failure with heart failure Daughter Diabetes mellitus Other Mental health disorder Substance use disorder Surgical History Surgical History Back pain with history of spinal surgery Failed spinal cord stimulator Hx of colonoscopy History of cardiac catheterization (~2014) History of tooth extraction History of surgery History of spinal surgery History of surgery History of carpal tunnel syndrome History of neck surgery History of knee replacement procedure of right knee Social History Social History Housing: Apartment Alcohol intake: never Patient Tobacco Use Status: Former Tobacco user Tobacco use type: Cigar Cigarettes Per Day: 1 Years Smoked: 20 e-Cigarette/Vaping Use: Never Used Second Hand Smoke Exposure: Yes Use of substances other than those prescribed or required for medical reasons: No Advance Directives: No Advance Directives Information Provided: Yes service: No Current occupational status: disabled Current occupational exposures/hazards: No Cognitive needs: No (cane) Hearing needs: No Vision needs: Yes (Glasses) Meds Allergies Allergy/AdvReac Type Severity Reaction Status Date / Time onion Allergy Intermediate sneezing Verified 08/29/25 13:21 Peanut Butter Allergy Intermediate Sneezing Verified 08/29/25 13:21 cats Allergy Mild free text Uncoded 08/29/25 13:21 dust Allergy Mild free text Uncoded 08/29/25 13:21 Home Medications ?Medication ?Instructions ?Recorded ?Confirmed ?Last Taken ?Type aspirin 81 mg tablet,delayed 81 mg PO DAILY 07/03/25 1 12/21/24 Unknown History release (Adult Aspirin Regimen) Exam Height,Weight and Vital Signs: Height 5 ft 5 in Weight 106.01 kg Narrative Narrative: ECHO 05/2025 Left ventricle cavity size is normal. Left ventricular systolic function is in the normal range with an ejection fraction of 55-60%. ? Right ventricle cavity is normal. Right ventricular systolic function is normal. ? The mitral leaflets are mildly thickened and calcified. There is chordae calcification. There is a highly mobile, calcified linear structure, 1.1 cm in length attached to anterior leaflet. This likely represents a chordae rather than vegetation. There is moderate annular calcification. There is trace regurgitation. ? Trace tricuspid regurgitation. EKG 06/2025 Sinus rhythm with PACs, rate 67 left axis deviation Incomplete RBBB Left ventricular hypertrophy with repolarization abnormality Documented by User: Naz Cruz MD 10/23/25 09:35 [facility] Past Medical History Medical History Fatigue Encounter for immunization Weight loss Transaminitis Abdominal pain Obesity (BMI 30-39.9) Hyperlipidemia HTN (hypertension) Family History Family History Father No problems noted. Mother Diabetes mellitus Stroke Sister Hemorrhage Multi-organ failure with heart failure Daughter Diabetes mellitus Other Mental health disorder Substance use disorder Surgical History Surgical History Back pain with history of spinal surgery Failed spinal cord stimulator Hx of colonoscopy History of cardiac catheterization (~2014) History of tooth extraction History of surgery History of spinal surgery History of surgery History of carpal tunnel syndrome History of neck surgery History of knee replacement procedure of right knee History of Problems with Anesthesia: No Social History Social History Housing: Apartment Alcohol intake: never Patient Tobacco Use Status: Former Tobacco user Tobacco use type: Cigar Cigarettes Per Day: 1 Years Smoked: 20 e-Cigarette/Vaping Use: Never Used Second Hand Smoke Exposure: Yes Use of substances other than those prescribed or required for medical reasons: No Advance Directives: No Advance Directives Information Provided: Yes service: No Current occupational status: disabled Current occupational exposures/hazards: No Cognitive needs: No (cane) Hearing needs: No Vision needs: Yes (Glasses) Meds Allergies Allergy/AdvReac Type Severity Reaction Status Date / Time onion Allergy Intermediate sneezing Verified 08/29/25 13:21 Peanut Butter Allergy Intermediate Sneezing Verified 08/29/25 13:21 cats Allergy Mild free text Uncoded 08/29/25 13:21 dust Allergy Mild free text Uncoded 08/29/25 13:21 Home Medications ?Medication ?Instructions ?Recorded ?Confirmed ?Last Taken ?Type aspirin 81 mg tablet,delayed 81 mg PO DAILY 07/03/25 1 12/21/24 Unknown History release (Adult Aspirin Regimen) Exam Airway Mallampati Class: III TM Dist: >3cm Neck ROM: Full Loose/Missing/Broken Teeth: No Heart: RRR Lungs: CTA Assessment and Plan Assessment Anesthesia Assessment: Anesthesia Plan Discussed and Chart Reviewed Final Anesthetic Review History of Problems with Anesthesia: No NPO: Yes ASA Class: III Final Preanesthetic Review: Meds/Allgs Chart Reviewed, Consent Obtained/Reviewed and Anes Risks/Benef Reviewed Patient Risk: Intermediate Procedure Risk: Low Anesthetic Plan Anesthetic Plan: MAC: Disposition: Standard PACU
[2025-10-23 08:49] VITALS: BMI 38.9; BMI 39.4
[2025-10-23 09:00] VITALS: BP 164/71; PULSE 55; RESP 16; TEMP 36.5; O2SAT 100
[2025-10-23] MEDS: Lactated Ringers 1,000 ML 100 ML IVCONT (09:09)
--- NOTE | 2025-10-23 09:14 | MHC.SHP ---
Pre-Procedural Eval Section A - 24 Hr Update-Section A only Date of Service: 10/23/25 Section B - Complete if H&P > 30 days Chief Complaint: Abnormal weight loss,diarrhea Relevant Family History (Specify if Yes): No Relevant Social History: None Present Medications: see Short Stay Collaborative assessment Medical History: Significant History (Fatigue Encounter for immunization Weight loss Transaminitis Abdominal pain Obesity (BMI 30-39.9) Hyperlipidemia HTN (hypertension)) History of Previous Operations: Relevant previous surgery/procedure and date(s) (Back pain with history of spinal surgery Failed spinal cord stimulator Hx of colonoscopy History of cardiac catheterization (~2014) History of tooth extraction History of surgery History of spinal surgery History of surgery History of carpal tunnel syndrome History of neck surgery History of knee re) Allergies: Allergies Allergy/AdvReac Type Severity Reaction Status Date / Time onion Allergy Intermediate sneezing Verified 08/29/25 13:21 Peanut Butter Allergy Intermediate Sneezing Verified 08/29/25 13:21 cats Allergy Mild free text Uncoded 08/29/25 13:21 dust Allergy Mild free text Uncoded 08/29/25 13:21 Review of Systems Sugical H&P ROS: Negative: Constitution, Cardiovascular, Respiratory, Neurological, Psychiatric, Hem-Onc, Allergic/Immunologic, Gastrointestinal, Genitourinary, Musculoskeletal, Integumentary, Endocrine and Eyes/Ears/Nose/Throat Exam Surgical H&P Exam: Normal: HEENT, Normal: Heart, Normal: Lungs, Normal: Extremities, Normal: Abdomen, Normal: Skin and Normal: Neurological Plan Diagnosis/Plan: Unchanged I have reviewed the history and physical and performed a pertinent physical examination on my patient. No changes have occurred unless specified. Time Spent With Patient Time: Total time managing care of this patient today ____ minutes.
--- NOTE | 2025-10-23 09:39 | P.OPN-COLO_ITS ---
Colonoscopy Operative Note Operative Note Date of Service: 10/23/25 Narrative: Operative Information Procedure Description: Colonoscopy Indication: hx of polyps Anesthesia: MAC COLONOSCOPY Instrument: Olympus variable stiffness pediatric scope 190L Colonoscopy Monitoring: Vital signs and clinical assessment, continuous EKG monitoring, Pulse oximetry, Carbon Dioxide monitoring and blood pressure monitoring were done throughout the procedure. Colon withdrawal time was 18 minutes. Procedure: The patient was placed in the left lateral decubitis position and pre-procedure medications were administered. After a digital rectal examination of the ano-rectum, the video colonoscope was inserted into the rectum and advanced through the colon to the cecum/TI. The colonoscope was slowly withdrawn in a retrograde panoramic fashion and the colon mucosa was carefully examined including a retroflexed view of the rectum. Findings and interventions are described below. Procedure Difficulty: easy Findings: ileo colonic anastomosis noted Ascending Colon: normal Transverse Colon - 7-8 mm sessile polyp removed with cold snare Descending Colon:normal Sigmoid Colon: normal Rectum: Retroflexion with small internal hemorrhoids seen, grade I Anorectum - normal Intervention: cold snare Colon preparation: [place] Bowel Preparation Scale Right colon; 2 Transverse colon: 2 Left colon; 1-2 (0 = Unprepared colon segment with mucosa not seen due to solid stool that can not be cleared. 1 = Portion of mucosa of the colon segment seen, but other areas of the colon segment not well seen due to staining, residual stool and/or opaque liquid. 2 = Minor amount of residual staining, small fragments of stool and/or opaque liquid, but mucosa of colon segment seen well. 3 = Entire mucosa of colon segment seen well with no residual staining, small fragments of stool or opaque liquid) Impression and Post Procedure Diagnosis: colon polyp x 1 internal hemorrhoids Plan: High fiber diet leaflet Avoid straining at stool, epsom salts and sitz bath, anusol supps or cream Repeat Colonoscopy in 3-4 years due to fair prep on left or earlier if clinically indicated Above findings were reviewed with the patient and relevant handouts were provided if indicated.
[2025-10-23 09:44] VITALS: BP 122/66; PULSE 61; RESP 18; TEMP 36.3; O2SAT 99
[2025-10-23 09:59] VITALS: BP 118/67; PULSE 60; RESP 15; O2SAT 98
[2025-10-23 10:05] VITALS: BP 136/78; PULSE 56; RESP 20; TEMP 36.6; O2SAT 97
== END 2025-10-23 10:35 | disposition home or self-care (01) ==
PROVIDERS: PCP Family Medicine; Visit Provider Internal Medicine Gastroenterology
PROC: 0DJD8ZZ Inspection of Lower Intestinal Tract, Via Natural or Artificial Opening Endoscopic (ICD-10-PCS; CPT 45378; principal; 2025-10-23 10:10)
DX: Z12.11 Encounter for screening for malignant neoplasm of colon (principal); R63.4 Abnormal weight loss; R19.7 Diarrhea, unspecified; K64.0 First degree hemorrhoids; Z86.0109 Personal history of other colon polyps; K63.5 Polyp of colon
CPT/HCPCS: 45385; 88305; J2003; J2704

== ENCOUNTER → 2025-10-23 08:01 | Outpatient (BNV) | payer MEDICARE, MEDICAID, SELFPAY | PROVIDERS: PCP Family Medicine; Visit Provider Internal Medicine Gastroenterology | DX: Z12.11 Encounter for screening for malignant neoplasm of colon (principal); K63.5 Polyp of colon; K64.0 First degree hemorrhoids | CPT/HCPCS: 45385 ==

== ENCOUNTER → 2025-10-28 13:43 | Outpatient (REF) | payer MEDICARE, MEDICAID, SELFPAY ==
--- NOTE | 2025-10-28 13:47 | CA_ITS ---
Transthoracic Echocardiogram Patient (Last, First, Middle): Javier Sanders O Gender: M Date of : 1965 Age: 60 Procedure Date: 10/28/2025 Procedure Type: Transthoracic Echocardiogram Location: OP Height: 165. cm Weight: 106.14 kg BSA: 2.11 m2 Heart Rate: 69 bpm BP: 145 / 60 mmHg Category Development Manager: GIO Referring MD: Igor Mejia MD Symptoms: I34.81 - Nonrheumatic mitral (valve) annulus calcification Study Quality: Adequate w/Contrast ECG Rhythm: Sinus Conclusions: - The left ventricular systolic function is hyperdynamic. The calculated ejection fraction is 71% by biplane method. - There is moderately increased left ventricular wall thickness. - Evidence suggests grade II (moderate) diastolic dysfunction. - There is mild aortic valve stenosis. - There is moderate mitral annular calcification. Findings Procedure Information Contrast agent, definity, is being given per protocol without apparent complications. Left Ventricle Normal left ventricular cavity size. There is moderately increased left ventricular wall thickness. The left ventricular systolic function is hyperdynamic. The calculated ejection fraction is 71% by biplane method. There is no evidence of regional wall motion abnormalities. Evidence suggests grade II (moderate) diastolic dysfunction. Right Ventricle Moderately increased right ventricular cavity size. There is normal right ventricular systolic function. Atria The left atrium is severely dilated. The right atrium is mildly dilated. Aortic Valve There is moderate calcification of the aortic valve. There is mild aortic valve stenosis. There is trace (trivial) aortic valve regurgitation. Mitral Valve There is moderate mitral annular calcification. There is trace mitral valve regurgitation. There is no mitral valve stenosis. Pulmonic Valve The pulmonic valve is likely normal. Tricuspid Valve There is trace tricuspid valve regurgitation. There is no evidence of pulmonary hypertension. Great Vessels The asc aorta is normal in size. Venous The inferior vena cava is normal in size and collapses greater than 50% with inspiration. Pericardium/Pleural There is a small pericardial effusion. Prior Study Comparison No significant change compared to prior study dated: 01/03/2025. Measurements 2D Linear Measurements IVSd: 1.38 0.6-0.9/0.6-1.0 cm LVIDd: 5.17 3.9-5.3/4.2-5.9 cm LVIDd Index: 2.45 2.4-3.2/2.2-3.1 cm/m2 LVIDs: 3.11 2.0-3.6 cm LVPWd: 1.24 0.7-1.1 cm LA Diam: 4.90 2.7-3.8/3.0-4.0 cm LAIDs Index: 2.32 1.5-2.3 cm/m2 LV Mass: 347.92 67-162/88-224 g LV Mass Index: 164.89 43-95/49-115 g/m2 LVOT Diam: 2.00 3.0+(-)1.3 cm 2D Systolic Function EF 4C: 73.80 >55% EF 2C: 66.70 >55% EF BiP: 70.70 >55% Mitral Valve MV VTI: 0.48 MV Pk Braxton: 1.46 MV Mn Braxton: 0.90 MV Pk Grad: 9.00 MV Mn Grad: 4.00 MV Pk E: 1.34 MV PK A: 1.39 MV Decel Time: 287.00 E/A: 1.00 E'Lateral: 4.90 E'Medial: 4.35 E/E' Med: 30.80 E/E' Lat: 27.30 PHT: 84.00 MVA PHT: 2.62 MVA Continuity: 2.01 Decel Mcdonald: 4.68 Aortic Valve AoV Pk Braxton: 2.86 AoV Mn Braxton: 1.90 AoV VTI: 0.48 AoV Pk Grad: 33.00 Aov Mn Grad: 17.00 RUPESH Cont.VTI: 2.01 LVOT LVOT Pk Braxton: 1.67 LVOT Mn Braxton: 1.16 LVOT VTI: 0.31 LVOT Pk Grad: 11.00 LVOT Mn Grad: 6.00 LVOT Diam: 2.00 LVOT Area: 3.14 Diastolic Function MV Pk E: 1.34 MV Pk A: 1.39 E/A: 1.00 E'Medial: 4.35 E/E' Med: 30.80 E' Laterial: 4.90 E/E' Lat: 27.30 Right Ventricle TAPSE (mm): 24.90 TVS' Braxton: 16.80 Tricuspid Valve TR Pk Braxton: 2.33 TR Pk Grad: 22.00 RA Press: 3.00 RVSP: 25.00 Great Vessels Aorta Sinus of Valsalva: 3.60 2.0-3.5 cm Ao Asc: 3.80 2.1-3.4 cm Pulmonary Veins Pulm Vein S/D 1.30 Pulmonary Valve PV Pk Braxton: 1.46 Peak PV Grad: 9.00 Updated in Other Vendor System with Status of Final Igor Mejia MD electronically signed on 10/29/2025 2:03:58 PM with status of Final
--- OUTSIDE RECORDS SUMMARY | 2025-10-28 17:15 | XMS_ITS | Data Portability ---
Author Organization [place] - [facility], Allergy Address [address] [address] Care Team Providers Care Senior Consumer Insights Consultant Name Role Phone AMY BRAVO Primary Care Provider MAYTE BUSTOS Referring Provider Assessment Encounter Date Assessment Date Assessment LastModified by Organization Details LastModified Time 06/17/2025 06/17/2025 F/U appt with Ortez 07/04 [email or web address] Not available 06/17/2025 09:20:14 07/11/2025 07/11/2025 - Right ear wax impaction. - Sleep apnea. The wax impaction in the right ear was successfully removed during the visit, and the patient reported improvement in symptoms. I recommend follow-up with the sleep doctor in [place] for ongoing management of sleep apnea. The patient is advised to continue using the CPAP machine for six to seven hours per night and monitor for any changes in restfulness or symptoms. No further interventions are required at this time for the ear, as the patient's hearing has returned to baseline. Procedure Documentation: - Removal of right ear wax impaction. [email or web address] Not available 07/11/2025 10:02:12 10/03/2025 10/03/2025 60-year-old male presents for evaluation of right-sided ear pain and itching. On examination there is mild erythema in the posterior-superi or portion of the medial right EAC, and the posterior-superi or quadrant of the right TM is hyperemic. Bilateral TMs are intact and the middle ear spaces appear well aerated. There is no otorrhea or edema of the bilateral external auditory canals. His right ear canal appears irritated, potentially due to physical manipulation of the canal secondary to itching. I will prescribe fluocinolone acetonide oil drops to be used in the right ear twice daily for 2 weeks to reduce the itching. I encouraged the patient to avoid itching the ear canal and to avoid Q-tip use as this can cause further irritation and worsening itching. He will notify me if he develops any ear drainage. I recommend the patient obtain updated audiometric testing next year since he is a borderline hearing aid candidate and is perceiving a decline in his hearing. All questions were answered. [email or web address] Not available 10/03/2025 15:23:29 Plan of Treatment Reminders Order Date Submit Date Provider Last Modified By Organization Details Last Modified Time Details Appointments Hearing Test Same Day (First) 2025 09:00A M Hearing Test Not available Not available Not available Establish ed 15 2025 09:30A M DINA HUGHES Not available Not available Not available Lab None recorded. Referral None recorded. Procedures None recorded. Surgeries None recorded. Imaging None recorded. Medication Orders fluocinol one acetonide oil 0.01 % ear drops 2024 025 [facility], [address] [place] [address], [place], [address], 10/03/2025 14:11:47 Patient TargetsNo targets recorded. Patient Instructions Encounter Date Encounter Id Patient Instructions Last Modified By Organization Details Last Modified Time 07/11/2025 [id number] Follow up with the sleep doctor in [place] for sleep apnea management. Continue using the CPAP machine for six to seven hours per night. Monitor for any changes in restfulness or symptoms. [email or web address] Not available 07/11/2025 10:02:10 Please note: Parts of this encounter note have been generated by AI based on audio conversation. Patient consent was required prior to utilizing this technology. Content review was required prior to finalizing the note. [email or web address] Not available 07/11/2025 10:02:10 Reason for Referral [...] Address Organization Details Recorded Time Allergic rhinitis 20910670 Active 2022 Other allergic rhinitis; Note: Date Diagnosed : 12/06/2022 2:55 PM (J30.89) Not Available [facility] 4 03:04:24 Chronic rhinitis 00800212 Active 2022 Chronic rhinitis; Note: Date Diagnosed : 12/06/2022 2:55 PM (J31.0) Not Available [facility] 4 03:04:24 Nasal congestio n 70212201 Active 2022 Nasal congestio n; Note: Date Diagnosed : 12/06/2022 2:55 PM (R09.81) Not Available [facility] 4 03:04:23 Impacted cerumen of bilateral ears 36195500569 88851 Active 2022 Impacted cerumen, bilateral ; Note: Date Diagnosed : 12/10/2022 9:17 AM (H61.23) Not Available [facility] 4 03:04:24 Sensorine ural hearing loss of bilateral ears 825401064 Active 2022 Sensorine ural hearing loss, bilateral ; Note: Date Diagnosed : 02/16/2023 4:34 PM (H90.3) Not Available [facility] 4 03:04:24 Hypertrop hy of nasal turbinate s 56719569 Active 2022 Hypertrop hy of nasal turbinate s; Note: Date Diagnosed : 04/20/2023 12:30 PM (J34.3) Not Available [facility] 4 03:04:23 Chest pain 23076310 Active 2022 Other chest pain; Note: Date Diagnosed : 05/17/2023 11:09 AM (R07.89) Not Available [facility] 4 03:04:23 Deviated nasal septum 938800488 Active 2022 Deviated nasal septum; Note: Date Diagnosed : 05/20/2023 3:38 PM (J34.2) Not Available [facility] 4 03:04:24 Follow-up visit Active 2022 Medical surveilla nce following completed treatment ; Note: Date Diagnosed : 08/12/2023 10:02 AM (Z09) Not Available [facility] 4 03:04:25 Obstructi ve sleep apnea syndrome 70916498 Active 2022 Obstructi ve sleep apnea (adult) (pediatri c); Note: Date Diagnosed : 3 1:54 PM (G47.33) Not Available [facility] 4 03:04:25 Sensorine ural hearing loss of bilateral ears 368764013 Active 2024 MARGARET DANIELSON [address] [facility] 100, [place], [place], [address] , [facility] - [facility] 5 09:18:58 Impacted cerumen in right ear 11438702138 58378 Active 2024 BING MCFARLAND MD [address] [facility] [address], [place], [place], [address] , [facility] - [facility] [place] 5 10:02:03 Itching of ear 203273540 Active 2024 DINA HUGHES [address] [facility] [address], [place], [place], [phone] , [facility] [place] 5 14:10:37 Problem Notes None recorded. Medical Equipment None [...] elayed release 02/02 completed Medicati on ID: [id number] B rand Name: omeprazo le Send Method: [...] e 137 mcg (0.1 %) nasal spray [place] 2 spray twice a day 2022 active Medicati on ID: [id number] D uration Value: 30 Brand Name: azelasti ne Send Method: E-Prescr ibed Sub s Allowed: subs OK Medic ationGen ericName : azelasti ne Not Available Not Available Not Available polyethyl fiordaliza glycol 3350 17 gram/dose oral powder 02/02 completed Medicati on ID: [id number] B rand Name: polyethy nanette glycol 3350 [...] nasal spray 02/02 completed Medicati on ID: [id number] B rand Name: ipratrop ium bromide Send [...] Not Available Not Available No t Available fluocinol one acetonide oil 0.01 % ear drops INSTILL 5 DROPS INTO AFFECTED EAR(S) BY OTIC ROUTE 2 TIMES PER DAY FOR 2 WEEKS, THEN USE IT TWICE WEEKLY NEEDED FOR ITCHING 2024 active Not Available Not Available Not Avai lable Allergy Relief (cetirizi ne) 10 mg tablet TAKE 1 TABLET BY MOUTH ONCE DAILY FOR 90 DAYS active Not Available Not Available No t Available Vitals Date Recorded Body height Body mass index (BMI) Body weight Provider Name and Address Organization Details Last Updated DateTime 07/11/2025 165.1 cm 39.6 kg/m2 324180.98 g Tahira Silva [facility] 07/11/2025 09:56:33 Date Recorded Body height Body mass index (BMI) Body weight Provider Name and Address Organization Details Last Updated DateTime 10/03/2025 165.1 cm 39.6 kg/m2 508810.98 g Evelin Mcwilliams [facility] 10/03/2025 13:48:31 Social History None recorded. Functional Status None recorded. Mental Status None recorded. Family History Nothing Reported. Medical History No medical history recorded. Past Encounters Encounter ID Performer Location Encounter Start Date Encounter Closed Date Diagnosis/Indication Diagnosis SNOMED-CT Code Diagnosis ICD10 Code Diagnosis IMO Codes Diagnosis Note [id number] MARGARET DANIELSON [facility] [address] [address] 06/17/2025 09:18:36 06/18/2025 13:05:57 Sensorineural hearing loss of bilateral ears 888760815 H90.3 [id number] Audiologic al evaluation results: 06/17/2025 Right ear: Normal through 2 kHz sloping to a moderate sensorineu ral hearing loss with excellent word recognitio n. Left ear: Normal through 2 kHz sloping to a moderate sensorineu ral hearing loss with excellent word recognitio n. Tympanomet ry: Right Ear:[place] [id number] BING MCFARLAND MD [facility] [address] [address] 07/11/2025 08:47:37 07/11/2025 10:05:10 Impacted cerumen in right ear 4910851690 628626 H61.21 0467660 Sensorineu ral hearing loss of bilateral ears 017470476 H90.3 92613302 Deviated nasal septum 12 0078575 J34.2 Obstructiv e sleep apnea syndrome 41720788 G47.33 [id number] DINA HUGHES [facility] [address] [address] 10/03/2025 13:38:11 10/03/2025 14:13:07 Itching of ear 939377182 L29.9 7079582 Sensorineu ral hearing loss of bilateral ears 688599727 H90.3 00934187 Health Concerns Section Related Observation LastModified by Organization Detai ls LastModified Time None Recorded Concern Status LastModified by Organization Details LastModified Time None Recorded Advance Directives Directive None Recorded Payers Insurance Date Sequence Insurance Name Policy Number Policy Mckinley Covered Member ID Mckinley Member ID Guarantor Name 10/10/2025 2 [place] [facility] Javier Carranza [id number] Javier Carranza 10/10/2025 1 [facility] (MEDICARE REPLACEMENT/ ADVANTAGE - PPO) [id number] Javier Carranza [id number] Javier Carranza Notes Date Note Type Note Provider Name and Address Organization Details Recorded Time 06/17/2025 text/html Patient complains about plugged feeling AD MARGARET DANIELSON [address] [facility],[place] [address], [place], [address], [facility] 06/17/2025 09:21:15 07/11/2025 text/html Javier Carranza Sr [...] variable improvement in restfulness. BING SPAIN MD [address] [facility],[address], [address], [facility] 07/11/2025 10:04:48 10/03/2025 text/html ROS as noted in the HPI 60-year-old male presents for evaluation of right-sided ear pain and itching. The patient describes the ear canal as being itchy, causing him to insert his finger into the ear canal to itch it. He denies any Q-tip use or other instrumentation of the ears. He has never tried any creams or ear drops to manage the itching. When he was seen in June he was found to have a right cerumen impaction, which was removed. The patient also reports difficulty hearing during conversations and frequently asks people to repeat what they say. He last had audiometric testing in 05/2025 that showed normal hearing through 2 kHz sloping to a moderate SNHL bilaterally, which was stable compared to testing in 2022. 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 JERRY LE MD [address] [facility] [place],[facility] [address], [place], [address], [facility] 10/03/2025 16:00:41
--- OUTSIDE RECORDS SUMMARY | 2025-10-28 17:15 | XMS_ITS | Continuity of Care Document ---
Author Organization [place] - [facility], [facility] Address [address] [place] [address] Care Team Providers Care Rubber Liner Name Role Phone AMY BRAVO Primary Care Provider [phone] MAYTE BUSTOS Referring Provider [phone] Assessment Encounter Date Assessment Date Assessment LastModified by Organization Details LastModified Time 10/03/2025 10/03/2025 60-year-old male presents for evaluation of right-sided ear pain and itching. On examination there is mild erythema in the posterior-super ior portion of the medial right EAC, and the posterior-super ior quadrant of the right TM is hyperemic. [...] in his hearing. All questions were answered. Not available 10/03/2025 15:23:29 Plan of Treatment Reminders Order Date Submit Date Provider Last Modified By Organization Details Last Modified Time Details Appointments Hearing Test Same Day (First) 07/14/ 2026 09:00A M Hearing Test Not available Not available Not available Establish ed 15 2025 09:30A M DINA HUGHES Not available Not available Not available Lab None recorded. Referral None recorded. Procedures None recorded. Surgeries None recorded. Imaging None recorded. Medication Orders fluocinol one acetonide oil 0.01 % ear drops 2024 025 [facility], [address] [place] [address], [place], [address], 10/03/2025 14:11:47 Patient TargetsNo targets recorded. Patient InstructionsNo instructions recorded. Reason for Referral None Reported. Problems Name Problem SNOMED Code Status Onset Date Resolution Date Notes Provider Name and Address Organization Details Recorded Time Allergic rhinitis 03650969 Active 2022 Other allergic rhinitis; Note: Date Diagnosed : 12/06/2022 2:55 PM (J30.89) Not Available [facility] 4 03:04:24 Chronic rhinitis 96862704 Active 2022 Chronic rhinitis; Note: Date Diagnosed : 12/06/2022 2:55 PM (J31.0) Not Available [facility] 4 03:04:24 Nasal congestio n 81068201 Active 2022 Nasal congestio n; Note: Date Diagnosed : 12/06/2022 2:55 PM (R09.81) Not Available [facility] 4 03:04:23 Impacted cerumen of bilateral ears 89551186445 50597 Active 2022 Impacted cerumen, bilateral ; Note: Date Diagnosed : 12/10/2022 9:17 AM (H61.23) Not Available [facility] 4 03:04:24 Sensorine ural hearing loss of bilateral ears 265500288 Active 2022 Sensorine ural hearing loss, bilateral ; Note: Date Diagnosed : 02/16/2023 4:34 PM (H90.3) Not Available [facility] 4 03:04:24 Hypertrop hy of nasal turbinate s 71094566 Active 2022 Hypertrop hy of nasal turbinate s; Note: Date Diagnosed : 04/20/2023 12:30 PM (J34.3) Not Available [facility] 4 03:04:23 Chest pain 55056132 Active 2022 Other chest pain; Note: Date Diagnosed : 05/17/2023 11:09 AM (R07.89) Not Available [facility] 4 03:04:23 Deviated nasal septum 410427407 Active 2022 Deviated nasal septum; Note: Date Diagnosed : 05/20/2023 3:38 PM (J34.2) Not Available [facility] 4 03:04:24 Follow-up visit Active 2022 Medical surveilla nce following completed treatment ; Note: Date Diagnosed : 08/12/2023 10:02 AM (Z09) Not Available [facility] 4 03:04:25 Obstructi ve sleep apnea syndrome 15702501 Active 2022 Obstructi ve sleep apnea (adult) (pediatri c); Note: Date Diagnosed : 3 1:54 PM (G47.33) Not Available [facility] 4 03:04:25 Sensorine ural hearing loss of bilateral ears 917138058 Active [address] [facility],[place] [address], [address] , [facility] - [facility] 5 09:18:58 Impacted cerumen in right ear 24842302518 16883 Active 2024 BING MCFARLAND MD [address] [facility],[place] [address], [place], [address] , [facility] - [facility] [place] 5 10:02:03 Itching of ear 690579832 Active 2024 [address]INA HUGHES [address] [place] [address],[place] [address], [address] , [facility] - [facility] 5 14:10:37 Problem Notes None recorded. Medical [...] elayed release 02/02 completed Medicati on ID: [id number] B rand Name: omeprazo le Send Method: [...] e 137 mcg (0.1 %) nasal spray [place] 2 spray twice a day 2022 active Medicati on ID: [id number] D uration Value: 30 Brand Name: azelastaidan jose Send Method: E-Prescr ibed Sub s Allowed: subs OK Medic ationGen ericName : azelasti ne Not Available Not Available Not Available polyethyl fiordaliza glycol 3350 17 gram/dose oral powder 02/02 completed Medicati on ID: [id number] B rand Name: polyethy nanette glycol 3350 [...] nasal spray 02/02 completed Medicati on ID: [id number] B rand Name: ipratrop ium bromide Send [...] Updated DateTime 10/03/2025 165.1 cm 39.6 kg/m2 313964.98 g Evelin Mcwilliams [place] - [facility] 10/03/2025 13:48:31 Social History None recorded. Functional Status None recorded. Mental Status None recorded. Family History Nothing Reported. Medical History No medical history recorded. Past Encounters Encounter ID Performer Location Encounter Start Date Encounter Closed Date Diagnosis/Indication Diagnosis SNOMED-CT Code Diagnosis ICD10 Code Diagnosis IMO Codes Diagnosis Note [id number] DINA HUGHES [facility] of [address] [address] 10/03/2025 13:38:11 10/03/2025 14:13:07 Itching of ear 496450593 L29.9 [id number] Sensorineu ral hearing loss of bilateral ears 426506009 H90.3 90874581 Health Concerns Section Related Observation LastModified by Organization Detai ls LastModified Time None Recorded Concern Status LastModified by Organization Details LastModified Time None Recorded Payers Encounter Date Sequence Insurance Name Policy Number Policy Mckinley Covered Member ID Mckinley Member ID Guarantor Name 10/03/2025 2 [place] [facility] Javier Carranza [id number] Javier Carranza 10/03/2025 1 [facility] (MEDICARE REPLACEMENT/ ADVANTAGE - PPO) [id number] Javier Carranza [id number] Javier Carranza Notes Date Note Type Note Provider Name and Address Organization Details Recorded Time 10/03/2025 text/html ROS as noted in the [...] working with power tools. JERRY LE MD [address] [place] [address], [phone], [facility] - [facility] 10/03/2025 16:00:41
== END ==
LOC: HO.CARD 13:43
PROVIDERS: PCP Family Medicine; Visit Provider Internal Medicine
DX: I34.81 Nonrheumatic mitral (valve) annulus calcification (principal)
CPT/HCPCS: 93306; Q9957

== ENCOUNTER → 2025-10-28 13:47 | Outpatient (BNV) | payer MEDICARE, MEDICAID, SELFPAY | PROVIDERS: PCP Family Medicine; Visit Provider Internal Medicine | DX: I35.0 Nonrheumatic aortic (valve) stenosis (principal); I34.81 Nonrheumatic mitral (valve) annulus calcification; I51.89 Other ill-defined heart diseases | CPT/HCPCS: 93306 ==

== ENCOUNTER 2025-11-01 14:34 | Outpatient (AMB) | payer MEDICARE, MEDICAID, SELFPAY ==
--- NOTE | 2025-11-01 14:36 | MHC.OFFVIS ---
Vital Signs 11/01/25 14:37 BP 157/74 H Blood Pressure Location Lt brachial Position Sitting Pulse 54 Pulse Source Pulse Oximeter Pulse Oximetry (%) 97 Oxygen Delivery Method Room Air Intake Visit Reasons: hep b vaccine Decorator Street [employer] Building Required: No Allergies onion Allergy (Intermediate, Verified 11/01/25 15:29) sneezing Peanut Butter Allergy (Intermediate, Verified 11/01/25 15:29) Sneezing cats Allergy (Mild, Uncoded 11/01/25 15:29) free text dust Allergy (Mild, Uncoded 11/01/25 15:29) free text HPI HPI hep b vaccine: Details: nurse visit for Hep B injection. [facility] Medical History Fatigue Encounter for immunization Weight loss Transaminitis Abdominal pain Obesity (BMI 30-39.9) Hyperlipidemia HTN (hypertension) Surgical History Back pain with history of spinal surgery Failed spinal cord stimulator Hx of colonoscopy History of cardiac catheterization (~2014) History of tooth extraction History of surgery History of spinal surgery History of surgery History of carpal tunnel syndrome History of neck surgery History of knee replacement procedure of right knee Family History Father No problems noted. Mother Diabetes mellitus Stroke Sister Hemorrhage Multi-organ failure with heart failure Daughter Diabetes mellitus Other Mental health disorder Substance use disorder Social History Housing: Apartment Alcohol intake: never Patient Tobacco Use Status: Former Tobacco user Tobacco use type: Cigar Cigarettes Per Day: 1 Years Smoked: 20 e-Cigarette/Vaping Use: Never Used Second Hand Smoke Exposure: Yes service: No Current occupational status: disabled Current occupational exposures/hazards: No Cognitive needs: No (cane) Hearing needs: No Vision needs: Yes (Glasses) Review of Systems Narrative nurse visit Physical Exam Exam Exam: nurse visit Vital Signs: Last Vital Signs Pulse 54 11/01/25 14:37 BP 157/74 H 11/01/25 14:37 Pulse Ox 97 11/01/25 14:37 Oxygen Delivery Method Room Air 11/01/25 14:37 Immunizations Engerix-B (PF) 20 mcg/mL intramuscular suspension Performing Provider: Margaret Malone CNP Performing Location: [facility] Administered by: Maryanne Parekh RN on 11/01/25 14:40 Dose Route Admin Location Dispensed Lot Number Expiration Date [facility] Mental Health Aides Teacher 1 mL IM Left Deltoid 1 mL [id number] 11/06/27 50769-977-89 [facility] Total Dispensed Waste 1 mL 0 % VIS Given Date VIS Provided VIS Publication Date 11/01/25 Single Vaccine 23 Eligibility Eligibility Date Funding Source Not [facility] Eligible 11/01/25 Private Assessment & Plan Assessment & Plan (1) Immunization due: Code(s): Z23 - Encounter for immunization Plan: nurse visit for immunization. Pt not seen by provider Plan as above Orders: Orders Hepatitis B Adult Immunization 11/01/25 Z23 - Encounter for immunization Coding Level of Care Code Established Pt Est Pt Level 1 (28734) Patient Type Established Diagnoses Immunization due Z23 Comment Nurse Visit Only
[2025-11-01 14:37] VITALS: BP 157/74; PULSE 54; O2SAT 97
--- OUTSIDE RECORDS SUMMARY | 2025-11-01 18:39 | XMS_ITS | Clinical Summary ---
Author Organization [facility] Address [address] [place] [address] Phone Care Team Providers Care Scrap Picker Name Role Phone Sher Guzman MD Primary Care Provider [phone]- [phone] Allergies No known active allergies Medications atorvastatin [...] 06/26/2025 NSTEMI (non-ST elevated myoc ardial infarction) ([facility] V24, [facility] V28) 06/24/2025 Surgical History Surgery Date Site/Laterality Comments APPENDECTOMY PROCEDURE: UT APPENDECTOMY CARPAL TUNNEL RELEASE PROCEDURE: HISTORICAL CARPAL TUNNEL REL CERVICAL LAMINECTOMY PROCEDURE: HISTORICAL CERV LAMINECTOMY Medical History Medical History Date Comments SLY (obstructive sleep apnea) 10/29/2017 DX :SLY (obstructive sleep apnea) Hypertension 10/29/2017 DX:Hypertension Depression 10/29/2017 DX:Depression Hyperlipidemia 10/29/2017 DX:Hyperlipidemi a CAD (coronary artery disease) 10/29/2017 DX :CAD (coronary artery disease); COMMENT: [place] 2001 Social History Tobacco Use Types Packs/Day [...] Depression Screening 11/28/2024 COVID-19 Vaccine (1 - 2024-2 6 season) 2025 Influenza Vaccine (#1) 2025 Hepatitis [...] Procedure Name Priority Date/Time Associated Diagnosis Comments LIPID PANEL WITH REFLEX TO DIRECT LDL Routine 06/24/2025 4:00 AM EDT COMPREHENSIVE METABOLIC PANEL STAT 06/23/2025 8:13 PM EDT from Last 3 Months or Most Recently Relevant to Health Maintenance Results * (ABNORMAL) Lipid panel with reflex to direct LDL (06/24/2025 4:00 AM EDT) Cholesterol 187 0 - 200 mg/dL LAB CHEMISTRY METHOD 06/24/2025 5:00 AM EDT [facility] Triglycerides 90 0 - 150 mg/dL LAB CHEMISTRY METHOD 06/24/2025 5:00 AM EDT [facility] HDL 45 >=40 mg/dL LAB CHEMISTRY METHOD 06/24/2025 5:00 AM [facility] LDL Calculated 124(H) 0 - 100 mg/dL LAB CHEMISTRY METHOD 06/24/2025 5:00 AM EDT [facility] VLDL Cholesterol Keven 18 mg/dL LAB CHEMISTRY METHOD 06/24/2025 5:00 AM [facility] Non HDL Chol. (LDL+VLDL) 142 <145 mg/dL LAB CHEMISTRY METHOD 06/24/2025 5:00 AM [facility] Chol/HDL Ratio 4.2 0.0 - 4.4 LAB CHEMISTRY METHOD 06/24/2025 5:00 AM [facility] Blood Venous blood specimen / Unknown Venipuncture / Unknown 06/24/2025 4:00 AM EDT 06/24/2025 4:30 AM EDT us Claude Spann MD LAB BLOOD ORDERABLES Final Resu lt [facility] [address] [place] [address], [place] [phone] * (ABNORMAL) Comprehensive metabolic panel (06/23/2025 8:13 PM EDT) Sodium 139 133 - 145 mmol/L LAB CHEMISTRY METHOD 06/23/2025 9:11 PM T [facility] Potassium 3.8 3.5 - 5.5 mmol/L LAB CHEMISTRY METHOD 06/23/2025 9:11 PM [facility] Chloride 104 96 - 110 mmol/L LAB CHEMISTRY METHOD 06/23/2025 9:11 PM [facility] CO2 29 21 - 32 mmol/L LAB CHEMISTRY METHOD 06/23/2025 9:11 PM [facility] Anion Gap 6 3 - 11 LAB CHEMISTRY METHOD 06/23/2025 9:11 PM [facility] Glucose 109(H) 70 - 100 mg/dL LAB CHEMISTRY METHOD 06/23/2025 9:11 PM [facility] BUN 16 5 - 25 mg/dL LAB CHEMISTRY METHOD 06/23/2025 9:11 PM [facility] Creatinine 1.29 0.70 - 1.30 mg/dL LAB CHEMISTRY METHOD 06/23/2025 9:11 PM [facility] eGFR 64 >=60 mL/min/1. 73m2 LAB CHEMISTRY METHOD 06/23/2025 9:11 PM [facility] Comment:Calculation based on the Chronic Kidney Disease Epidemiology Collaboration (CKD-EPI) equation refit without adjustment for race. BUN/Creatinine Ratio 12.4 LAB CHEMISTRY METHOD 06/23/2025 9:11 PM [facility] Calcium 9.4 8.5 - 10.5 mg/dL LAB CHEMISTRY METHOD 06/23/2025 9:11 PM [facility] AST (SGOT) 21 10 - 42 unit/L LAB CHEMISTRY METHOD 06/23/2025 9:11 PM [facility] ALT (SGPT) 37 10 - 60 unit/L LAB CHEMISTRY METHOD 06/23/2025 9:11 PM [facility] Alkaline Phosphatase 87 42 - 121 unit/L LAB CHEMISTRY METHOD 06/23/2025 9:11 PM [facility] Total Protein 6.5 6.0 - 8.0 g/dL LAB CHEMISTRY METHOD 06/23/2025 9:11 PM [facility] Albumin 3.7 3.2 - 5.0 g/dL LAB CHEMISTRY METHOD 06/23/2025 9:11 PM [facility] Total Bilirubin 0.5 0.0 - 1.4 mg/dL LAB CHEMISTRY METHOD 06/23/2025 9:11 PM EDT [facility] Blood Venous blood specimen / Unknown Venipuncture / Unknown 06/23/2025 8:13 PM EDT 06/23/2025 8:37 PM EDT us Ivan Ward MD LAB BLOOD ORDERABLES Erica l Result [facility] [address] [place] [address], [place] [phone] from Last 3 Months or Most Recently Relevant to Health Maintenance Insurance MEDICAID - [place] [employer] MEDICARE Advance Directives Documents on File Type Date Recorded Patient Loss Prevention/Safety District Manager Expl anation Advance Directives and Living Will [...] Communication Karen King Daughter Health Care Agent Nuviaseb King Daughter First [facility] Health Car e Agent Care Teams Scrap Picker Relationship Specialty Start Date End Date Sher Guzman MD [address] [place] [address] Dr Rodriugez [facility] PCP - General 03/03/20
--- OUTSIDE RECORDS SUMMARY | 2025-11-01 18:40 | XMS_ITS | Continuity of Care Document ---
Author Organization [place] - [facility], [facility] Address [address] [place] [address] Care Team Providers Care Energy Audit Advisor Name Role Phone AMY BRAVO Primary Care Provider [phone] MAYTE BUSTOS Referring Provider Assessment Encounter Date [...] in his hearing. All questions were answered. [email or web address] Not available 10/03/2025 15:23:29 Plan of Treatment [...] 0.01 % ear drops 2024 025 [facility], [address] [place] [address], [place], [address], 10/03/2025 14:11:47 Patient TargetsNo targets recorded. Patient InstructionsNo instructions recorded. Reason for Referral None Reported. Problems Name Problem SNOMED Code Status Onset Date Resolution Date Notes Provider Name and Address Organization Details Recorded Time Allergic rhinitis 97927295 Active 2022 Other allergic rhinitis; Note: Date Diagnosed : 12/06/2022 2:55 PM (J30.89) Not Available [facility] 4 03:04:24 Chronic rhinitis 46930007 Active 2022 Chronic rhinitis; Note: Date Diagnosed : 12/06/2022 2:55 PM (J31.0) Not Available [facility] 4 03:04:24 Nasal congestio n 54233776 Active 2022 Nasal congestio n; Note: Date Diagnosed : 12/06/2022 2:55 PM (R09.81) Not Available [facility] 4 03:04:23 Impacted cerumen of bilateral ears 93842447167 13092 Active 2022 Impacted cerumen, bilateral ; Note: Date Diagnosed : 12/10/2022 9:17 AM (H61.23) Not Available [facility] 4 03:04:24 Sensorine ural hearing loss of bilateral ears 461655318 Active 2022 Sensorine ural hearing loss, bilateral ; Note: Date Diagnosed : 02/16/2023 4:34 PM (H90.3) Not Available [facility] 4 03:04:24 Hypertrop hy of nasal turbinate s 52239014 Active 2022 Hypertrop hy of nasal turbinate s; Note: Date Diagnosed : 04/20/2023 12:30 PM (J34.3) Not Available [facility] 4 03:04:23 Chest pain 25730563 Active 2022 Other chest pain; Note: Date Diagnosed : 05/17/2023 11:09 AM (R07.89) Not Available [facility] 4 03:04:23 Deviated nasal septum 813367812 Active 2022 Deviated nasal septum; Note: Date Diagnosed : 05/20/2023 3:38 PM (J34.2) Not Available [facility] 4 03:04:24 Follow-up visit Active 2022 Medical surveilla nce following completed treatment ; Note: Date Diagnosed : 08/12/2023 10:02 AM (Z09) Not Available [facility] 4 03:04:25 Obstructi ve sleep apnea syndrome 11476079 Active 2022 Obstructi ve sleep apnea (adult) (pediatri c); Note: Date Diagnosed : 3 1:54 PM (G47.33) Not Available [facility] 4 03:04:25 Sensorine ural hearing loss of bilateral ears 696916249 Active 2024 MARGARET DANIELSON [address] [facility],[place] [address], [address] , [facility] - [facility] 5 09:18:58 Impacted cerumen in right ear 08206436957 57517 Active 2024 BING MCFARLAND MD [address] [facility],[place] [address], [place], [address] , [facility] - [facility] [place] 5 10:02:03 Itching of ear 208049258 Active 2024 DINA HUGHES [address] [place] [address],[place] [address], [address] , [facility] - [facility] 5 14:10:37 Problem Notes None recorded. [...] elayed release 02/02 completed Medicati on ID: [id number] B rand Name: omeprazo le Send Method: [...] e 137 mcg (0.1 %) nasal spray [place] 2 spray twice a day 2022 active Medicati on ID: [id number] D uration Value: 30 Brand Name: azelastaidan jose Send Method: E-Prescr ibed Sub s Allowed: subs OK Medic ationGen ericName : azelasti ne Not Available Not Available Not Available polyethyl fiordaliza glycol 3350 17 gram/dose oral powder 02/02 completed Medicati on ID: [id number] B rand Name: polyethy nanette glycol 3350 [...] nasal spray 02/02 completed Medicati on ID: [id number] B rand Name: ipratrop ium bromide Send [...] Updated DateTime 10/03/2025 165.1 cm 39.6 kg/m2 557129.98 g Evelin Mcwilliams [place] - [facility] 10/03/2025 13:48:31 Social History None recorded. Functional Status None recorded. Mental Status None recorded. Family History Nothing Reported. Medical History No medical history recorded. Past Encounters Encounter ID Performer Location Encounter Start Date Encounter Closed Date Diagnosis/Indication Diagnosis SNOMED-CT Code Diagnosis ICD10 Code Diagnosis IMO Codes Diagnosis Note [id number] DINA HUGHES [facility] of [address] [address] 10/03/2025 13:38:11 10/03/2025 14:13:07 Itching of ear 686072389 L29.9 4298747 Sensorineu ral hearing loss of bilateral ears 428805820 H90.3 85755420 Health Concerns Section Related Observation LastModified by Organization Detai ls LastModified Time None Recorded Concern Status LastModified by Organization Details LastModified Time None Recorded Payers Encounter Date Sequence Insurance Name Policy Number Policy Mckinley Covered Member ID Mckinley Member ID Guarantor Name 10/03/2025 2 [place] [facility] Javier Carranza [id number] Javier Carranza 10/03/2025 1 [facility] (MEDICARE REPLACEMENT/ ADVANTAGE - PPO) [id number] Javier Carranza [id number] Javier Carranza Notes Date Note Type Note [...] working with power tools. JERRY LE MD [address] [place] [address], [phone], [facility] - [facility] 10/03/2025 16:00:41
--- OUTSIDE RECORDS SUMMARY | 2025-11-01 18:40 | XMS_ITS | Data Portability ---
Author Organization [place] - [facility], Allergy Address [address] [address] Care Team Providers Care Horticulture Superintendent Name Role Phone AMY BRAVO Primary Care Provider MAYTE BUSTOS Referring Provider [phone] Assessment Encounter Date Assessment Date Assessment LastModified by Organization Details LastModified Time 06/17/2025 06/17/2025 F/U appt with Ortez 07/04 [email or web address] Not available 06/17/2025 09:20:14 07/11/2025 07/11/2025 - Right ear wax impaction. - Sleep apnea. The wax impaction in the right ear was successfully removed during the visit, and the patient reported improvement in symptoms. I recommend follow-up with the sleep doctor in [place] for ongoing management of sleep apnea. The [...] in his hearing. All questions were answered. [email or web address] Not available 10/03/2025 15:23:29 Plan of Treatment [...] oil 0.01 % ear drops 2024 025 [facility], [address] [place] [address], [place], [address], 10/03/2025 14:11:47 Patient TargetsNo targets recorded. Patient Instructions Encounter Date Encounter Id Patient Instructions Last Modified By Organization Details Last Modified Time 07/11/2025 [id number] Follow up with the sleep doctor in [place] for sleep apnea management. Continue using the [...] Address Organization Details Recorded Time Allergic rhinitis 13736969 Active 2022 Other allergic rhinitis; Note: Date Diagnosed : 12/06/2022 2:55 PM (J30.89) Not Available [facility] 4 03:04:24 Chronic rhinitis 79801105 Active 2022 Chronic rhinitis; Note: Date Diagnosed : 12/06/2022 2:55 PM (J31.0) Not Available [facility] 4 03:04:24 Nasal congestio n 23445834 Active 2022 Nasal congestio n; Note: Date Diagnosed : 12/06/2022 2:55 PM (R09.81) Not Available [facility] 4 03:04:23 Impacted cerumen of bilateral ears 11539822523 37591 Active 2022 Impacted cerumen, bilateral ; Note: Date Diagnosed : 12/10/2022 9:17 AM (H61.23) Not Available [facility] 4 03:04:24 Sensorine ural hearing loss of bilateral ears 377489904 Active 2022 Sensorine ural hearing loss, bilateral ; Note: Date Diagnosed : 02/16/2023 4:34 PM (H90.3) Not Available [facility] 4 03:04:24 Hypertrop hy of nasal turbinate s 69624348 Active 2022 Hypertrop hy of nasal turbinate s; Note: Date Diagnosed : 04/20/2023 12:30 PM (J34.3) Not Available [facility] 4 03:04:23 Chest pain 39865509 Active 2022 Other chest pain; Note: Date Diagnosed : 05/17/2023 11:09 AM (R07.89) Not Available [facility] 4 03:04:23 Deviated nasal septum 750489545 Active 2022 Deviated nasal septum; Note: Date Diagnosed : 05/20/2023 3:38 PM (J34.2) Not Available [facility] 4 03:04:24 Follow-up visit Active 2022 Medical surveilla nce following completed treatment ; Note: Date Diagnosed : 08/12/2023 10:02 AM (Z09) Not Available [facility] 4 03:04:25 Obstructi ve sleep apnea syndrome 24461756 Active 2022 Obstructi ve sleep apnea (adult) (pediatri c); Note: Date Diagnosed : 3 1:54 PM (G47.33) Not Available [facility] 4 03:04:25 Sensorine ural hearing loss of bilateral ears 879763963 Active 2024 MARGARET DANIELSON 100 [facility] 100, [place], [place], [address] , [facility] - [facility] 5 09:18:58 Impacted cerumen in right ear 67210696860 42245 Active 2024 BING MCFARLAND MD 100 [facility] 100, [place], [place], [address] , [facility] - [facility] 5 10:02:03 Itching of ear 569789883 Active 2024 DINA HGUHES 100 [facility] 100, [place], [place], [address] , [facility] 5 14:10:37 Problem Notes None recorded. Medical [...] elayed release 02/02 completed Medicati on ID: [id number] B rand Name: omeprazo le Send Method: [...] e 137 mcg (0.1 %) nasal spray Howe 2 spray twice a day 2022 active Medicati on ID: [id number] D uration Value: 30 Brand Name: azelasti ne Send Method: E-Prescr ibed Sub s Allowed: subs OK Medic ationGen ericName : azelasti ne Not Available Not Available Not Available polyethyl fiordaliza glycol 3350 17 gram/dose oral powder 02/02 completed Medicati on ID: [id number] B rand Name: polyethy nanette glycol 3350 [...] nasal spray 02/02 completed Medicati on ID: [id number] B rand Name: ipratrop ium bromide Send [...] Updated DateTime 07/11/2025 165.1 cm 39.6 kg/m2 586233.98 g Tahira Silva [facility] 07/11/2025 09:56:33 Date Recorded Body height Body mass index (BMI) Body weight Provider Name and Address Organization Details Last Updated DateTime 10/03/2025 165.1 cm 39.6 kg/m2 378558.98 g Evelin Mcwilliams [facility] 10/03/2025 13:48:31 Social History None recorded. Functional Status None recorded. Mental Status None recorded. Family History Nothing Reported. Medical History No medical history recorded. Past Encounters Encounter ID Performer Location Encounter Start Date Encounter Closed Date Diagnosis/Indication Diagnosis SNOMED-CT Code Diagnosis ICD10 Code Diagnosis IMO Codes Diagnosis Note [id number] MARGARET DANIELSON [facility] [address] [address] 06/17/2025 09:18:36 06/18/2025 13:05:57 Sensorineural hearing loss of bilateral ears [id number] H90.3 [id number] Audiologic al evaluation results: 06/17/2025 Right ear: Normal through 2 kHz sloping to a moderate sensorineu ral hearing loss with excellent word recognitio n. Left ear: Normal through 2 kHz sloping to a moderate sensorineu ral hearing loss with excellent word recognitio n. Tympanomet ry: Right Ear:[place] [id number] BING MCFARLAND MD [facility] [address] [address] 07/11/2025 08:47:37 07/11/2025 10:05:10 Impacted cerumen in right ear [id number] 126740 H61.21 [id number] Sensorineu ral hearing loss of bilateral ears 472394531 H90.3 84447653 Deviated nasal septum 12 1599003 J34.2 Obstructiv e sleep apnea syndrome 02174327 G47.33 [id number] DINA HUGHES [facility] [address] [address] 10/03/2025 13:38:11 10/03/2025 14:13:07 Itching of ear 800994336 L29.9 3549815 Sensorineu ral hearing loss of bilateral ears 533758383 H90.3 [id number] Health Concerns Section Related Observation LastModified by Organization Detai ls LastModified Time None Recorded Concern Status LastModified by Organization Details LastModified Time None Recorded Advance Directives Directive None Recorded Payers Insurance Date Sequence Insurance Name Policy Number Policy Mckinley Covered Member ID Mckinley Member ID Guarantor Name 10/10/2025 2 [place] [facility] Javier Carranza [id number] Javier Carranza 10/10/2025 1 [facility] (MEDICARE REPLACEMENT/ ADVANTAGE - PPO) [id number] Javier Carranza [id number] Javier Carranza Notes Date Note Type Note Provider Name and Address Organization Details Recorded Time 06/17/2025 text/html Patient complains about plugged feeling AD MARGARET DANIELSON 100 [facility],[place] [address], [place], [address], [facility] 06/17/2025 09:21:15 07/11/2025 text/html Javier Carranza [...] improvement in restfulness. BING SPAIN MD 100 [facility],[address], [address], [facility] 07/11/2025 10:04:48 10/03/2025 text/html ROS as noted [...] with power tools. JERRY LE MD 100 [facility] 100, [place], [address], [facility] 10/03/2025 16:00:41
== END 2025-11-01 15:25 | disposition home or self-care (01) ==
LOC: HO.HGI 14:34
PROVIDERS: PCP Family Medicine; Visit Provider Nurse Practitioner Family
DX: Z23 Encounter for immunization (principal)

== ENCOUNTER → 2025-11-01 14:34 | Outpatient (BNVA) | payer MEDICARE, MEDICAID, SELFPAY | PROVIDERS: PCP Family Medicine; Visit Provider Nurse Practitioner Family | DX: Z23 Encounter for immunization (principal); Z11.59 Encounter for screening for other viral diseases; Z72.89 Other problems related to lifestyle | CPT/HCPCS: 90471; 90746 ==

== ENCOUNTER 2025-11-25 14:32 | Outpatient (AMB) | payer MEDICARE, MEDICAID, SELFPAY ==
--- NOTE | 2025-11-25 14:35 | A.OFFVIS_ITS ---
Vital Signs 11/25/25 14:36 Height 5 ft 5 in Weight 240 lb 4.862 oz BMI 40.0 BP 130/78 Blood Pressure Location Lt brachial Position Sitting Pulse 62 Pulse Source Pulse Oximeter Intake Visit Reasons: f/up echo Allergies onion Allergy (Intermediate, Verified 11/01/25 15:29) sneezing Peanut Butter Allergy (Intermediate, Verified 11/01/25 15:29) Sneezing cats Allergy (Mild, Uncoded 11/01/25 15:29) free text dust Allergy (Mild, Uncoded 11/01/25 15:29) free text Medication List - Last Reconciled 11/25/25 by Igor Mejia MD atorvastatin 20 mg PO BEDTIME 90 days calcium polycarbophil (FiberCon) 625 mg PO DAILY 30 days citalopram 20 mg PO DAILY 90 days fluticasone propionate 50 mcg/actuation 2 sprays intranasal DAILY 30 days gabapentin 300 mg PO DAILY 90 days lisinopril-hydrochlorothiazide 20-25 mg 1 tab PO DAILY meloxicam 15 mg PO DAILY 30 days walker (Ultra-Light Rollator misc) Daily, As directed. 999 days HPI Comments Details: Javier returns for follow-up. He has a chronically abnormal looking EKG thought to be from left ventricular hypertrophy. He has undergone previous stress test as well as cardiac cathete rizations. In 2014, he underwent cardiac catheterization that showed no significant findings. This was repeated in November 2024 that was also unremarkable. However, he had yet another hospitalization to [facility] for chest pains. At that time, it seems that he was thought to have a mitral valve vegetation which led to a transesophageal echocardiogram. Diagnosis was eventually chordal calcification but I am not clear if that explains his chest pains. He did have slight troponin leak. Then eventually discharged home. Since then, no further chest pains. No other cardiac complaints either. Seems to be getting along okay. He is not doing home blood pressures. [facility] Medical History Fatigue Encounter for immunization Weight loss Transaminitis Abdominal pain Obesity (BMI 30-39.9) Hyperlipidemia HTN (hypertension) Surgical History Back pain with history of spinal surgery Failed spinal cord stimulator Hx of colonoscopy History of cardiac catheterization (~2014) History of tooth extraction History of surgery History of spinal surgery History of surgery History of carpal tunnel syndrome History of neck surgery History of knee replacement procedure of right knee Family History Father No problems noted. Mother Diabetes mellitus Stroke Sister Hemorrhage Multi-organ failure with heart failure Daughter Diabetes mellitus Other Mental health disorder Substance use disorder Social History Housing: Apartment Alcohol intake: never Patient Tobacco Use Status: Former Tobacco user Tobacco use type: Cigar Cigarettes Per Day: 1 Years Smoked: 20 e-Cigarette/Vaping Use: Never Used Second Hand Smoke Exposure: Yes service: No Current occupational status: disabled Current occupational exposures/hazards: No Cognitive needs: No (cane) Hearing needs: No Vision needs: Yes (Glasses) Review of Systems Const Denies weakness ENT Denies dizziness Card Denies chest pain, Denies chest pain with activity, Denies syncope, Denies rapid heart rate, Denies pedal edema, Denies edema, Denies leg edema, Denies lightheadedness, Denies palpitations, Denies dyspnea, Denies dyspnea on exertion and Denies orthopnea Resp Denies cough, Denies dyspnea and Denies dyspnea on exertion GI Denies hematochezia and Denies change in stool character Musc Denies abnormal gait, Denies muscle cramps, Denies muscle weakness, Denies numbness, Denies radiating pain into limb and Denies tingling Neuro Denies abnormal gait, Denies dizziness, Denies syncope, Denies numbness, Denies tingling and Denies weakness Endo Denies palpitations Physical Exam Vital Signs: Last Vital Signs Pulse 62 11/25/25 14:36 BP 130/78 11/25/25 14:36 BMI result Body Mass Index 40.0 Const General: comfortable and no acute distress Orientation/consciousness: patient oriented x3 HEENT Other: Unremarkable Head: Yes normal to inspection Neck Neck: Yes normal visual inspection Chest Chest palpation & inspection: normal inspection of the chest Resp Auscultation: clear to auscultation bilaterally Cardio Palpation: normal PMI Heart sounds: S1 normal heart sound present, S2 normal heart sound present, no gallops, no murmurs and no rubs GI Palpation (GI): Soft to palpation Back/Spine/Pelvis Other: unremarkable Skin General skin exam: no rashes or lesions noted Neuro General: patient oriented x3 Extrem General: Yes normal to inspection Psych Mental Status: mental status grossly normal Assessment & Plan Assessment & Plan (1) Chest pain: Code(s): R07.9 - Chest pain, unspecified Category: Medical (2) Abnormal EKG: Code(s): R94.31 - Abnormal electrocardiogram [ECG] [EKG] Category: Medical (3) Essential hypertension: Code(s): I10 - Essential (primary) hypertension Category: Medical (4) Aortic valve sclerosis: Code(s): I35.8 - Other nonrheumatic aortic valve disorders Category: Medical (5) Mitral annular calcification: Code(s): I34.81 - Nonrheumatic mitral (valve) annulus calcification Category: Medical (6) LVH (left ventricular hypertrophy): Code(s): I51.7 - Cardiomegaly Category: Medical Plan Cardiac studies summarized as below. Abnormal EKG, thought to be from rather left ventricular hypertrophy. Pharmacological stress test from June 2022 in [facility]-normal perfusion. [facility] which was also unremarkable. Cardiac catheterization from 2014-near normal coronary arteries with only minimal disease in the LAD. Repeat cardiac catheterization from November 2024-normal coronaries. ZXF-Lkyjm-Pdgd 2025-LVEF 55-60%. Left ventricular hypertrophy with moderate diastolic dysfunction. Mild aortic stenosis. Possible mitral valve vegetation. FAX-Skfxa-Zebk 2025-thickened and calcified mitral leaflets with chordal calcification. Highly mobile calcified linear structure, 1.1 cm in length attached to anterior leaflet representing cord than vegetation. Moderate a nnular calcification. Trace regurgitation. [facility]TE [place]- 10/2025- LVEF 71%. Moderate left ventricle hypertrophy. Moderate diastolic dysfunction. Mild aortic stenosis with moderate mitral annular ca lcification. Overall, uncertain etiology for his chest pains. Not clear if he has any microvascular disease as he did have some troponin leak during the recent [facility] hospitalization. Blood pressure is stable on the current regimen including lisinopril/HCTZ. He will need to follow home blood pressures and we will try to send a blood pressure monitor for home. We discussed about this today. Continue statins. Could potentially consider empiric nitrates if he has other etiologies like vasospasm, microvascular disease extra. Also consider cardiac MRI in the future, to look for other etiologies for left ventricular hypertrophy like hypertrophic cardiomyopathy, although hypertension induced left ventricular hypertrophy seems to be the most likely diagnosis. We will follow him up in about 6 months' time. Discussion Notes: I explained to the patient that the findings on his ultrasound, specifically a thickened heart muscle, are effects of his high blood pressure. I advised that I am making no changes to his medications today. I instructed him to check his blood pressure at home, with the goal of keeping it below 140/90 mmHg, and to let us know if it consistently stays above that level as we may need to add medication. I confirmed that a prescription for a home blood pressure cuff will be sent to his preferred pharmacy. I recommended he follow up in six months. Patient was informed and verbally consented to the use of an ambient scribe for clinic note documentation during this visit. Patient Instructions: - We are not making any changes to your medications today. - We will send a prescription for a blood pressure cuff to the [facility]. - Please check your blood pressure at home. - Keep your blood pressure below 140/90. - If your blood pressure is regularly higher than 140/90, please call our office. - Please schedule a follow-up appointment in 6 months. Coding Level of Care Code Est Pt Level 4 (69537) Add On Problem Visit Only Diagnoses Chest pain R07.9 Abnormal EKG R94.31 Essential hypertension I10 Aortic valve sclerosis I35.8 Mitral annular calcification I34.81 LVH (left ventricular hypertrophy) I51.7
[2025-11-25 14:36] VITALS: BP 130/78; PULSE 62; BMI 40.0
--- OUTSIDE RECORDS SUMMARY | 2025-11-25 16:53 | XMS_ITS | Clinical Summary ---
Author Organization [facility] Address [address] [place] [address] Phone Care Team Providers Care Photo Equipment Technician Name Role Phone Sher Guzman MD Primary Care Provider [phone]- [phone] Allergies No known active allergies Medications atorvastatin [...] Other chest pain 06/26/2025 NSTEMI (non-ST elevated myocardial infarction) 0 06/24/2025 Surgical History Surgery Date Site/Laterality Comments APPENDECTOMY PROCEDURE: MS APPENDECTOMY CARPAL TUNNEL RELEASE PROCEDURE: HISTORICAL CARPAL TUNNEL REL CERVICAL LAMINECTOMY PROCEDURE: HISTORICAL CERV LAMINECTOMY Medical History Medical History Date Comments SLY (obstructive sleep apnea) 10/29/2017 DX :SLY (obstructive sleep apnea) Hypertension 10/29/2017 DX:Hypertension Depression 10/29/2017 DX:Depression Hyperlipidemia 10/29/2017 DX:Hyperlipidemi a CAD (coronary artery disease) 10/29/2017 DX :CAD (coronary artery disease); COMMENT: [place] 2001 Social History Tobacco Use Types Packs/Day [...] Orientation Straight 11/26/2024 10 :55 AM EST Last Filed Vital Signs Vital Sign Reading [...] to direct LDL (06/24/2025 4:00 AM EDT) [facility] [address] Cholesterol 187 0 - 200 mg/dL LAB CHEMISTRY METHOD 06/24/2025 5:00 AM EDT [facility] Triglycerides 90 0 - 150 mg/dL LAB CHEMISTRY METHOD 06/24/2025 5:00 AM [facility] HDL 45 >=40 mg/dL LAB CHEMISTRY METHOD 06/24/2025 5:00 AM [facility] LDL Calculated 124(H) 0 - 100 mg/dL LAB CHEMISTRY METHOD 06/24/2025 5:00 AM [facility] VLDL Cholesterol Keven 18 mg/dL LAB CHEMISTRY METHOD 06/24/2025 5:00 AM [facility] Non HDL Chol. (LDL+VLDL) 142 <145 mg/dL LAB CHEMISTRY METHOD 06/24/2025 5:00 AM [facility] Chol/HDL Ratio 4.2 0.0 - 4.4 LAB CHEMISTRY METHOD 06/24/2025 5:00 AM [facility] Blood Venous blood specimen / Unknown Venipuncture / Unknown 06/24/2025 4:00 AM EDT 06/24/2025 4:30 AM EDT us Claude Spann MD LAB BLOOD ORDERABLES Final Resu lt [facility] [address] [place] [address], [place] [phone] * (ABNORMAL) Comprehensive metabolic panel (06/23/2025 8:13 PM EDT) Sodium 139 133 - 145 mmol/L LAB CHEMISTRY METHOD 06/23/2025 9:11 PM [facility] Potassium 3.8 3.5 - 5.5 mmol/L LAB CHEMISTRY METHOD 06/23/2025 9:11 PM [facility] Chloride 104 96 - 110 mmol/L LAB CHEMISTRY METHOD 06/23/2025 9:11 PM [facility] CO2 29 21 - 32 mmol/L LAB CHEMISTRY METHOD 06/23/2025 9:11 PM [facility] Anion Gap 6 3 - 11 LAB CHEMISTRY METHOD 06/23/2025 9:11 PM [facility] Glucose 109(H) 70 - 100 mg/dL LAB CHEMISTRY METHOD 06/23/2025 9:11 PM [facility] BUN 16 5 - 25 mg/dL LAB CHEMISTRY METHOD 06/23/2025 9:11 PM [facility] Creatinine 1.29 0.70 - 1.30 mg/dL LAB CHEMISTRY METHOD 06/23/2025 9:11 PM [facility] eGFR 64 >=60 mL/min/1. 73m2 LAB CHEMISTRY METHOD 06/23/2025 9:11 PM [facility] Comment:Calculation based on the Chronic Kidney Disease Epidemiology Collaboration (CKD-EPI) equation refit without adjustment for race. BUN/Creatinine Ratio 12.4 LAB CHEMISTRY METHOD 06/23/2025 9:11 PM [facility] Calcium 9.4 8.5 - 10.5 mg/dL LAB CHEMISTRY METHOD 06/23/2025 9:11 PM [facility] AST (SGOT) 21 10 - 42 unit/L LAB CHEMISTRY METHOD 06/23/2025 9:11 PM [facility] ALT (SGPT) 37 10 - 60 unit/L LAB CHEMISTRY METHOD 06/23/2025 9:11 PM [facility] Alkaline Phosphatase 87 42 - 121 unit/L LAB CHEMISTRY METHOD 06/23/2025 9:11 PM [facility] Total Protein 6.5 6.0 - 8.0 g/dL LAB CHEMISTRY METHOD 06/23/2025 9:11 PM [facility] Albumin 3.7 3.2 - 5.0 g/dL LAB CHEMISTRY METHOD 06/23/2025 9:11 PM [facility] Total Bilirubin 0.5 0.0 - 1.4 mg/dL LAB CHEMISTRY METHOD 06/23/2025 9:11 PM EDT [facility] Blood Venous blood specimen / Unknown Venipuncture / Unknown 06/23/2025 8:13 PM EDT 06/23/2025 8:37 PM EDT us Ivan Ward MD LAB BLOOD ORDERABLES Erica analia Result [facility] [address] [place] [address], from Last 3 Months or Most Recently Relevant to Health Maintenance Insurance [place]ICAID - [place] [employer] MEDICARE Advance Directives Documents on File Type Date Recorded Patient Crime Scene Specialist Expl anation Advance Directives and Living Will [...] Agents on File Name Relationship Healthcare Agent Relationsia p Communication Karen King Daughter Health Care Agent Nuvia King Daughter [facility] Car e Agent Care Teams Photo Equipment Technician Relationship Specialty Start Date End Date Sher Guzman MD [address] [place] [address] Dr Fantasma [place] PCP - General 03/03/20
--- OUTSIDE RECORDS SUMMARY | 2025-11-25 16:53 | XMS_ITS | Patient Health Record ---
Author Organization [facility] Address [address] [facility] [place] [address] Care Team Providers Care Athletic Training Internship Name Role Phone Megan TATE, Sher Primary Care Provider Frank Epps Unavailable [phone] Allergies No Known Allergies Reason For Referral [...] X ray : Foot, left 3V 04/06/2022 [id number] TENDON SHEATH/LIGAMENT 0 05/04/2022 Insurance Providers Payer Name Payer Address Payer Phone Subscriber Number Group Number Insured Name Patient Relationship to Insured Coverage Start Date Coverage End Date Medicare National [employer]t [employer] [address] [place] [address] [id number] Javier King Self - patient is the insured AARP Medicare Complete [address] [address] [place], [place] [id number] KingKimberlyis Self - patient is the insured Medical (General) History Medical History History ICD Code Hypertension Hyperlipidemia Anxiety Arthritis Back,Hip,and Knee pain Broken bones Depression Surgical History Surgery Date(Month/Year) carpal tunnel release right knee replacement neck surgery spine surgery Tooth extraction
--- OUTSIDE RECORDS SUMMARY | 2025-11-25 16:53 | XMS_ITS | Data Portability ---
Author Organization [place] - [facility], Allergy Address [address] [address] Care Team Providers Care Fixed Wing Pilot Name Role Phone AMY BRAVO Primary Care Provider MAYTE BUSTOS Referring Provider [phone] Assessment Encounter Date Assessment Date Assessment LastModified by Organization Details LastModified Time 06/17/2025 06/17/2025 F/U appt with Ortez 07/04 [email or web address] Not available 06/17/2025 09:20:14 07/11/2025 07/11/2025 - Right ear wax impaction. - Sleep apnea. The wax impaction in the right ear was successfully removed during the visit, and the patient reported improvement in symptoms. I recommend follow-up with the sleep doctor in [place] for ongoing management of sleep apnea. The [...] in his hearing. All questions were answered. [email or web address] Not available 10/03/2025 15:23:29 Plan of Treatment [...] oil 0.01 % ear drops 2024 025 [facility], [address] [place] [address], [place], [address], 10/03/2025 14:11:47 Patient TargetsNo targets recorded. Patient Instructions Encounter Date Encounter Id Patient Instructions Last Modified By Organization Details Last Modified Time 07/11/2025 [id number] Follow up with the sleep doctor in [place] for sleep apnea management. Continue using the [...] Address Organization Details Recorded Time Allergic rhinitis 63715792 Active 2022 Other allergic rhinitis; Note: Date Diagnosed : 12/06/2022 2:55 PM (J30.89) Not Available [facility] 4 03:04:24 Chronic rhinitis 24240417 Active 2022 Chronic rhinitis; Note: Date Diagnosed : 12/06/2022 2:55 PM (J31.0) Not Available [facility] 4 03:04:24 Nasal congestio n 40749565 Active 2022 Nasal congestio n; Note: Date Diagnosed : 12/06/2022 2:55 PM (R09.81) Not Available [facility] 4 03:04:23 Impacted cerumen of bilateral ears 96822359861 01017 Active 2022 Impacted cerumen, bilateral ; Note: Date Diagnosed : 12/10/2022 9:17 AM (H61.23) Not Available [facility] 4 03:04:24 Sensorine ural hearing loss of bilateral ears 468157952 Active 2022 Sensorine ural hearing loss, bilateral ; Note: Date Diagnosed : 02/16/2023 4:34 PM (H90.3) Not Available [facility] 4 03:04:24 Hypertrop hy of nasal turbinate s 73209414 Active 2022 Hypertrop hy of nasal turbinate s; Note: Date Diagnosed : 04/20/2023 12:30 PM (J34.3) Not Available [facility] 4 03:04:23 Chest pain 23500933 Active 2022 Other chest pain; Note: Date Diagnosed : 05/17/2023 11:09 AM (R07.89) Not Available [facility] 4 03:04:23 Deviated nasal septum 805562428 Active 2022 Deviated nasal septum; Note: Date Diagnosed : 05/20/2023 3:38 PM (J34.2) Not Available [facility] 4 03:04:24 Follow-up visit Active 2022 Medical surveilla nce following completed treatment ; Note: Date Diagnosed : 08/12/2023 10:02 AM (Z09) Not Available [facility] 4 03:04:25 Obstructi ve sleep apnea syndrome 72861459 Active 2022 Obstructi ve sleep apnea (adult) (pediatri c); Note: Date Diagnosed : 3 1:54 PM (G47.33) Not Available [facility] 4 03:04:25 Sensorine ural hearing loss of bilateral ears 056193680 Active 2024 MARGARET DANIELSON 100 [facility] 100, [place], [place], [address] , [facility] - [facility] 5 09:18:58 Impacted cerumen in right ear 70623832864 86542 Active 2024 BING MCFARLAND MD 100 [facility] 100, [place], [place], [address] , [facility] - [facility] [place] 5 10:02:03 Itching of ear 839230600 Active 2024 DINA HUGHES 100 [facility] 100, [place], [place], [address] , [facility] [place] 5 14:10:37 Problem Notes None recorded. Medical [...] elayed release 02/02 completed Medicati on ID: [id number] B rand Name: omeprazo le Send Method: [...] e 137 mcg (0.1 %) nasal spray [place] 2 spray twice a day 2022 active Medicati on ID: [id number] D uration Value: 30 Brand Name: azelasti ne Send Method: E-Prescr ibed Sub s Allowed: subs OK Medic ationGen ericName : azelasti ne Not Available Not Available Not Available polyethyl fiordaliza glycol 3350 17 gram/dose oral powder 02/02 completed Medicati on ID: [id number] B rand Name: polyethy nanette glycol 3350 [...] nasal spray 02/02 completed Medicati on ID: [id number] B rand Name: ipratrop ium bromide Send [...] Updated DateTime 07/11/2025 165.1 cm 39.6 kg/m2 974921.98 g Tahira Silva [facility] 07/11/2025 09:56:33 Date Recorded Body height Body mass index (BMI) Body weight Provider Name and Address Organization Details Last Updated DateTime 10/03/2025 165.1 cm 39.6 kg/m2 765276.98 g Evelin Mcwilliams [facility] 10/03/2025 13:48:31 Social History None recorded. Functional Status None recorded. Mental Status None recorded. Family History Nothing Reported. Medical History No medical history recorded. Past Encounters Encounter ID Performer Location Encounter Start Date Encounter Closed Date Diagnosis/Indication Diagnosis SNOMED-CT Code Diagnosis ICD10 Code Diagnosis IMO Codes Diagnosis Note [id number] MARGARET DANIELSON [facility] [address] [address] 06/17/2025 09:18:36 06/18/2025 13:05:57 Sensorineural hearing loss of bilateral ears [id number] H90.3 [id number] Audiologic al evaluation results: 06/17/2025 Right ear: Normal through 2 kHz sloping to a moderate sensorineu ral hearing loss with excellent word recognitio n. Left ear: Normal through 2 kHz sloping to a moderate sensorineu ral hearing loss with excellent word recognitio n. Tympanomet ry: Right Ear:[place] [id number] BING MCFARLAND MD [facility] [address] [address] 07/11/2025 08:47:37 07/11/2025 10:05:10 Impacted cerumen in right ear 1653707325 769155 H61.21 0206038 Sensorineu ral hearing loss of bilateral ears 988786289 H90.3 06994166 Deviated nasal septum 12 9610111 J34.2 Obstructiv e sleep apnea syndrome 25607408 G47.33 [id number] DINA HUGHES [facility] [address] [address] 10/03/2025 13:38:11 10/03/2025 14:13:07 Itching of ear 645615204 L29.9 5484739 Sensorineu ral hearing loss of bilateral ears 675827102 H90.3 21206966 Health Concerns Section Related Observation LastModified by Organization Detai ls LastModified Time None Recorded Concern Status LastModified by Organization Details LastModified Time None Recorded Advance Directives Directive None Recorded Payers Insurance Date Sequence Insurance Name Policy Number Policy Mckinley Covered Member ID Mckinley Member ID Guarantor Name 10/10/2025 2 [place]: [facility] Javier Carranza [id number] Javier Carranza 10/10/2025 1 [facility] (MEDICARE REPLACEMENT/ ADVANTAGE - PPO) [id number] Javier Carranza [id number] Javier Carranza Notes Date Note Type Note Provider Name and Address Organization Details Recorded Time 06/17/2025 text/html Patient complains about plugged feeling AD MARGARET DANIELSON 100 [facility],[place] [address], [place], [address], [facility] 06/17/2025 09:21:15 07/11/2025 text/html Javier Carranza [...] improvement in restfulness. BING SPAIN MD 100 [facility],[address], [address], [facility] 07/11/2025 10:04:48 10/03/2025 text/html ROS as [...] with power tools. JERRY LE MD 100 [facility] 100, [place], [address], [facility] 10/03/2025 16:00:41
--- OUTSIDE RECORDS SUMMARY | 2025-11-25 16:53 | XMS_ITS | Continuity of Care Document ---
Author Organization [place] - [facility], [facility] Address [address] [place] [address] Care Team Providers Care Assisted Living Director Name Role Phone AMY BRAVO Primary Care [...] in his hearing. All questions were answered. [email or web address] Not available 10/03/2025 15:23:29 Plan of Treatment [...] oil 0.01 % ear drops 2024 025 [facility], [address] [place] [address], [place], [address], 10/03/2025 14:11:47 Patient TargetsNo targets recorded. Patient InstructionsNo instructions recorded. Reason for Referral None Reported. Problems Name Problem SNOMED Code Status Onset Date Resolution Date Notes Provider Name and Address Organization Details Recorded Time Allergic rhinitis 05689136 Active 2022 Other allergic rhinitis; Note: Date Diagnosed : 12/06/2022 2:55 PM (J30.89) Not Available [facility] 4 03:04:24 Chronic rhinitis 11793978 Active 2022 Chronic rhinitis; Note: Date Diagnosed : 12/06/2022 2:55 PM (J31.0) Not Available [facility] 4 03:04:24 Nasal congestio n 38230630 Active 2022 Nasal congestio n; Note: Date Diagnosed : 12/06/2022 2:55 PM (R09.81) Not Available [facility] 4 03:04:23 Impacted cerumen of bilateral ears 75401837607 00221 Active 2022 Impacted cerumen, bilateral ; Note: Date Diagnosed : 12/10/2022 9:17 AM (H61.23) Not Available [facility] 4 03:04:24 Sensorine ural hearing loss of bilateral ears 201878249 Active 2022 Sensorine ural hearing loss, bilateral ; Note: Date Diagnosed : 02/16/2023 4:34 PM (H90.3) Not Available [facility] 4 03:04:24 Hypertrop hy of nasal turbinate s 25011650 Active 2022 Hypertrop hy of nasal turbinate s; Note: Date Diagnosed : 04/20/2023 12:30 PM (J34.3) Not Available [facility] 4 03:04:23 Chest pain 38697070 Active 2022 Other chest pain; Note: Date Diagnosed : 05/17/2023 11:09 AM (R07.89) Not Available [facility] 4 03:04:23 Deviated nasal septum 526254102 Active 2022 Deviated nasal septum; Note: Date Diagnosed : 05/20/2023 3:38 PM (J34.2) Not Available [facility] 4 03:04:24 Follow-up visit Active 2022 Medical surveilla nce following completed treatment ; Note: Date Diagnosed : 08/12/2023 10:02 AM (Z09) Not Available [facility] 4 03:04:25 Obstructi ve sleep apnea syndrome 99935001 Active 2022 Obstructi ve sleep apnea (adult) (pediatri c); Note: Date Diagnosed : 3 1:54 PM (G47.33) Not Available [facility] 4 03:04:25 Sensorine ural hearing loss of bilateral ears 330809957 Active 2024 MARGARET DANIELSON 100 [facility],[place] [address], [address] , [facility] - [facility] 5 09:18:58 Impacted cerumen in right ear 28893925762 42776 Active 2024 BING MCFARLAND MD 100 [facility],[place] [address], [place], [address] , [facility] - [facility] [place] 5 10:02:03 Itching of ear 857483875 Active 2024 DINA HUGHES [address] [place] [address],[place] [address], [address] , [facility] - [facility] 5 14:10:37 Problem Notes None [...] elayed release 02/02 completed Medicati on ID: [id number] B rand Name: omeprazo le Send Method: [...] e 137 mcg (0.1 %) nasal spray [place] 2 spray twice a day 2022 active Medicati on ID: [id number] D uration Value: 30 Brand Name: azelastaidan jose Send Method: E-Prescr ibed Sub s Allowed: subs OK Medic ationGen ericName : azelasti ne Not Available Not Available Not Available polyethyl fiordaliza glycol 3350 17 gram/dose oral powder 02/02 completed Medicati on ID: [id number] B rand Name: polyethy nanette glycol 3350 [...] nasal spray 02/02 completed Medicati on ID: [id number] B rand Name: ipratrop ium bromide Send [...] Updated DateTime 10/03/2025 165.1 cm 39.6 kg/m2 630473.98 g Evelin Mcwilliams [place] - [facility] 10/03/2025 13:48:31 Social History None recorded. Functional Status None recorded. Mental Status None recorded. Family History Nothing Reported. Medical History No medical history recorded. Past Encounters Encounter ID Performer Location Encounter Start Date Encounter Closed Date Diagnosis/Indication Diagnosis SNOMED-CT Code Diagnosis ICD10 Code Diagnosis IMO Codes Diagnosis Note [id number] DINA HUGHES [facility] [address] [address] 10/03/2025 13:38:11 10/03/2025 14:13:07 Itching of ear 907488118 L29.9 0911630 Sensorineu ral hearing loss of bilateral ears 768881914 H90.3 58806347 Health Concerns Section Related Observation LastModified by Organization Detai ls LastModified Time None Recorded Concern Status LastModified by Organization Details LastModified Time None Recorded Payers Encounter Date Sequence Insurance Name Policy Number Policy Mckinley Covered Member ID Mckinley Member ID Guarantor Name 10/03/2025 2 [place] [facility] Javier Carranza [id number] Javier Carranza 10/03/2025 1 [facility] (MEDICARE REPLACEMENT/ ADVANTAGE - PPO) [id number] Javier Carranza [id number] Javier Carranza Notes Date Note Type Note [...] working with power tools. JERRY LE MD [address] [place] [address], [address], [facility] - [facility] 10/03/2025 16:00:41
== END 2025-11-25 14:49 | disposition home or self-care (01) ==
LOC: HO.HCS 14:33
PROVIDERS: PCP Family Medicine; Visit Provider Internal Medicine
DX: R07.9 Chest pain, unspecified (principal); R94.31 Abnormal electrocardiogram [ECG] [EKG]; I10 Essential (primary) hypertension; I35.8 Other nonrheumatic aortic valve disorders; I34.81 Nonrheumatic mitral (valve) annulus calcification; I51.7 Cardiomegaly
CPT/HCPCS: 99214; G2211

== ENCOUNTER → 2025-11-25 14:32 | Outpatient (BNVA) | payer MEDICARE, MEDICAID, SELFPAY | PROVIDERS: PCP Family Medicine; Visit Provider Internal Medicine | DX: R07.9 Chest pain, unspecified (principal); R94.31 Abnormal electrocardiogram [ECG] [EKG]; I10 Essential (primary) hypertension; I51.7 Cardiomegaly; I35.8 Other nonrheumatic aortic valve disorders; I34.81 Nonrheumatic mitral (valve) annulus calcification | CPT/HCPCS: 99212 ==